=== PATIENT | male | born 1975 | race Caucasian/White ===

== ENCOUNTER 2019-05-20 12:42 | Inpatient (IN) ==
[2019-05-20] MEDS ORDERED: SODIUM CHLORIDE 0.9% 500 ML IV ONE ×2 (13:00→13:13)
[2019-05-20] MEDS ORDERED: ALBUT/IPRATROP 3MG/0.5MG NEB 3 ML VIAL NEB STA (13:13)
--- NOTE | 2019-05-20 13:24 | XRay Report ---
XR chest 1V portable CLINICAL HISTORY: Chest Pain dyspnea COMPARISON STUDY: 04/24/2019 FINDINGS: Mild cardiomegaly. Mild prominence of pulmonary vasculature. Diaphragms are smooth. No foca l infiltrate. IMPRESSION: Mild congestive failure ACT 112: Negative or not required by law. The above report was generated using voice recognition software. It may contain grammatical, syntax or spelling errors. Electronically signed by: Peewee Odell M.D. 05/20/2019 1:23 PM
[2019-05-20 13:30] LABS: Base Excess VBG 3.9 mEq/L; pH VBG 7.48 (7.36-7.41)
[2019-05-20 13:33] LABS: Basophils # (auto) 0.06 K/uL (0-0.2); Basophils % (auto) 0.7 %; Eosinophils # (auto) 0.47 K/uL (0-0.5); Eosinophils % (auto) 5.6 %; Hematocrit (blood only) 46.3 % (42-52); Hemoglobin 15.7 g/dL (14.0-18.0); Immature Granulocytes # (auto) 0.04 K/uL (0.00-0.02); Immature Granulocytes % (auto) 0.5 %; Lymphocytes # (auto) 1.46 K/uL (1.2-3.4); Lymphocytes % (auto) 17.4 %; Mean Corpuscular Hemoglobin 30.7 pg (25-34); Mean Corpuscular Hgb Conc 33.9 g/dL (32-36); Mean Corpuscular Volume 90.6 fL (80-100); Monocytes # (auto) 1.08 K/uL (0.11-0.59); Monocytes % (auto) 12.9 %; Neutrophils # (auto) 5.28 K/uL (1.4-6.5); Neutrophils % (auto) 62.9 %; Nucleated RBC # (auto) 0.02 K/uL (0-0); Nucleated RBC % (auto) 0.2 %; Platelet Count 184 K/uL (130-400); RDW Standard Deviation 46.3 fL (36.4-46.3); Red Blood Count 5.11 M/uL (4.7-6.1); White Blood Count 8.39 K/uL (4.8-10.8)
[2019-05-20 13:46] LABS: Alanine Aminotransferase 48 U/L (12-78); Albumin Level 3.6 gm/dl (3.4-5.0); Aspartate Aminotransferase 46 U/L (15-37); BUN Creatinine Ratio 7.1 (10-20); Blood Urea Nitrogen 7 mg/dl (7-18); Calcium 9.3 mg/dl (8.5-10.1); Carbon Dioxide 28 mmol/L (21-32); Chloride 105 mmol/L (98-107); Est GFR (African American) 102.2; Est GFR (Non-African American) 88.1; Glucose 118 mg/dl (70-99); Lipase 346 U/L (73-393); Potassium 3.4 mmol/L (3.5-5.1); Sodium 140 mmol/L (136-145)
[2019-05-20 14:01] LABS: Albumin Globulin Ratio 0.9 (0.9-2); Alkaline Phosphatase 81 U/L (45-117); Bilirubin,Total 0.9 mg/dl (0.2-1); Magnesium 1.7 mg/dl (1.8-2.4); Phosphorus 1.3 mg/dl (2.5-4.9); Total Protein 7.6 gm/dl (6.4-8.2); Troponin I < 0.015 ng/ml (0-0.045)
[2019-05-20] MEDS ORDERED: POTASSIUM PHOS 3 MMOL/1 ML INFUSION IV STA (14:18)
[2019-05-20] MEDS ORDERED: POT PHOSPHATE MONOBASIC W/ SOD TAB PO STA (14:18)
[2019-05-20] MEDS ORDERED: OPTIRAY 320 125ml IV PRN (14:23)
[2019-05-20] MEDS ORDERED: POTASSIUM CHLORIDE 20 MEQ TABCR PO STA (14:26)
[2019-05-20] MEDS ORDERED: POTASSIUM PHOSPHATE 9 MMOL in SODIUM CHLORIDE 0.9% 250 ML IV ONE (14:30)
[2019-05-20] MEDS: MAGNESIUM SULFATE / D5W 1 GM/100 ML BAG IV SCH ×2 (14:35→16:31)
--- NOTE | 2019-05-20 14:40 | CT Scan Report ---
CT ANGIOGRAM OF THE CHEST CLINICAL HISTORY: Tachycardia. Atypical chest pain. COMPARISON STUDY: March 2019 TECHNIQUE: Following the IV administration of 116 mL of Optiray-320, CT angiogram of the thorax was p erformed from the thoracic inlet to the lung bases utilizing the pulmonary embolus protocol. Images a re reviewed in the axial, sagittal, and coronal planes. IV contrast was administered without complica tion. MIP imaging was performed. A dose lowering technique was utilized adhering to the principles o f ALARA. CT DOSE: 1006.90 mGy.cm FINDINGS: There is hepatic steatosis. There are coronary artery calcifications. There are borderline enlarged mediastinal lymph nodes similar to the prior study. There was no evidence of thoracic aortic dilatation. There were no pulmonary artery filling defects to indicate acute pulmonary embolism. No pleural effusions are visualized. There is no focal pulmonary consolidation. There are mild dependent atelectatic changes. There is min or asthma respiratory artifact. IMPRESSION: 1. No evidence of acute pulmonary embolism 2. No evidence of acute parenchymal consolidation 3. Stable borderline enlarged mediastinal lymph nodes 4. Hepatic steatosis 5. Coronary artery calcifications ACT 112: Negative or not required by law. Electronically signed by: Bryant Rudolph M.D. 05/20/2019 2:39 PM
--- NOTE | 2019-05-20 16:06 | History & Physical Report ---
Date of Service May 20, 2019 Assessment & Plan (1) AMBRIZ (dyspnea on exertion): (2) Tachycardia: This is a 43-year-old male who has significant PMH of KARLO untreated and morbid obesity who presents to ED secondary to progressive dyspnea x1 month. He is morbidly obese and has untreated KARLO due to intolerant of mask. After reviewing previous ED records and current records there are no signs of an infectious process is in place. His BNP, troponin and TSH are within normal limits. Chest CT was negative for PE, borderline enlarged mediastinal lymph nodes, body steatosis and coronary artery calcifications no acute cardiopulmonary abnormality. He does have a prior history of smoking and outpatient PFT testing is being arranged as well as repeat sleep study. Currently he is saturating well on room air but does elicit to significant AMBRIZ and clearly has conversational dyspnea. Likely etiology is secondary to untreated sleep apnea and questionable underlying pulmonary hypertension, CAD or COPD secondary to history of smoking. Admit to PCU and monitor on telemetry Obtain echocardiogram Bilateral venous Doppler secondary to lower extremity edema to rule out DVT Obtain ABG Encourage CPAP use at at bedtime, will consult respiratory Xopenex 4 times daily as needed shortness of breath Patient will need outpatient PFT testing as well as sleep study Weight loss is significantly encouraged as well as alcohol cessation (3) Hypophosphatemia: Patient with numerous electrolyte abnormalities noted on lab work He does report taking injk-lgt-yipwalx diuretic, diurex which may be playing a factor as well as BID nexium Phos Low at 1.3, received potassium phosphate supplementation in ED Repeat in a.m. recommend not using OTC diurex (4) Hypomagnesemia: Mag 1.7, received 1 g mag sulfate x2 Repeat in a.m. (5) Hypokalemia: K3.4, received 40 M EQ of KCl Repeat in a.m. (6) KARLO (obstructive sleep apnea): Encourage sleep study as outpatient Placed order for CPAP and consult respiratory (7) Morbid obesity: Encourage weight loss Consult dietitian (8) Alcohol abuse: Patient reports 2-3 whiskey and moore daily AWSS prn protocol (9) DVT prophylaxis: SCD Disposition: admit to PCU, discharge to home when able Follow up: PCP Dr. Coffman upon discharge to arrange outpt PFT, sleep study Pt was seen and examined in collaboration with Dr. Ezekwem, please see addendum History of Present Illness Chief Complaint: Progressive SOB x 1 month. Primary Care Provider: Lenny Coffman MD This is a 43-year-old male who has significant PMH of KARLO untreated and morbid obesity who presents to ED secondary to progressive dyspnea x1 month. Patient was seen and evaluated in ED on 04/23 secondary to shortness of breath. Mother and friend are at bedside. His symptoms had preceded that visit for approximately 2 to 4 weeks but got significantly worse. When in ED he underwent CT scan of chest which was negative for acute abnormality but did reveal saber sheath configuration of the trachea of unclear significance. He was diagnosed with possible viral bronchitis and treated with IV fluids, IV Solu-Medrol and nebulizer treatments with mild improvement. He was set up with outpatient pulmonary evaluation by Dr. Vaughn on 05/07/2019. At that time his dyspnea etiology still uncertain and he was started on Stiolto and prn albuterol. Inhaler treatments help minimally. He further was prescribed PFT evaluation, ABG and sleep study. His sleep study is to be arranged for next week. He does have a history of KARLO approximately 10 years ago; however, significantly noncompliant with CPAP due to, "ripping the mask off." Last use approximately 1 to 2 months ago. Today he was seen and evaluated by [facility] PCP Dr. Coffman to establish care. EKG was done in office which revealed tsinus tachycardia 113 with T wave flattening in leads III and aVF. Given continued complaints of progressive shortness of breath he was referred to ED for further evaluation. Shortness of breath is worse with exertion and conversation. Even minimal exertion including walking from parking lot to waiting room makes him extremely short of breath. With shortness of breath he gets chest tightness and feels he is unable to take deep breath. He also elicits to associated lightheadedness with shortness of breath. He does complain of lower extremity swelling which is unchanged for him. Left has been greater than right secondary to prior history of cellulitis in left lower extremity. He is significantly overweight and states he has gained approximately 75 pounds for the past year. He admits to taking faae-cxr-gpcznuu diuretics called, "diurex," since his visit with Dr. Vaughn on 05/07/2019 due to swelling. He has not noticed any improvement. His appetite has otherwise been normal, he denies any recent illness, fever, chills, sweats, syncope, dizziness, palpitations, cough, hemoptysis, URI symptoms, nausea, vomiting, abdominal pain, diarrhea, melena, medic easier, dysuria, increased urgency frequency with urination. In ED patient was noted to have significant electrolyte abnormality with potassium 3.4, phos 1.3, mag 1.7. His troponin was WNL, BNP 28, TSH 1.66, normal albumin, BUN 7, creatinine 1.04, H&H stable at 15.7 and 46.3. He was afebrile but modestly tachycardic in the 120s. His blood pressure was stable and he was saturating well on room air. While in ED he received IVF, potassium, magnesium and phosphorus replacement. Initial chest x-ray concerning for congestive heart failure. CTA performed which is negative for PE, borderline enlarged mediastinal lymph nodes, hepatic steatosis and coronary artery calcification but no acute abnormality. Allergies Allergy/AdvReac Type Severity Reaction Status Date / Time No Known Allergies Allergy Unknown Verified 05/20/19 14:49 Home Medications Home Medications Medication Instructions Recorded Confirmed Type esomeprazole magnesium 20 mg 20 mg PO BID #180 cap 02/24/19 05/20/19 Rx capsule,delayed release albuterol sulfate 90 mcg/actuation 2 puff INH Q4H PRN 05/07/19 05/20/19 History aerosol inhaler buspirone 10 mg tablet 10 mg PO DAILY PRN tab 05/07/19 05/20/19 History albuterol sulfate 2.5 mg INH QID PRN #75 ml 05/11/19 05/20/19 Rx magnesium salicylate-caffeine 1 tab PO DAILY 05/20/19 05/20/19 History [Diurex] multivitamin 1 tab PO DAILY 05/20/19 05/20/19 History Past Med/Surg History Medical History (Updated 05/20/19 @ 16:58 by Hillary Alcaraz PA-C) Adult body mass index 40 and over Cellulitis KARLO (obstructive sleep apnea) Sleep apnea Surgical History (Updated 05/20/19 @ 16:22 by Hillary Alcaraz PA-C) History of ear, nose, and throat (ENT) surgery to correct KARLO, unsuccessful History of nasal septoplasty History of tonsillectomy and adenoidectomy Family History Father Hypertension Mother Heart disease, Onset Age: 60 Myocardial infarction Social History Preferred Language: Danish Communication Ability: Effective 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 Frausto addendum for findings on PE. Results & Data Vital Signs (Past 12 Hours) Vital Signs Temp Pulse Pulse Resp BP Pulse Ox 05/20/19 14:32 119 H 18 95 05/20/19 14:01 114 H 21 93 05/20/19 14:00 118 H 32 H 130/97 92 05/20/19 13:32 112 H 18 92 05/20/19 13:31 115 H 19 94 05/20/19 13:30 110 H 26 H 155/94 H 93 05/20/19 13:22 115 H 28 H 139/109 H 95 05/20/19 13:02 95 05/20/19 13:00 117 H 26 H 05/20/19 12:57 94 05/20/19 12:51 36.5 C 129 H 30 H 180/132 H 96 05/20/19 12:50 121 H 17 180/132 H Laboratory Results Short CBC 05/20/19 Range/Units 13:11 WBC 8.39 (4.8-10.8) K/uL Hgb 15.7 (14.0-18.0) g/dL Hct 46.3 (42-52) % Plt Count 184 (130-400) K/uL BMP 05/20/19 13:11 Sodium 140 Potassium 3.4 L Chloride 105 Carbon Dioxide 28 BUN 7 Creatinine 1.04 Glucose 118 H Calcium 9.3 Cardiac Enzymes 05/20/19 Range/Units 13:11 Troponin I < 0.015 (0-0.045) ng/ml Liver Function 05/20/19 Range/Units 13:11 Total Bilirubin 0.9 (0.2-1) mg/dl AST 46 H (15-37) U/L ALT 48 (12-78) U/L Alkaline Phosphatase 81 (45-117) U/L Albumin 3.6 (3.4-5.0) gm/dl Diagnostic Findings CXR: IMPRESSION: Mild congestive failure Chest CTA: IMPRESSION: 1. No evidence of acute pulmonary embolism 2. No evidence of acute parenchymal consolidation 3. Stable borderline enlarged mediastinal lymph nodes 4. Hepatic steatosis 5. Coronary artery calcifications Medications Administered Potassium Phosphate 9 mmol/ (Sodium Chloride) 253 mls @ 88 mls/hr IV ONE ONE Stop: 05/20/19 17:22 Last Admin: 05/20/19 14:53 Dose: 88 mls/hr Documented by: [id number] Ioversol (Optiray 320 125ml) 116 ml IV ONCE PRN PRN Reason: Interaction Checking Stop: 05/24/19 14:22 Last Admin: 05/20/19 14:24 Dose: 116 ml Documented by: [id number] Discontinued Medications Albuterol (Duoneb) 3 ml NEB NOW STA Stop: 05/20/19 13:14 Last Admin: 05/20/19 13:32 Dose: 3 ml Documented by: [id number] Sodium Chloride (Nss) 500 mls @ 999 mls/hr IV .Q31M ONE Stop: 05/20/19 13:30 Last Admin: 05/20/19 13:17 Dose: Not Given Documented by: [id number] Sodium Chloride (Nss) 500 mls @ 999 mls/hr IV .Q31M ONE Stop: 05/20/19 13:43 Last Infusion: 05/20/19 13:57 Dose: 0 mls/hr Documented by: [id number] Admin: 05/20/19 13:26 Dose: 999 mls/hr Documented by: [id number] Magnesium Sulfate/Dextrose (Magnesium Sulfate / D5w) 1 gm in 100 mls @ 100 mls/hr IV Q1H SADIQ Stop: 05/20/19 16:29 Last Admin: 05/20/19 16:31 Dose: 100 mls/hr Documented by: [id number] Infusion: 01/22/20 15:59 Dose: 0 mls/hr Documented by: [id number] Admin: 05/20/19 14:35 Dose: 100 mls/hr Documented by: [id number] Potassium Chloride (Klor-Con M20) 40 meq PO NOW STA Stop: 05/20/19 14:27 Last Admin: 05/20/19 14:36 Dose: 40 meq Documented by: [id number] Potassium Phosphate (Potassium Phosphate Replace) 9 mmol IV NOW STA Stop: 05/20/19 14:19 Last Admin: 05/20/19 14:46 Dose: Not Given Documented by: [id number] Potassium Phosphate (Phospha 250 Neutral 155-852-130 Mg) 2 tab PO NOW STA Stop: 05/20/19 14:19 Last Admin: 05/20/19 14:36 Dose: 2 tab Documented by: [id number] ECG Rate (beats per minute): 117 Rhythm: sinus tachycardia Findings: + RBBB Code Status & VTE Plan Code Status Full Code VTE Prophylaxis Plan VTE Prophylaxis will be ordered: Yes Supervising Physician Co-Signing Physician Notes 43-year-old man with history of obesity, KARLO, not on CPAP who presented with progressive dyspnea on exertion for over 1 month. Patient seen with Patty ROPER I obtained history and did the physical exam. History significant for progressively worsening dyspnea on exertion associated with chest tightness, usually on walking a few feet. Denied any cough, chest pain, orthopnea, PND. Reports chronic left leg swelling since after cellulitis sometime ago. Denied any fevers, chills, rhinorrhea, congestion, sore throat. Patient has been seen by delicatessen department manager 2 weeks ago and planned for sleep study and PFT but was sent in from PCPs office for worsening dyspnea on exertion and tachycardia Reprots some mild improvement with albuterol occasionally. Former smoker, quit 10 years ago. Smoked about 1/2 ppd then Drinks 2-3 whiskey per day. No history of alcohol withdrawal symptoms Has not been using his CPAP for over 2 months. Reports the mask is usually off when he wakes up so he stopped using it. On physical exam, General: Obese man, thick neck Eyes: PERRL, conjunctivae normal, not pale, anicteric sclerae, EOM intact bilaterally ENMT: External ear and nose normal, oropharynx normal Neck: Normal visual inspection, no tracheal deviation, no swelling noted Respiratory: Normal respiratory effort, no respiratory distress, lungs clear to auscultation, no crackles and no wheezes Cardiovascular: Pulse is RRR. S1 S2 Chest (Breasts): Chest: normal inspection of chest, erythematous papules on anterior chest (patient stated this is chronic) Gastrointestinal (Abdomen): Abdomen is not distended, soft, non-tender to palpation, no guarding, no palpable hepatosplenomegaly, normal bowel sounds Musculoskeletal: No cyanosis or clubbing, all extremities motor strength 5/5, trace leg edema (Left >Right), no calf tenderness Genitourinary: No CVA tenderness Skin: No rash noted on gross inspection, No ulcers noted Neurologic: Alert and oriented x 3, No focal weakness, sensation grossly intact Psychiatric: Alert and oriented x 3, euthymic affect, no depressed affect Lymphatic: No cervical lymphadenopathy CT PE negative for PE BNP 28 LE dopplers negative for DVT Trop <0.015 K is 3.4 Phosp 1.3 Mag 1.7 Dyspnea on exertion, progressive, over weeks Maybe related to possible pulm hypertension in the setting of poorly controlled KARLO Get 2D Echo Counselled patient on need for adherence to CPAP, weight loss measures Needs outpatient sleep study and PFT Consider pulm consult depending on findings of Echo Will need assessment for ambulatory oxygen prior to discharge Continue albuterol nebs prn shortness of breath CPAP HS Hypokalemia, hypomagnesiemia, Hypophosphatemia Likely related to over the counter diuretics (Diurex) that patient reports he has been taking for the past few weeks Advised to discontinue this for now Replete electrolytes DVT ppx - hep sq Other plans as detailed by Hillary Alcaraz PA-C
[2019-05-20 16:36] LABS: HCO3 ABG 26 mmol/L (19-24); Oxygen Saturation ABG 95.2 % (90-95); PCO2 ABG 34 mmHg (35-46); PO2 ABG 69 mmHg (80-95); pH ABG 7.49 (7.35-7.45)
[2019-05-20 16:40] LABS: Allen Test Pos (Pos)
--- NOTE | 2019-05-20 17:24 | Ultrasound Report ---
US venous doppler LE CLINICAL HISTORY: 43 years-old Male presenting with edema. TECHNIQUE: Real-time grayscale and color and spectral Doppler ultrasound imaging of the veins of the bilateral lower extremities was performed. Compression and augmentation were also utilized. COMPARISON: 03/11/2018. FINDINGS: RIGHT: Common femoral vein: Patent. Greater saphenous vein (superficial): Patent. Deep femoral vein: Patent. Femoral vein: Patent. Popliteal vein: Patent. Calf veins: Patent. LEFT: Common femoral vein: Patent. Greater saphenous vein (superficial): Patent. Deep femoral vein: Patent. Femoral vein: Patent. Popliteal vein: Patent. Calf veins: Patent. Other: None. IMPRESSION: No evidence of deep venous thrombosis. ACT 112: Negative or not required by law. Electronically signed by: Lenny Judge M.D. 05/20/2019 5:23 PM
[2019-05-20] MEDS ORDERED: LORazepam 1 MG TAB PO PRN (17:39)
[2019-05-20] MEDS ORDERED: ACETAMINOPHEN 325 MG TAB PO PRN (17:39)
[2019-05-20] MEDS ORDERED: ONDANSETRON INJ 2 MG/ML 2 ML VIAL IV PRN (17:39)
[2019-05-20] MEDS ORDERED: ALUMINUM/MAGNESIUM SUSP 30 ML UDC PO PRN (17:39)
[2019-05-20] MEDS ORDERED: MAGNESIUM HYDROXIDE SUSP 30 ML UDC PO PRN (17:39)
[2019-05-20] MEDS ORDERED: POLYETHYLENE (MIRALAX) 17 GM PACK PO PRN (17:39)
[2019-05-20] MEDS ORDERED: LEVALBUTEROL HCL 0.63 MG/3 ML NEB NEB PRN (17:39)
[2019-05-20] MEDS: PANTOprazole 40 MG TAB PO SCH (21:40)
[2019-05-20] MEDS: HEPARIN SOD 5,000 UNIT/0.5 ML VIAL SQ SCH (21:41)
--- NOTE | 2019-05-20 22:51 | Emergency Department Note ---
Entered by Ani Mcadams acting as a scribe for Valeriano Smith MD History of Present Illness General Chief complaint: Tachycardia Stated complaint: ELEVATED HEART RATE,SOB Time Seen by Provider: 05/20/19 12:59 Source: patient History of Present Illness Provider complaint: shortness of breath Onset (ago): month(s) 2 Location: chest Pain Consistency: + other (worsening) Relieved By: + none Exacerbated By: + movement Associated symptoms: + chest pain The patient is a 43 year old male who presents to the Emergency Room with complaints of worsening shortness of breath for the past 2 months. The patient reports that he was here for shortness of breath in March and notes that his symptoms has not resolved. He states that he has chest tightness, but denies any pain. He reports that movement worsens his shortness of breath. The patient states that he saw his PCP this morning and referred him to the ED because of increased heart rate. He mentions that he has a history of sleep apnea. He mentions that he quit using tobacco 10 years ago. He reports that he gained 100 lbs this past year. Home Medications Home Medications Medication Instructions Recorded Confirmed Type esomeprazole magnesium 20 mg 20 mg PO BID #180 cap 02/24/19 05/20/19 Rx capsule,delayed release albuterol sulfate 90 mcg/actuation 2 puff INH Q4H PRN 05/07/19 05/20/19 History aerosol inhaler buspirone 10 mg tablet 10 mg PO DAILY PRN tab 05/07/19 05/20/19 History albuterol sulfate 2.5 mg INH QID PRN #75 ml 05/11/19 05/20/19 Rx magnesium salicylate-caffeine 1 tab PO DAILY 05/20/19 05/20/19 History [Diurex] multivitamin 1 tab PO DAILY 05/20/19 05/20/19 History Allergies Allergy/AdvReac Type Severity Reaction Status Date / Time No Known Allergies Allergy Unknown Verified 05/20/19 14:49 Past Med/Surg History Medical History Adult body mass index 40 and over Cellulitis KARLO (obstructive sleep apnea) Sleep apnea Surgical History History of ear, nose, and throat (ENT) surgery to correct KARLO, unsuccessful History of nasal septoplasty History of tonsillectomy and adenoidectomy Family History Father Hypertension Mother Heart disease, Onset Age: 60 Myocardial infarction Social History Preferred Language: Norwegian Communication Ability: Effective 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 and A total of 10 systems reviewed and were otherwise negative Physical Exam Vital Signs Vital Signs - 24 hr 05/20/19 12:50 05/20/19 12:51 05/20/19 12:57 Temperature 36.5 C Temperature Source Oral Pulse Rate 121 H 129 H Pulse Rate [Right Finger] Pulse Rate from SpO2 Sensor Respiratory Rate 17 30 H Respiratory Effort / Characteristics Spontaneous Blood Pressure 180/132 H 180/132 H Blood Pressure Mean 156 148 Pulse Oximetry 96 94 Oxygen Delivery Method Room Air Room Air Sepsis Recent Fever Within 48 Hours No Sepsis New/Unexplained Change in Mental Status No Sepsis Action Taken by Nursing No Action Required 05/20/19 13:00 05/20/19 13:02 05/20/19 13:22 Temperature Temperature Source Pulse Rate 117 H 115 H Pulse Rate [Right Finger] Pulse Rate from SpO2 Sensor 115 H Respiratory Rate 26 H 28 H Respiratory Effort / Characteristics Blood Pressure 139/109 H Blood Pressure Mean 125 Pulse Oximetry 95 95 Oxygen Delivery Method Room Air Room Air Sepsis Recent Fever Within 48 Hours Sepsis New/Unexplained Change in Mental Status Sepsis Action Taken by Nursing 05/20/19 13:30 05/20/19 13:31 05/20/19 13:32 Temperature Temperature Source Pulse Rate 110 H 115 H Pulse Rate [Right Finger] 112 H Pulse Rate from SpO2 Sensor 113 H 113 H Respiratory Rate 26 H 19 18 Respiratory Effort / Characteristics Non-Labored Blood Pressure 155/94 H Blood Pressure Mean 100 Pulse Oximetry 93 94 92 Oxygen Delivery Method Room Air Room Air Room Air Sepsis Recent Fever Within 48 Hours Sepsis New/Unexplained Change in Mental Status Sepsis Action Taken by Nursing 05/20/19 14:00 05/20/19 14:01 05/20/19 14:32 Temperature Temperature Source Pulse Rate 118 H 114 H 119 H Pulse Rate [Right Finger] Pulse Rate from SpO2 Sensor 118 H 114 H 120 H Respiratory Rate 32 H 21 18 Respiratory Effort / Characteristics Blood Pressure 130/97 Blood Pressure Mean 107 Pulse Oximetry 92 93 95 Oxygen Delivery Method Room Air Room Air Room Air Sepsis Recent Fever Within 48 Hours Sepsis New/Unexplained Change in Mental Status Sepsis Action Taken by Nursing GENERAL: Awake, alert, mildly dyspneic-appearing, in no distress, BMI 40.1 kg/m2 HENT: Normocephalic, atraumatic. Oropharynx unremarkable. EYES: Normal conjunctiva. Sclera non-icteric. NECK: Supple. No nuchal rigidity. FROM. No JVD. RESPIRATORY: CTAB CARDIAC: Tachycardic rate, normal rhythm. Extremities warm and well perfused. Pulses equal. ABDOMEN: Soft, non-distended. No tenderness to palpation. No rebound or guarding. No masses. RECTAL: Deferred. MUSCULOSKELETAL: Chest examination reveals no tenderness. The back is symmetrical on inspection without obvious abnormality. There is no CVA tenderness to palpation. No joint edema. LOWER EXTREMITIES: Mild left lower extremity edema, no erythema or warmth. No discoloration. No calf ttp. NEURO: Normal sensorium. No sensory or motor deficits noted. SKIN: No rash or jaundice noted. Course Course 1305: The patient was evaluated in room A2, and a complete history and physical examination were performed. Per the ED records reviewed, the patient saw a internet security specialist on May 07 and they were considering differentials such as CVD, pulmonary disease, obstructed disease, deconditioning, and obesity. They reported that it was likely untreated sleep apnea. They scheduled him for a ABG, echo, and PFTs. They requested an updated sleep study and planned to see him in 3-4 weeks with the results of the test. 1426: I reviewed the patient's case with Hillary Mayer. Dr. Jonathan Mayer Hospitalist will evaluate the patient for further management. Administered Medications Heparin Sodium (Porcine) (Heparin Sodium (Porcine)) 5,000 units SQ Q8 SADIQ Stop: 06/19/19 21:59 Last Admin: 05/20/19 21:41 Dose: 5,000 units Documented by: [id number] Cosigned by: [id number] Pantoprazole Sodium (Protonix) 40 mg PO BID SADIQ Stop: 06/19/19 20:59 Last Admin: 05/20/19 21:40 Dose: 40 mg Documented by: [id number] Discontinued Medications Albuterol (Duoneb) 3 ml NEB NOW STA Stop: 05/20/19 13:14 Last Admin: 05/20/19 13:32 Dose: 3 ml Documented by: [id number] Sodium Chloride (Nss) 500 mls @ 999 mls/hr IV .Q31M ONE Stop: 05/20/19 13:30 Last Admin: 05/20/19 13:17 Dose: Not Given Documented by: [id number] Sodium Chloride (Nss) 500 mls @ 999 mls/hr IV .Q31M ONE Stop: 05/20/19 13:43 Last Infusion: 05/20/19 13:57 Dose: 0 mls/hr Documented by: [id number] Admin: 05/20/19 13:26 Dose: 999 mls/hr Documented by: [id number] Magnesium Sulfate/Dextrose (Magnesium Sulfate / D5w) 1 gm in 100 mls @ 100 mls/hr IV Q1H SADIQ Stop: 05/20/19 16:29 Last Infusion: 05/20/19 17:52 Dose: 0 mls/hr Documented by: [id number] Admin: 05/20/19 16:31 Dose: 100 mls/hr Documented by: [id number] Infusion: 05/20/19 15:59 Dose: 0 mls/hr Documented by: [id number] Admin: 05/20/19 14:35 Dose: 100 mls/hr Documented by: [id number] Potassium Phosphate 9 mmol/ (Sodium Chloride) 253 mls @ 88 mls/hr IV ONE ONE Stop: 05/20/19 17:22 Last Infusion: 05/20/19 17:52 Dose: 0 mls/hr Documented by: [id number] Admin: 05/20/19 14:53 Dose: 88 mls/hr Documented by: [id number] Ioversol (Optiray 320 125ml) 116 ml IV ONCE PRN PRN Reason: Interaction Checking Stop: 05/24/19 14:22 Last Admin: 05/20/19 14:24 Dose: 116 ml Documented by: [id number] Potassium Chloride (Klor-Con M20) 40 meq PO NOW STA Stop: 05/20/19 14:27 Last Admin: 05/20/19 14:36 Dose: 40 meq Documented by: [id number] Potassium Phosphate (Potassium Phosphate Replace) 9 mmol IV NOW STA Stop: 05/20/19 14:19 Last Admin: 05/20/19 14:46 Dose: Not Given Documented by: [id number] Potassium Phosphate (Phospha 250 Neutral 155-852-130 Mg) 2 tab PO NOW STA Stop: 05/20/19 14:19 Last Admin: 05/20/19 14:36 Dose: 2 tab Documented by: [id number] Medical Decision Making Differential Diagnosis Differential diagnosis: Etiologies such as infections, reactive airway disease, pneumonia, pneumothorax, COPD, CHF, cardiac ischemia, pulmonary embolism, musculoskeletal, gastrointestinal, as well as others were entertained. Medical Records Attestation: I reviewed the patient's medical records. Home Medications Current Medication List: was personally reviewed by me Laboratory Data Attestation: I reviewed the patient's lab results. Result diagrams: 05/20/19 13:11 05/20/19 13:11 Lab Results 05/20/19 05/20/19 05/20/19 Range/Units 13:11 13:11 13:11 WBC 8.39 (4.8-10.8) K/uL RBC 5.11 (4.7-6.1) M/uL Hgb 15.7 (14.0-18.0) g/dL Hct 46.3 (42-52) % MCV 90.6 (80-100) fL MCH 30.7 (25-34) pg MCHC 33.9 (32-36) g/dL RDW Std Deviation 46.3 (36.4-46.3) fL RDW Coeff of Paty 14.0 (11.5-14.5) % Plt Count 184 (130-400) K/uL MPV 10.0 (7.4-10.4) fL Immature Gran % (Auto) 0.5 % Neut % (Auto) 62.9 % Lymph % (Auto) 17.4 % [place]cho % (Auto) 12.9 % Eos % (Auto) 5.6 % Baso % (Auto) 0.7 % Immature Gran # (Auto) 0.04 H (0.00-0.02) K/uL Neut # (Auto) 5.28 (1.4-6.5) K/uL Lymph # (Auto) 1.46 (1.2-3.4) K/uL [place] # (Auto) 1.08 H (0.11-0.59) K/uL Eos # (Auto) 0.47 (0-0.5) K/uL Baso # (Auto) 0.06 (0-0.2) K/uL Absolute Nucleated RBC 0.02 H (0-0) K/uL Nucleated RBC % (auto) 0.2 % VBG pH (7.36-7.41) VBG pCO2 (38-50) mmHg VBG pO2 mmHg VBG HCO3 mmol/L VBG O2 Saturation % VBG Base Excess mEq/L Barometric Pressure mm/Hg Sodium 140 (136-145) mmol/L Potassium 3.4 L (3.5-5.1) mmol/L Chloride 105 (98-107) mmol/L Carbon Dioxide 28 (21-32) mmol/L Anion Gap 7.0 (3-11) BUN 7 (7-18) mg/dl Creatinine 1.04 (0.6-1.4) mg/dl Est Cr Clr Drug Dosing 135.0 ml/min Est GFR ( Amer) 102.2 Est GFR (Non-Af Amer) 88.1 BUN/Creatinine Ratio 7.1 L (10-20) Glucose 118 H (70-99) mg/dl Calcium 9.3 (8.5-10.1) mg/dl Phosphorus 1.3 L* (2.5-4.9) mg/dl Magnesium 1.7 L (1.8-2.4) mg/dl Total Bilirubin 0.9 (0.2-1) mg/dl AST 46 H (15-37) U/L ALT 48 (12-78) U/L Alkaline Phosphatase 81 (45-117) U/L Troponin I < 0.015 (0-0.045) ng/ml NT-Pro-B Natriuret Pep 28 (0-450) pg/ml Total Protein 7.6 (6.4-8.2) gm/dl Albumin 3.6 (3.4-5.0) gm/dl Globulin 4.0 (2.5-4.0) gm/dl Albumin/Globulin Ratio 0.9 (0.9-2) Lipase 346 (73-393) U/L TSH 1.660 (0.300-4.500) uIu/ml 05/20/19 Range/Units 13:19 WBC (4.8-10.8) K/uL RBC (4.7-6.1) M/uL Hgb (14.0-18.0) g/dL Hct (42-52) % MCV (80-100) fL MCH (25-34) pg MCHC (32-36) g/dL RDW Std Deviation (36.4-46.3) fL RDW Coeff of Paty (11.5-14.5) % Plt Count (130-400) K/uL MPV (7.4-10.4) fL Immature Gran % (Auto) % Neut % (Auto) % Lymph % (Auto) % [place]cho % (Auto) % Eos % (Auto) % Baso % (Auto) % Immature Gran # (Auto) (0.00-0.02) K/uL Neut # (Auto) (1.4-6.5) K/uL Lymph # (Auto) (1.2-3.4) K/uL [place] # (Auto) (0.11-0.59) K/uL Eos # (Auto) (0-0.5) K/uL Baso # (Auto) (0-0.2) K/uL Absolute Nucleated RBC (0-0) K/uL Nucleated RBC % (auto) % VBG pH 7.48 H (7.36-7.41) VBG pCO2 38 (38-50) mmHg VBG pO2 51 mmHg VBG HCO3 27 mmol/L VBG O2 Saturation 88.0 % VBG Base Excess 3.9 mEq/L Barometric Pressure 739.1 mm/Hg Sodium (136-145) mmol/L Potassium (3.5-5.1) mmol/L Chloride (98-107) mmol/L Carbon Dioxide (21-32) mmol/L Anion Gap (3-11) BUN (7-18) mg/dl Creatinine (0.6-1.4) mg/dl Est Cr Clr Drug Dosing ml/min Est GFR ( Amer) Est GFR (Non-Af Amer) BUN/Creatinine Ratio (10-20) Glucose (70-99) mg/dl Calcium (8.5-10.1) mg/dl Phosphorus (2.5-4.9) mg/dl Magnesium (1.8-2.4) mg/dl Total Bilirubin (0.2-1) mg/dl AST (15-37) U/L ALT (12-78) U/L Alkaline Phosphatase (45-117) U/L Troponin I (0-0.045) ng/ml NT-Pro-B Natriuret Pep (0-450) pg/ml Total Protein (6.4-8.2) gm/dl Albumin (3.4-5.0) gm/dl Globulin (2.5-4.0) gm/dl Albumin/Globulin Ratio (0.9-2) Lipase (73-393) U/L TSH (0.300-4.500) uIu/ml Imaging Data Radiologist's Impression: Radiology results as stated below per my review and the radiologist's interpretation: XR chest 1V portable CLINICAL HISTORY: Chest Pain dyspnea COMPARISON STUDY: 04/24/2019 FINDINGS: Mild cardiomegaly. Mild prominence of pulmonary vasculature. Diaphragms are smooth. No focal infiltrate. IMPRESSION: Mild congestive failure ACT 112: Negative or not required by law. The above report was generated using voice recognition software. It may contain grammatical, syntax or spelling errors. Electronically signed by: Peewee Odell M.D. 05/20/2019 1:[address] ANGIOGRAM OF THE CHEST CLINICAL HISTORY: Tachycardia. Atypical chest pain. COMPARISON STUDY: March 2019 TECHNIQUE: Following the IV administration of 116 mL of Optiray-320, CT angiogram of the thorax was performed from the thoracic inlet to the lung bases utilizing the pulmonary embolus protocol. Images are reviewed in the axial, sagittal, and coronal planes. IV contrast was administered without complication. MIP imaging was performed. A dose lowering technique was utilized adhering to the principles of ALARA. CT DOSE: 1006.90 mGy.cm FINDINGS: There is hepatic steatosis. There are coronary artery calcifications. There are borderline enlarged mediastinal lymph nodes similar to the prior s tudy. There was no evidence of thoracic aortic dilatation. There were no pulmonary artery filling defects to indicate acute pulmonary embolism. No pleural effusions are visualized. There is no focal pulmonary consolidation. There are mild dependent atelectatic changes. There is minor asthma respiratory artifact. IMPRESSION: 1. No evidence of acute pulmonary embolism 2. No evidence of acute parenchymal consolidation 3. Stable borderline enlarged mediastinal lymph nodes 4. Hepatic steatosis 5. Coronary artery calcifications ACT 112: Negative or not required by law. Electronically signed by: Bryant Rudolph M.D. 05/20/2019 2:39 PM ECG Data Attestation: I personally reviewed and interpreted this ECG as follows: Indication: + SOB/dyspnea Rate (beats per minute): 115 Rhythm: + sinus tachycardia ECG Intervals/blocks: + Right Bundle branch block (incomplete), + Normal QRS (110) and + Normal QT-c (488) ECG ST segments: no ST depression and no ST elevation ECG Findings: no PACs and no PVCs Blood Pressure Blood Pressure Findings: Elevated blood pressure Blood Pressure Disposition: did not require urgent referral MDM Narrative The patient is a pleasant 43-year-old gentleman with pmhx of KARLO noncompliant on home CPAP who presents emergency department for evaluation of worsening shortness of breath over the past several weeks seen at PCPs office today concern for his dyspnea and tachycardia per HPI. On arrival patient is mildly dyspneic but no acute distress, afebrile with stable vital signs. On exam the patient has relatively clear lungs. He is tachypneic though without accessory muscle use. EKG without overt acute ischemia. Chest x-ray with question of venous congestion however no overt pulmonary edema. WBC, H/H and platelets within normal limits. Chemistry without acidosis. VBG unremarkable with pH of 7.4 and PCO2 of 38. Phosphorus 1.3 likely related with to a component of intracellular shifting given the patient's hyperventilation. Magnesium 1.7 with repletion provided. Opponent negative/undetectable. BNP within normal limits. CTA of the chest performed again and today and was negative for PE or pneumonia. Stable borderline enlarged mediastinal lymph nodes are appreciated. The patient's persistent dyspnea on exertion reasonable to admit the patient for further management. Case was discussed with Leyla Herr PA-C, who evaluate the patient for admission. Impression & Plan AMBRIZ (dyspnea on exertion), Tachycardia, Hypophosphatemia, Hypomagnesemia, Hypokalemia Discharge Plan Visit Data *Final* Discharge Date/Time: 05/20/19 16:27 Chief Complaint: Tachycardia Stated Complaint: ELEVATED HEART RATE,SOB ED Provider: Valeriano Smith Discharge Problem: AMBRIZ (dyspnea on exertion), Tachycardia, Hypophosphatemia, Hypomagnesemia, Hypokalemia Patient Disposition: Admitted As Inpatient Discharge Instructions Interventions: ED Discharge Assessment Last Done: 05/20/19 16:27 The scribe's documentation has been prepared under my direction and personally reviewed by me in its entirety. I confirm that the note above accurately reflects all work, treatment, procedures, and medical decision making performed by me.
--- NOTE | 2019-05-20 23:23 | Electrocardiogram Report ---
Test Reason : Blood Pressure : / mmHG Vent. Rate : 117 BPM Atrial Rate : 117 BPM P-R Int : 138 ms QRS Dur : 110 ms QT Int : 350 ms P-R-T Axes : 065 016 047 degrees QTc Int : 488 ms Poor data quality, interpretation may be adversely affected Sinus tachycardia Incomplete right bundle branch block Borderline ECG When compared with ECG of 24-APR-2019 18:40, No significant change was found Confirmed by Yazan Mcmullen ([id number]) on 05/20/2019 11:23:28 PM Referred By: Confirmed By:Yazan Mcmullen
[2019-05-21] MEDS: HEPARIN SOD 5,000 UNIT/0.5 ML VIAL SQ SCH ×2 (05:42→13:11)
[2019-05-21 06:26] LABS: Hematocrit (blood only) 44.8 % (42-52); Hemoglobin 14.7 g/dL (14.0-18.0); Mean Corpuscular Hemoglobin 30.2 pg (25-34); Mean Corpuscular Hgb Conc 32.8 g/dL (32-36); Mean Platelet Volume 10.4 fL (7.4-10.4); Platelet Count 169 K/uL (130-400); RDW Coefficient of Variation 14.2 % (11.5-14.5); Red Blood Count 4.87 M/uL (4.7-6.1)
[2019-05-21 07:03] LABS: BUN Creatinine Ratio 9.1 (10-20); Creatinine Clr Calc Pharmacy 131.6 ml/min; Est GFR (African American) 96.5; Est GFR (Non-African American) 83.3; Potassium 3.3 mmol/L (3.5-5.1)
[2019-05-21 07:08] LABS: Phosphorus 2.6 mg/dl (2.5-4.9)
[2019-05-21] MEDS: PANTOprazole 40 MG TAB PO SCH (08:26)
[2019-05-21] MEDS ORDERED: MULTIVITAMIN TAB PO SCH (09:00)
[2019-05-21] MEDS ORDERED: POTASSIUM CHLORIDE 20 MEQ TABCR PO ONE (09:15)
[2019-05-21] MEDS ORDERED: OSELTAMIVIR PHOSPHATE PO SCH (10:30)
--- NOTE | 2019-05-21 14:40 | Hospitalist Progress Note ---
Date of Service May 21, 2019 Assessment & Plan (1) AMBRIZ (dyspnea on exertion): Multifactorial: Has history of sleep apnea and uses CPAP occasionally at night No history of COPD and/or asthma but has a history of [id number] smoking in the past Likely secondary to dehydration due to use of diuretics complicated by obesity Has been feeling a lot better since admission Awaiting echo to rule out any significant cardiac conditions Present on Admission?: Yes (2) Tachycardia: Tachycardia [place] secondary to use of bronchodilators Complicated by shortness of breath and exertion Noted to have sinus tachycardia on EKG Awaiting echocardiogram (3) Hypophosphatemia: Patient with numerous electrolyte abnormalities noted on lab work He does report taking [id number] diuretic, diurex which may be playing a factor as well as BID nexium Phos Low at 1.3, received potassium phosphate supplementation in ED Repeat in a.m. recommend not using OTC diurex (4) Hypomagnesemia: Mag 1.7, received 1 g mag sulfate x2 Repeat in a.m. (5) Hypokalemia: K3.4, received 40 M EQ of KCl Repeat in a.m. (6) KARLO (obstructive sleep apnea): Encourage sleep study as outpatient Placed order for CPAP and consult respiratory Was discharged from [facility] pulmonary service Will need to have an outpatient [facility] pulmonary service on discharge (7) Morbid obesity: Encourage weight loss Consult dietitian (8) Alcohol abuse: Patient reports 2-3 whiskey and moore daily AWSS prn protocol (9) DVT prophylaxis: SCD Disposition: admit to PCU, discharge to home when able Follow up: PCP Dr. Coffman upon discharge to arrange outpt PFT, sleep study Like to go home this afternoon provided the echo is negative Subjective 05/21/2019 Patient was seen and examined in telemetry unit He complains to have shortness of breath with minimal exertion since after [place] He has gained more than 100 pounds for the last 1 year Was evaluated by his primary care physician and was sent in for further evaluation with shortness of breath and tachycardia He has been feeling a lot better since admission Review of Systems Review of Systems: All systems reviewed and are unremarkable except as noted below Respiratory: + dyspnea on exertion Cardiovascular: + dyspnea on exertion and + edema; no chest pain and no orthopnea Physical Exam Physical Exam: Lying in bed with minimal discomfort secondary to shortness of breath Constitutional: well developed, well nourished and + obese Eyes: PERRL, conjunctivae normal, anicteric sclerae ENMT: external ear and nose normal, oropharynx normal Neck: trachea midline, no thyromegaly Respiratory: + respiratory distress (Minimal at rest) and + labored breathing (With exertion) Auscultation: lungs clear to auscultation bilaterally and + diminished lung sounds; no rales and no wheezes Cardiovascular: Rate/Rhythm: regular rate, regular rhythm and + tachycardic Heart Sounds: no murmur Gastrointestinal (Abdomen): Inspection/Auscultation: abdomen normal to inspection and normal bowel sounds Musculoskeletal: No acute arthritis involving any joint Lymphatic: no cervical or axillary lymphadenopathy Results & Data Vital Signs (Past 12 Hours) Vital Signs Temp Pulse Pulse Resp BP BP Pulse Ox 05/21/19 12:17 37.4 C 114 H 20 149/98 H 92 05/21/19 08:23 118 H 20 94 05/21/19 08:00 108 H 05/21/19 07:42 37.1 C 105 H 20 161/88 H 93 05/21/19 03:56 36.6 C 114 H 28 H 125/69 94 Laboratory Results Short CBC 05/21/19 Range/Units 06:04 WBC 7.60 (4.8-10.8) K/uL Hgb 14.7 (14.0-18.0) g/dL Hct 44.8 (42-52) % Plt Count 169 (130-400) K/uL BMP 05/21/19 06:04 Sodium 138 Potassium 3.3 L Chloride 104 Carbon Dioxide 28 BUN 10 Creatinine 1.09 Glucose 138 H Calcium 9.0 Medications Administered Current Inpatient Medications Acetaminophen (Tylenol) 650 mg PO Q4H PRN PRN Reason: Pain or Fever Stop: 06/19/19 17:38 Al Hydrox/Mg Hydrox/Simethicone (Maalox) 15 ml PO Q4H PRN PRN Reason: Dyspepsia Stop: 06/19/19 17:38 Heparin Sodium (Porcine) (Heparin Sodium (Porcine)) 5,000 units SQ Q8 SADIQ Stop: 06/19/19 21:59 Last Admin: 05/21/19 13:11 Dose: 5,000 units Documented by: Levalbuterol HCl (Xopenex 0.63 Mg/3 Ml Neb) 0.63 mg NEB Q6R PRN PRN Reason: wheezing Stop: 06/19/19 17:38 Lorazepam (Ativan) 1 - 3 mg PO UD PRN; Protocol PRN Reason: EtoH Withdrawal AWSS 6-10+ Stop: 06/19/19 17:38 Magnesium Hydroxide (Milk Of Magnesia) 30 ml PO Q12H PRN PRN Reason: Constipation Stop: 06/19/19 17:38 Multivitamins (Multivitamin Tab) 1 tab PO DAILY SADIQ Stop: 06/20/19 08:59 Last Admin: 05/21/19 08:26 Dose: 1 tab Documented by: Ondansetron HCl (Zofran) 4 mg IV Q6H PRN PRN Reason: Nausea Stop: 06/19/19 17:38 Pantoprazole Sodium (Protonix) 40 mg PO BID SADIQ Stop: 06/19/19 20:59 Last Admin: 05/21/19 08:26 Dose: 40 mg Documented by: Polyethylene Glycol (Miralax Powder Packet) 17 gm PO DAILY PRN PRN Reason: Constipation Stop: 06/19/19 17:38
[2019-05-21] MEDS ORDERED: POTASSIUM CHLORIDE 20 MEQ TABCR PO STA (16:55)
--- NOTE | 2019-05-22 08:09 | Discharge Summary ---
Date of Service May 22, 2019 Admission HPI Per Admitting Provider This is a 43-year-old male who has significant PMH of KARLO untreated and morbid obesity who presents to ED secondary to progressive dyspnea x1 month. Patient was seen and evaluated in ED on 04/23 secondary to shortness of breath. Mother and friend are at bedside. His symptoms had preceded that visit for approximately 2 to 4 weeks but got significantly worse. When in ED he underwent CT scan of chest which was negative for acute abnormality but did reveal saber sheath configuration of the trachea of unclear significance. He was diagnosed with possible viral bronchitis and treated with IV fluids, IV Solu-Medrol and nebulizer treatments with mild improvement. He was set up with outpatient pulmonary evaluation by Dr. Vaughn on 05/07/2019. At that time his dyspnea etiology still uncertain and he was started on Stiolto and prn albuterol. Inhaler treatments help minimally. He further was prescribed PFT evaluation, ABG and sleep study. His sleep study is to be arranged for next week. He does have a history of KARLO approximately 10 years ago; however, significantly noncompliant with CPAP due to, "ripping the mask off." Last use approximately 1 to 2 months ago. Today he was seen and evaluated by [facility] PCP Dr. Coffman to establish care. EKG was done in office which revealed tsinus tachycardia 113 with T wave flattening in leads III and aVF. Given continued complaints of progressive shortness of breath he was referred to ED for further evaluation. Shortness of breath is worse with exertion and conversation. Even minimal exertion including walking from parking lot to waiting room makes him extremely short of breath. With shortness of breath he gets chest tightness and feels he is unable to take deep breath. He also elicits to associated lightheadedness with shortness of breath. He does complain of lower extremity swelling which is unchanged for him. Left has been greater than right secondary to prior history of cellulitis in left lower extremity. He is significantly overweight and states he has gained approximately 75 pounds for the past year. He admits to taking [id number] diuretics called, "diurex," since his visit with Dr. Vaughn on 05/07/2019 due to swelling. He has not noticed any improvement. His appetite has otherwise been normal, he denies any recent illness, fever, chills, sweats, syncope, dizziness, palpitations, cough, hemoptysis, URI symptoms, nausea, vomiting, abdominal pain, diarrhea, melena, medic easier, dysuria, increased urgency frequency with urination. In ED patient was noted to have significant electrolyte abnormality with potassium 3.4, phos 1.3, mag 1.7. His troponin was WNL, BNP 28, TSH 1.66, normal albumin, BUN 7, creatinine 1.04, H&H stable at 15.7 and 46.3. He was afebrile but modestly tachycardic in the 120s. His blood pressure was stable and he was saturating well on room air. While in ED he received IVF, potassium, magnesium and phosphorus replacement. Initial chest x-ray concerning for congestive heart failure. CTA performed which is negative for PE, borderline enlarged mediastinal lymph nodes, hepatic steatosis and coronary artery calcification but no acute abnormality. Admission Exam Per Admitting Provider On physical exam, General: Obese man, thick neck Eyes: PERRL, conjunctivae normal, not pale, anicteric sclerae, EOM intact bilaterally ENMT: External ear and nose normal, oropharynx normal Neck: Normal visual inspection, no tracheal deviation, no swelling noted Respiratory: Normal respiratory effort, no respiratory distress, lungs clear to auscultation, no crackles and no wheezes Cardiovascular: Pulse is RRR. S1 S2 Chest (Breasts): Chest: normal inspection of chest, erythematous papules on anterior chest (patient stated this is chronic) Gastrointestinal (Abdomen): Abdomen is not distended, soft, non-tender to palpation, no guarding, no palpable hepatosplenomegaly, normal bowel sounds Musculoskeletal: No cyanosis or clubbing, all extremities motor strength 5/5, trace leg edema (Left >Right), no calf tenderness Genitourinary: No CVA tenderness Skin: No rash noted on gross inspection, No ulcers noted Neurologic: Alert and oriented x 3, No focal weakness, sensation grossly intact Psychiatric: Alert and oriented x 3, euthymic affect, no depressed affect Lymphatic: No cervical lymphadenopathy Principal Diagnosis Dyspnea on exertion-no significant cardiopulmonary causes found, sleep apnea on CPAP-will need outpatient polysomnography, electrolyte imbalance likely secondary to use of OTC diurex Discharge Data Allergies Allergy/AdvReac Type Severity Reaction Status Date / Time No Known Allergies Allergy Unknown Verified 05/20/19 14:49 Consultations 05/20/19 14:20 ED Decision to Admit Stat Ordered Studies 05/20/19 14:15 CT angio chest PE protocol Stat 05/20/19 15:54 US venous doppler LE BI Routine Hospital Course (1) AMBRIZ (dyspnea on exertion): Multifactorial: Has history of sleep apnea and uses CPAP occasionally at night No history of COPD and/or asthma but has a history of [id number] smoking in the past Likely secondary to dehydration due to use of diuretics complicated by obesity Has been feeling a lot better since admission Awaiting echo to rule out any significant cardiac conditions (2) Tachycardia: Tachycardia Johanne secondary to use of bronchodilators Complicated by shortness of breath and exertion Noted to have sinus tachycardia on EKG Awaiting echocardiogram (3) Hypophosphatemia: Patient with numerous electrolyte abnormalities noted on lab work He does report taking [id number] diuretic, diurex which may be playing a factor as well as BID nexium Phos Low at 1.3, received potassium phosphate supplementation in ED Repeat in a.m. recommend not using OTC diurex (4) Hypomagnesemia: Mag 1.7, received 1 g mag sulfate x2 Repeat in a.m. (5) Hypokalemia: K3.4, received 40 M EQ of KCl Repeat in a.m. (6) KARLO (obstructive sleep apnea): Encourage sleep study as outpatient Placed order for CPAP and consult respiratory Was discharged from [facility] pulmonary service Will need to have an outpatient [facility] pulmonary service on discharge (7) Morbid obesity: Encourage weight loss Consult dietitian (8) Alcohol abuse: Patient reports 2-3 whiskey and moore daily AWSS prn protocol (9) DVT prophylaxis: SCD Disposition: admit to PCU, discharge to home when able Follow up: PCP Dr. Coffman upon discharge to arrange outpt PFT, sleep study Like to go home this afternoon provided the echo is negative Total Time Total Time Spent Total Time Spent (In Minutes): 35 minutes Total Time Includes: Examination of the Patient, Discharge Planning, Medication Reconciliation and Communication With Other Providers Discharge Plan Discharge Items Patient Disposition: Home - Self-Care Reason For Visit: PROGRESSIVE DYSPNEA Discharge Diagnosis: Dyspnea on exertion-no significant cardiopulmonary causes found, sleep apnea on CPAP-will need outpatient polysomnography, electrolyte imbalance likely secondary to use of OTC diurex Condition on Discharge: Good Activity: Resume your previous activity Non-emergency contact: Primary Care Provider Call non-emergency contact if: you have any medication questions and your symptoms worsen Follow-up/Referrals: Lenny Coffman MD [Primary Care Provider] - (Please keep your appointment with your PCP) Afua Knight CRNP [Outside Practitioners] - 05/25/19 10:15 am (This is the appointment for your respiratory symptoms. Please keep it) Diet: Heart Healthy Addtl Attending Provider Instructions: Do not use [id number] diurex-this is making your electrolytes to go down which is adding to your symptoms Try to drink fruit juice and fruits to improve your electrolytes You do not require any oxygen on discharge as you are doing steps O2 saturation test was normal Please keep follow-up appointment with your [facility] and PCP Please continue to lose weight Pending Studies at Discharge: No Stand-Alone Forms: My [facility] Backchat, Work/School Release (Inpt), Smoking Cessation Medications and DC Order Prescriptions: Continued esomeprazole magnesium [Nexium] 20 mg capsule,delayed release(DR/EC) 20 mg PO BID Qty: 180 RF: 3 albuterol sulfate 2.5 mg /3 mL (0.083 %) solution for nebulization 2.5 mg INH QID PRN (Reason: shortness of breath or wheezing) Qty: 75 RF: 5 buspirone 10 mg tablet 10 mg PO DAILY PRN (Reason: Shortness Of Breath Or Wheezing) RF: 0 albuterol sulfate 90 mcg/actuation HFA aerosol inhaler 2 puff INH Q4H PRN (Reason: Shortness Of Breath Or Wheezing) RF: 0 multivitamin Tablet 1 tab PO DAILY RF: 0 Discontinued Diurex 162.5-50 mg Tablet 1 tab PO DAILY RF: 0 Discharge Orders: Discharge Order (Routine); Ordered 05/21/19 Ordered By: Tim Shahid Admission Data Admit Date/Time: 05/20/19 14:57 Attending Provider: Tim Shahid Admit Provider: Tanya Frausto I. Primary Care Provider: Lenny Coffman Other Providers: Tanya Frausto I. Other Interventions: Discharge Summary Assessment (RN) Last Done: 05/21/19 17:13 DC Date/Time DO NOT enter until pt leaves facility: 05/21/19 17:57 Supervising Physician Co-Signing Physician Notes 43-year-old man with history of obesity, KARLO, not on CPAP who presented with progressive dyspnea on exertion for over 1 month. Patient seen with Patty Alcaraz PA-C I obtained history and did the physical exam. History significant for progressively worsening dyspnea on exertion associated with chest tightness, usually on walking a few feet. Denied any cough, chest pain, orthopnea, PND. Reports chronic left leg swelling since after cellulitis sometime ago. Denied any fevers, chills, rhinorrhea, congestion, sore throat. Patient has been seen by [facility] 2 weeks ago and planned for sleep study and PFT but was sent in from PCPs office for worsening dyspnea on exertion and tachycardia Reprots some mild improvement with albuterol occasionally. Former smoker, quit 10 years ago. Smoked about 1/2 ppd then Drinks 2-3 whiskey per day. No history of alcohol withdrawal symptoms Has not been using his CPAP for over 2 months. Reports the mask is usually off when he wakes up so he stopped using it. On physical exam, General: Obese man, thick neck Eyes: PERRL, conjunctivae normal, not pale, anicteric sclerae, EOM intact bilaterally ENMT: External ear and nose normal, oropharynx normal Neck: Normal visual inspection, no tracheal deviation, no swelling noted Respiratory: Normal respiratory effort, no respiratory distress, lungs clear to auscultation, no crackles and no wheezes Cardiovascular: Pulse is RRR. S1 S2 Chest (Breasts): Chest: normal inspection of chest, erythematous papules on anterior chest (patient stated this is chronic) Gastrointestinal (Abdomen): Abdomen is not distended, soft, non-tender to palpation, no guarding, no palpable hepatosplenomegaly, normal bowel sounds Musculoskeletal: No cyanosis or clubbing, all extremities motor strength 5/5, trace leg edema (Left >Right), no calf tenderness Genitourinary: No CVA tenderness Skin: No rash noted on gross inspection, No ulcers noted Neurologic: Alert and oriented x 3, No focal weakness, sensation grossly intact Psychiatric: Alert and oriented x 3, euthymic affect, no depressed affect Lymphatic: No cervical lymphadenopathy CT PE negative for PE BNP 28 LE dopplers negative for DVT Trop <0.015 K is 3.4 Phosp 1.3 Mag 1.7 Dyspnea on exertion, progressive, over weeks Maybe related to possible pulm hypertension in the setting of poorly controlled KARLO Get 2D Echo Counselled patient on need for adherence to CPAP, weight loss measures Needs outpatient sleep study and PFT Consider pulm consult depending on findings of Echo Will need assessment for ambulatory oxygen prior to discharge Continue albuterol nebs prn shortness of breath CPAP HS Hypokalemia, hypomagnesiemia, Hypophosphatemia Likely related to over the counter diuretics (Diurex) that patient reports he has been taking for the past few weeks Advised to discontinue this for now Replete electrolytes DVT ppx - hep sq Other plans as detailed by Hillary Alcaraz PA-C
== END 2019-05-21 17:57 | disposition home or self-care (01) | DRG 315 ==
LOC: ED 12:42 → SUATTDRO 14:57 → 2S 14:57

== ENCOUNTER 2020-11-01 13:29 | Inpatient (IN) ==
[2020-11-01] MEDS ORDERED: ONDANSETRON INJ 2 MG/ML 2 ML VIAL IV STA (16:35)
[2020-11-01] MEDS ORDERED: SODIUM CHLORIDE 0.9% 1000ML 1,000 ML IV SCH (16:45)
[2020-11-01] MEDS ORDERED: GI COCKTAIL ED USE PO ONE (17:02)
--- NOTE | 2020-11-01 17:13 | Emergency Department Note ---
Impression & Plan DKA (diabetic ketoacidosis), Tachycardia, Hypomagnesemia, Pancreatitis, acute, Vomiting ED Provider Note Nausea andNAME: AYANA JOY AGE: 45 SEX: M : 1975 ARRIVES VIA: Walk-In INFORMANT: Patient, ED PROVIDER(S): William Staley DO CHIEF COMPLAINT: Vomiting HPI: The patient is a 45-year-old male who presented to the emergency department for an evaluation of chest pain burning in his chest vomiting and possible aspiration. The patient has a history of asthma. He is up-to-date with his vaccinations including a Covid vaccination. He describes intermittent episodes of nausea and vomiting. He is also had coughing. He states that he is a burning sensation into his chest. He has not had any hemoptysis. He denies having any lower extremity edema or swelling. His family member is very concerned because the patient has had decreased p.o. intake as well as weight loss. The patient has not been seen by his primary care physician for the symptoms. He denies having any hemoptysis. He denies having any hematemesis. He has no black or bloody bowel movements. He states his symptoms are moderate to severe. He has not been seen by his primary care physician for the symptoms. ROS: See above HPI for pertinent positives & negatives. A total of 10 systems reviewed and were otherwise negative. PAST MEDICAL HISTORY: See Below PAST SURGICAL HISTORY: See Below FAMILY HISTORY: See Below SOCIAL HISTORY: See Below HOME MEDICATIONS: See Below ALLERGIES: See Below VITALS: See Below PHYSICAL EXAMINATION: GENERAL: The patient is awake and alert. The patient is very anxious appearing appears to be uncomfortable. EYES: The conjunctivae are clear. The pupils are round and reactive. EARS, NOSE, MOUTH AND THROAT: The nose is without any evidence of any deformity. Mucous membranes are dry. NECK: The neck is nontender and supple. RESPIRATORY: Normal respiratory effort is noted there is no evidence of wheezing rhonchi or rales CARDIOVASCULAR: Tachycardic rate with regular rhythm was noted. There was no definite murmur. GASTROINTESTINAL: The abdomen was moderately distended and diffusely tender. There is no guarding or rigidity noted. MUSCULOSKELETAL/EXTREMITIES: There is no evidence of gross deformity full range of motion is noted in the hips and shoulders. SKIN: There is no obvious evidence of any rash. There are no petechiae, pallor or cyanosis noted. NEUROLOGIC: Patient is awake alert and oriented x3 strength is symmetric patellar reflexes are 2+ bilaterally MEDICAL DECISION MAKING: The patient is a 45-year-old male who presented to the emergency department for an evaluation of. The patient has no history of diabetes but was found to be in DKA. He was treated with IV fluids and IV antiemetics. He was also placed on IV insulin drip. I discussed the patient's laboratory and radiographic studies with him. I also discussed this case with the on-call [facility]. They have agreed to evaluate the patient in the emergency department for further management and disposition. The patient does have a history of alcohol abuse but he was not recently drinking. The patient was reevaluated multiple times. On subsequent reevaluation he was mildly improved. Triage Nursing notes reviewed. Prior medical records reviewed Vital Signs: reviewed and remarkable for tachycardia. Differential diagnosis: Gastroenteritis, food borne illness, infections, appendicitis, diverticulitis, inflammatory bowel disease, obstruction, GI bleed, biliary pathology, volvulus, as well as other pathologies. ER treatment provided: See below Diagnostics interpreted by me: ECG: EKG was obtained in the emergency department. My interpretation is sinus tachycardia 118 bpm. There was no ectopy. Diffuse ST segment depressions were noted. This was compared to a tracing from May [address]. The ST segment abnormalities were present previously but appear to me increased compared to the earlier tracing. Otherwise no significant changes were noted. Cardiac Monitoring: An order was placed for continuous cardiac monitoring. The monitor shows a rate of 120 bpm with sinus tachycardia rhythm. Laboratory studies: As stated above and show below. Imaging studies: See below Consultation(s): 2129: I discussed this case with Dr. Mckeon who is on-call for the [facility]. They will evaluate the patient in the emergency department. ED COURSE: Procedures: none Critical Care: I have personally spent greater than 65 minutes of critical care time in the direct management of this patient. This includes bedside care, interpretation of diagnostic studies, and testing, discussion with consultants, patient, and family members, and other required patient management activities. This 65 minutes is in excess of all separately billable procedures. 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 Beliefs That Will Affect Care: None marital status: Single Current Living Situation: Parent Other Information That Helps Us Care for You: No Feels Safe at Home: Yes Safety Concerns: Feels Safe At This Time Assistive Devices: Glasses Allergies Allergies Allergy/AdvReac Type Severity Reaction Status Date / Time No Known Allergies Allergy Unknown Verified 11/01/20 16:57 Home Meds Home Medications Medication Instructions Recorded Confirmed albuterol sulfate 90 mcg/actuation 2 puff INH Q4H PRN 05/07/19 11/01/20 aerosol inhaler Breo Ellipta 1 inh INHALATION DAILY 01/05/20 11/01/20 esomeprazole magnesium 20 mg PO BID 01/05/20 11/01/20 furosemide 40 mg PO DAILY PRN 01/05/20 11/01/20 metoprolol tartrate 25 mg PO BID 01/05/20 11/01/20 montelukast 10 mg PO HS 01/05/20 11/01/20 potassium chloride 20 meq PO DAILY PRN 01/05/20 11/01/20 aspirin [Aspirin Low Dose] 81 mg PO DAILY 11/01/20 11/01/20 Results & Data (ED) Vital Signs Vital Signs - 24 hr 11/01/20 18:28 11/01/20 18:29 11/01/20 18:30 Pulse Rate Pulse Rate from SpO2 Sensor 126 H 121 H 120 H Respiratory Rate Blood Pressure 147/109 H 132/103 H Blood Pressure Mean 121 112 Pulse Oximetry 100 99 97 Oxygen Delivery Method 11/01/20 18:31 11/01/20 18:45 11/01/20 19:00 Pulse Rate Pulse Rate from SpO2 Sensor 119 H Respiratory Rate Blood Pressure 145/113 H 155/115 H Blood Pressure Mean 123 128 Pulse Oximetry 99 Oxygen Delivery Method 11/01/20 19:11 11/01/20 19:15 11/01/20 19:45 Pulse Rate 111 H Pulse Rate from SpO2 Sensor 119 H 117 H 114 H Respiratory Rate 23 Blood Pressure 120/96 142/102 H 129/89 Blood Pressure Mean 104 115 102 Pulse Oximetry 98 99 98 Oxygen Delivery Method Room Air Room Air 11/01/20 20:00 11/01/20 20:45 Pulse Rate 107 H 109 H Pulse Rate from SpO2 Sensor 112 H 110 H Respiratory Rate 21 24 Blood Pressure 133/104 H 140/92 Blood Pressure Mean 113 108 Pulse Oximetry 100 99 Oxygen Delivery Method Room Air Room Air Home Medications Current Medication List: was personally reviewed by me Laboratory Data Attestation: I reviewed the patient's lab results. Result diagrams: 11/02/20 06:16 11/02/20 12:02 Lab Results 11/01/20 11/01/20 11/01/20 Range/Units 16:33 18:37 18:37 WBC 15.40 H (4.8-10.8) K/uL RBC 6.27 H (4.7-6.1) M/uL Hgb 19.0 H (14.0-18.0) g/dL Hct 55.6 H (42-52) % MCV 88.7 (80-100) fL MCH 30.3 (25-34) pg MCHC 34.2 (32-36) g/dL RDW Std Deviation 42.8 (36.4-46.3) fL RDW Coeff of Paty 13.2 (11.5-14.5) % Plt Count 278 (130-400) K/uL MPV 11.8 H (7.4-10.4) fL Immature Gran % (Auto) 1.6 % Neut % (Auto) 84.5 % Lymph % (Auto) 6.2 % Butler % (Auto) 7.4 % Eos % (Auto) 0.0 % Baso % (Auto) 0.3 % Neut # (Auto) 13.01 H (1.4-6.5) K/uL Lymph # (Auto) 0.96 L (1.2-3.4) K/uL Butler # (Auto) 1.14 H (0.11-0.59) K/uL Eos # (Auto) 0.00 (0-0.5) K/uL Baso # (Auto) 0.05 (0-0.2) K/uL Immature Gran # (Auto) 0.24 H (0.00-0.02) K/uL PT (9.0-12.0) Seconds INR (0.9-1.1) APTT (21.0-31.0) Seconds PTT Ratio D-Dimer (0-500) ug/L FEU VBG pH (7.36-7.41) VBG pCO2 (38-50) mmHg VBG pO2 mmHg VBG HCO3 mmol/L VBG O2 Saturation % VBG Base Excess mEq/L Barometric Pressure mm/Hg Sodium 126 L (136-145) mmol/L Potassium 4.0 (3.5-5.1) mmol/L Chloride 85 L (98-107) mmol/L Carbon Dioxide 9 L* (21-32) mmol/L Anion Gap 32.0 H (3-11) BUN 27 H (7-18) mg/dl Creatinine 2.19 H (0.6-1.4) mg/dl Est Cr Clr Drug Dosing 52.0 ml/min Est GFR ( Amer) 40.9 ml/min Est GFR (Non-Af Amer) 35.3 ml/min BUN/Creatinine Ratio 12.1 (10-20) Glucose 693 H* (70-99) mg/dl POC Glucose (70-99) mg/dl Estimat Average Glucose > 438 mg/dl Hemoglobin A1c > 16.9 H (4.5-5.6) % Osmolality (280-300) mOsm/kg Lactate (0.4-2.0) mmol/L Calcium 9.4 (8.5-10.1) mg/dl Phosphorus (2.5-4.9) mg/dl Magnesium 3.1 H (1.8-2.4) mg/dl Total Bilirubin 1.0 (0.2-1) mg/dl AST 45 H (15-37) U/L ALT 66 (12-78) U/L Alkaline Phosphatase 209 H (45-117) U/L Troponin I < 0.015 (0-0.045) ng/ml NT-Pro-B Natriuret Pep 42 (0-450) pg/ml Total Protein 9.6 H (6.4-8.2) gm/dl Albumin 4.0 (3.4-5.0) gm/dl Globulin 5.6 H (2.5-4.0) gm/dl Albumin/Globulin Ratio 0.7 L (0.9-2) Lipase 931 H (73-393) U/L Beta-Hydroxybutyric Acd Cancelled Procalcitonin (0-0.5) ng/ml TSH (0.300-4.500) uIu/ml Specimen Hemolysis Ethyl Alcohol mg/dL (0-3) mg/dl COVID-19 Eval Order SARS-CoV-2 (PCR) (Negative) 11/01/20 11/01/20 11/01/20 Range/Units 18:37 18:55 18:55 WBC (4.8-10.8) K/uL RBC (4.7-6.1) M/uL Hgb (14.0-18.0) g/dL Hct (42-52) % MCV (80-100) fL MCH (25-34) pg MCHC (32-36) g/dL RDW Std Deviation (36.4-46.3) fL RDW Coeff of Paty (11.5-14.5) % Plt Count (130-400) K/uL MPV (7.4-10.4) fL Immature Gran % (Auto) % Neut % (Auto) % Lymph % (Auto) % Butler % (Auto) % Eos % (Auto) % Baso % (Auto) % Neut # (Auto) (1.4-6.5) K/uL Lymph # (Auto) (1.2-3.4) K/uL Butler # (Auto) (0.11-0.59) K/uL Eos # (Auto) (0-0.5) K/uL Baso # (Auto) (0-0.2) K/uL Immature Gran # (Auto) (0.00-0.02) K/uL PT 10.4 (9.0-12.0) Seconds INR 1.0 (0.9-1.1) APTT 28.2 (21.0-31.0) Seconds PTT Ratio 1.1 D-Dimer 630 H* (0-500) ug/L FEU VBG pH 7.14 L (7.36-7.41) VBG pCO2 28 L (38-50) mmHg VBG pO2 37 mmHg VBG HCO3 9 mmol/L VBG O2 Saturation 67.5 % VBG Base Excess -18.0 mEq/L Barometric Pressure 732.0 mm/Hg Sodium (136-145) mmol/L Potassium (3.5-5.1) mmol/L Chloride (98-107) mmol/L Carbon Dioxide (21-32) mmol/L Anion Gap (3-11) BUN (7-18) mg/dl Creatinine (0.6-1.4) mg/dl Est Cr Clr Drug Dosing ml/min Est GFR ( Amer) ml/min Est GFR (Non-Af Amer) ml/min BUN/Creatinine Ratio (10-20) Glucose (70-99) mg/dl POC Glucose (70-99) mg/dl Estimat Average Glucose mg/dl Hemoglobin A1c (4.5-5.6) % Osmolality (280-300) mOsm/kg Lactate (0.4-2.0) mmol/L Calcium (8.5-10.1) mg/dl Phosphorus (2.5-4.9) mg/dl Magnesium (1.8-2.4) mg/dl Total Bilirubin (0.2-1) mg/dl AST (15-37) U/L ALT (12-78) U/L Alkaline Phosphatase (45-117) U/L Troponin I (0-0.045) ng/ml NT-Pro-B Natriuret Pep (0-450) pg/ml Total Protein (6.4-8.2) gm/dl Albumin (3.4-5.0) gm/dl Globulin (2.5-4.0) gm/dl Albumin/Globulin Ratio (0.9-2) Lipase (73-393) U/L Beta-Hydroxybutyric Acd Procalcitonin (0-0.5) ng/ml TSH (0.300-4.500) uIu/ml Specimen Hemolysis Ethyl Alcohol mg/dL < 3.0 (0-3) mg/dl COVID-19 Eval Order SARS-CoV-2 (PCR) (Negative) 11/01/20 11/01/20 11/01/20 Range/Units 19:24 19:24 19:40 WBC (4.8-10.8) K/uL RBC (4.7-6.1) M/uL Hgb (14.0-18.0) g/dL Hct (42-52) % MCV (80-100) fL MCH (25-34) pg MCHC (32-36) g/dL RDW Std Deviation (36.4-46.3) fL RDW Coeff of Paty (11.5-14.5) % Plt Count (130-400) K/uL MPV (7.4-10.4) fL Immature Gran % (Auto) % Neut % (Auto) % Lymph % (Auto) % Butler % (Auto) % Eos % (Auto) % Baso % (Auto) % Neut # (Auto) (1.4-6.5) K/uL Lymph # (Auto) (1.2-3.4) K/uL Butler # (Auto) (0.11-0.59) K/uL Eos # (Auto) (0-0.5) K/uL Baso # (Auto) (0-0.2) K/uL Immature Gran # (Auto) (0.00-0.02) K/uL PT (9.0-12.0) Seconds INR (0.9-1.1) APTT (21.0-31.0) Seconds PTT Ratio D-Dimer (0-500) ug/L FEU VBG pH (7.36-7.41) VBG pCO2 (38-50) mmHg VBG pO2 mmHg VBG HCO3 mmol/L VBG O2 Saturation % VBG Base Excess mEq/L Barometric Pressure mm/Hg Sodium (136-145) mmol/L Potassium (3.5-5.1) mmol/L Chloride (98-107) mmol/L Carbon Dioxide (21-32) mmol/L Anion Gap (3-11) BUN (7-18) mg/dl Creatinine (0.6-1.4) mg/dl Est Cr Clr Drug Dosing ml/min Est GFR ( Amer) ml/min Est GFR (Non-Af Amer) ml/min BUN/Creatinine Ratio (10-20) Glucose (70-99) mg/dl POC Glucose > 600 H* (70-99) mg/dl Estimat Average Glucose mg/dl Hemoglobin A1c (4.5-5.6) % Osmolality (280-300) mOsm/kg Lactate (0.4-2.0) mmol/L Calcium (8.5-10.1) mg/dl Phosphorus (2.5-4.9) mg/dl Magnesium (1.8-2.4) mg/dl Total Bilirubin (0.2-1) mg/dl AST (15-37) U/L ALT (12-78) U/L Alkaline Phosphatase (45-117) U/L Troponin I (0-0.045) ng/ml NT-Pro-B Natriuret Pep (0-450) pg/ml Total Protein (6.4-8.2) gm/dl Albumin (3.4-5.0) gm/dl Globulin (2.5-4.0) gm/dl Albumin/Globulin Ratio (0.9-2) Lipase (73-393) U/L Beta-Hydroxybutyric Acd Procalcitonin (0-0.5) ng/ml TSH (0.300-4.500) uIu/ml Specimen Hemolysis Ethyl Alcohol mg/dL (0-3) mg/dl COVID-19 Eval Order Covid19 at [facility] SARS-CoV-2 (PCR) NEGATIVE (Negative) 11/01/20 11/01/20 11/01/20 Range/Units 19:45 20:08 20:08 WBC (4.8-10.8) K/uL RBC (4.7-6.1) M/uL Hgb (14.0-18.0) g/dL Hct (42-52) % MCV (80-100) fL MCH (25-34) pg MCHC (32-36) g/dL RDW Std Deviation (36.4-46.3) fL RDW Coeff of Paty (11.5-14.5) % Plt Count (130-400) K/uL MPV (7.4-10.4) fL Immature Gran % (Auto) % Neut % (Auto) % Lymph % (Auto) % Butler % (Auto) % Eos % (Auto) % Baso % (Auto) % Neut # (Auto) (1.4-6.5) K/uL Lymph # (Auto) (1.2-3.4) K/uL Butler # (Auto) (0.11-0.59) K/uL Eos # (Auto) (0-0.5) K/uL Baso # (Auto) (0-0.2) K/uL Immature Gran # (Auto) (0.00-0.02) K/uL PT (9.0-12.0) Seconds INR (0.9-1.1) APTT (21.0-31.0) Seconds PTT Ratio D-Dimer (0-500) ug/L FEU VBG pH 7.16 L (7.36-7.41) VBG pCO2 (38-50) mmHg VBG pO2 mmHg VBG HCO3 mmol/L VBG O2 Saturation % VBG Base Excess mEq/L Barometric Pressure mm/Hg Sodium 130 L (136-145) mmol/L Potassium 4.4 (3.5-5.1) mmol/L Chloride 92 L (98-107) mmol/L Carbon Dioxide 8 L* (21-32) mmol/L Anion Gap 29.0 H (3-11) BUN 28 H (7-18) mg/dl Creatinine 1.82 H D (0.6-1.4) mg/dl Est Cr Clr Drug Dosing 62.6 ml/min Est GFR ( Amer) 51.2 ml/min Est GFR (Non-Af Amer) 44.2 ml/min BUN/Creatinine Ratio 15.2 (10-20) Glucose 653 H* (70-99) mg/dl POC Glucose > 600 H* (70-99) mg/dl Estimat Average Glucose mg/dl Hemoglobin A1c (4.5-5.6) % Osmolality (280-300) mOsm/kg Lactate (0.4-2.0) mmol/L Calcium 8.4 L (8.5-10.1) mg/dl Phosphorus 5.5 H (2.5-4.9) mg/dl Magnesium (1.8-2.4) mg/dl Total Bilirubin (0.2-1) mg/dl AST (15-37) U/L ALT (12-78) U/L Alkaline Phosphatase (45-117) U/L Troponin I (0-0.045) ng/ml NT-Pro-B Natriuret Pep (0-450) pg/ml Total Protein (6.4-8.2) gm/dl Albumin (3.4-5.0) gm/dl Globulin (2.5-4.0) gm/dl Albumin/Globulin Ratio (0.9-2) Lipase (73-393) U/L Beta-Hydroxybutyric Acd Procalcitonin (0-0.5) ng/ml TSH 1.100 (0.300-4.500) uIu/ml Specimen Hemolysis Ethyl Alcohol mg/dL (0-3) mg/dl COVID-19 Eval Order SARS-CoV-2 (PCR) (Negative) 11/01/20 11/01/20 11/01/20 Range/Units 20:08 20:08 20:08 WBC (4.8-10.8) K/uL RBC (4.7-6.1) M/uL Hgb (14.0-18.0) g/dL Hct (42-52) % MCV (80-100) fL MCH (25-34) pg MCHC (32-36) g/dL RDW Std Deviation (36.4-46.3) fL RDW Coeff of Paty (11.5-14.5) % Plt Count (130-400) K/uL MPV (7.4-10.4) fL Immature Gran % (Auto) % Neut % (Auto) % Lymph % (Auto) % Butler % (Auto) % Eos % (Auto) % Baso % (Auto) % Neut # (Auto) (1.4-6.5) K/uL Lymph # (Auto) (1.2-3.4) K/uL Butler # (Auto) (0.11-0.59) K/uL Eos # (Auto) (0-0.5) K/uL Baso # (Auto) (0-0.2) K/uL Immature Gran # (Auto) (0.00-0.02) K/uL PT (9.0-12.0) Seconds INR (0.9-1.1) APTT (21.0-31.0) Seconds PTT Ratio D-Dimer (0-500) ug/L FEU VBG pH (7.36-7.41) VBG pCO2 (38-50) mmHg VBG pO2 mmHg VBG HCO3 mmol/L VBG O2 Saturation % VBG Base Excess mEq/L Barometric Pressure mm/Hg Sodium (136-145) mmol/L Potassium (3.5-5.1) mmol/L Chloride (98-107) mmol/L Carbon Dioxide (21-32) mmol/L Anion Gap (3-11) BUN (7-18) mg/dl Creatinine (0.6-1.4) mg/dl Est Cr Clr Drug Dosing ml/min Est GFR ( Amer) ml/min Est GFR (Non-Af Amer) ml/min BUN/Creatinine Ratio (10-20) Glucose (70-99) mg/dl POC Glucose (70-99) mg/dl Estimat Average Glucose mg/dl Hemoglobin A1c (4.5-5.6) % Osmolality 354 H* (280-300) mOsm/kg Lactate 2.1 H* (0.4-2.0) mmol/L Calcium (8.5-10.1) mg/dl Phosphorus (2.5-4.9) mg/dl Magnesium (1.8-2.4) mg/dl Total Bilirubin (0.2-1) mg/dl AST (15-37) U/L ALT (12-78) U/L Alkaline Phosphatase (45-117) U/L Troponin I (0-0.045) ng/ml NT-Pro-B Natriuret Pep (0-450) pg/ml Total Protein (6.4-8.2) gm/dl Albumin (3.4-5.0) gm/dl Globulin (2.5-4.0) gm/dl Albumin/Globulin Ratio (0.9-2) Lipase (73-393) U/L Beta-Hydroxybutyric Acd Procalcitonin 0.20 (0-0.5) ng/ml TSH (0.300-4.500) uIu/ml Specimen Hemolysis Ethyl Alcohol mg/dL (0-3) mg/dl COVID-19 Eval Order SARS-CoV-2 (PCR) (Negative) 11/01/20 Range/Units 20:48 WBC (4.8-10.8) K/uL RBC (4.7-6.1) M/uL Hgb (14.0-18.0) g/dL Hct (42-52) % MCV (80-100) fL MCH (25-34) pg MCHC (32-36) g/dL RDW Std Deviation (36.4-46.3) fL RDW Coeff of Paty (11.5-14.5) % Plt Count (130-400) K/uL MPV (7.4-10.4) fL Immature Gran % (Auto) % Neut % (Auto) % Lymph % (Auto) % Butler % (Auto) % Eos % (Auto) % Baso % (Auto) % Neut # (Auto) (1.4-6.5) K/uL Lymph # (Auto) (1.2-3.4) K/uL Butler # (Auto) (0.11-0.59) K/uL Eos # (Auto) (0-0.5) K/uL Baso # (Auto) (0-0.2) K/uL Immature Gran # (Auto) (0.00-0.02) K/uL PT (9.0-12.0) Seconds INR (0.9-1.1) APTT (21.0-31.0) Seconds PTT Ratio D-Dimer (0-500) ug/L FEU VBG pH (7.36-7.41) VBG pCO2 (38-50) mmHg VBG pO2 mmHg VBG HCO3 mmol/L VBG O2 Saturation % VBG Base Excess mEq/L Barometric Pressure mm/Hg Sodium (136-145) mmol/L Potassium (3.5-5.1) mmol/L Chloride (98-107) mmol/L Carbon Dioxide (21-32) mmol/L Anion Gap (3-11) BUN (7-18) mg/dl Creatinine (0.6-1.4) mg/dl Est Cr Clr Drug Dosing ml/min Est GFR ( Amer) ml/min Est GFR (Non-Af Amer) ml/min BUN/Creatinine Ratio (10-20) Glucose (70-99) mg/dl POC Glucose > 600 H* (70-99) mg/dl Estimat Average Glucose mg/dl Hemoglobin A1c (4.5-5.6) % Osmolality (280-300) mOsm/kg Lactate (0.4-2.0) mmol/L Calcium (8.5-10.1) mg/dl Phosphorus (2.5-4.9) mg/dl Magnesium (1.8-2.4) mg/dl Total Bilirubin (0.2-1) mg/dl AST (15-37) U/L ALT (12-78) U/L Alkaline Phosphatase (45-117) U/L Troponin I (0-0.045) ng/ml NT-Pro-B Natriuret Pep (0-450) pg/ml Total Protein (6.4-8.2) gm/dl Albumin (3.4-5.0) gm/dl Globulin (2.5-4.0) gm/dl Albumin/Globulin Ratio (0.9-2) Lipase (73-393) U/L Beta-Hydroxybutyric Acd Procalcitonin (0-0.5) ng/ml TSH (0.300-4.500) uIu/ml Specimen Hemolysis Ethyl Alcohol mg/dL (0-3) mg/dl COVID-19 Eval Order SARS-CoV-2 (PCR) (Negative) Administered Medications Aspirin (Aspirin 81 Mg Ectab) 81 mg PO DAILY [facility]ADIQ Stop: 12/02/20 08:59 Last Admin: 11/02/20 10:09 Dose: Not Given Documented by: [id number] Fluticasone/Vilanterol (Fluticasone/Vilanterol 200/25mcg 14 Puffs/Inhaler) 1 puffs INH DAILY SADIQ Stop: 12/02/20 08:59 Last Admin: 11/02/20 09:31 Dose: 1 puffs Documented by: [id number] Heparin Sodium (Porcine) (Heparin Sod 5,000 Unit/0.5 Ml Vial) 5,000 units SQ Q12 [facility] Stop: 12/02/20 08:59 Last Admin: 11/02/20 09:31 Dose: 5,000 units Documented by: [id number] Insulin Human Regular 250 (units/ Sodium Chloride) 250 mls @ 2.2 mls/hr IV .Q24H SADIQ; Protocol Stop: 12/01/20 19:59 Last Titration: 11/02/20 15:12 Dose: 2.2 units/hr, 2.2 mls/hr Documented by: [id number] Cosigned by: [id number] Titration: 11/02/20 11:38 Dose: 1.8 units/hr, 1.8 mls/hr Documented by: [id number] Cosigned by: [id number] Titration: 11/02/20 10:28 Dose: 1.8 units/hr, 1.8 mls/hr Documented by: [id number] Cosigned by: [id number] Titration: 11/02/20 09:28 Dose: 1.8 units/hr, 1.8 mls/hr Documented by: [id number] Cosigned by: [id number] Titration: 11/02/20 08:29 Dose: 2.3 units/hr, 2.3 mls/hr Documented by: [id number] Cosigned by: [id number] Titration: 11/02/20 07:15 Dose: 2.9 units/hr, 2.9 mls/hr Documented by: [id number] Cosigned by: [id number] Titration: 11/02/20 06:00 Dose: 0 units/hr, 0 mls/hr Documented by: [id number] Cosigned by: [id number] Titration: 11/02/20 00:36 Dose: 4.8 units/hr, 4.8 mls/hr Documented by: [id number] Cosigned by: [id number] Titration: 11/02/20 00:05 Dose: 0 units/hr, 0 mls/hr Documented by: [id number] Cosigned by: [id number] Titration: 11/01/20 22:15 Dose: 8 units/hr, 8 mls/hr Documented by: [id number] Cosigned by: [id number] Admin: 11/01/20 20:55 Dose: 10 units/hr, 10 mls/hr Documented by: [id number] Cosigned by: [id number] Thiamine HCl 100 mg/ Syringe 10 mls @ 2 mls/min IV QAM [facility] Stop: 12/02/20 08:59 Last Admin: 11/02/20 08:20 Dose: 2 mls/min Documented by: [id number] Folic Acid 1 mg/ Syringe 10 mls @ 5 mls/min IV QAM [facility] Stop: 12/02/20 08:59 Last Admin: 11/02/20 08:20 Dose: 5 mls/min Documented by: [id number] Potassium Chloride/Dextrose/Sod Cl (D5w And 1/2nss + 20meq Kcl) 20 meq in 1,000 mls @ 200 mls/hr IV .Q5H [facility] Stop: 12/02/20 08:44 Last Admin: 11/02/20 14:59 Dose: 200 mls/hr Documented by: [id number] Infusion: 11/02/20 14:27 Dose: 200 mls/hr Documented by: [id number] Admin: 11/02/20 09:27 Dose: 200 mls/hr Documented by: [id number] Insulin Aspart (Insulin Aspart 100 Units/Ml 3 Ml Pen) 0 units SC ACHS [facility] Stop: 12/01/20 20:59 Last Admin: 11/02/20 16:21 Dose: Not Given Documented by: [id number] Cosigned by: [id number] Admin: 11/02/20 11:54 Dose: Not Given Documented by: [id number] Cosigned by: [id number] Admin: 11/02/20 08:15 Dose: Not Given Documented by: [id number] Cosigned by: [id number] Admin: 11/01/20 23:26 Dose: Not Given Documented by: [id number] Cosigned by: [id number] Metoprolol Tartrate (Metoprolol Tartrate 25 Mg Tab) 25 mg PO BID [facility] Stop: 12/01/20 22:08 Last Admin: 11/02/20 10:09 Dose: Not Given Documented by: [id number] Admin: 11/02/20 00:18 Dose: Not Given Documented by: [id number] Multivitamins (Multivitamin Tab) 1 tab PO QAM [facility] Stop: 12/02/20 08:59 Last Admin: 11/02/20 10:09 Dose: Not Given Documented by: [id number] Pantoprazole Sodium (Pantoprazole 40 Mg Tab) 40 mg PO BID [facility] Stop: 12/02/20 08:59 Last Admin: 11/02/20 10:09 Dose: Not Given Documented by: [id number] Discontinued Medications Al Hydrox/Mg Hydrox/Simethicone (Gi Cocktail Ed Use) 1 dose PO ONE ONE Stop: 11/01/20 17:03 Last Admin: 11/01/20 17:21 Dose: 1 dose Documented by: [id number] Amoxicillin/Clavulanate Potassium (Amoxicillin/Clavulanate 875 Mg Tab) 1 tab PO BIDM [facility]; Protocol Stop: 11/12/20 07:59 Last Admin: 11/02/20 11:53 Dose: Not Given Documented by: [id number] Heparin Sodium/Dextrose (Heparin Iv Adult Wt-Based Standard *No* Bolus Protocol) 1 ea IV Q15M [facility]; Protocol Stop: 11/01/20 23:27 Last Admin: 11/02/20 09:35 Dose: Not Given Documented by: [id number] Admin: 11/02/20 07:40 Dose: Not Given Documented by: [id number] Admin: 11/02/20 07:40 Dose: Not Given Documented by: [id number] Admin: 11/02/20 07:37 Dose: Not Given Documented by: [id number] Admin: 11/02/20 05:23 Dose: 1 ea Documented by: [id number] Admin: 11/02/20 00:13 Dose: 1 ea Documented by: [id number] Hydromorphone HCl (Hydromorphone Inj 0.5 Mg/0.5 Ml Syr) 0.25 mg IV NOW STA Stop: 11/01/20 21:00 Last Admin: 11/01/20 21:52 Dose: 0.25 mg Documented by: [id number] Sodium Chloride (Nss 1000ml) 1,000 mls @ 999 mls/hr IV .Q1H1M [facility] Stop: 11/01/20 17:45 Last Infusion: 11/01/20 20:16 Dose: 0 mls/hr Documented by: [id number] Admin: 11/01/20 19:08 Dose: 999 mls/hr Documented by: [id number] Sodium Chloride (Nss 1000ml) 2,000 mls @ 999 mls/hr IV .Q2H1M ONE Stop: 11/01/20 21:21 Last Infusion: 11/01/20 21:34 Dose: 0 mls/hr Documented by: [id number] Admin: 11/01/20 19:32 Dose: 999 mls/hr Documented by: [id number] Ampicillin Sodium/Sulbactam Sodium 3,000 mg/ Sodium Chloride 108 mls @ 200 mls/hr IV NOW ONE Stop: 11/01/20 20:32 Last Infusion: 11/01/20 21:29 Dose: 0 mls/hr Documented by: [id number] Admin: 11/01/20 20:49 Dose: 200 mls/hr Documented by: [id number] Pantoprazole Sodium 40 mg/ (Syringe) 10 mls @ 5 mls/min IV 2129 ONE Stop: 11/01/20 21:31 Last Admin: 11/01/20 22:30 Dose: 5 mls/min Documented by: [id number] Thiamine HCl 100 mg/ Syringe 10 mls @ 2 mls/min IV 2130 ONE Stop: 07/06/21 21:34 Last Admin: 11/01/20 22:30 Dose: 2 mls/min Documented by: [id number] Promethazine HCl 12.5 mg/ (Sodium Chloride) 50.5 mls @ 202 mls/hr IV NOW STA Stop: 11/01/20 21:40 Last Infusion: 11/01/20 22:44 Dose: 0 mls/hr Documented by: [id number] Admin: 11/01/20 22:29 Dose: 202 mls/hr Documented by: [id number] Potassium Chloride/Sodium Chloride (Normal Saline W/20 Meq Kcl) 20 meq in 1,000 mls @ 200 mls/hr IV .Q5H [facility]AD[facility] Stop: 12/01/20 21:29 Last Admin: 11/02/20 00:07 Dose: Not Given Documented by: [id number] Lactated Ringer's (Lr) 1,000 mls @ 500 mls/hr IV .Q2H ONE Stop: 11/01/20 23:40 Last Admin: 11/02/20 00:07 Dose: Not Given Documented by: [id number] Heparin Sodium/Dextrose (Heparin Sodium/Dextrose) 25,000 units in 500 mls @ 31 mls/hr IV .Q16H8M SADIQ; Protocol Stop: 12/01/20 21:56 Last Titration: 11/02/20 08:39 Dose: 0 units/hr, 0 mls/hr Documented by: [id number] Cosigned by: [id number] Titration: 11/02/20 07:15 Dose: 0 units/hr, 0 mls/hr Documented by: [id number] Cosigned by: [id number] Titration: 11/02/20 06:59 Dose: 1,550 units/hr, 31 mls/hr Documented by: [id number] Cosigned by: [id number] Admin: 11/02/20 00:12 Dose: 1,550 units/hr, 31 mls/hr Documented by: [id number] Cosigned by: [id number] Potassium Chloride/Sodium Chloride (1/2 Nss + 20meq Kcl 1000ml) 20 meq in 1,000 mls @ 200 mls/hr IV .Q5H SADIQ Stop: 12/01/20 22:59 Last Infusion: 11/02/20 04:26 Dose: 0 mls/hr Documented by: [id number] Admin: 11/01/20 23:26 Dose: 200 mls/hr Documented by: [id number] Potassium Chloride (K Andres / Wtr) 10 meq in 100 mls @ 100 mls/hr IV Q1H [facility] Stop: 11/02/20 03:59 Last Infusion: 11/02/20 04:35 Dose: 0 mls/hr Documented by: [id number] Admin: 11/02/20 03:35 Dose: 100 mls/hr Documented by: [id number] Infusion: 11/02/20 03:32 Dose: 0 mls/hr Documented by: [id number] Admin: 11/02/20 02:32 Dose: 100 mls/hr Documented by: [id number] Potassium Chloride 40 meq/ (Sodium Chloride) 1,020 mls @ 200 mls/hr IV .Q5H6M [facility] Stop: 12/02/20 02:29 Last Infusion: 11/02/20 09:27 Dose: 0 mls/hr Documented by: [id number] Admin: 11/02/20 08:15 Dose: 200 mls/hr Documented by: [id number] Infusion: 11/02/20 07:27 Dose: 200 mls/hr Documented by: [id number] Admin: 11/02/20 02:21 Dose: 200 mls/hr Documented by: [id number] Potassium Phosphate 15 mmol/ (Sodium Chloride) 255 mls @ 88 mls/hr IV ONE ONE Stop: 11/02/20 13:08 Last Infusion: 11/02/20 13:58 Dose: 0 mls/hr Documented by: [id number] Admin: 11/02/20 10:27 Dose: 88 mls/hr Documented by: [id number] Insulin Aspart (Insulin Aspart 100 Units/Ml 3 Ml Pen) 40 units SQ Q4H [facility] Stop: 12/01/20 19:44 Last Admin: 11/01/20 21:00 Dose: Not Given Documented by: [id number] Cosigned by: [id number] Insulin Human Regular (Novolin-R Bolus From Bag) 10 units IV ONE ONE Stop: 11/01/20 20:01 Last Admin: 11/01/20 20:55 Dose: 10 units Documented by: [id number] Cosigned by: [id number] Miscellaneous (Hhs Goal Range 250-350 Mg/Dl) 1 ea N/A ONE ONE Stop: 11/01/20 19:32 Last Admin: 11/01/20 20:51 Dose: 1 ea Documented by: [id number] Miscellaneous (Stat Iv Infusion Titration Per Protocol) 1 ea N/A NOW STA Stop: 11/01/20 19:52 Last Admin: 11/01/20 20:50 Dose: 1 ea Documented by: [id number] Miscellaneous Information (Pharmacy Glycemic Mgmt Consult) 1 ea N/A NOW STA Stop: 11/01/20 19:32 Last Admin: 11/01/20 20:50 Dose: 1 ea Documented by: [id number] Ondansetron HCl (Ondansetron Inj 2 Mg/Ml 2 Ml Vial) 4 mg IV NOW STA Stop: 11/01/20 16:36 Last Admin: 11/01/20 19:08 Dose: 4 mg Documented by: [id number] Ondansetron HCl (Ondansetron Inj 2 Mg/Ml 2 Ml Vial) Confirm Administered Dose 4 mg .ROUTE .[employer] ONE Stop: 11/01/20 19:07 Last Admin: 11/01/20 19:19 Dose: Not Given Documented by: [id number] Imaging Data Radiologist's Impression: Chest X-Ray 11/01/20 16:33 SINGLE VIEW CHEST CLINICAL HISTORY: Dyspnea. FINDINGS: 2 AP, portable, upright chest radiographs are compared to chest x-ray and chest CT dated 05/20/2019. The heart is top normal for projection. Chronic interstitial thickening similar to previous. There is bibasilar scarring/atelectasis. No airspace consolidation or large pleural effusion is identified. No pneumothorax is seen. There are healed right-sided rib fractures. IMPRESSION: No acute cardiopulmonary abnormality. ACT 112: Negative or not required by law. Electronically signed by: Jay Calvo M.D. 11/01/2020 6:30 PM KUB X-Ray 11/01/20 16:35 KUB CLINICAL HISTORY: Vomiting. FINDINGS: 2 AP, portable, supine abdominal radiographs are obtained. No prior studies are available for comparison at the time of dictation. There is a nonobstructed abdominal bowel gas pattern. No evidence of intraperitoneal free air is seen on these supine images. There are no abnormal abdominal calcifications. The bony structures appear intact. There is age advanced degenerative change of the right hip with mild flattening of the femoral head. IMPRESSION: 1. Nonobstructed bowel gas pattern. 2. Age advanced degenerative change of the right hip as above. Electronically signed by: Jay Calvo M.D. 11/01/2020 6:24 PM Discharge Plan Visit Data Chief Complaint: Illness Stated Complaint: BAD THROAT PAIN,CANT EAT,WEAKNESS,VOMITING ED Provider: William Staley Discharge Problem: DKA (diabetic ketoacidosis), Tachycardia, Hypomagnesemia, Pancreatitis, acute, Vomiting Patient Disposition: Admitted As Inpatient Condition: Good Discharge Instructions Interventions: ED Discharge Assessment Last Done: 11/01/20 21:50 Discharge Problem: DKA (diabetic ketoacidosis) Qualifiers: Diabetes mellitus type: other specified (including BRENDA) Diabetes mellitus complication detail: without coma Qualified Code(s): E13.10 - Other specified diabetes mellitus with ketoacidosis without coma Pancreatitis, acute Qualifiers: Pancreatitis type: unspecified pancreatitis type Acute pancreatitis complication: unspecified Qualified Code(s): K85.90 - Acute pancreatitis without necrosis or infection, unspecified Vomiting Qualifiers: Vomiting type: unspecified Vomiting Intractability: non-intractable Nausea presence: with nausea Qualified Code(s): R11.2 - Nausea with vomiting, unspecified
--- NOTE | 2020-11-01 18:25 | XRay Report ---
KUB CLINICAL HISTORY: Vomiting. FINDINGS: 2 AP, portable, supine abdominal radiographs are obtained. No prior studies are available f or comparison at the time of dictation. There is a nonobstructed abdominal bowel gas pattern. No evid ence of intraperitoneal free air is seen on these supine images. There are no abnormal abdominal calc ifications. The bony structures appear intact. There is age advanced degenerative change of the right hip with mild flattening of the femoral head. IMPRESSION: 1. Nonobstructed bowel gas pattern. 2. Age advanced degenerative change of the right hip as above. Electronically signed by: Jay Calvo M.D. 11/01/2020 6:24 PM
--- NOTE | 2020-11-01 18:32 | XRay Report ---
SINGLE VIEW CHEST CLINICAL HISTORY: Dyspnea. FINDINGS: 2 AP, portable, upright chest radiographs are compared to chest x-ray and chest CT dated . The heart is top normal for projection. Chronic interstitial thickening similar to previous. There is bibasilar scarring/atelectasis. No airspace consolidation or large pleural effusion is iden tified. No pneumothorax is seen. There are healed right-sided rib fractures. IMPRESSION: No acute cardiopulmonary abnormality. ACT 112: Negative or not required by law. Electronically signed by: Jay Calvo M.D. 11/01/2020 6:30 PM
[2020-11-01 18:57] LABS: Basophils # (auto) 0.05 K/uL (0-0.2); Basophils % (auto) 0.3 %; Hematocrit (blood only) 55.6 % (42-52); Immature Granulocytes # (auto) 0.24 K/uL (0.00-0.02); Immature Granulocytes % (auto) 1.6 %; Lymphocytes # (auto) 0.96 K/uL (1.2-3.4); Lymphocytes % (auto) 6.2 %; Mean Corpuscular Hemoglobin 30.3 pg (25-34); Mean Corpuscular Volume 88.7 fL (80-100); Mean Platelet Volume 11.8 fL (7.4-10.4); Monocytes # (auto) 1.14 K/uL (0.11-0.59); Monocytes % (auto) 7.4 %; Neutrophils # (auto) 13.01 K/uL (1.4-6.5); Neutrophils % (auto) 84.5 %; Platelet Count 278 K/uL (130-400); RDW Coefficient of Variation 13.2 % (11.5-14.5); RDW Standard Deviation 42.8 fL (36.4-46.3); Red Blood Count 6.27 M/uL (4.7-6.1)
[2020-11-01 19:05] LABS: Oxygen Saturation VBG 67.5 %
[2020-11-01] MEDS ORDERED: ONDANSETRON INJ 2 MG/ML 2 ML VIAL ONE (19:06)
[2020-11-01 19:11] LABS: pH VBG 7.14 (7.36-7.41)
[2020-11-01 19:20] LABS: Alanine Aminotransferase 66 U/L (12-78); Albumin Globulin Ratio 0.7 (0.9-2); Alkaline Phosphatase 209 U/L (45-117); Aspartate Aminotransferase 45 U/L (15-37); BUN Creatinine Ratio 12.1 (10-20); Blood Urea Nitrogen 27 mg/dl (7-18); Calcium 9.4 mg/dl (8.5-10.1); Carbon Dioxide 9 mmol/L (21-32); Chloride 85 mmol/L (98-107); Est GFR (African American) 40.9 ml/min; Est GFR (Non-African American) 35.3 ml/min; Globulin 5.6 gm/dl (2.5-4.0); Glucose 693 mg/dl (70-99); Lipase 931 U/L (73-393); Magnesium 3.1 mg/dl (1.8-2.4); NT Pro B Type Natriuretic Pept 42 pg/ml (0-450); Sodium 126 mmol/L (136-145); Total Protein 9.6 gm/dl (6.4-8.2); Troponin I < 0.015 ng/ml (0-0.045)
[2020-11-01] MEDS ORDERED: SODIUM CHLORIDE 0.9% 1000ML 2,000 ML IV ONE (19:21)
[2020-11-01] MEDS ORDERED: PHARMACY GLYCEMIC MGMT CONSULT STA (19:31)
[2020-11-01] MEDS ORDERED: HHS GOAL RANGE 250-350 mg/dl ONE (19:31)
[2020-11-01 19:36] LABS: Partial Thromboplastin Ratio 1.1; Partial Thromboplastin Time 28.2 Seconds (21.0-31.0); Prothrombin Time 10.4 Seconds (9.0-12.0)
[2020-11-01] MEDS ORDERED: INSULIN ASPART 100 UNITS/ML 3 ML PEN SQ SCH (19:45)
[2020-11-01] MEDS ORDERED: STAT IV Infusion **Titration per Protocol STA (19:51)
[2020-11-01 19:52] LABS: D Dimer 630 ug/L FEU (0-500); Mean Corpuscular Hgb Conc 34.2 g/dL (32-36)
[2020-11-01] MEDS ORDERED: GLUCOSE 10 TABS/TUBE PO PRN (20:00)
[2020-11-01] MEDS ORDERED: NovoLIN-R BOLUS FROM BAG IV ONE (20:00)
[2020-11-01] MEDS ORDERED: INSULIN REGULAR 250 UNITS in SODIUM CHLORIDE 0.9% 247.5 ML IV SCH (20:00)
[2020-11-01] MEDS ORDERED: CARBOHYDRATES FOR HYPOGLYCEMIA PO PRN (20:00)
[2020-11-01] MEDS ORDERED: GLUCOSE 40% GEL 15 GM TUBE PO PRN (20:00)
[2020-11-01] MEDS ORDERED: AMPICILLIN/SULBACTAM SOD 3,000 MG in 0.9 % SODIUM CHLORIDE 100 ML IV ONE (20:00)
[2020-11-01] MEDS ORDERED: DEXTROSE 50% 50 ML SYRINGE IV PRN (20:00)
[2020-11-01] MEDS ORDERED: GLUCAGON FOR INJ 1 MG VIAL IM PRN (20:00)
[2020-11-01] MEDS: INSULIN REGULAR 250 UNITS in SODIUM CHLORIDE 0.9% 247.5 ML IV SCH (20:55)
[2020-11-01] MEDS ORDERED: HYDROmorphone INJ 0.5 MG/0.5 ML SYR IV STA (20:59)
--- NOTE | 2020-11-01 21:03 | History & Physical Report ---
Date of Service November 01, 2020 Assessment & Plan (1) Hyperglycemic crisis in diabetes mellitus: History prediabetes New diagnosis DM given hyperglycemic crisis, combined DKA-HHS Acute pharyngitis secondary to emesis episode, possible sepsis ARF secondary to illness Shortness of breath secondary to DKA Rule out PE given abnormal D-dimer hx nonobstructive CAD as per records hypertension, slightly elevated KARLO (CPAP noncompliance) GERD, on PPI alcohol abuse as per records. ICU IVF, IV insulin Check hemoglobin A1c May benefit from Pharmacy glycemic control consultation. DM education pending hemoglobin A1c results CS, Unasyn followed by Augmentin for possible ENT infection Soft tissue neck CT Re: Sore throat Baseline UA, monitor creatinine response to IVF Renal ultrasound if without improvement in kidney function IV heparin until PE ruled out by VQ scan, LE Dopplers (CT angio precluded by kidney dysfunction) LOUIE S, DT precautions DVT prophylaxis. Heparin subcu Full code Text document was generated using [employer] voice recognition software. It may contain grammatical or spelling errors. Kindly contact undersigned for clarification of any documentation item in question. History of Present Illness Chief Complaint: Vomiting Primary Care Provider: Lenny Coffman MD History obtained from patient and records. Medical history significant for nonobstructive CAD as per records, hypertension, prediabetes, KARLO (CPAP noncompliance), bronchial asthma, GERD, fatty liver as per records, alcohol abuse as per records. Last confinement April 2019 shortness of breath on exertion. 5 days ago, patient started not feeling well, episode of emesis subsequently causing burning sore throat symptoms or dysphagia. Chills at home. Poor appetite. No headache, no abdominal pain, dry cough symptoms. Shortness of breath as per patient. No unusual swelling. Patient denies abdominal pain. Peeing a lot. Last alcohol intake was months ago as per patient. Denies inordinate OTC NSAID intake. At the ER, IV insulin started for hyperglycemic crisis. 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 Allergies Allergy/AdvReac Type Severity Reaction Status Date / Time No Known Allergies Allergy Unknown Verified 11/01/20 16:57 Home Medications Medication Instructions Recorded Confirmed Type albuterol sulfate 90 mcg/actuation 2 puff INH Q4H PRN 05/07/19 11/01/20 History aerosol inhaler Breo Ellipta 1 inh INHALATION DAILY 01/05/20 11/01/20 History esomeprazole magnesium 20 mg PO BID 01/05/20 11/01/20 History furosemide 40 mg PO DAILY PRN 01/05/20 11/01/20 History metoprolol tartrate 25 mg PO BID 01/05/20 11/01/20 History montelukast 10 mg PO HS 01/05/20 11/01/20 History potassium chloride 20 meq PO DAILY PRN 01/05/20 11/01/20 History aspirin [Aspirin Low Dose] 81 mg PO DAILY 11/01/20 11/01/20 History Past Med/Surg History Medical History (Updated 11/02/20 @ 03:10 by Dat Diamond MD) Adult body mass index 40 and over Cellulitis KARLO (obstructive sleep apnea) Sleep apnea Surgical History History of ear, nose, and throat (ENT) surgery to correct KARLO, unsuccessful History of nasal septoplasty History of tonsillectomy and adenoidectomy Family History Father Hypertension Mother Heart disease, Onset Age: 60 Myocardial infarction Social History Smoking Status: Never smoker Hx Alcohol Use: No Hx Substance Use: No Preferred Language: [place]an Communication Ability: Effective Clinical Tech Required: No Beliefs That Will Affect Care: None marital status: Single Current Living Situation: Parent Other Information That Helps Us Care for You: No Feels Safe at Home: Yes Safety Concerns: Feels Safe At This Time Assistive Devices: Glasses Review of Systems Review of Systems: As per HPI, all 10 systems reviewed, all other ROS negative Physical Exam Physical Exam: GENERAL: uncomfortable, obese, no respiratory distress SKIN: Normal color, warm HEENT: [place] palpebral conjunctivae, no ptosis, dry buccal mucosa, pharyngeal congestion NECK : Supple, short neck, no tenderness CHEST : CTA, no tenderness HEART : Tachycardic, no obvious murmurs ABDOMEN: Some distention, nontender EXTREMITIES : No LE swelling/tenderness, no other conspicuous deformities noted NEUROLOGIC : Coherent, no facial asymmetry, no other gross focality Results & Data Results & Data ([facility]) Vital Signs (Past 12 Hours) Vital Signs Temp Pulse Resp BP Pulse Ox 11/01/20 20:45 109 H 24 140/92 99 11/01/20 20:00 107 H 21 133/104 H 100 11/01/20 19:45 111 H 23 129/89 98 11/01/20 19:15 142/102 H 99 11/01/20 19:11 120/96 98 11/01/20 19:00 155/115 H 11/01/20 18:45 145/113 H 11/01/20 18:31 99 11/01/20 18:30 132/103 H 97 11/01/20 18:29 147/109 H 99 11/01/20 18:28 100 11/01/20 16:33 99 11/01/20 16:27 120 H 33 H 149/108 H 98 11/01/20 13:42 37 C 124 H 22 104/81 99 Laboratory Results Laboratory Results WBC 15.40 K/uL (4.8-10.8) H 11/01/20 18:37 RBC 6.27 M/uL (4.7-6.1) H 11/01/20 18:37 Hgb 19.0 g/dL (14.0-18.0) H 11/01/20 18:37 Hct 55.6 % (42-52) H 11/01/20 18:37 MCV 88.7 fL (80-100) 11/01/20 18:37 MCH 30.3 pg (25-34) 11/01/20 18:37 MCHC 34.2 g/dL (32-36) 11/01/20 18:37 RDW Std Deviation 42.8 fL (36.4-46.3) 11/01/20 18:37 RDW Coeff of Paty 13.2 % (11.5-14.5) 11/01/20 18:37 Plt Count 278 K/uL (130-400) 11/01/20 18:37 MPV 11.8 fL (7.4-10.4) H 11/01/20 18:37 Immature Gran % (Auto) 1.6 % 11/01/20 18:37 Neut % (Auto) 84.5 % 11/01/20 18:37 Lymph % (Auto) 6.2 % 11/01/20 18:37 [place] % (Auto) 7.4 % 11/01/20 18:37 Eos % (Auto) 0.0 % 11/01/20 18:37 Baso % (Auto) 0.3 % 11/01/20 18:37 Neut # (Auto) 13.01 K/uL (1.4-6.5) H 11/01/20 18:37 Lymph # (Auto) 0.96 K/uL (1.2-3.4) L 11/01/20 18:37 [place] # (Auto) 1.14 K/uL (0.11-0.59) H 11/01/20 18:37 Eos # (Auto) 0.00 K/uL (0-0.5) 11/01/20 18:37 Baso # (Auto) 0.05 K/uL (0-0.2) 11/01/20 18:37 Immature Gran # (Auto) 0.24 K/uL (0.00-0.02) H 11/01/20 18:37 PT 10.4 Seconds (9.0-12.0) 11/01/20 18:37 INR 1.0 (0.9-1.1) 11/01/20 18:37 APTT 28.2 Seconds (21.0-31.0) 11/01/20 18:37 PTT Ratio 1.1 11/01/20 18:37 D-Dimer 630 ug/L FEU (0-500) H* 11/01/20 18:37 VBG pH 7.16 (7.36-7.41) L 11/01/20 20:08 VBG pCO2 28 mmHg (38-50) L 11/01/20 18:55 VBG pO2 37 mmHg 11/01/20 18:55 VBG HCO3 9 mmol/L 11/01/20 18:55 VBG O2 Saturation 67.5 % 11/01/20 18:55 VBG Base Excess -18.0 mEq/L 11/01/20 18:55 Barometric Pressure 732.0 mm/Hg 11/01/20 18:55 Sodium 126 mmol/L (136-145) L 11/01/20 18:37 Potassium 4.0 mmol/L (3.5-5.1) 11/01/20 18:37 Chloride 85 mmol/L (98-107) L 11/01/20 18:37 Carbon Dioxide 9 mmol/L (21-32) L* 11/01/20 18:37 Anion Gap 32.0 (3-11) H 11/01/20 18:37 BUN 27 mg/dl (7-18) H 11/01/20 18:37 Creatinine 2.19 mg/dl (0.6-1.4) H 11/01/20 18:37 Est Cr Clr Drug Dosing 52.0 ml/min 11/01/20 18:37 Est GFR ( Amer) 40.9 ml/min 11/01/20 18:37 Est GFR (Non-Af Amer) 35.3 ml/min 11/01/20 18:37 BUN/Creatinine Ratio 12.1 (10-20) 11/01/20 18:37 Glucose 693 mg/dl (70-99) H* 11/01/20 18:37 POC Glucose > 600 mg/dl (70-99) H* 11/01/20 20:48 Osmolality 354 mOsm/kg (280-300) H* 11/01/20 20:08 Lactate 2.1 mmol/L (0.4-2.0) H* 11/01/20 20:08 Calcium 9.4 mg/dl (8.5-10.1) 11/01/20 18:37 Magnesium 3.1 mg/dl (1.8-2.4) H 11/01/20 18:37 Total Bilirubin 1.0 mg/dl (0.2-1) 11/01/20 18:37 AST 45 U/L (15-37) H 11/01/20 18:37 ALT 66 U/L (12-78) 11/01/20 18:37 Alkaline Phosphatase 209 U/L (45-117) H 11/01/20 18:37 Troponin I < 0.015 ng/ml (0-0.045) 11/01/20 18:37 NT-Pro-B Natriuret Pep 42 pg/ml (0-450) 11/01/20 18:37 Total Protein 9.6 gm/dl (6.4-8.2) H 11/01/20 18:37 Albumin 4.0 gm/dl (3.4-5.0) 11/01/20 18:37 Globulin 5.6 gm/dl (2.5-4.0) H 11/01/20 18:37 Albumin/Globulin Ratio 0.7 (0.9-2) L 11/01/20 18:37 Lipase 931 U/L (73-393) H 11/01/20 18:37 Beta-Hydroxybutyric Acd Cancelled 11/01/20 18:37 Specimen Hemolysis 11/01/20 18:37 Ethyl Alcohol mg/dL < 3.0 mg/dl (0-3) 11/01/20 18:55 COVID-19 Eval Order Covid19 at [facility] 11/01/20 19:24 SARS-CoV-2 (PCR) NEGATIVE (Negative) 11/01/20 19:24 Impressions Chest X-Ray 11/01/20 16:33 SINGLE VIEW CHEST CLINICAL HISTORY: Dyspnea. FINDINGS: 2 AP, portable, upright chest radiographs are compared to chest x-ray and chest CT dated 05/20/2019. The heart is top normal for projection. Chronic interstitial thickening similar to previous. There is bibasilar sc arring/atelectasis. No airspace consolidation or large pleural effusion is identified. No pneumothorax is seen. There are healed right-sided rib fractures. IMPRESSION: No acute cardiopulmonary abnormality. ACT 112: Negative or not required by law. Electronically signed by: Jay Calvo M.D. 11/01/2020 6:30 PM KUB X-Ray 11/01/20 16:35 KUB CLINICAL HISTORY: Vomiting. FINDINGS: 2 AP, portable, supine abdominal radiographs are obtained. No prior studies are available for comparison at the time of dictation. There is a nonobstructed abdominal bowel gas pattern. No evidence of intraperitoneal free air is seen on these supine images. There are no abnormal abdominal calcifications. The bony structures appear intact. There is age advanced degenerative change of the right hip with mild flattening of the femoral head. IMPRESSION: 1. Nonobstructed bowel gas pattern. 2. Age advanced degenerative change of the right hip as above. Electronically signed by: Jay Calvo M.D. 11/01/2020 6:24 PM Diagnostic Findings EKG as per my interpretation rate 120, sinus tachycardia, normal axis, in complete RBBB, upsloping ST depression anterolateral leads
[2020-11-01] MEDS ORDERED: PROMETHAZINE HCL 12.5 MG in SODIUM CHLORIDE 0.9% 50 ML IV STA (21:26)
[2020-11-01] MEDS ORDERED: PANTOprazole 40 MG in SYRINGE 0 ML IV ONE (21:30)
[2020-11-01] MEDS ORDERED: THIAMINE HCL 100 MG in SYRINGE 9 ML IV ONE (21:30)
[2020-11-01] MEDS ORDERED: NSS + 20MEQ KCL 20 MEQ/1,000 ML BAG IV SCH (21:30)
[2020-11-01 21:34] LABS: BUN Creatinine Ratio 15.2 (10-20); Calcium 8.4 mg/dl (8.5-10.1); Creatinine Clr Calc Pharmacy 62.6 ml/min; Est GFR (African American) 51.2 ml/min; Est GFR (Non-African American) 44.2 ml/min; Phosphorus 5.5 mg/dl (2.5-4.9); Potassium 4.4 mmol/L (3.5-5.1); Thyroid Stimulating Hormone 1.1 uIu/ml (0.300-4.500)
[2020-11-01] MEDS ORDERED: LACTATED RINGER'S 1,000 ML IV ONE (21:41)
[2020-11-01] MEDS ORDERED: HEPARIN SODIUM/DEXTROSE 25,000 UNITS/500 ML BAG IV SCH (21:57)
[2020-11-01] MEDS ORDERED: LEVALBUTEROL 1.25MG/0.5ML NEB INH PRN (22:09)
[2020-11-01] MEDS ORDERED: LORazepam 3 MG/6 ML VIAL IV PRN (22:09)
[2020-11-01] MEDS ORDERED: ATIVAN IV ALCOHOL WITHDRAWL IV PRN (22:09)
[2020-11-01] MEDS ORDERED: LORazepam 1 MG/2 ML VIAL IV PRN (22:09)
[2020-11-01] MEDS ORDERED: oxyCODONE HCL IR 5 MG TAB (IMMEDIATE RELEASE) PO PRN (22:09)
[2020-11-01] MEDS ORDERED: PROMETHAZINE HCL 12.5 MG in SODIUM CHLORIDE 0.9% 50 ML IV PRN (22:09)
[2020-11-01] MEDS ORDERED: IPRATROPIUM BROMIDE NEB SOLN 0.02% 2.5 ML VIAL INH PRN (22:09)
[2020-11-01] MEDS ORDERED: XOPENEX/ATROVENT 1.25mg/0.5MG NEB COMBO NEB PRN (22:09)
[2020-11-01] MEDS ORDERED: ACETAMINOPHEN 325 MG TAB PO PRN (22:09)
[2020-11-01] MEDS ORDERED: LORazepam 2 MG/4 ML VIAL IV PRN (22:09)
[2020-11-01] MEDS ORDERED: HYDROmorphone INJ 0.5 MG/0.5 ML SYR IV PRN (22:09)
--- NOTE | 2020-11-01 22:17 | Critical Care Consultation ---
Date of Consultation November 01, 2020 Assessment & Plan (1) DKA (diabetic ketoacidosis): Reason Critically Ill: 45-year-old male presents to the ICU in DKA without prior history of diabetes and elevated lipase. Neuro - Encephalopathypatient is mildly confused on arrival to the ICU stating he does not know how long he has been in the hospital but continues to answer questions appropriately and oriented x3. Suspect this is likely due to encephalopathy secondary to DKA. However patient does have a history of alcohol abuse and cannot rule out potential withdrawal at this time. -Continue with LOUIE S protocol. -We will add thiamine and folate Cardiac - Sinus tachycardia (chronic)continue MTP, monitor on telemetry CADcontinue ASA -Troponin negative Lower extremity edemawe will hold off on home Lasix for the time being, diuresis if needed Respiratory - Tachypnealungs clear to auscultation and suspect this is likely compensatory to metabolic acidosis as patient CO2 is low on gas. No significant respiratory distress. Monitor Asthmanebs as needed, no issue at this time -Continuous monitoring pulse ox GI - N.p.o. Pancreatitiselevated lipase 900. LFTs are only mildly elevated and patient does have history of hepatic steatosis noted on prior exams. -Unsure if this is potentially viral/infectious versus alcohol induced? -We will attempt to obtain CT abdomen pelvis -Continue to trend lipase and continue with fluid resuscitation RENAL/LYTES - AKIimproving following fluid resuscitation. Most likely due to severe dehydration in the setting of DKA. We will continue with IV fluids per DKA protocol. Trend with BMPs. Avoid nephrotoxins and renally adjust medications - Strict I's and O's ENDO - DKApatient undergoing DKA protocol with insulin infusion and fluid resuscitation. No indication for bicarb at this time. Can transition to glargine/sliding scale once anion gap closes and bicarb improved -Monitor BMPs and VBG's every 4 -No prior history of diabetes. See pancreatitis above. Patient will likely need diabetes education prior to discharge HEME - H&H stable, monitor routine CBCs ID - Patient does have leukocytosis with WBC 15, lactic acidosis. Procalcitonin was unremarkable. UA unremarkable, blood cultures pending No clear source of infection at this time but will continue with Unasyn for the time being until cultures result LINES/IV ACCESS - Peripheral IVs DVT PROPHYLAXIS - SCDs I have personally spent 40 minutes of critical care time in the direct management of this patient. This is a life/limb threatening event. This includes time spent evaluating patient, direct bedside care, chart review, placing orders, interpretation of diagnostic studies, discussion with consultants, patient, and family members, as well as other required patient management activities. This time is exclusive of all separately billable procedures, and teaching time and separate from and in addition to any other critical care service time. Thank you for allowing us to participate in the care of this patient. Please refer to my attending physician's documentation for any further recommendations. (2) Alcohol abuse: (3) DVT prophylaxis: (4) KARLO (obstructive sleep apnea): (5) Tachycardia: (6) AMBRIZ (dyspnea on exertion): (7) Pancreatitis, acute: History of Present Illness Attending Physician: Tim Shahid MD History of Present Illness 45-year-old male with PMH KARLO, EtOH abuse, CAD, asthma, and lower extremity edema who presented to the emergency department with complaints of nausea and vomiting with coughing and burning in his chest. Patient was found to have metabolic acidosis and significantly elevated glucose consistent with DKA. He has no prior history of diabetes. Troponin was negative. Lactate was mildly elevated at 2.1. His lipase was elevated at 931. Urine positive for ketones. There was question whether patient had aspirated and he was started on antibiotics. Patient was given IV fluid boluses and started on insulin drip and transferred to the ICU for further management at this time. Patient is mildly confused on arrival to the ICU as he states he is unsure how long he is been here. His participation in exam is limited. Patient is hemodynamically stable without vasopressors and heart rate in the low 100s. He is maintaining oxygen saturation on room air. He is mildly tachypneic without labored breathing. Patient has complaints of abdominal pain, shortness of breath, and nausea. He denies headache, dizziness, sore throat, chest pain, palpitations, fevers, recent illness, swelling in hands or feet, diarrhea, or changes in urinary stream or frequency. Patient remained in ICU at this time for management of DKA. Plan to obtain CT abdomen pelvis. Allergies Allergy/AdvReac Type Severity Reaction Status Date / Time No Known Allergies Allergy Unknown Verified 11/01/20 16:57 Home Medications Medication Instructions Recorded Confirmed Type albuterol sulfate 90 mcg/actuation 2 puff INH Q4H PRN 05/07/19 11/01/20 History aerosol inhaler Breo Ellipta 1 inh INHALATION DAILY 01/05/20 11/01/20 History esomeprazole magnesium 20 mg PO BID 01/05/20 11/01/20 History furosemide 40 mg PO DAILY PRN 01/05/20 11/01/20 History metoprolol tartrate 25 mg PO BID 01/05/20 11/01/20 History montelukast 10 mg PO HS 01/05/20 11/01/20 History potassium chloride 20 meq PO DAILY PRN 01/05/20 11/01/20 History aspirin [Aspirin Low Dose] 81 mg PO DAILY 11/01/20 11/01/20 History Patient History Medical History (Updated 11/02/20 @ 00:45 by VINITA Paige) Adult body mass index 40 and over Cellulitis KARLO (obstructive sleep apnea) Sleep apnea Surgical History History of ear, nose, and throat (ENT) surgery to correct KARLO, unsuccessful History of nasal septoplasty History of tonsillectomy and adenoidectomy Family History Father Hypertension Mother Heart disease, Onset Age: 60 Myocardial infarction Social History Smoking Status: Never smoker Hx Alcohol Use: No Hx Substance Use: No Preferred Language: Northern Irish Communication Ability: Effective Image Editor Required: No Beliefs That Will Affect Care: None marital status: Single Current Living Situation: Parent Other Information That Helps Us Care for You: No Feels Safe at Home: Yes Safety Concerns: Feels Safe At This Time Assistive Devices: Glasses Review of Systems 2 Review of Systems: All systems reviewed & are unremarkable except as noted in HPI & below Physical Exam Constitutional: + ill appearing, cooperative and + lethargic Eyes: PERRL, conjunctivae normal, anicteric sclerae ENMT: external ear and nose normal, oropharynx normal Neck: trachea midline, no thyromegaly Respiratory: normal respiratory effort, lungs clear to auscultation + tachypneic Cardiovascular: RRR, no murmur, no edema Rate/Rhythm: + tachycardic Heart Sounds: normal S1 and normal S2 Vessels: no JVD Extremities: normal capillary refill; no edema Gastrointestinal (Abdomen): Abdomen with generalized tenderness to palpation, soft, nondistended, normal bowel sounds Musculoskeletal: no cyanosis or clubbing, extremities motor strength 5/5 Skin: no rashes, warm and dry Neurologic: PERRL, EOMI, accommodation nl, no face palsy, no dysarthria Psychiatric: Orientation: oriented x 3 Results & Data Results & Data ([facility]) Vital Signs (Past 12 Hours) Vital Signs Temp Pulse Resp BP Pulse Ox 11/01/20 20:45 109 H 24 140/92 99 11/01/20 20:00 107 H 21 133/104 H 100 11/01/20 19:45 111 H 23 129/89 98 11/01/20 19:15 142/102 H 99 11/01/20 19:11 120/96 98 11/01/20 19:00 155/115 H 11/01/20 18:45 145/113 H 11/01/20 18:31 99 11/01/20 18:30 132/103 H 97 11/01/20 18:29 147/109 H 99 11/01/20 18:28 100 11/01/20 16:33 99 11/01/20 16:27 120 H 33 H 149/108 H 98 11/01/20 13:42 37 C 124 H 22 104/81 99 Coding Level of Care Code Critical Care 1st 30-74 mins Diagnoses DKA (diabetic ketoacidosis) E11.10 Alcohol abuse F10.10 DVT prophylaxis Z29.9 KARLO (obstructive sleep apnea) G47.33 Tachycardia R00.0 AMBRIZ (dyspnea on exertion) R06.09 Pancreatitis, acute K85.90
[2020-11-01] MEDS ORDERED: AUGMENTIN - PHARMACY CONSULT IN PROGRESS PRN (22:39)
[2020-11-01 22:43] LABS: Appearance Urine Clear (Clear); Bacteria Urine Automated Negative (Negative); Bilirubin Urine Negative (Negative); Blood Urine 1+ (Negative); Color Urine Yellow; Glucose Urine UA 3+ (Negative); Ketones Urine 4+ (Negative); Leukocyte Esterase Urine Negative (Negative); Nitrite Urine Negative (Negative); Protein Urine 1+ (Negative); RBC Urine Automated 0-4 /hpf (0-4); Specific Gravity Urine 1.024 (1.000-1.030); Urobilinogen Urine Negative (Negative)
[2020-11-01] MEDS ORDERED: SODIUM CHLOR 0.45% + 20MEQ KCL 20 MEQ/1,000 ML BAG IV SCH (23:00)
[2020-11-01 23:02] LABS: Amphetamines+Metham, Urine Neg (Neg); Barbiturates, Urine Neg (Neg); Benzodiazepine, Urine Neg (Neg); Cocaine, Urine Neg (Neg); MDMA (Ecstacy), Urine Neg (Neg); Methadone, Urine Neg (Neg); Opiate, Urine Neg (Neg); Phencyclidine, Urine Neg (Neg)
[2020-11-01 23:21] LABS: Base Excess VBG -17.4 mEq/L; HCO3 VBG 10 mmol/L; PCO2 VBG 31 mmHg (38-50); PO2 VBG 28 mmHg; pH VBG 7.13 (7.36-7.41)
[2020-11-01] MEDS: INSULIN ASPART 100 UNITS/ML 3 ML PEN SC SCH (23:26)
[2020-11-01 23:38] LABS: Oxygen Saturation VBG < 60.0 %
[2020-11-01] MEDS ORDERED: LACTATED RINGER'S 1,000 ML IV SCH (23:45)
[2020-11-02] MEDS: Heparin IV Adult Wt-Based Standard *NO* Bolus Protocol IV SCH ×6 (00:13→19:08)
[2020-11-02] MEDS: METOPROLOL TARTRATE 25 MG TAB PO SCH ×4 (00:14→21:10)
[2020-11-02 01:10] LABS: BUN Creatinine Ratio 14.9 (10-20); Calcium 8.6 mg/dl (8.5-10.1); Creatinine Clr Calc Pharmacy 70.1 ml/min; Est GFR (African American) 59.8 ml/min; Est GFR (Non-African American) 51.6 ml/min; Potassium 3.2 mmol/L (3.5-5.1)
[2020-11-02 02:04] LABS: Beta-Hydroxybutyrate 108.45 mg/dl (0.2-2.81)
[2020-11-02] MEDS: POTASSIUM CHLORIDE 40 MEQ in SODIUM CHLORIDE 0.45 % 1,000 ML IV SCH ×2 (02:21→08:15)
[2020-11-02] MEDS: POTASSIUM CHLORIDE / WTR 10 MEQ/100 ML PLCT IV SCH ×2 (02:32→03:35)
[2020-11-02 03:29] LABS: Base Excess VBG -16.3 mEq/L; HCO3 VBG 9 mmol/L; Oxygen Saturation VBG 76.1 %; PCO2 VBG 24 mmHg (38-50); PO2 VBG 39 mmHg; pH VBG 7.21 (7.36-7.41)
[2020-11-02 03:38] LABS: BUN Creatinine Ratio 14.8 (10-20); Calcium 8.1 mg/dl (8.5-10.1); Creatinine Clr Calc Pharmacy 76.8 ml/min; Est GFR (African American) 66.8 ml/min; Est GFR (Non-African American) 57.7 ml/min; Potassium 3.5 mmol/L (3.5-5.1)
[2020-11-02 04:54] LABS: Beta-Hydroxybutyrate 95.06 mg/dl (0.2-2.81)
[2020-11-02 06:27] LABS: Base Excess VBG -12.8 mEq/L; HCO3 VBG 13 mmol/L; Oxygen Saturation VBG 74.3 %; PCO2 VBG 29 mmHg (38-50); PO2 VBG 35 mmHg; pH VBG 7.26 (7.36-7.41)
[2020-11-02 06:29] LABS: Basophils # (auto) 0.02 K/uL (0-0.2); Basophils % (auto) 0.2 %; Hematocrit (blood only) 47.5 % (42-52); Hemoglobin 16.1 g/dL (14.0-18.0); Immature Granulocytes # (auto) 0.09 K/uL (0.00-0.02); Immature Granulocytes % (auto) 0.9 %; Lymphocytes # (auto) 1.91 K/uL (1.2-3.4); Lymphocytes % (auto) 18.2 %; Mean Corpuscular Hemoglobin 29.7 pg (25-34); Mean Corpuscular Hgb Conc 33.9 g/dL (32-36); Mean Corpuscular Volume 87.6 fL (80-100); Mean Platelet Volume 11.4 fL (7.4-10.4); Monocytes # (auto) 1.04 K/uL (0.11-0.59); Monocytes % (auto) 9.9 %; Neutrophils # (auto) 7.46 K/uL (1.4-6.5); Neutrophils % (auto) 70.8 %; Platelet Count 244 K/uL (130-400); RDW Coefficient of Variation 13.2 % (11.5-14.5); RDW Standard Deviation 42.4 fL (36.4-46.3); Red Blood Count 5.42 M/uL (4.7-6.1); White Blood Count 10.52 K/uL (4.8-10.8)
--- NOTE | 2020-11-02 06:32 | Ultrasound Report ---
BILATERAL LOWER EXTREMITY VENOUS DOPPLER HISTORY: Acutely elevated d-dimer level abn dimer COMPARISON STUDY: 05/20/2019 FINDINGS: Limited exam secondary to patient's lack of cooperation throughout the exam. There is allyson l compressibility, flow, and augmentation within the bilateral lower extremity deep venous systems. IMPRESSION: No DVT within the right or left lower extremity. ACT 112: Negative or not required by law. Electronically signed by: Kevin Devlin M.D. 11/02/2020 6:30 AM
[2020-11-02 06:50] LABS: Partial Thromboplastin Ratio 1.7; Partial Thromboplastin Time 44.7 Seconds (21.0-31.0)
[2020-11-02] MEDS ORDERED: AMOXICILLIN/CLAVULANATE 875 MG TAB PO SCH (08:00)
[2020-11-02 08:06] LABS: Estimated Average Glucose > 438 mg/dl
--- NOTE | 2020-11-02 08:06 | CT Scan Report ---
ABDOMEN AND PELVIS CT WITHOUT CONTRAST CT DOSE: 1329.24 mGycm HISTORY: Acute generalized abdominal pain with acute pancreatitis Pancreatitis/ abdominal pain TECHNIQUE: Multiaxial CT images of the abdomen and pelvis were performed without contrast. A dose lo wering technique was utilized adhering to the principles of ALARA. COMPARISON STUDY: CTA chest 05/20/2019 FINDINGS: The heart is upper limits of normal in size. Gynecomastia. Clear lung bases. No pneumatosis or pneumoperitoneum. Limited evaluation of the solid abdominal organs without the use of IV contrast . The study is also limited secondary to upper extremity positioning. Respiratory motion artifact dave its the study. Within limitations of the exam, the spleen, pancreas, adrenal glands, mildly distended gallbladder and liver are unremarkable. No CT findings of acute pancreatitis. No pancreatic ductal d ilation. 4.5 cm cyst of the superior pole left kidney. No urolith or obstructive uropathy identified. The pros hayes is upper limits of normal in size. Unremarkable urinary bladder. Calcified plaque of the abdomin al aorta. There is no adenopathy. No bowel obstruction or bowel wall thickening. There is moderate fe chinmay retention. Normal appendix. No ascites or mesenteric inflammation. Posterior disc osteophyte comp aron at L5-S1. Spondylitic spurring of the spine. Degenerative partial bony fusion of the right SI norma nt. Prominent subcortical cystic changes and subchondral sclerosis of the bilateral femoral heads wit h mild to moderate femoral acetabular joint space narrowing. IMPRESSION: 1. Limited exam as above. 2. No bowel obstruction or bowel wall thickening. Normal appendix. 3. No CT evidence of acute pancreatitis. 5. Additional findings as above. ACT 112: Negative or not required by law. The above report was generated using voice recognition software. It may contain grammatical, syntax o r spelling errors. Electronically signed by: Kevin Devlin M.D. 11/02/2020 8:05 AM
[2020-11-02 08:07] LABS: Hemoglobin A1C > 16.9 % (4.5-5.6)
[2020-11-02] MEDS: INSULIN ASPART 100 UNITS/ML 3 ML PEN SC SCH ×4 (08:15→21:11)
[2020-11-02] MEDS: THIAMINE HCL 100 MG in SYRINGE 9 ML IV SCH (08:20)
[2020-11-02] MEDS: FOLIC ACID 1 MG in SYRINGE 9.8 ML IV SCH (08:20)
--- NOTE | 2020-11-02 08:47 | CT Scan Report ---
CT soft tissue neck wo con CT DOSE: 577.52 mGycm CLINICAL HISTORY: sore throat TECHNIQUE: A dose lowering technique was utilized adhering to the principles of ALARA. COMPARISON STUDY: None. FINDINGS: Limited evaluation of lung apices shows mild groundglass attenuation of pulmonary parenchyma. Airways are patent. No definite areas of fluid collection or mass lesions are seen. Normal appearance of epiglottis. No significant lymphadenopathy demonstrated. Parapharyngeal, prevertebral, monomer recovery operator and parotid spaces are symmetrical and normal appearing. Partial opacification of the left maxillary sinus might represent sinusitis. The rest of visualized p aranasal sinuses and mastoid air cells are patent and well-aerated. No definite osseous abnormalities are seen. IMPRESSION: 1. Sinusitis. 2. No definite lesions, fluid collection or lymphadenopathy seen within neck region. Evaluation is l imited due to lack of IV contrast. 3. The rest of the findings as above. ACT 112: Negative or not required by law. The above report was generated using voice recognition software. It may contain grammatical, syntax o r spelling errors. Electronically signed by: Monica Egan DO 11/02/2020 8:45 AM
[2020-11-02] MEDS: D5W AND 1/2NSS + 20MEQ KCL 20 MEQ/1,000 ML BAG IV SCH ×3 (09:27→20:06)
[2020-11-02] MEDS: FLUTICASONE/VILANTEROL 200/25MCG 14 PUFFS/INHALER INH SCH (09:31)
[2020-11-02] MEDS: HEPARIN SOD 5,000 UNIT/0.5 ML VIAL SQ SCH ×2 (09:31→21:09)
[2020-11-02 09:37] LABS: BUN Creatinine Ratio 13.6 (10-20); Creatinine Clr Calc Pharmacy 82.1 ml/min; Est GFR (African American) 72.2 ml/min; Est GFR (Non-African American) 62.3 ml/min; Magnesium 2.5 mg/dl (1.8-2.4); Potassium 3.9 mmol/L (3.5-5.1)
[2020-11-02 09:53] LABS: Phosphorus 1.3 mg/dl (2.5-4.9)
[2020-11-02] MEDS ORDERED: POTASSIUM PHOS 3 MMOL/1 ML INFUSION IV STA (10:05)
[2020-11-02] MEDS: MULTIVITAMIN TAB PO SCH (10:09)
[2020-11-02] MEDS: ASPIRIN 81 MG ECTAB PO SCH (10:09)
[2020-11-02] MEDS: PANTOprazole 40 MG TAB PO SCH ×2 (10:09→21:09)
[2020-11-02] MEDS ORDERED: POTASSIUM PHOSPHATE 15 MMOL in SODIUM CHLORIDE 0.9% 250 ML IV ONE (10:15)
[2020-11-02 10:25] LABS: Base Excess VBG -12.6 mEq/L; Oxygen Saturation VBG 84.4 %; pH VBG 7.31 (7.36-7.41)
--- NOTE | 2020-11-02 11:37 | Critical Care Progress Note ---
Date of Service November 02, 2020 Assessment & Plan (1) DKA (diabetic ketoacidosis): Reason Critically Ill: 45-year-old male presents to the ICU in DKA without prior history of diabetes and elevated lipase. Neuro - Metabolic encephalopathy Likely from underlying DKA Improved since presentation Patient does have significant alcohol use history. -Continue with LOUIE S protocol. -We will add thiamine and folate Cardiac - Sinus tachycardia (chronic)continue MTP, monitor on telemetry CADcontinue ASA -Troponin negative Respiratory - Asthma -Not in exacerbation, nebs as needed -Continuous monitoring pulse ox GI - N.p.o. Elevated lipase - lipase 900. CT abdomen does not show any signs of pancreatitis. Patient is nontender to epigastrium. -I do not think this is acute pancreatitis RENAL/LYTES - DIANE Improving Monitor BUN/creatinine Avoid nephrotoxic medications - Strict I's and O's ENDO - DKA Patient undergoing DKA protocol with insulin infusion and fluid resuscitation. -Monitor BMPs and VBG's every 4 -No prior history of diabetes. Diabetes education prior to discharge -HbA1c 16.9 HEME - H&H stable, monitor routine CBCs ID - Leukocytosis likely from DKA Procalcitonin 0.2 UA unremarkable, blood cultures pending No clear source of infection DC antibiotics --Prophylaxis VTE: Heparin GI: Protonix Lines: Peripheral Diet: N.p.o. Plan: In/out: +3.9 L, urine output 750 DC Unasyn as there is no source of infection Continue with incentive as per the protocol We will bridge it was anion gap is closed Continue with thiamine and folic acid given the heavy alcohol use Continue with CIWA protocol Hypokalemia and hypophosphatemia being replaced I have personally spent 38 minutes of critical care time in the direct management of this patient. This is a life/limb threatening event. This includes time spent evaluating patient, direct bedside care, chart review, placing orders, interpretation of diagnostic studies, discussion with consultants, patient, and family members, as well as other required patient management activities. This time is exclusive of all separately billable procedures, and teaching time and separate from and in addition to any other critical care service time. Please note the above document was generated using voice recognition software. It may contain grammatical, syntax or spelling errors. (2) Alcohol abuse: (3) Admitted to intensive care unit: Admission and Anticipated Discharge Date Admission Date: November 01, 2020 Subjective Patient seen and examined at bedside. No acute distress. No adverse events after coming to the ICU Patient was sleeping prior to me examining. He denies any chest pain, no shortness of breath, no headache, no nausea, no vomiting. He has been saying that he has not eaten for a while. Denies any headache. No dizziness. Review of Systems Review of Systems: All systems reviewed & are unremarkable except as noted in Subjective Physical Exam Physical Exam: Constitutional: No acute distress HEENT: EOMI, PERRLA Respiratory system: Good air entry bilaterally, no wheeze, no rhonchi, no crackles CVS: S1-S2 positive, no murmurs or gallops Abdomen: Soft, nontender, nondistended, positive bowel sounds x4, obese Extremities: +2 pulses bilaterally radialis/ dorsalis pedis, no cyanosis, no edema Neuro: Awake alert oriented x3 Psych: Normal mood and affect G/U: No Sal[place] Skin: no rashes, warm and dry Lymphatic: no cervical or axillary lymphadenopathy Results & Data Results & Data ([facility]) Vital Signs (Past 12 Hours) Vital Signs Temp Pulse Pulse Resp BP BP Pulse Ox 11/02/20 09:06 93 H 17 130/84 97 11/02/20 09:00 94 H 16 97 11/02/20 08:45 93 H 26 H 98 11/02/20 08:30 98 H 24 99 11/02/20 08:15 92 H 14 95 11/02/20 08:07 97 H 15 117/69 97 11/02/20 08:00 94 H 19 98 11/02/20 07:45 98 H 22 97 11/02/20 07:30 94 H 18 99 11/02/20 07:15 98 H 19 97 11/02/20 07:07 97 H 18 123/81 99 11/02/20 07:00 100 H 20 97 11/02/20 06:45 97 H 21 97 11/02/20 06:30 96 H 14 98 11/02/20 06:15 97 H 18 99 11/02/20 06:06 95 H 22 136/91 98 11/02/20 06:00 99 H 100 H 16 136/91 97 11/02/20 05:45 97 H 25 H 97 11/02/20 05:30 98 H 33 H 97 11/02/20 05:15 104 H 16 97 11/02/20 05:14 102 H 17 138/95 97 11/02/20 05:12 102 H 18 168/127 H 98 11/02/20 05:10 102 H 15 170/123 H 98 11/02/20 05:00 36.8 C 94 H 101 H 23 138/95 98 11/02/20 04:45 100 H 23 96 11/02/20 04:30 99 H 16 96 11/02/20 04:15 103 H 18 98 11/02/20 04:06 105 H 23 152/111 H 97 11/02/20 04:00 122 H 17 97 11/02/20 03:45 105 H 18 98 11/02/20 03:30 103 H 18 97 11/02/20 03:15 107 H 18 97 11/02/20 03:06 106 H 22 147/89 H 97 11/02/20 03:00 106 H 107 H 15 147/89 H 98 11/02/20 02:45 107 H 28 H 97 11/02/20 02:30 106 H 18 99 11/02/20 02:15 109 H 19 97 11/02/20 02:06 108 H 17 139/93 97 11/02/20 02:02 98 11/02/20 02:00 108 H 20 139/93 98 11/02/20 01:30 107 H 18 98 11/02/20 01:20 111 H 20 146/90 H 11/02/20 01:15 108 H 18 97 11/02/20 01:00 113 H 23 98 11/02/20 00:45 107 H 18 97 11/02/20 00:41 110 H 21 135/90 96 11/02/20 00:40 111 H 20 135/90 96 11/02/20 00:30 111 H 21 97 11/02/20 00:20 112 H 20 154/116 H 98 11/02/20 00:15 112 H 22 97 11/02/20 00:00 113 H 19 97 11/01/20 23:45 116 H 20 98 11/01/20 23:30 113 H 18 135/88 98 11/02/20 06:16 11/02/20 08:56 Coding Level of Care Code Critical Care 1st 30-74 mins Diagnoses DKA (diabetic ketoacidosis) E11.10 Alcohol abuse F10.10 Admitted to intensive care unit Z78.9 Time Spent (min) 38
[2020-11-02] MEDS ORDERED: PHARMACY GLYCEMIC MGMT CONSULT PRN (13:05)
[2020-11-02 13:07] LABS: BUN Creatinine Ratio 12.1 (10-20); Creatinine Clr Calc Pharmacy 80.3 ml/min; Est GFR (African American) 70.3 ml/min; Est GFR (Non-African American) 60.7 ml/min; Potassium 3.9 mmol/L (3.5-5.1)
[2020-11-02 14:07] LABS: Beta-Hydroxybutyrate 60.07 mg/dl (0.2-2.81)
--- NOTE | 2020-11-02 14:39 | Nuclear Medicine Report ---
NM pul perfusion CLINICAL HISTORY: Shortness of breath.. COMPARISON STUDY: Chest 11/01/2020. TECHNIQUE: Immediately following the intravenous administration of 5.2 mCi of technetium 99 M MAA for the perfusion scan, anterior, oblique, lateral, and posterior views of the chest were obtained. Vent ilation scan was not performed due to coronavirus precautions. FINDINGS: Normal perfusion seen throughout the lungs. No segmental defects identified. IMPRESSION: Normal perfusion scan. ACT 112: Negative or not required by law. Electronically signed by: Moo Miguel M.D. 11/02/2020 2:37 PM
--- NOTE | 2020-11-02 16:12 | Hospitalist Progress Note ---
Date of Service November 02, 2020 Assessment & Plan (1) Hyperglycemic crisis in diabetes mellitus: Diabetic ketoacidosis History prediabetes Admitted with a blood glucose of 693 with acidosis and low CO2 Has been on intravenous insulin and IV fluids Hemoglobin A1c is more than 16 Condition is stable and improving Metabolic encephalopathy Secondary to underlying DKA and is complicated by alcoholism Has been on withdrawal protocol Will monitor DIANE Secondary to nausea vomiting, dehydration and DKA itself Has been getting intravenous fluid We will monitor PRP-creatinine has been improving and is normalized Leukocytosis-secondary to DKA and a stress Acute pharyngitis secondary to emesis episode Doubt any infection Elevated lipase The patient has had some nausea and vomiting but nontender in the epigastrium CT of the abdomen did not show any acute pancreatitis Doubt any acute pancreatitis Has been getting intravenous fluid and pain medications as needed Shortness of breath secondary to DKA Complicated by KARLO (CPAP noncompliance) Doubt any pulmonary embolism Initial heparin infusion has been discontinued Saturating well with room air H/O nonobstructive CAD as per records hypertension, slightly elevated DVT prophylaxis. Heparin subcu Full code Admission and Anticipated Discharge Date Admission Date: November 01, 2020 Subjective 11/02/2020 The patient was seen and examined in ICU He remains very drowsy and not been talking much Remains hemodynamically stable but is still quite ill Review of Systems Review of Systems: Unobtainable due to cognitive status Physical Exam Physical Exam: Lying in bed comfortably Constitutional: well developed, well nourished, + ill appearing and + obese ENMT: external ear and nose normal, oropharynx normal Neck: trachea midline, no thyromegaly Respiratory: no respiratory distress Auscultation: lungs clear to auscultation bilaterally; no crackles and no wheezes Cardiovascular: Rate/Rhythm: regular rate and regular rhythm Heart Sounds: no murmur Extremities: no edema Gastrointestinal (Abdomen): Inspection/Auscultation: normal bowel sounds; abdomen not distended Percussion/Palpation: abdomen soft; abdomen nontender Musculoskeletal: No acute arthritis in any joint Neurologic: Alert and awake. Very drowsy Lymphatic: no cervical or axillary lymphadenopathy Results & Data Results & Data ([facility]) Vital Signs (Past 12 Hours) Vital Signs Temp Pulse Pulse Resp BP BP Pulse Ox 11/02/20 13:06 96 H 15 116/66 94 11/02/20 12:06 92 H 18 119/73 95 11/02/20 11:07 88 17 126/90 98 11/02/20 10:06 95 H 20 150/97 H 98 11/02/20 09:30 93 H 20 98 11/02/20 09:15 94 H 15 95 11/02/20 09:06 93 H 17 130/84 97 11/02/20 09:00 94 H 16 97 11/02/20 08:45 93 H 26 H 98 11/02/20 08:30 98 H 24 99 11/02/20 08:15 92 H 14 95 11/02/20 08:07 97 H 15 117/69 97 11/02/20 08:00 94 H 19 98 11/02/20 07:45 98 H 22 97 11/02/20 07:30 94 H 18 99 11/02/20 07:15 98 H 19 97 11/02/20 07:07 97 H 18 123/81 99 11/02/20 07:00 100 H 20 97 11/02/20 06:45 97 H 21 97 11/02/20 06:30 96 H 14 98 11/02/20 06:15 97 H 18 99 11/02/20 06:06 95 H 22 136/91 98 11/02/20 06:00 99 H 100 H 16 136/91 97 11/02/20 05:45 97 H 25 H 97 11/02/20 05:30 98 H 33 H 97 11/02/20 05:15 104 H 16 97 11/02/20 05:14 102 H 17 138/95 97 11/02/20 05:12 102 H 18 168/127 H 98 11/02/20 05:10 102 H 15 170/123 H 98 11/02/20 05:00 36.8 C 94 H 101 H 23 138/95 98 11/02/20 04:45 100 H 23 96 11/02/20 04:30 99 H 16 96 11/02/20 04:15 103 H 18 98 11/02/20 04:06 105 H 23 152/111 H 97 11/02/20 04:00 122 H 17 97 Laboratory Results Short CBC 11/01/20 11/02/20 Range/Units 18:37 06:16 WBC 15.40 H 10.52 (4.8-10.8) K/uL Hgb 19.0 H 16.1 (14.0-18.0) g/dL Hct 55.6 H 47.5 (42-52) % Plt Count 278 244 (130-400) K/uL BMP 11/01/20 11/01/20 11/02/20 18:37 20:08 00:24 Sodium 126 L 130 L 137 D Potassium 4.0 4.4 3.2 L D Chloride 85 L 92 L 102 Carbon Dioxide 9 L* 8 L* 10 L BUN 27 H 28 H 24 H Creatinine 2.19 H 1.82 H D 1.60 H Glucose 693 H* 653 H* 312 H* Calcium 9.4 8.4 L 8.6 11/02/20 11/02/20 11/02/20 03:09 08:56 12:02 Sodium 136 136 135 L Potassium 3.5 3.9 3.9 Chloride 104 106 106 Carbon Dioxide 11 L 10 L 12 L BUN 22 H 19 H 17 Creatinine 1.46 H 1.37 1.40 Glucose 277 H 252 H 317 H* Calcium 8.1 L 8.0 L 8.0 L Cardiac Enzymes 11/01/20 11/02/20 Range/Units 18:37 06:16 Troponin I < 0.015 < 0.015 (0-0.045) ng/ml Liver Function 11/01/20 Range/Units 18:37 Total Bilirubin 1.0 (0.2-1) mg/dl AST 45 H (15-37) U/L ALT 66 (12-78) U/L Alkaline Phosphatase 209 H (45-117) U/L Albumin 4.0 (3.4-5.0) gm/dl Urine 11/01/20 Range/Units 22:30 Urine Color Yellow Urine Appearance Clear (Clear) Urine pH 5.0 (4.5-7.5) Ur Specific [place] 1.024 (1.000-1.030) Urine Protein 1+ H (Negative) Urine Glucose (UA) 3+ H (Negative) Medications Administered Current Inpatient Medications Acetaminophen (Acetaminophen 325 Mg Tab) 325 mg PO Q6H PRN PRN Reason: Mild Pain Stop: 12/01/20 22:08 Aspirin (Aspirin 81 Mg Ectab) 81 mg PO DAILY [facility] Stop: 12/02/20 08:59 Last Admin: 11/02/20 10:09 Dose: Not Given Documented by: Dextrose (Dextrose 50% 50 Ml Syringe) 25 - 50 ml IV UD PRN; Protocol PRN Reason: Hypoglycemia Protocol Stop: 12/01/20 19:59 Fluticasone/Vilanterol (Fluticasone/Vilanterol 200/25mcg 14 Puffs/Inhaler) 1 puffs INH DAILY [facility] Stop: 12/02/20 08:59 Last Admin: 11/02/20 09:31 Dose: 1 puffs Documented by: Folic Acid (Folic Acid 1 Mg Tab) 1 mg PO QAM [facility] Stop: 12/02/20 08:59 Glucagon (Glucagon For Inj 1 Mg Vial) 1 mg IM UD PRN; Protocol PRN Reason: Hypoglycemia Protocol Stop: 12/01/20 19:59 Glucose (Glucose 40% Gel 15 Gm Tube) 15 - 30 gm PO UD PRN; Protocol PRN Reason: Hypoglycemia Protocol Stop: 12/01/20 19:59 Glucose (Glucose 10 Tabs/Tube) 4 - 8 tabs PO UD PRN; Protocol PRN Reason: Hypoglycemia Protocol Stop: 12/01/20 19:59 Heparin Sodium (Porcine) (Heparin Sod 5,000 Unit/0.5 Ml Vial) 5,000 units SQ Q12 [facility] Stop: 12/02/20 08:59 Last Admin: 11/02/20 09:31 Dose: 5,000 units Documented by: Hydromorphone HCl (Hydromorphone Inj 0.5 Mg/0.5 Ml Syr) 0.5 mg IV Q3H PRN PRN Reason: Pain Stop: 11/15/20 22:08 Insulin Human Regular 250 (units/ Sodium Chloride) 250 mls @ 2.2 mls/hr IV .Q24H [facility]; Protocol Stop: 12/01/20 19:59 Last Titration: 11/02/20 15:12 Dose: 2.2 units/hr, 2.2 mls/hr Documented by: Promethazine HCl 12.5 mg/ (Sodium Chloride) 50.5 mls @ 202 mls/hr IV Q6H PRN PRN Reason: Nausea And Vomiting Stop: 12/01/20 22:08 Lorazepam (Ativan) 1 mg in 2 mls @ 2 mls/min IV UD PRN; Protocol PRN Reason: EtOH Withdrawl AWSS Score 6,7 Stop: 12/01/20 22:08 Lorazepam (Ativan) 2 mg in 4 mls @ 4 mls/min IV UD PRN; Protocol PRN Reason: EtOH Withdrawl AWSS Score 8,9 Stop: 12/01/20 22:08 Lorazepam (Ativan) 3 mg in 6 mls @ 4 mls/min IV ONCE PRN; Protocol PRN Reason: EtOH Withdrawl AWSS Score >=10 Stop: 12/01/20 22:08 Thiamine HCl 100 mg/ Syringe 10 mls @ 2 mls/min IV QAM [facility] Stop: 12/02/20 08:59 Last Admin: 11/02/20 08:20 Dose: 2 mls/min Documented by: Folic Acid 1 mg/ Syringe 10 mls @ 5 mls/min IV QAM [facility] Stop: 12/02/20 08:59 Last Admin: 11/02/20 08:20 Dose: 5 mls/min Documented by: Potassium Chloride/Dextrose/Sod Cl (D5w And 1/2nss + 20meq Kcl) 20 meq in 1,000 mls @ 200 mls/hr IV .Q5H [facility] Stop: 12/02/20 08:44 Last Admin: 11/02/20 14:59 Dose: 200 mls/hr Documented by: Insulin Aspart (Insulin Aspart 100 Units/Ml 3 Ml Pen) 0 units SC ACHS [facility] Stop: 12/01/20 20:59 Last Admin: 11/02/20 11:54 Dose: Not Given Documented by: Ipratropium [place] (Ipratropium [place] Neb Soln 0.02% 2.5 Ml Vial) 0.5 mg INH Q4H PRN PRN Reason: SOB / WHEEZE Stop: 12/01/20 22:08 Levalbuterol HCl (Levalbuterol 1.25mg/0.5ml Neb) 1.25 mg INH Q4H PRN PRN Reason: SOB / WHEEZE Stop: 12/01/20 22:08 Metoprolol Tartrate (Metoprolol Tartrate 25 Mg Tab) 25 mg PO BID [facility] Stop: 12/01/20 22:08 Last Admin: 11/02/20 10:09 Dose: Not Given Documented by: Miscellaneous (Carbohydrates For Hypoglycemia ) 15 - 30 gm PO PRN PRN PRN Reason: Hypoglycemia Treatment Stop: 12/01/20 19:59 Miscellaneous Information (Pharmacy Glycemic Mgmt Consult) 1 ea N/A UD PRN PRN Reason: Consult Stop: 12/02/20 13:04 Montelukast Sodium (Montelukast Sodium 10 Mg Tablet) 10 mg PO HS [facility] Stop: 12/02/20 20:59 Multivitamins (Multivitamin Tab) 1 tab PO QAM [facility] Stop: 12/02/20 08:59 Last Admin: 11/02/20 10:09 Dose: Not Given Documented by: Oxycodone HCl (Oxycodone Hcl Ir 5 Mg Tab (Immediate Release)) 5 mg PO Q4H PRN PRN Reason: Pain Stop: 11/15/20 22:08 Pantoprazole Sodium (Pantoprazole 40 Mg Tab) 40 mg PO BID [facility] Stop: 12/02/20 08:59 Last Admin: 11/02/20 10:09 Dose: Not Given Documented by: Thiamine HCl (Thiamine Hcl 100 Mg Tab) 100 mg PO QAM [facility] Stop: 12/02/20 08:59
[2020-11-02 18:05] LABS: BUN Creatinine Ratio 10.4 (10-20); Creatinine Clr Calc Pharmacy 78.6 ml/min; Est GFR (African American) 68.5 ml/min; Est GFR (Non-African American) 59.1 ml/min; Potassium 3.8 mmol/L (3.5-5.1)
[2020-11-02 19:04] LABS: Beta-Hydroxybutyrate 62.48 mg/dl (0.2-2.81)
[2020-11-02] MEDS ORDERED: SODIUM CHLOR 0.45% + 20MEQ KCL 20 MEQ/1,000 ML BAG IV SCH (20:30)
[2020-11-02 21:05] LABS: BUN Creatinine Ratio 8.2 (10-20); Calcium 8.3 mg/dl (8.5-10.1); Est GFR (African American) 64.7 ml/min; Est GFR (Non-African American) 55.8 ml/min; Potassium 3.7 mmol/L (3.5-5.1)
[2020-11-02] MEDS: MONTELUKAST SODIUM 10 MG TABLET PO SCH (21:10)
[2020-11-02] MEDS: INSULIN REGULAR 250 UNITS in SODIUM CHLORIDE 0.9% 247.5 ML IV SCH (21:27)
[2020-11-02 21:40] LABS: Beta-Hydroxybutyrate 55.07 mg/dl (0.2-2.81)
[2020-11-02] MEDS ORDERED: ALUMINUM/MAGNESIUM SUSP 18 ML, LIDOCAINE VISCOUS 2% SOLN 6 ML, BARCODE IDENTIFIER 1 EA PO ONE (21:49)
[2020-11-03] MEDS: D5W AND 1/2NSS + 20MEQ KCL 20 MEQ/1,000 ML BAG IV SCH ×3 (02:15→15:51)
[2020-11-03 02:50] LABS: BUN Creatinine Ratio 8.1 (10-20); Calcium 8.1 mg/dl (8.5-10.1); Creatinine Clr Calc Pharmacy 101.3 ml/min; Est GFR (African American) 93.1 ml/min; Est GFR (Non-African American) 80.3 ml/min; Potassium 3.2 mmol/L (3.5-5.1)
[2020-11-03 05:46] LABS: Basophils # (auto) 0.03 K/uL (0-0.2); Basophils % (auto) 0.4 %; Eosinophils # (auto) 0.09 K/uL (0-0.5); Eosinophils % (auto) 1.3 %; Hematocrit (blood only) 42.9 % (42-52); Hemoglobin 14.6 g/dL (14.0-18.0); Immature Granulocytes # (auto) 0.03 K/uL (0.00-0.02); Immature Granulocytes % (auto) 0.4 %; Lymphocytes # (auto) 1.93 K/uL (1.2-3.4); Lymphocytes % (auto) 28.8 %; Mean Corpuscular Hemoglobin 29.9 pg (25-34); Mean Corpuscular Volume 87.7 fL (80-100); Mean Platelet Volume 11.3 fL (7.4-10.4); Monocytes # (auto) 0.49 K/uL (0.11-0.59); Monocytes % (auto) 7.3 %; Neutrophils # (auto) 4.14 K/uL (1.4-6.5); Neutrophils % (auto) 61.8 %; Platelet Count 170 K/uL (130-400); RDW Coefficient of Variation 13.6 % (11.5-14.5); RDW Standard Deviation 44.3 fL (36.4-46.3); Red Blood Count 4.89 M/uL (4.7-6.1); White Blood Count 6.71 K/uL (4.8-10.8)
[2020-11-03] MEDS: POTASSIUM CHLORIDE / WTR 10 MEQ/100 ML PLCT IV SCH ×7 (06:00→23:06)
--- NOTE | 2020-11-03 06:05 | Electrocardiogram Report ---
Test Reason : Blood Pressure : / mmHG Vent. Rate : 118 BPM Atrial Rate : 118 BPM P-R Int : 138 ms QRS Dur : 108 ms QT Int : 362 ms P-R-T Axes : 066 060 061 degrees QTc Int : 507 ms Sinus tachycardia Biatrial enlargement Incomplete right bundle branch block Abnormal ECG When compared with ECG of 20-MAY-2019 12:55, No significant change Confirmed by Yazan Mcmullen ([id number]) on 11/03/2020 6:05:14 AM Referred By: REFERRED SELF Confirmed By:Yazan Mcmullen
[2020-11-03 06:38] LABS: Magnesium 2.5 mg/dl (1.8-2.4); Phosphorus 1.9 mg/dl (2.5-4.9)
[2020-11-03] MEDS: INSULIN ASPART 100 UNITS/ML 3 ML PEN SC SCH ×5 (07:30→23:59)
[2020-11-03] MEDS ORDERED: POTASSIUM PHOS 3 MMOL/1 ML INFUSION IV STA ×3 (07:48→20:40)
[2020-11-03] MEDS: FOLIC ACID 1 MG in SYRINGE 9.8 ML IV SCH (08:16)
[2020-11-03] MEDS: THIAMINE HCL 100 MG in SYRINGE 9 ML IV SCH (08:16)
[2020-11-03] MEDS: HEPARIN SOD 5,000 UNIT/0.5 ML VIAL SQ SCH ×2 (08:17→20:53)
[2020-11-03] MEDS: METOPROLOL TARTRATE 25 MG TAB PO SCH ×2 (08:17→20:53)
[2020-11-03] MEDS: ASPIRIN 81 MG ECTAB PO SCH (08:17)
[2020-11-03] MEDS: MULTIVITAMIN TAB PO SCH (08:17)
[2020-11-03] MEDS: FLUTICASONE/VILANTEROL 200/25MCG 14 PUFFS/INHALER INH SCH (08:18)
[2020-11-03] MEDS ORDERED: POTASSIUM PHOSPHATE 30 MMOL in SODIUM CHLORIDE 0.9% 500 ML IV ONE (08:30)
[2020-11-03] MEDS ORDERED: FAMOTIDINE 20 MG in SYRINGE 3 ML IV SCH (09:00)
[2020-11-03 09:06] LABS: BUN Creatinine Ratio 6.8 (10-20); Calcium 8.3 mg/dl (8.5-10.1); Creatinine Clr Calc Pharmacy 94.5 ml/min; Est GFR (African American) 85.6 ml/min; Est GFR (Non-African American) 73.8 ml/min
[2020-11-03 09:49] LABS: Beta-Hydroxybutyrate 58.73 mg/dl (0.2-2.81)
[2020-11-03 09:56] LABS: Potassium 3.7 mmol/L (3.5-5.1)
--- NOTE | 2020-11-03 10:42 | Pharmacy Report ---
Pharmacy Glycemic Short Note 2 - Date of Service November 03, 2020 - Glycemic Short BSG Results (Last 24 hours): 11/02/20 11/02/20 11/02/20 11:28 12:02 12:47 Glucose 317 H* POC Glucose 291 H 310 H* 11/02/20 11/02/20 11/02/20 13:47 15:10 16:06 Glucose POC Glucose 301 H* 323 H* 317 H* 11/02/20 11/02/20 11/02/20 16:39 17:19 18:15 Glucose 349 H* POC Glucose 319 H* 318 H* 11/02/20 11/02/20 11/02/20 19:17 20:12 20:21 Glucose 333 H* POC Glucose 353 H* 327 H* 11/02/20 11/02/20 11/02/20 21:17 22:13 23:25 Glucose POC Glucose 346 H* 266 H 279 H 11/03/20 11/03/20 11/03/20 00:24 01:25 02:22 Glucose 234 H POC Glucose 224 H 211 H 11/03/20 11/03/20 11/03/20 02:24 03:24 05:15 Glucose POC Glucose 200 H 218 H 229 H 11/03/20 11/03/20 11/03/20 07:21 08:21 08:24 Glucose 323 H* POC Glucose 257 H 319 H* 11/03/20 11/03/20 09:40 10:22 Glucose POC Glucose 296 H 225 H OUTPATIENT ANTIDIABETIC REGIMEN: * N/A * HbA1c >16% ASSESSMENT: * 45 yo M with new-onset diabetes and significantly elevated HbA1c admitted with DKA. Currently on an insulin drip @ 2.8 units/hr with most recent BSG in goal range of 150-250 mg/dL * Patient to continue on insulin drip until anion gap once again closed (notable rebound this AM back up therefore continue drip for now) * Dextrose containing fluids to continue as long as insulin drip is still running per Dr. Russo. OK to d/c when drip is turned off. * OK to transition drip in afternoon now that anion gap again closed per discussion w Dr. Russo PLAN FOR INPATIENT GLYCEMIC CONTROL: * Continue insulin drip, goal range 150-250 mg/dL. Transtion OK later this evening if drip rates decrease 2-6 hours after giving Lantus * Basal insulin * Lantus 30 units SQ x1 now * Bolus insulin * Per insulin drip protocol for now. Hopefully will switch to correction factor / CHO ratio later this evening. PLAN FOR DISCHARGE: * Patient will require insulin on discharge. Planning to initiate diabetes education per ICU rounds today
[2020-11-03 13:51] LABS: BUN Creatinine Ratio 6.4 (10-20); Calcium 7.8 mg/dl (8.5-10.1); Creatinine Clr Calc Pharmacy 104.1 ml/min; Est GFR (African American) 96.2 ml/min; Magnesium 2.2 mg/dl (1.8-2.4); Potassium 3.3 mmol/L (3.5-5.1)
[2020-11-03 14:06] LABS: Phosphorus 1.5 mg/dl (2.5-4.9)
--- NOTE | 2020-11-03 14:19 | Critical Care Progress Note ---
Date of Service November 03, 2020 Assessment & Plan (1) DKA (diabetic ketoacidosis): Reason Critically Ill: 45-year-old male presents to the ICU in DKA without prior history of diabetes and elevated lipase. Neuro - S/p metabolic encephalopathyresolved Likely from underlying DKA Improved since presentation Patient does have significant alcohol use history. -Continue with LOUIE S protocol. -Continue with thiamine and folate Cardiac - Sinus tachycardia (chronic)continue MTP, monitor on telemetry CADcontinue ASA -Troponin negative Respiratory - Asthma -Not in exacerbation, nebs as needed -Continuous monitoring pulse ox GI - Clear liquids Elevated lipase - lipase 900. CT abdomen does not show any signs of pancreatitis. Patient is nontender to epigastrium. -I do not think this is acute pancreatitis RENAL/LYTES - DIANE Improving Monitor BUN/creatinine Avoid nephrotoxic medications - Strict I's and O's ENDO - DKA Patient undergoing DKA protocol with insulin infusion and fluid resuscitation. -Monitor BMPs and VBG's every 4 -No prior history of diabetes. Diabetes education prior to discharge -HbA1c 16.9 HEME - H&H stable, monitor routine CBCs ID - Leukocytosis likely from DKA Procalcitonin 0.2 UA unremarkable, blood cultures pending No clear source of infection DC antibiotics --Prophylaxis VTE: Heparin GI: Protonix Lines: Peripheral Diet: Clear liquids Plan: In/out: + 2.9 L, urine output 2125 Patient blood sugars are still in the 300s Reeducated to the nursing staff if the blood sugars are persistently greater than 250 not to give D5 in the IV fluids. Once the blood sugar is less than 250 add D5 to the fluids. Continue with BMP, mag Phos every 4 hours while patient is on insulin drip. Hypokalemia and hypophosphatemia being replaced I have personally spent 35 minutes of critical care time in the direct management of this patient. This is a life/limb threatening event. This includes time spent evaluating patient, direct bedside care, chart review, placing orders, interpretation of diagnostic studies, discussion with consultants, patient, and family members, as well as other required patient management activities. This time is exclusive of all separately billable procedures, and teaching time and separate from and in addition to any other critical care service time. Please note the above document was generated using voice recognition software. It may contain grammatical, syntax or spelling errors. (2) Alcohol abuse: (3) Admitted to intensive care unit: Admission and Anticipated Discharge Date Admission Date: November 01, 2020 Subjective Patient seen and examined at bedside. No acute distress, no adverse events overnight. Patient is more alert and awake today. Answering all questions appropriately. Discomfort and some gastritis/heartburn. Denies any shortness of breath, no chest pain, no headache, no nausea, no vomiting. Asking to have some food. Review of Systems Review of Systems: All systems reviewed & are unremarkable except as noted in Subjective Physical Exam Physical Exam: Constitutional: No acute distress HEENT: EOMI, PERRLA Respiratory system: Good air entry bilaterally, no wheeze, no rhonchi, no crackles CVS: S1-S2 positive, no murmurs or gallops Abdomen: Soft, nontender, nondistended, positive bowel sounds x4, obese Extremities: +2 pulses bilaterally radialis/ dorsalis pedis, no cyanosis, no edema Neuro: Awake alert oriented x3 Psych: Normal mood and affect G/U: No [place] Skin: no rashes, warm and dry Lymphatic: no cervical or axillary lymphadenopathy Results & Data Results & Data ([facility]) Vital Signs (Past 12 Hours) Vital Signs Pulse Resp BP Pulse Ox 11/03/20 08:26 100 H 25 H 106/62 11/03/20 07:26 103 H 24 125/74 11/03/20 06:26 90 25 H 127/87 11/03/20 06:00 89 24 127/87 97 11/03/20 04:26 83 19 111/68 96 11/03/20 03:26 88 28 H 117/87 98 11/03/20 02:26 89 22 125/83 99 11/03/20 05:11 11/03/20 13:10 Coding Level of Care Code Critical Care 1st 30-74 mins Diagnoses DKA (diabetic ketoacidosis) E11.10 Alcohol abuse F10.10 Admitted to intensive care unit Z78.9 Time Spent (min) 35
--- NOTE | 2020-11-03 14:40 | Hospitalist Progress Note ---
Date of Service November 03, 2020 Assessment & Plan (1) Hyperglycemic crisis in diabetes mellitus: Diabetic ketoacidosis History prediabetes and has not been to the doctor for the last 1 year Admitted with a blood glucose of 693 with acidosis and low CO2 Has been on intravenous insulin and IV fluids Hemoglobin A1c is more than 16 Still requiring intravenous insulin and the blood sugar remains more than 250 Clinically much better and complains to have weakness and tiredness Appreciate input from internal communications writer Metabolic encephalopathy Secondary to underlying DKA and is complicated by alcoholism Has been on withdrawal protocol Encephalopathy is resolved DIANE Secondary to nausea vomiting, dehydration and DKA itself Has been getting intravenous fluid We will monitor PRP-creatinine has been improving and is normalized Creatinine remains normal Electrolytes abnormality Supplemented and will be corrected Leukocytosis-secondary to DKA and a stress Acute pharyngitis secondary to emesis episode Doubt any infection Leukocytosis is resolved Elevated lipase The patient has had some nausea and vomiting but nontender in the epigastrium CT of the abdomen did not show any acute pancreatitis Doubt any acute pancreatitis Has been getting intravenous fluid and pain medications as needed Shortness of breath secondary to DKA Complicated by KARLO (CPAP noncompliance) Doubt any pulmonary embolism Initial heparin infusion has been discontinued Saturating well with room air Denies any shortness of breath H/O nonobstructive CAD as per records hypertension, slightly elevated DVT prophylaxis. Heparin subcu Full code Admission and Anticipated Discharge Date Admission Date: November 01, 2020 Subjective 11/02/2020 The patient was seen and examined in ICU He remains very drowsy and not been talking much Remains hemodynamically stable but is still quite ill 11/03/2020 The patient was seen and examined in ICU He has been feeling much better and complains today of some epigastric discomfort without nausea and or vomiting Remains generally weak Review of Systems Review of Systems: All systems reviewed and are unremarkable except as noted below Neurologic: + generalized weakness Physical Exam Physical Exam: Lying in bed comfortably Constitutional: well developed, well nourished, + ill appearing and + obese ENMT: external ear and nose normal, oropharynx normal Neck: trachea midline, no thyromegaly Respiratory: no respiratory distress Auscultation: lungs clear to auscultation bilaterally; no crackles and no wheezes Cardiovascular: Rate/Rhythm: regular rate and regular rhythm Heart Sounds: no murmur Extremities: no edema Gastrointestinal (Abdomen): Inspection/Auscultation: normal bowel sounds; abdomen not distended Percussion/Palpation: abdomen soft; abdomen nontender Musculoskeletal: No acute arthritis in any joint Lymphatic: no cervical or axillary lymphadenopathy Results & Data Results & Data ([facility]) Vital Signs (Past 12 Hours) Vital Signs Pulse Resp BP Pulse Ox 11/03/20 08:26 100 H 25 H 106/62 11/03/20 07:26 103 H 24 125/74 11/03/20 06:26 90 25 H 127/87 11/03/20 06:00 89 24 127/87 97 11/03/20 04:26 83 19 111/68 96 11/03/20 03:26 88 28 H 117/87 98 Laboratory Results Short CBC 11/03/20 Range/Units 05:11 WBC 6.71 (4.8-10.8) K/uL Hgb 14.6 (14.0-18.0) g/dL Hct 42.9 (42-52) % Plt Count 170 (130-400) K/uL BMP 11/02/20 11/02/20 11/03/20 16:39 20:21 02:22 Sodium 135 L 136 138 Potassium 3.8 3.7 3.2 L Chloride 106 106 108 H Carbon Dioxide 14 L 16 L 19 L BUN 15 12 9 Creatinine 1.43 H 1.50 H 1.11 D Glucose 349 H* 333 H* 234 H Calcium 8.0 L 8.3 L 8.1 L 11/03/20 11/03/20 08:21 13:10 Sodium 135 L 136 Potassium 3.7 D 3.3 L Chloride 106 108 H Carbon Dioxide 14 L 18 L BUN 8 7 Creatinine 1.19 1.08 Glucose 323 H* 219 H Calcium 8.3 L 7.8 L Medications Administered Current Inpatient Medications Acetaminophen (Acetaminophen 325 Mg Tab) 325 mg PO Q6H PRN PRN Reason: Mild Pain Stop: 12/01/20 22:08 Aspirin (Aspirin 81 Mg Ectab) 81 mg PO DAILY [facility] Stop: 12/02/20 08:59 Last Admin: 11/03/20 08:17 Dose: 81 mg Documented by: Dextrose (Dextrose 50% 50 Ml Syringe) 25 - 50 ml IV UD PRN; Protocol PRN Reason: Hypoglycemia Protocol Stop: 12/01/20 19:59 Fluticasone/Vilanterol (Fluticasone/Vilanterol 200/25mcg 14 Puffs/Inhaler) 1 puffs INH DAILY [facility] Stop: 12/02/20 08:59 Last Admin: 11/03/20 08:18 Dose: 1 puffs Documented by: Folic Acid (Folic Acid 1 Mg Tab) 1 mg PO QAM [facility] Stop: 12/02/20 08:59 Glucagon (Glucagon For Inj 1 Mg Vial) 1 mg IM UD PRN; Protocol PRN Reason: Hypoglycemia Protocol Stop: 12/01/20 19:59 Glucose (Glucose 40% Gel 15 Gm Tube) 15 - 30 gm PO UD PRN; Protocol PRN Reason: Hypoglycemia Protocol Stop: 12/01/20 19:59 Glucose (Glucose 10 Tabs/Tube) 4 - 8 tabs PO UD PRN; Protocol PRN Reason: Hypoglycemia Protocol Stop: 12/01/20 19:59 Heparin Sodium (Porcine) (Heparin Sod 5,000 Unit/0.5 Ml Vial) 5,000 units SQ Q12 [facility] Stop: 12/02/20 08:59 Last Admin: 11/03/20 08:17 Dose: 5,000 units Documented by: Insulin Human Regular 250 (units/ Sodium Chloride) 250 mls @ 2.2 mls/hr IV .Q24H [facility]; Protocol Stop: 12/01/20 19:59 Last Titration: 11/03/20 14:17 Dose: 2.2 units/hr, 2.2 mls/hr Documented by: Promethazine HCl 12.5 mg/ (Sodium Chloride) 50.5 mls @ 202 mls/hr IV Q6H PRN PRN Reason: Nausea And Vomiting Stop: 12/01/20 22:08 Lorazepam (Ativan) 1 mg in 2 mls @ 2 mls/min IV UD PRN; Protocol PRN Reason: EtOH Withdrawl AWSS Score 6,7 Stop: 12/01/20 22:08 Lorazepam (Ativan) 2 mg in 4 mls @ 4 mls/min IV UD PRN; Protocol PRN Reason: EtOH Withdrawl AWSS Score 8,9 Stop: 12/01/20 22:08 Lorazepam (Ativan) 3 mg in 6 mls @ 4 mls/min IV ONCE PRN; Protocol PRN Reason: EtOH Withdrawl AWSS Score >=10 Stop: 12/01/20 22:08 Thiamine HCl 100 mg/ Syringe 10 mls @ 2 mls/min IV QAM [facility] Stop: 12/02/20 08:59 Last Admin: 11/03/20 08:16 Dose: 2 mls/min Documented by: Folic Acid 1 mg/ Syringe 10 mls @ 5 mls/min IV QAM [facility] Stop: 12/02/20 08:59 Last Admin: 11/03/20 08:16 Dose: 5 mls/min Documented by: Potassium Chloride/Dextrose/Sod Cl (D5w And 1/2nss + 20meq Kcl) 20 meq in 1,000 mls @ 150 mls/hr IV .Q6H40M [facility] Stop: 12/03/20 00:59 Last Infusion: 11/03/20 14:13 Dose: Infused Documented by: Potassium Phosphate 15 mmol/ (Sodium Chloride) 255 mls @ 88 mls/hr IV ONE ONE Stop: 11/03/20 17:53 Insulin Aspart (Insulin Aspart 100 Units/Ml 3 Ml Pen) 0 units SC ACHS [facility] Stop: 12/01/20 20:59 Last Admin: 11/03/20 11:52 Dose: 7 units Documented by: Ipratropium [place] (Ipratropium [place] Neb Soln 0.02% 2.5 Ml Vial) 0.5 mg INH Q4H PRN PRN Reason: SOB / WHEEZE Stop: 12/01/20 22:08 Levalbuterol HCl (Levalbuterol 1.25mg/0.5ml Neb) 1.25 mg INH Q4H PRN PRN Reason: SOB / WHEEZE Stop: 12/01/20 22:08 Metoprolol Tartrate (Metoprolol Tartrate 25 Mg Tab) 25 mg PO BID [facility] Stop: 12/01/20 22:08 Last Admin: 11/03/20 08:17 Dose: 25 mg Documented by: Miscellaneous (Carbohydrates For Hypoglycemia ) 15 - 30 gm PO PRN PRN PRN Reason: Hypoglycemia Treatment Stop: 12/01/20 19:59 Miscellaneous Information (Pharmacy Glycemic Mgmt Consult) 1 ea N/A UD PRN PRN Reason: Consult Stop: 12/02/20 13:04 Montelukast Sodium (Montelukast Sodium 10 Mg Tablet) 10 mg PO HS [facility] Stop: 12/02/20 20:59 Last Admin: 11/02/20 21:10 Dose: 10 mg Documented by: [facility]ivitamins ([facility] Tab) [facility] Stop: 12/02/20 08:59 Last Admin: 11/03/20 08:17 Dose: 1 tab Documented by: Pantoprazole Sodium (Pantoprazole 40 Mg Tab) 40 mg PO BID [facility] Stop: 12/03/20 20:59 Thiamine HCl (Thiamine Hcl 100 Mg Tab) 100 mg PO [facility] Stop: 12/02/20 08:59
[2020-11-03] MEDS ORDERED: POTASSIUM PHOSPHATE 15 MMOL in SODIUM CHLORIDE 0.9% 250 ML IV ONE (15:00)
[2020-11-03] MEDS ORDERED: INSULIN GLARGINE SOLOSTAR 100 UNITS/ML 3 ML PEN SC ONE (15:45)
[2020-11-03 18:39] LABS: BUN Creatinine Ratio 5.3 (10-20); Calcium 8.1 mg/dl (8.5-10.1); Creatinine Clr Calc Pharmacy 98.6 ml/min; Est GFR (African American) 90.2 ml/min; Est GFR (Non-African American) 77.8 ml/min; Phosphorus 1.8 mg/dl (2.5-4.9)
[2020-11-03 19:19] LABS: Potassium 3.3 mmol/L (3.5-5.1)
[2020-11-03] MEDS: PANTOprazole 40 MG TAB PO SCH (20:52)
[2020-11-03] MEDS: MONTELUKAST SODIUM 10 MG TABLET PO SCH (20:53)
[2020-11-03] MEDS ORDERED: POTASSIUM PHOSPHATE 24 MMOL in SODIUM CHLORIDE 0.9% 500 ML IV ONE (21:30)
[2020-11-03 21:48] LABS: BUN Creatinine Ratio 5.3 (10-20); Calcium 7.9 mg/dl (8.5-10.1); Creatinine Clr Calc Pharmacy 96.9 ml/min; Est GFR (African American) 88.3 ml/min; Est GFR (Non-African American) 76.2 ml/min; Magnesium 2.1 mg/dl (1.8-2.4); Phosphorus 1.7 mg/dl (2.5-4.9); Potassium 3.4 mmol/L (3.5-5.1)
[2020-11-04] MEDS: POTASSIUM CHLORIDE / WTR 10 MEQ/100 ML PLCT IV SCH ×5 (00:01→10:06)
[2020-11-04 01:25] LABS: Phosphorus 1.7 mg/dl (2.5-4.9)
[2020-11-04] MEDS: INSULIN ASPART 100 UNITS/ML 3 ML PEN SC SCH ×5 (04:07→21:50)
[2020-11-04 04:54] LABS: Basophils # (auto) 0.01 K/uL (0-0.2); Basophils % (auto) 0.2 %; Eosinophils # (auto) 0.05 K/uL (0-0.5); Hematocrit (blood only) 38.3 % (42-52); Hemoglobin 13.1 g/dL (14.0-18.0); Immature Granulocytes # (auto) 0.03 K/uL (0.00-0.02); Immature Granulocytes % (auto) 0.6 %; Lymphocytes % (auto) 30.3 %; Mean Corpuscular Hemoglobin 29.4 pg (25-34); Mean Corpuscular Hgb Conc 34.2 g/dL (32-36); Mean Corpuscular Volume 85.9 fL (80-100); Mean Platelet Volume 11.2 fL (7.4-10.4); Monocytes # (auto) 0.56 K/uL (0.11-0.59); Monocytes % (auto) 11.3 %; Neutrophils % (auto) 56.6 %; Platelet Count 125 K/uL (130-400); RDW Coefficient of Variation 13.5 % (11.5-14.5); RDW Standard Deviation 42.4 fL (36.4-46.3); Red Blood Count 4.46 M/uL (4.7-6.1); White Blood Count 4.95 K/uL (4.8-10.8)
[2020-11-04 04:59] LABS: Base Excess VBG -1.9 mEq/L; HCO3 VBG 21 mmol/L; Oxygen Saturation VBG 79.1 %; PCO2 VBG 31 mmHg (38-50); PO2 VBG 38 mmHg; pH VBG 7.46 (7.36-7.41)
[2020-11-04 05:27] LABS: BUN Creatinine Ratio 4.7 (10-20); Calcium 8.3 mg/dl (8.5-10.1); Creatinine Clr Calc Pharmacy 127.8 ml/min; Est GFR (African American) 121.1 ml/min; Est GFR (Non-African American) 104.5 ml/min; Magnesium 2.2 mg/dl (1.8-2.4); Potassium 3.2 mmol/L (3.5-5.1)
[2020-11-04 05:43] LABS: Phosphorus 2.2 mg/dl (2.5-4.9)
[2020-11-04 05:47] LABS: Magnesium 2.1 mg/dl (1.8-2.4); Phosphorus 2.2 mg/dl (2.5-4.9)
[2020-11-04] MEDS: INSULIN REGULAR 250 UNITS in SODIUM CHLORIDE 0.9% 247.5 ML IV SCH (06:12)
[2020-11-04] MEDS ORDERED: POTASSIUM PHOS 3 MMOL/1 ML INFUSION IV STA (06:21)
[2020-11-04] MEDS ORDERED: POTASSIUM PHOSPHATE 21 MMOL in SODIUM CHLORIDE 0.9% 500 ML IV ONE (06:30)
[2020-11-04] MEDS: FOLIC ACID 1 MG in SYRINGE 9.8 ML IV SCH (08:43)
[2020-11-04] MEDS: THIAMINE HCL 100 MG in SYRINGE 9 ML IV SCH (08:43)
[2020-11-04] MEDS: FLUTICASONE/VILANTEROL 200/25MCG 14 PUFFS/INHALER INH SCH (08:43)
[2020-11-04] MEDS: METOPROLOL TARTRATE 25 MG TAB PO SCH ×2 (08:44→21:52)
[2020-11-04] MEDS: MULTIVITAMIN TAB PO SCH (08:44)
[2020-11-04] MEDS: HEPARIN SOD 5,000 UNIT/0.5 ML VIAL SQ SCH ×2 (08:44→21:49)
[2020-11-04] MEDS: INSULIN GLARGINE SOLOSTAR 100 UNITS/ML 3 ML PEN SC SCH ×2 (08:45→21:51)
[2020-11-04] MEDS: ASPIRIN 81 MG ECTAB PO SCH (08:46)
[2020-11-04] MEDS: PANTOprazole 40 MG TAB PO SCH ×2 (08:46→21:52)
[2020-11-04 09:48] LABS: Phosphorus 2.1 mg/dl (2.5-4.9)
--- NOTE | 2020-11-04 10:43 | Critical Care Progress Note ---
Date of Service November 04, 2020 Assessment & Plan (1) DKA (diabetic ketoacidosis): Reason Critically Ill: 45-year-old male presents to the ICU in DKA without prior history of diabetes and elevated lipase. Neuro - S/p metabolic encephalopathyresolved Likely from underlying DKA Improved since presentation Patient does have significant alcohol use history. -Continue with LOUIE S protocol. -Continue with thiamine and folate Cardiac - Sinus tachycardia (chronic)continue MTP, monitor on telemetry CADcontinue ASA -Troponin negative Respiratory - Asthma -Not in exacerbation, nebs as needed -Continuous monitoring pulse ox GI - Clear liquids Elevated lipase - lipase 900. CT abdomen does not show any signs of pancreatitis. Patient is nontender to epigastrium. -I do not think this is acute pancreatitis RENAL/LYTES - DIANE Improving Monitor BUN/creatinine Avoid nephrotoxic medications - Strict I's and O's ENDO - DKA Patient undergoing DKA protocol with insulin infusion and fluid resuscitation. -Monitor BMPs and VBG's every 4 -No prior history of diabetes. Diabetes education prior to discharge -HbA1c 16.9 HEME - H&H stable, monitor routine CBCs New onset thrombocytopenia Etiology is right now unclear Monitor ID - Procalcitonin 0.2 UA unremarkable, blood cultures pending No clear source of infection DC antibiotics --Prophylaxis VTE: Heparin GI: Protonix Lines: Peripheral Diet: Diabetic diet Plan: In/out: +1 L, urine output [id number] Has been off insulin drip since yesterday. Continue with subcu insulin Hypokalemia as well as hypophosphatemia being replaced. Patient has new onset thrombocytopenia. Etiology quite unclear right now We will continue to monitor Patient hemodynamically stable to be sent to medical floor. Please note the above document was generated using voice recognition software. It may contain grammatical, syntax or spelling errors.Any formal questions or concerns about the content, text or information contained within the body of this dictation should be directly addressed to the provider for clarification. (2) Alcohol abuse: (3) Admitted to intensive care unit: Admission and Anticipated Discharge Date Admission Date: November 01, 2020 Subjective Patient seen and examined at bedside. No acute distress, no adverse events overnight. Patient has been off insulin drip since yesterday. Denies any chest pain, no headache, no nausea, no vomiting. Has been complaining of some dyspepsia. No abdominal pain. Urinating well. Review of Systems Review of Systems: All systems reviewed & are unremarkable except as noted in Subjective Physical Exam Physical Exam: Constitutional: No acute distress HEENT: EOMI, PERRLA Respiratory system: Good air entry bilaterally, no wheeze, no rhonchi, no crackles CVS: S1-S2 positive, no murmurs or gallops Abdomen: Soft, nontender, nondistended, positive bowel sounds x4, obese Extremities: +2 pulses bilaterally radialis/ dorsalis pedis, no cyanosis, no edema Neuro: Awake alert oriented x3 Psych: Normal mood and affect G/U: No [place] Skin: no rashes, warm and dry Lymphatic: no cervical or axillary lymphadenopathy Results & Data Results & Data ([facility]) Vital Signs (Past 12 Hours) Vital Signs Temp Pulse Resp BP Pulse Ox 11/04/20 09:04 123 H 28 H 111/72 96 11/04/20 08:04 101 H 19 131/85 98 11/04/20 08:00 37.0 C 97 H 11/04/20 07:04 97 H 24 140/84 97 11/04/20 06:03 95 H 23 121/83 97 11/04/20 05:03 94 H 24 119/76 97 11/04/20 04:04 36.8 C 95 H 22 129/83 95 11/04/20 03:04 94 H 24 124/80 96 11/04/20 02:04 91 H 21 107/57 L 95 11/04/20 01:34 111 H 16 108/75 95 11/04/20 01:03 98 H 28 H 119/57 L 94 11/04/20 00:45 102 H 13 94 11/04/20 00:05 36.7 C 96 H 19 113/83 96 11/03/20 23:00 91 H 26 H 94 11/03/20 22:48 95 H 11/04/20 04:33 11/04/20 04:32 Coding Level of Care Code 51939 Subseq Hosp Care Lvl 3 Diagnoses DKA (diabetic ketoacidosis) E11.10 Alcohol abuse F10.10 Admitted to intensive care unit Z78.9
--- NOTE | 2020-11-04 13:03 | Hospitalist Progress Note ---
Date of Service November 04, 2020 Assessment & Plan (1) Hyperglycemic crisis in diabetes mellitus: Diabetic ketoacidosis History prediabetes and has not been to the doctor for the last 1 year Admitted with a blood glucose of 693 with acidosis and low CO2 Has been on intravenous insulin and IV fluids Hemoglobin A1c is more than 16 Still requiring intravenous insulin and the blood sugar remains more than 250 Clinically much better and complains to have weakness and tiredness Appreciate input from configurator Has been on regular insulin subcu and intravenous insulin has been stopped Clinically much better and the patient be transferred to telemetry unit Metabolic encephalopathy Secondary to underlying DKA and is complicated by alcoholism Has been on withdrawal protocol Encephalopathy is resolved DIANE Secondary to nausea vomiting, dehydration and DKA itself Has been getting intravenous fluid We will monitor PRP-creatinine has been improving and is normalized Creatinine remains normal Electrolytes abnormality Supplemented and will be corrected We will monitor PRP and electrolytes Leukocytosis-secondary to DKA and a stress Acute pharyngitis secondary to emesis episode Doubt any infection Leukocytosis is resolved Elevated lipase The patient has had some nausea and vomiting but nontender in the epigastrium CT of the abdomen did not show any acute pancreatitis Doubt any acute pancreatitis Has been getting intravenous fluid and pain medications as needed Shortness of breath secondary to DKA Complicated by KARLO (CPAP noncompliance) Doubt any pulmonary embolism Initial heparin infusion has been discontinued Saturating well with room air Denies any shortness of breath H/O nonobstructive CAD as per records hypertension, slightly elevated DVT prophylaxis. Heparin subcu Full code We will ask for PT and OT evaluation prior to discharge Admission and Anticipated Discharge Date Admission Date: November 01, 2020 Subjective 11/02/2020 The patient was seen and examined in ICU He remains very drowsy and not been talking much Remains hemodynamically stable but is still quite ill 11/03/2020 The patient was seen and examined in ICU He has been feeling much better and complains today of some epigastric discomfort without nausea and or vomiting Remains generally weak 11/04/2020 The patient was seen and examined in ICU He has been feeling much better but remains generally weak and lethargic Has been tolerating advanced diet Does not have any significant withdrawal symptoms Review of Systems Review of Systems: All systems reviewed and are unremarkable except as noted below Neurologic: + generalized weakness Physical Exam Physical Exam: Lying in bed comfortably Constitutional: well developed, well nourished, + ill appearing and + obese ENMT: external ear and nose normal, oropharynx normal Neck: trachea midline, no thyromegaly Respiratory: no respiratory distress Auscultation: lungs clear to auscultation bilaterally; no crackles and no wheezes Cardiovascular: Rate/Rhythm: regular rate and regular rhythm Heart Sounds: no murmur Extremities: no edema Gastrointestinal (Abdomen): Inspection/Auscultation: normal bowel sounds; abdomen not distended Percussion/Palpation: abdomen soft; abdomen nontender Musculoskeletal: No acute arthritis in any joint Neurologic: Alert, awake and oriented x3. Generally weak but no focal sensory or motor deficit appreciated. No tremor involving the outstretched hands Lymphatic: no cervical or axillary lymphadenopathy Results & Data Results & Data ([facility]) Vital Signs (Past 12 Hours) Vital Signs Temp Pulse Resp BP Pulse Ox 11/04/20 12:04 99 H 24 121/59 L 94 11/04/20 11:04 104 H 22 112/79 95 11/04/20 10:04 118 H 20 120/82 94 11/04/20 09:04 123 H 28 H 111/72 96 11/04/20 08:04 101 H 19 131/85 98 11/04/20 08:00 37.0 C 97 H 11/04/20 07:04 97 H 24 140/84 97 11/04/20 06:03 95 H 23 121/83 97 11/04/20 05:03 94 H 24 119/76 97 11/04/20 04:04 36.8 C 95 H 22 129/83 95 11/04/20 03:04 94 H 24 124/80 96 11/04/20 02:04 91 H 21 107/57 L 95 11/04/20 01:34 111 H 16 108/75 95 11/04/20 01:03 98 H 28 H 119/57 L 94 Laboratory Results Short CBC 11/04/20 Range/Units 04:33 WBC 4.95 (4.8-10.8) K/uL Hgb 13.1 L (14.0-18.0) g/dL Hct 38.3 L (42-52) % Plt Count 125 L (130-400) K/uL BMP 11/03/20 11/03/20 11/03/20 13:10 17:51 18:55 Sodium 136 136 Potassium 3.3 L 3.3 L Chloride 108 H 107 Carbon Dioxide 18 L 18 L BUN 7 6 L Creatinine 1.08 1.14 Glucose 219 H 218 H Calcium 7.8 L 8.1 L 11/03/20 11/04/20 21:19 04:32 Sodium 137 139 Potassium 3.4 L 3.2 L Chloride 106 106 Carbon Dioxide 19 L 22 BUN 6 L 4 L Creatinine 1.16 0.88 Glucose 242 H 138 H Calcium 7.9 L 8.3 L Medications Administered Current Inpatient Medications Acetaminophen (Acetaminophen 325 Mg Tab) 325 mg PO Q6H PRN PRN Reason: Mild Pain Stop: 12/01/20 22:08 Aspirin (Aspirin 81 Mg Ectab) 81 mg PO DAILY [facility] Stop: 12/02/20 08:59 Last Admin: 11/04/20 08:46 Dose: 81 mg Documented by: Dextrose (Dextrose 50% 50 Ml Syringe) 25 - 50 ml IV UD PRN; Protocol PRN Reason: Hypoglycemia Protocol Stop: 12/01/20 19:59 Fluticasone/Vilanterol (Fluticasone/Vilanterol 200/25mcg 14 Puffs/Inhaler) 1 puffs INH DAILY [facility] Stop: 12/02/20 08:59 Last Admin: 11/04/20 08:43 Dose: 1 puffs Documented by: Folic Acid (Folic Acid 1 Mg Tab) 1 mg PO QAM [facility] Stop: 12/02/20 08:59 Glucagon (Glucagon For Inj 1 Mg Vial) 1 mg IM UD PRN; Protocol PRN Reason: Hypoglycemia Protocol Stop: 12/01/20 19:59 Glucose (Glucose 40% Gel 15 Gm Tube) 15 - 30 gm PO UD PRN; Protocol PRN Reason: Hypoglycemia Protocol Stop: 12/01/20 19:59 Glucose (Glucose 10 Tabs/Tube) 4 - 8 tabs PO UD PRN; Protocol PRN Reason: Hypoglycemia Protocol Stop: 12/01/20 19:59 Heparin Sodium (Porcine) (Heparin Sod 5,000 Unit/0.5 Ml Vial) 5,000 units SQ Q12 [facility] Stop: 12/02/20 08:59 Last Admin: 11/04/20 08:44 Dose: 5,000 units Documented by: Promethazine HCl 12.5 mg/ (Sodium Chloride) 50.5 mls @ 202 mls/hr IV Q6H PRN PRN Reason: Nausea And Vomiting Stop: 12/01/20 22:08 Lorazepam (Ativan) 1 mg in 2 mls @ 2 mls/min IV UD PRN; Protocol PRN Reason: EtOH Withdrawl AWSS Score 6,7 Stop: 12/01/20 22:08 Lorazepam (Ativan) 2 mg in 4 mls @ 4 mls/min IV UD PRN; Protocol PRN Reason: EtOH Withdrawl AWSS Score 8,9 Stop: 12/01/20 22:08 Lorazepam (Ativan) 3 mg in 6 mls @ 4 mls/min IV ONCE PRN; Protocol PRN Reason: EtOH Withdrawl AWSS Score >=10 Stop: 12/01/20 22:08 Thiamine HCl 100 mg/ Syringe 10 mls @ 2 mls/min IV QAM [facility] Stop: 12/02/20 08:59 Last Admin: 11/04/20 08:43 Dose: 2 mls/min Documented by: Folic Acid 1 mg/ Syringe 10 mls @ 5 mls/min IV QAM [facility] Stop: 12/02/20 08:59 Last Admin: 11/04/20 08:43 Dose: 5 mls/min Documented by: Insulin Aspart (Insulin Aspart 100 Units/Ml 3 Ml Pen) 0 units SC ACHS [facility] Stop: 12/03/20 20:59 Last Admin: 11/04/20 11:54 Dose: 13 units Documented by: Insulin Glargine (Insulin Glargine Solostar 100 Units/Ml 3 Ml Pen) 20 units SC BID [facility] Stop: 12/04/20 08:59 Last Admin: 11/04/20 08:45 Dose: 20 units Documented by: Ipratropium [place] (Ipratropium [place] Neb Soln 0.02% 2.5 Ml Vial) 0.5 mg INH Q4H PRN PRN Reason: SOB / WHEEZE Stop: 12/01/20 22:08 Levalbuterol HCl (Levalbuterol 1.25mg/0.5ml Neb) 1.25 mg INH Q4H PRN PRN Reason: SOB / WHEEZE Stop: 12/01/20 22:08 Metoprolol Tartrate (Metoprolol Tartrate 25 Mg Tab) 25 mg PO BID [facility] Stop: 12/01/20 22:08 Last Admin: 11/04/20 08:44 Dose: 25 mg Documented by: Miscellaneous (Carbohydrates For Hypoglycemia ) 15 - 30 gm PO PRN PRN PRN Reason: Hypoglycemia Treatment Stop: 12/01/20 19:59 Miscellaneous Information (Pharmacy Glycemic Mgmt Consult) 1 ea N/A UD PRN PRN Reason: Consult Stop: 12/02/20 13:04 Montelukast Sodium (Montelukast Sodium 10 Mg Tablet) 10 mg PO [facility] Stop: 12/02/20 20:59 Last Admin: 11/03/20 20:53 Dose: 10 mg Documented by: Multivitamins ([facility]itamin Tab) [facility] [place] Stop: 12/02/20 08:59 Last Admin: 11/04/20 08:44 Dose: 1 tab Documented by: Pantoprazole Sodium (Pantoprazole 40 Mg Tab) 40 mg PO BID [facility] Stop: 12/03/20 20:59 Last Admin: 11/04/20 08:46 Dose: 40 mg Documented by: Thiamine HCl (Thiamine Hcl 100 Mg Tab) 100 mg PO QAM [facility] Stop: 12/02/20 08:59
[2020-11-04 13:50] LABS: Magnesium 2.2 mg/dl (1.8-2.4)
--- NOTE | 2020-11-04 15:03 | Pharmacy Report ---
Pharmacy Glycemic Short Note 2 - Date of Service November 04, 2020 - Glycemic Short BSG Results (Last 24 hours): 11/03/20 11/03/20 11/03/20 15:39 16:35 17:51 Glucose 218 H POC Glucose 155 H 190 H 11/03/20 11/03/20 11/03/20 18:25 19:48 20:57 Glucose POC Glucose 229 H 246 H 256 H 11/03/20 11/03/20 11/04/20 21:19 23:54 04:03 Glucose 242 H POC Glucose 183 H 130 H 11/04/20 11/04/20 11/04/20 04:32 07:33 11:25 Glucose 138 H POC Glucose 179 H 208 H OUTPATIENT ANTIDIABETIC REGIMEN: * N/A * HbA1c >16% ASSESSMENT: 11/04: * Patient with reasonable blood sugars thus far today. Received 30 units lantus on top of insulin infusion to transition off. Will initiate a moderate stress weight based basal regimen. Patient is ordered and tolerating a diet. Will haider sely monitor insulin needs off of the infusion. 11/03 * 45 yo M with new-onset diabetes and significantly elevated HbA1c admitted with DKA. Currently on an insulin drip @ 2.8 units/hr with most recent BSG in goal range of 150-250 mg/dL * Patient to continue on insulin drip until anion gap once again closed (notable rebound this AM back up therefore continue drip for now) * Dextrose containing fluids to continue as long as BSG < 250 mg/dL per ICU rounds PLAN FOR INPATIENT GLYCEMIC CONTROL: * Basal insulin * Lantus 20 units SQ BID * Bolus insulin * NovoLog per scale ACHS or Q6hrs while NPO * Goal Range: Low 110 mg/dL - High 140 mg/dL * Correction Factor: 15 mg/dL/unit * Nutritional / Prandial insulin per carb ratio of 1 unit per 5 grams CHO consumed PLAN FOR DISCHARGE: * TBD
[2020-11-04] MEDS ORDERED: ALBUTEROL HFA 8 GM INHALER INH PRN (15:29)
[2020-11-04 17:42] LABS: Phosphorus 2.6 mg/dl (2.5-4.9)
[2020-11-04 21:17] LABS: Phosphorus 2.8 mg/dl (2.5-4.9)
[2020-11-04] MEDS: MONTELUKAST SODIUM 10 MG TABLET PO SCH (23:54)
[2020-11-05] MEDS: ASPIRIN 81 MG ECTAB PO SCH (08:13)
[2020-11-05] MEDS: THIAMINE HCL 100 MG TAB PO SCH (08:13)
[2020-11-05] MEDS: PANTOprazole 40 MG TAB PO SCH ×2 (08:13→20:58)
[2020-11-05] MEDS: METOPROLOL TARTRATE 25 MG TAB PO SCH ×2 (08:13→20:58)
[2020-11-05] MEDS: MULTIVITAMIN TAB PO SCH (08:13)
[2020-11-05] MEDS: FOLIC ACID 1 MG TAB PO SCH (08:13)
[2020-11-05] MEDS: FLUTICASONE/VILANTEROL 200/25MCG 14 PUFFS/INHALER INH SCH (08:15)
[2020-11-05] MEDS: INSULIN GLARGINE SOLOSTAR 100 UNITS/ML 3 ML PEN SC SCH ×3 (08:16→20:57)
[2020-11-05] MEDS: INSULIN ASPART 100 UNITS/ML 3 ML PEN SC SCH ×4 (08:17→20:55)
[2020-11-05 08:40] LABS: Basophils # (auto) 0.03 K/uL (0-0.2); Basophils % (auto) 0.6 %; Eosinophils % (auto) 2.1 %; Hematocrit (blood only) 42.6 % (42-52); Hemoglobin 14.2 g/dL (14.0-18.0); Immature Granulocytes # (auto) 0.03 K/uL (0.00-0.02); Immature Granulocytes % (auto) 0.6 %; Lymphocytes # (auto) 1.65 K/uL (1.2-3.4); Lymphocytes % (auto) 34.4 %; Mean Corpuscular Hemoglobin 29.7 pg (25-34); Mean Corpuscular Hgb Conc 33.3 g/dL (32-36); Mean Corpuscular Volume 89.1 fL (80-100); Mean Platelet Volume 11.4 fL (7.4-10.4); Monocytes # (auto) 0.42 K/uL (0.11-0.59); Monocytes % (auto) 8.8 %; Neutrophils # (auto) 2.56 K/uL (1.4-6.5); Neutrophils % (auto) 53.5 %; Platelet Count 145 K/uL (130-400); RDW Coefficient of Variation 13.7 % (11.5-14.5); RDW Standard Deviation 45.2 fL (36.4-46.3); Red Blood Count 4.78 M/uL (4.7-6.1); White Blood Count 4.79 K/uL (4.8-10.8)
[2020-11-05 08:57] LABS: Albumin Level 2.9 gm/dl (3.4-5.0); BUN Creatinine Ratio 5.2 (10-20); Calcium 9.2 mg/dl (8.5-10.1); Creatinine Clr Calc Pharmacy 141.8 ml/min; Est GFR (African American) 125.3 ml/min; Est GFR (Non-African American) 108.1 ml/min; Potassium 3.4 mmol/L (3.5-5.1)
[2020-11-05 08:59] LABS: Magnesium 2.3 mg/dl (1.8-2.4); Phosphorus 3.3 mg/dl (2.5-4.9)
[2020-11-05 09:00] LABS: Albumin Globulin Ratio 0.7 (0.9-2); Bilirubin,Total 0.8 mg/dl (0.2-1); Globulin 4.1 gm/dl (2.5-4.0)
[2020-11-05] MEDS: HEPARIN SOD 5,000 UNIT/0.5 ML VIAL SQ SCH ×2 (09:26→20:55)
[2020-11-05] MEDS ORDERED: POTASSIUM CHLORIDE CRTAB 20 MEQ TABCR PO SCH (09:30)
--- NOTE | 2020-11-05 11:59 | Hospitalist Progress Note ---
Date of Service November 05, 2020 Assessment & Plan (1) Hyperglycemic crisis in diabetes mellitus: Diabetic ketoacidosis History prediabetes and has not been to the doctor for the last 1 year Admitted with a blood glucose of 693 with acidosis and low CO2 Has been on intravenous insulin and IV fluids Hemoglobin A1c is more than 16 Still requiring intravenous insulin and the blood sugar remains more than 250 Clinically much better and complains to have weakness and tiredness Appreciate input from assistant health educator Has been on regular insulin subcu and intravenous insulin has been stopped Remains stable and with the blood sugar level has been reasonable Metabolic encephalopathy Secondary to underlying DKA and is complicated by alcoholism Has been on withdrawal protocol Encephalopathy is resolved We will get PT and OT evaluation DIANE Secondary to nausea vomiting, dehydration and DKA itself Has been getting intravenous fluid We will monitor PRP-creatinine has been improving and is normalized Creatinine remains normal Electrolytes abnormality Supplemented and will be corrected We will monitor PRP and electrolytes Potassium is supplemented Leukocytosis-secondary to DKA and a stress Acute pharyngitis secondary to emesis episode Doubt any infection Leukocytosis is resolved Elevated lipase The patient has had some nausea and vomiting but nontender in the epigastrium CT of the abdomen did not show any acute pancreatitis Doubt any acute pancreatitis Has been getting intravenous fluid and pain medications as needed Shortness of breath secondary to DKA Complicated by KARLO (CPAP noncompliance) Doubt any pulmonary embolism Initial heparin infusion has been discontinued Saturating well with room air Denies any shortness of breath H/O nonobstructive CAD as per records hypertension, slightly elevated DVT prophylaxis. Heparin subcu Full code We will ask for PT and OT evaluation prior to discharge Admission and Anticipated Discharge Date Admission Date: November 01, 2020 Subjective 11/02/2020 The patient was seen and examined in ICU He remains very drowsy and not been talking much Remains hemodynamically stable but is still quite ill 11/03/2020 The patient was seen and examined in ICU He has been feeling much better and complains today of some epigastric discomfort without nausea and or vomiting Remains generally weak 11/04/2020 The patient was seen and examined in ICU He has been feeling much better but remains generally weak and lethargic Has been tolerating advanced diet Does not have any significant withdrawal symptoms 11/05/2020 The patient was seen and examined in medical telemetry unit He has been feeling much better but remains generally weak Complains to have some numbness involving the right lateral aspect of hand and the little finger Denies any other significant symptoms Review of Systems Review of Systems: All systems reviewed and are unremarkable except as noted below Neurologic: + generalized weakness Physical Exam Physical Exam: Sitting on a chair comfortably Constitutional: well developed, well nourished, + ill appearing and + obese ENMT: external ear and nose normal, oropharynx normal Neck: trachea midline, no thyromegaly Respiratory: no respiratory distress Auscultation: lungs clear to auscultation bilaterally; no crackles and no wheezes Cardiovascular: Rate/Rhythm: regular rate and regular rhythm Heart Sounds: no murmur Extremities: no edema Gastrointestinal (Abdomen): Inspection/Auscultation: normal bowel sounds; abdomen not distended Percussion/Palpation: abdomen soft; abdomen nontender Musculoskeletal: No acute arthritis in any joint Neurologic: Alert, awake and oriented x3. No focal sensory and motor deficit appreciated Psychiatric: A+Ox3, euthymic affect Lymphatic: no cervical or axillary lymphadenopathy Results & Data Results & Data ([facility]) Vital Signs (Past 12 Hours) Vital Signs Temp Pulse Pulse Resp BP Pulse Ox 11/05/20 11:16 37.1 C 103 H 18 136/89 96 11/05/20 07:56 36.9 C 101 H 20 119/80 96 11/05/20 07:23 86 11/05/20 04:00 36.6 C 95 H 18 137/87 97 11/05/20 00:00 37.0 C 97 H 99 H 18 121/83 98 Laboratory Results Short CBC 11/05/20 Range/Units 08:20 WBC 4.79 L (4.8-10.8) K/uL Hgb 14.2 (14.0-18.0) g/dL Hct 42.6 (42-52) % Plt Count 145 (130-400) K/uL BMP 11/05/20 08:20 Sodium 139 Potassium 3.4 L Chloride 103 Carbon Dioxide 25 BUN 4 L Creatinine 0.81 Glucose 208 H Calcium 9.2 Liver Function 11/05/20 Range/Units 08:20 Total Bilirubin 0.8 (0.2-1) mg/dl AST 16 (15-37) U/L ALT 27 (12-78) U/L Alkaline Phosphatase 112 (45-117) U/L Albumin 2.9 L (3.4-5.0) gm/dl Medications Administered Current Inpatient Medications Acetaminophen (Acetaminophen 325 Mg Tab) 325 mg PO Q6H PRN PRN Reason: Mild Pain Stop: 12/01/20 22:08 Albuterol (Albuterol Hfa 8 Gm Inhaler) 2 puffs INH Q4H PRN PRN Reason: Shortness Of Breath Or Wheezing Stop: 12/04/20 15:28 Aspirin (Aspirin 81 Mg Ectab) 81 mg PO DAILY [facility] Stop: 12/02/20 08:59 Last Admin: 11/05/20 08:13 Dose: 81 mg Documented by: Dextrose (Dextrose 50% 50 Ml Syringe) 25 - 50 ml IV UD PRN; Protocol PRN Reason: Hypoglycemia Protocol Stop: 12/01/20 19:59 Fluticasone/Vilanterol (Fluticasone/Vilanterol 200/25mcg 14 Puffs/Inhaler) 1 puffs INH DAILY [facility] Stop: 12/02/20 08:59 Last Admin: 11/05/20 08:15 Dose: 1 puffs Documented by: Folic Acid (Folic Acid 1 Mg Tab) 1 mg PO QAM [facility] Stop: 12/02/20 08:59 Last Admin: 11/05/20 08:13 Dose: 1 mg Documented by: Glucagon (Glucagon For Inj 1 Mg Vial) 1 mg IM UD PRN; Protocol PRN Reason: Hypoglycemia Protocol Stop: 12/01/20 19:59 Glucose (Glucose 40% Gel 15 Gm Tube) 15 - 30 gm PO UD PRN; Protocol PRN Reason: Hypoglycemia Protocol Stop: 12/01/20 19:59 Glucose (Glucose 10 Tabs/Tube) 4 - 8 tabs PO UD PRN; Protocol PRN Reason: Hypoglycemia Protocol Stop: 12/01/20 19:59 Heparin Sodium (Porcine) (Heparin Sod 5,000 Unit/0.5 Ml Vial) 5,000 units SQ Q12 [facility] Stop: 12/02/20 08:59 Last Admin: 11/05/20 09:26 Dose: 5,000 units Documented by: Promethazine HCl 12.5 mg/ (Sodium Chloride) 50.5 mls @ 202 mls/hr IV Q6H PRN PRN Reason: Nausea And Vomiting Stop: 12/01/20 22:08 Lorazepam (Ativan) 1 mg in 2 mls @ 2 mls/min IV UD PRN; Protocol PRN Reason: EtOH Withdrawl AWSS Score 6,7 Stop: 12/01/20 22:08 Insulin Aspart (Insulin Aspart 100 Units/Ml 3 Ml Pen) 0 units SC ACHS [facility] Stop: 12/03/20 20:59 Last Admin: 11/05/20 08:17 Dose: 16 units Documented by: Insulin Glargine (Insulin Glargine Solostar 100 Units/Ml 3 Ml Pen) 25 units SC BID [facility] Stop: 12/05/20 08:59 Last Admin: 11/05/20 08:23 Dose: 25 units Documented by: Levalbuterol HCl (Levalbuterol 1.25mg/0.5ml Neb) 1.25 mg INH Q4H PRN PRN Reason: SOB / WHEEZE Stop: 12/01/20 22:08 Metoprolol Tartrate (Metoprolol Tartrate 25 Mg Tab) 25 mg PO BID [facility] Stop: 12/01/20 22:08 Last Admin: 11/05/20 08:13 Dose: 25 mg Documented by: Miscellaneous (Carbohydrates For Hypoglycemia ) 15 - 30 gm PO PRN PRN PRN Reason: Hypoglycemia Treatment Stop: 12/01/20 19:59 Miscellaneous Information (Pharmacy Glycemic Mgmt Consult) 1 ea N/A UD PRN PRN Reason: Consult Stop: 12/02/20 13:04 Montelukast Sodium (Montelukast Sodium 10 Mg Tablet) 10 mg PO HS [facility] Stop: 12/02/20 20:59 Last Admin: 11/04/20 23:54 Dose: 10 mg Documented by: Multivitamins ([facility]ivitamin Tab) [facility] [place] Stop: 12/02/20 08:59 Last Admin: 11/05/20 08:13 Dose: 1 tab Documented by: Pantoprazole Sodium (Pantoprazole 40 Mg Tab) 40 mg PO BID [facility] Stop: 12/03/20 20:59 Last Admin: 11/05/20 08:13 Dose: 40 mg Documented by: Potassium Chloride (Potassium Chloride Crtab 20 Meq Tabcr) 40 meq PO TODAY@0930 [facility] Stop: 11/05/20 12:00 Last Admin: 11/05/20 09:27 Dose: 40 meq Documented by: Thiamine HCl (Thiamine Hcl 100 Mg Tab) 100 mg PO QAM [facility] Stop: 12/02/20 08:59 Last Admin: 11/05/20 08:13 Dose: 100 mg Documented by:
--- NOTE | 2020-11-05 13:57 | Pharmacy Report ---
Pharmacy Glycemic Short Note 2 - Date of Service November 05, 2020 - Glycemic Short BSG Results (Last 24 hours): 11/04/20 11/04/20 11/05/20 16:39 20:54 07:33 Glucose POC Glucose 171 H 138 H 211 H 11/05/20 11/05/20 08:20 11:28 Glucose 208 H POC Glucose 238 H OUTPATIENT ANTIDIABETIC REGIMEN: * N/A * HbA1c >16% ASSESSMENT: 11/05/20 * Patient's BSGs yesterday were [phone] mg/dL. Fasting today was 211 mg/dL. * Patient received 90 units of insulin yesterday (40 units of basal and 50 units of bolus). * Fasting BSG increasing so increase basal by 20% to 25 units BID. * Continue Novolog as BSGs trend downwards throughout the day. 11/03/20 * 45 yo M with new-onset diabetes and significantly elevated HbA1c admitted with DKA. Currently on an insulin drip @ 2.8 units/hr with most recent BSG in goal range of 150-250 mg/dL * Patient to continue on insulin drip until anion gap once again closed (notable rebound this AM back up therefore continue drip for now) * Dextrose containing fluids to continue as long as insulin drip is still running per Dr. Russo. OK to d/c when drip is turned off. * OK to transition drip in afternoon now that anion gap again closed per discussion w Dr. Russo PLAN FOR INPATIENT GLYCEMIC CONTROL: * Basal insulin * Lantus 25 units SQ BID * Bolus insulin * 1 units per 15 mg/dL/unit * 1 unit per 5 grams of carbohydrates consumed PLAN FOR DISCHARGE: * Patient will require insulin on discharge. Plan to transition to Novolin 70/30 tomorrow for ease of dosing
[2020-11-05] MEDS: MONTELUKAST SODIUM 10 MG TABLET PO SCH (20:57)
[2020-11-06 05:47] LABS: Basophils # (auto) 0.03 K/uL (0-0.2); Basophils % (auto) 0.5 %; Eosinophils # (auto) 0.11 K/uL (0-0.5); Hematocrit (blood only) 41.2 % (42-52); Hemoglobin 13.8 g/dL (14.0-18.0); Immature Granulocytes # (auto) 0.04 K/uL (0.00-0.02); Immature Granulocytes % (auto) 0.7 %; Mean Corpuscular Hemoglobin 29.6 pg (25-34); Mean Corpuscular Hgb Conc 33.5 g/dL (32-36); Mean Corpuscular Volume 88.4 fL (80-100); Mean Platelet Volume 11.5 fL (7.4-10.4); Monocytes # (auto) 0.53 K/uL (0.11-0.59); Monocytes % (auto) 9.7 %; Neutrophils # (auto) 3.08 K/uL (1.4-6.5); Neutrophils % (auto) 56.1 %; Platelet Count 160 K/uL (130-400); RDW Coefficient of Variation 13.6 % (11.5-14.5); RDW Standard Deviation 43.9 fL (36.4-46.3); Red Blood Count 4.66 M/uL (4.7-6.1); White Blood Count 5.49 K/uL (4.8-10.8)
[2020-11-06 06:15] LABS: BUN Creatinine Ratio 7.4 (10-20); Calcium 9.2 mg/dl (8.5-10.1); Creatinine Clr Calc Pharmacy 164.1 ml/min; Est GFR (Non-African American) 114.8 ml/min; Magnesium 2.1 mg/dl (1.8-2.4); Phosphorus 3.2 mg/dl (2.5-4.9); Potassium 3.5 mmol/L (3.5-5.1)
[2020-11-06] MEDS ORDERED: INSULIN 70% ASPART PROTAMINE/30% ASPART SC SCH ×2 (08:30→16:30)
[2020-11-06] MEDS ORDERED: lisinopril 5 MG TAB PO SCH (09:00)
[2020-11-06] MEDS: ASPIRIN 81 MG ECTAB PO SCH (09:21)
[2020-11-06] MEDS: MULTIVITAMIN TAB PO SCH (09:21)
[2020-11-06] MEDS: PANTOprazole 40 MG TAB PO SCH (09:21)
[2020-11-06] MEDS: THIAMINE HCL 100 MG TAB PO SCH (09:21)
[2020-11-06] MEDS: FOLIC ACID 1 MG TAB PO SCH (09:22)
[2020-11-06] MEDS: METOPROLOL TARTRATE 25 MG TAB PO SCH (09:22)
[2020-11-06] MEDS: HEPARIN SOD 5,000 UNIT/0.5 ML VIAL SQ SCH (09:22)
[2020-11-06] MEDS: FLUTICASONE/VILANTEROL 200/25MCG 14 PUFFS/INHALER INH SCH (09:23)
[2020-11-06] MEDS: INSULIN ASPART 100 UNITS/ML 3 ML PEN SC SCH ×2 (09:27→12:56)
--- NOTE | 2020-11-06 10:51 | Hospitalist Progress Note ---
Date of Service November 06, 2020 Assessment & Plan (1) Hyperglycemic crisis in diabetes mellitus: Diabetic ketoacidosis History prediabetes and has not been to the doctor for the last 1 year Admitted with a blood glucose of 693 with acidosis and low CO2 Has been on intravenous insulin and IV fluids Hemoglobin A1c is more than 16 Still requiring intravenous insulin and the blood sugar remains more than 250 Clinically much better and complains to have weakness and tiredness Appreciate input from family life educator Has been on regular insulin subcu and intravenous insulin has been stopped Remains stable and with the blood sugar level has been reasonable Diabetes is reasonably controlled and he will be discharged home this afternoon He has had diabetic education to take care of himself at home Metabolic encephalopathy Secondary to underlying DKA and is complicated by alcoholism Has been on withdrawal protocol Encephalopathy is resolved DIANE Secondary to nausea vomiting, dehydration and DKA itself Has been getting intravenous fluid We will monitor PRP-creatinine has been improving and is normalized Creatinine remains normal Electrolytes abnormality Supplemented and will be corrected We will monitor PRP and electrolytes Potassium is supplemented Normalized Leukocytosis-secondary to DKA and a stress Acute pharyngitis secondary to emesis episode Doubt any infection Leukocytosis is resolved Elevated lipase The patient has had some nausea and vomiting but nontender in the epigastrium CT of the abdomen did not show any acute pancreatitis Doubt any acute pancreatitis Has been getting intravenous fluid and pain medications as needed Shortness of breath secondary to DKA Complicated by KARLO (CPAP noncompliance) Doubt any pulmonary embolism Initial heparin infusion has been discontinued Saturating well with room air Denies any shortness of breath H/O nonobstructive CAD as per records hypertension, slightly elevated DVT prophylaxis. Heparin subcu Full code Has had PT and OT evaluation and recommended that he can go home He has had diabetic education and knows about diabetic diet and also knows how to inject insulin and to keep a record of blood sugar Admission and Anticipated Discharge Date Admission Date: November 01, 2020 Subjective 11/02/2020 The patient was seen and examined in ICU He remains very drowsy and not been talking much Remains hemodynamically stable but is still quite ill 11/03/2020 The patient was seen and examined in ICU He has been feeling much better and complains today of some epigastric discomfo rt without nausea and or vomiting Remains generally weak 11/04/2020 The patient was seen and examined in ICU He has been feeling much better but remains generally weak and lethargic Has been tolerating advanced diet Does not have any significant withdrawal symptoms 11/05/2020 The patient was seen and examined in medical telemetry unit He has been feeling much better but remains generally weak Complains to have some numbness involving the right lateral aspect of hand and the little finger Denies any other significant symptoms 11/06/2020 The patient was seen and examined in medical telemetry unit He has been feeling much better and wants to go home Denies any symptoms and has had physical therapy with recommendation to go home He will be discharged home this afternoon Review of Systems Review of Systems: All systems reviewed and are unremarkable except as noted below Neurologic: no generalized weakness Physical Exam Physical Exam: Sitting on a chair comfortably Constitutional: well developed, well nourished, + ill appearing and + obese ENMT: external ear and nose normal, oropharynx normal Neck: trachea midline, no thyromegaly Respiratory: no respiratory distress Auscultation: lungs clear to auscultation bilaterally; no crackles and no wheezes Cardiovascular: Rate/Rhythm: regular rate and regular rhythm Heart Sounds: no murmur Extremities: no edema Gastrointestinal (Abdomen): Inspection/Auscultation: normal bowel sounds; abdomen not distended Percussion/Palpation: abdomen soft; abdomen nontender Musculoskeletal: No acute arthritis in any joint Neurologic: Alert, awake and oriented x3. No focal sensory and motor deficit appreciated. Psychiatric: A+Ox3, euthymic affect Lymphatic: no cervical or axillary lymphadenopathy Results & Data Results & Data ([facility]) Vital Signs (Past 12 Hours) Vital Signs Temp Pulse Pulse Resp BP BP Pulse Ox 11/06/20 07:20 97 H 11/06/20 07:00 36.8 C 100 H 18 132/83 97 11/06/20 04:00 36.8 C 104 H 18 156/83 H 97 11/06/20 00:26 91 H 11/05/20 23:00 36.6 C 100 H 18 113/70 97 Laboratory Results Short CBC 11/06/20 Range/Units 05:30 WBC 5.49 (4.8-10.8) K/uL Hgb 13.8 L (14.0-18.0) g/dL Hct 41.2 L (42-52) % Plt Count 160 (130-400) K/uL BMP 11/06/20 05:30 Sodium 138 Potassium 3.5 Chloride 103 Carbon Dioxide 34 H BUN 5 L Creatinine 0.70 Glucose 152 H Calcium 9.2 Medications Administered Current Inpatient Medications Acetaminophen (Acetaminophen 325 Mg Tab) 325 mg PO Q6H PRN PRN Reason: Mild Pain Stop: 12/01/20 22:08 Albuterol (Albuterol Hfa 8 Gm Inhaler) 2 puffs INH Q4H PRN PRN Reason: Shortness Of Breath Or Wheezing Stop: 12/04/20 15:28 Aspirin (Aspirin 81 Mg Ectab) 81 mg PO DAILY [facility] Stop: 12/02/20 08:59 Last Admin: 11/06/20 09:21 Dose: 81 mg Documented by: Dextrose (Dextrose 50% 50 Ml Syringe) 25 - 50 ml IV UD PRN; Protocol PRN Reason: Hypoglycemia Protocol Stop: 12/01/20 19:59 Fluticasone/Vilanterol (Fluticasone/Vilanterol 200/25mcg 14 Puffs/Inhaler) 1 puffs INH DAILY [facility] Stop: 12/02/20 08:59 Last Admin: 11/06/20 09:23 Dose: 1 puffs Documented by: Folic Acid (Folic Acid 1 Mg Tab) 1 mg PO QAM [facility] Stop: 12/02/20 08:59 Last Admin: 11/06/20 09:22 Dose: 1 mg Documented by: Glucagon (Glucagon For Inj 1 Mg Vial) 1 mg IM UD PRN; Protocol PRN Reason: Hypoglycemia Protocol Stop: 12/01/20 19:59 Glucose (Glucose 40% Gel 15 Gm Tube) 15 - 30 gm PO UD PRN; Protocol PRN Reason: Hypoglycemia Protocol Stop: 12/01/20 19:59 Glucose (Glucose 10 Tabs/Tube) 4 - 8 tabs PO UD PRN; Protocol PRN Reason: Hypoglycemia Protocol Stop: 12/01/20 19:59 Heparin Sodium (Porcine) (Heparin Sod 5,000 Unit/0.5 Ml Vial) 5,000 units SQ Q12 [facility] Stop: 12/02/20 08:59 Last Admin: 11/06/20 09:22 Dose: 5,000 units Documented by: Promethazine HCl 12.5 mg/ (Sodium Chloride) 50.5 mls @ 202 mls/hr IV Q6H PRN PRN Reason: Nausea And Vomiting Stop: 12/01/20 22:08 Lorazepam (Ativan) 1 mg in 2 mls @ 2 mls/min IV UD PRN; Protocol PRN Reason: EtOH Withdrawl AWSS Score 6,7 Stop: 12/01/20 22:08 Insulin Aspart (Insulin Aspart 100 Units/Ml 3 Ml Pen) 0 units SC ACHS [facility] Stop: 12/03/20 20:59 Last Admin: 11/06/20 09:27 Dose: 8 units Documented by: Insulin Aspart (Insulin 70% Aspart Protamine/30% Aspart) 60 units SC QDB [facility] Stop: 12/06/20 08:29 Last Admin: 11/06/20 09:28 Dose: 60 units Documented by: Insulin Aspart (Insulin 70% Aspart Protamine/30% Aspart) 30 units SC QDD [facility] Stop: 12/06/20 16:29 Levalbuterol HCl (Levalbuterol 1.25mg/0.5ml Neb) 1.25 mg INH Q4H PRN PRN Reason: SOB / WHEEZE Stop: 12/01/20 22:08 Lisinopril (Lisinopril 5 Mg Tab) 5 mg PO QAM [facility] Stop: 12/06/20 08:59 Metoprolol Tartrate (Metoprolol Tartrate 25 Mg Tab) 25 mg PO BID [facility] Stop: 12/01/20 22:08 Last Admin: 11/06/20 09:22 Dose: 25 mg Documented by: Miscellaneous (Carbohydrates For Hypoglycemia ) 15 - 30 gm PO PRN PRN PRN Reason: Hypoglycemia Treatment Stop: 12/01/20 19:59 Miscellaneous Information (Pharmacy Glycemic Mgmt Consult) 1 ea N/A UD PRN PRN Reason: Consult Stop: 12/02/20 13:04 Montelukast Sodium (Montelukast Sodium 10 Mg Tablet) 10 mg PO HS [facility] Stop: 12/02/20 20:59 Last Admin: 11/05/20 20:57 Dose: 10 mg Documented by: Multivitamins (Multivitamin Tab) 1 tab PO QAM [facility] Stop: 12/02/20 08:59 Last Admin: 11/06/20 09:21 Dose: 1 tab Documented by: Pantoprazole Sodium (Pantoprazole 40 Mg Tab) 40 mg PO BID [facility] Stop: 12/03/20 20:59 Last Admin: 11/06/20 09:21 Dose: 40 mg Documented by: Thiamine HCl (Thiamine Hcl 100 Mg Tab) 100 mg PO QAM [facility] Stop: 12/02/20 08:59 Last Admin: 11/06/20 09:21 Dose: 100 mg Documented by:
--- NOTE | 2020-11-07 07:05 | Discharge Summary ---
Date of Service November 07, 2020 Admission HPI Per Admitting Provider History obtained from patient and records. Medical history significant for nonobstructive CAD as per records, hypertension, prediabetes, KARLO (CPAP noncompliance), bronchial asthma, GERD, fatty liver as per records, alcohol abuse as per records. Last confinement April 2019 shortness of breath on exertion. 5 days ago, patient started not feeling well, episode of emesis subsequently causing burning sore throat symptoms or dysphagia. Chills at home. Poor appetite. No headache, no abdominal pain, dry cough symptoms. Shortness of breath as per patient. No unusual swelling. Patient denies abdominal pain. Peeing a lot. Last alcohol intake was months ago as per patient. Denies inordinate OTC NSAID intake. At the ER, IV insulin started for hyperglycemic crisis. 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 Admission Exam Per Admitting Provider Physical Exam: GENERAL: uncomfortable, obese, no respiratory distress SKIN: Normal color, warm HEENT: [place] palpebral conjunctivae, no ptosis, dry buccal mucosa, pharyngeal congestion NECK : Supple, short neck, no tenderness CHEST : CTA, no tenderness HEART : Tachycardic, no obvious murmurs ABDOMEN: Some distention, nontender EXTREMITIES : No LE swelling/tenderness, no other conspicuous deformities noted NEUROLOGIC : Coherent, no facial asymmetry, no other gross focality Principal Diagnosis Diabetic ketoacidosis, metabolic encephalopathy-resolved, acute kidney injury-resolved, hypertension and nonobstructive CAD Discharge Exam Constitutional well developed, well nourished, + ill appearing and + obese ENMT external ear and nose normal, oropharynx normal Neck trachea midline, no thyromegaly Respiratory no respiratory distress Auscultation: lungs clear to auscultation bilaterally; no crackles and no wheezes Cardiovascular Rate/Rhythm: regular rate and regular rhythm Heart Sounds: no murmur Extremities: no edema Gastrointestinal (Abdomen) Inspection/Auscultation: normal bowel sounds; abdomen not distended Percussion/Palpation: abdomen soft; abdomen nontender Psychiatric A+Ox3, euthymic affect Lymphatic no cervical or axillary lymphadenopathy Discharge Data Allergies Allergy/AdvReac Type Severity Reaction Status Date / Time No Known Allergies Allergy Unknown Verified 11/01/20 16:57 Consultations 11/01/20 19:31 ED Decision to Admit Stat 11/01/20 22:09 Consult [employer] And Game Warden Routine Ordered Studies 11/01/20 21:39 CT soft tissue neck wo con Urgent US venous doppler LE BI Urgent 11/02/20 00:34 CT abd pelvis wo con Routine Hospital Course (1) Hyperglycemic crisis in diabetes mellitus: Diabetic ketoacidosis History prediabetes and has not been to the doctor for the last 1 year Admitted with a blood glucose of 693 with acidosis and low CO2 Has been on intravenous insulin and IV fluids Hemoglobin A1c is more than 16 Still requiring intravenous insulin and the blood sugar remains more than 250 Clinically much better and complains to have weakness and tiredness Appreciate input from asthma educator Has been on regular insulin subcu and intravenous insulin has been stopped Remains stable and with the blood sugar level has been reasonable Diabetes is reasonably controlled and he will be discharged home this afternoon He has had diabetic education to take care of himself at home Metabolic encephalopathy Secondary to underlying DKA and is complicated by alcoholism Has been on withdrawal protocol Encephalopathy is resolved DIANE Secondary to nausea vomiting, dehydration and DKA itself Has been getting intravenous fluid We will monitor PRP-creatinine has been improving and is normalized Creatinine remains normal Electrolytes abnormality Supplemented and will be corrected We will monitor PRP and electrolytes Potassium is supplemented Normalized Leukocytosis-secondary to DKA and a stress Acute pharyngitis secondary to emesis episode Doubt any infection Leukocytosis is resolved Elevated lipase The patient has had some nausea and vomiting but nontender in the epigastrium CT of the abdomen did not show any acute pancreatitis Doubt any acute pancreatitis Has been getting intravenous fluid and pain medications as needed Shortness of breath secondary to DKA Complicated by KARLO (CPAP noncompliance) Doubt any pulmonary embolism Initial heparin infusion has been discontinued Saturating well with room air Denies any shortness of breath H/O nonobstructive CAD as per records hypertension, slightly elevated DVT prophylaxis. Heparin subcu Full code Has had PT and OT evaluation and recommended that he can go home He has had diabetic education and knows about diabetic diet and also knows how to inject insulin and to keep a record of blood sugar Total Time Total Time Spent Total Time Spent (In Minutes): 45 minutes Total Time Includes: Examination of the Patient, Discharge Planning, Medication Reconciliation and Communication With Other Providers Discharge Plan Discharge Items Patient Disposition: Home - Self-Care Reason For Visit: DKA HHS Discharge Diagnosis: Diabetic ketoacidosis, metabolic encephalopathy-resolved, acute kidney injury- resolved, hypertension and nonobstructive CAD Condition on Discharge: Good Activity: Resume your previous activity Non-emergency contact: Primary Care Provider Call non-emergency contact if: you have any medication questions and your symptoms worsen Follow-up/Referrals: Lenny Coffman MD [Primary Care Provider] - (You will be called on Saturday or Saturday with an appointment to see your primary care doctor within 7 days following discharge) Diet: Carb Consistent or DM2 Addtl Attending Provider Instructions: Please take precautions to avoid fall Please follow diabetic diet and take your insulin as advised and keep a record of your blood sugar before you go to see your primary care physician within 1 week Strongly advised to have meals 2 times a day for better diabetic control and avoid any hypoglycemia or low sugar Regular exercise in the form of walking for about half an hour for 5 days a week Strongly advised to quit drinking Recommendations from asthma educator [place] 70/30 60 units 30 minutes subcu before breakfast and 30 units subcu 30 minutes before supper Metformin can be started as an outpatient Check your blood sugar before meals and before bedtime and keep a record of it Lifestyle changeseliminate sugar-sweetened drink, healthier eating habits as advised, little carb, balanced meals throughout the day. Pending Studies at Discharge: No Stand-Alone Forms: My ED01, Smoking Cessation Medications and DC Order Prescriptions: New multivitamin [Daily-Ila] Tablet 1 tab PO QAM 30 Days Qty: 30 RF: 0 thiamine HCl (vitamin B1) [Vitamin B-1] 100 mg Tablet 100 mg PO QAM 30 Days Qty: 30 RF: 0 folic acid 1 mg Tablet 1 mg PO QAM 30 Days Qty: 30 RF: 0 lisinopril [Zestril] 5 mg Tablet 5 mg PO QAM 30 Days Qty: 30 RF: 0 insulin asp prt-insulin aspart [Novolog Mix 70-30 U-100 Insuln] 100 unit/mL (70-30) Solution 60 unit SC QDB 30 Days Qty: 18 RF: 0 insulin asp prt-insulin aspart [Novolog Mix 70-30 U-100 Insuln] 100 unit/mL (70-30) Solution 30 unit SC QDD 30 Days Qty: 9 RF: 0 Continued albuterol sulfate 90 mcg/actuation HFA aerosol inhaler 2 puff INH Q4H PRN (Reason: Shortness Of Breath Or Wheezing) RF: 0 metoprolol tartrate 25 mg Tablet 25 mg PO BID RF: 0 potassium chloride 20 meq PO DAILY PRN (Reason: swelling) RF: 0 furosemide 40 mg Tablet 40 mg PO DAILY PRN (Reason: swelling) RF: 0 montelukast 10 mg Tablet 10 mg PO HS RF: 0 Breo Ellipta 200-25 mcg/dose Blister With Device 1 inh INHALATION DAILY RF: 0 esomeprazole magnesium 20 mg Capsule,Delayed Release(Dr/Ec) 20 mg PO BID RF: 0 aspirin [Aspirin Low Dose] 81 mg Tablet,Delayed Release (Dr/Ec) 81 mg PO DAILY RF: 0 Discharge Orders: Discharge Order (Routine); Ordered 11/06/20 Ordered By: Tim Shahid Admission Data Admit Date/Time: 11/01/20 21:18 Attending Provider: Tim Shahid Admit Provider: Dat Diamond Primary Care Provider: Lenny Coffman Other Providers: Dat Diamond ; Roshan Vaughn Other Interventions: Discharge Summary Assessment (RN) Last Done: 11/06/20 13:04
== END 2020-11-06 14:24 | disposition home or self-care (01) | DRG 637 ==
LOC: ED 13:29 → 1E 21:18 → 2N 11-04 13:03

== ENCOUNTER 2022-01-19 16:01 | Inpatient (IN) ==
[2022-01-19] MEDS ORDERED: ONDANSETRON INJ 2 MG/ML 2 ML VIAL ONE (16:19)
[2022-01-19] MEDS ORDERED: MIDAZOLAM HCL 1 MG/ML 2ML VIAL IV STA ×3 (16:58→20:32)
[2022-01-19] MEDS ORDERED: ONDANSETRON INJ 2 MG/ML 2 ML VIAL IV STA (16:58)
[2022-01-19] MEDS ORDERED: SODIUM CHLORIDE 0.9% 1000ML 1,000 ML IV SCH (17:00)
[2022-01-19] MEDS ORDERED: METOPROLOL TARTRATE 1 MG/ML VIAL IV STA ×2 (17:01→21:19)
[2022-01-19] MEDS ORDERED: LACTATED RINGER'S 1,000 ML IV ONE (17:02)
[2022-01-19] MEDS ORDERED: FAMOTIDINE 20MG IV PUSH 20 MG/5 ML SYR IV STA (17:02)
[2022-01-19] MEDS ORDERED: METOCLOPRAMIDE HCL INJ 5 MG/ML 2 ML VIAL IV ONE ×2 (17:02→20:32)
--- NOTE | 2022-01-19 17:58 | XRay Report ---
SINGLE VIEW CHEST CLINICAL HISTORY: Generalized weakness. FINDINGS: 2 AP, portable, upright chest radiographs are compared to study dated 11/01/2020. Correlation is made with chest CT dated 05/20/2019.. The heart is mildly enlarged. The pulmonary vasculature is n ot congested. Chronic interstitial thickening is similar to previous. The lungs and pleural spaces ar e clear noting bibasilar scarring/atelectasis. No pneumothorax is seen. The bony thorax is grossly in tact. IMPRESSION: Cardiomegaly with no active disease in the chest. ACT 112: Negative or not required by law. Electronically signed by: Jay Calvo M.D. 01/19/2022 5:56 PM
--- NOTE | 2022-01-19 18:05 | Emergency Department Note ---
Impression & Plan Nausea & vomiting, Hypomagnesemia, Elevated lactic acid level, Shakiness ED Provider Note Provider: Jean Thompson MD DATE OF SERVICE: 01/19/2022 CHIEF COMPLAINT: COVID, nausea and vomiting, anxious HISTORY OF PRESENT ILLNESS: Patient is a 46-year-old gentleman history of CAD, hypertension, GERD, fatty liver, and prediabetes presenting here today reporting that he tested positive for COVID on Saturday has been unable to keep anything down with nausea and vomiting and very tremulous. Patient evidently according to has been positive for COVID multiple times over the last month or 2. Had pack Slo-Bid in October. Not able to keep anything down and vomiting anything he eats or drinks. Not able to take his medicines last several days. Reports perhaps some mild diffuse abdominal discomfort. Patient reports some headache. Denies myalgias. Minimal shortness of breath reported. REVIEW OF SYSTEMS: A total of 10 review of systems was obtained and negative except as stated above in the HPI. PAST MEDICAL HISTORY: As noted above MEDICATIONS: Reviewed home medications but not able to take them for the last several days SOCIAL HISTORY: , works at [employer], denies alcohol use PHYSICAL EXAM: GENERAL: alert and oriented very anxious and trembling Head: normocephalic and atraumatic EYES: No injection, discharge or icterus. PERRL NECK: Trachea midline. ENT: Mucous membranes pink and moist. LUNGS: Airway patent. No retractions. Breath sounds clear with good air entry bilaterally. HEART: Regular tachycardic rate and rhythm. No chest wall tenderness ABDOMEN: Soft without peritonitis or significant abdominal tenderness although some voluntary guarding is appreciated initially. No peritonitis. SKIN: Acyanotic, warm, dry, without rashes EXTREMITIES: Without swelling, tenderness or deformity NEUROLOGICAL: No focal deficits. No aphasia. No facial droop or slurred speech. Ambulatory but requires significant assistance as he is unsteady EK bpm sinus tachycardia. No PVC or PAC. No acute ST segment elevation or depression with a QTC of 504 and incomplete right bundle branch block. CONTINUOUS CARDIAC MONITORING: was ordered and showed a heart rate of 100s-120s bpm in sinus tachycardia Patient's laboratory studies and imaging reviewed. Differential includes GI, Infection, dehydration, metabolic abnormality, hypo/hyperglycemia, electrolyte disturbance, anemia, hypoxia, cardiac sources, intracerebral event, toxicologic, neurologic, as well as other pathologies. IMPRESSION/MEDICAL DECISION MAKING: Tachycardic and shaky. Some component of this may be from not taking his metoprolol regularly. Given some fluids and nausea medicine here. Not hypoxic. Given some Versed to help with anxiety and may be a bit of alcohol withdrawal. Good improvement of this. Benign abdomen on exam this time. Given some liquid intake. Again denies any trauma. Denies alcohol use or hallucinations. COVID- negative here. Still very shaky given some additional Versed. Again did receive IV fluid hydration. Some anion gap and lactate elevated 5.8. VBG noted -- not hypercarbic. Low magnesium. IV supplementation ordered. No evidence of hepatitis or pancreatitis. Did complete a CT of the abdomen pelvis to look for other acute intra-abdominal process. Found with subacute rib fractures of the lower chest from several weeks ago. Denies hitting his head again or any new significant trauma since then. Given his significant lactate elevation and shakiness with nausea and vomiting well the nausea and vomiting improving feel that further observation and care here overnight is indicated. Discussed with the hospital team. Given lack of source unless procalcitonin returns elevated will defer antibiotics at this time. Repeat COVID PCR will be completed. DIAGNOSIS: Nausea and vomiting, shakiness, elevated lactate, hypomagnesemia DISPOSITION: Hospitalist will evaluate Patient was agreeable with this plan. Past Med/Surg History Medical History (Updated 01/19/22 @ 19:08 by Jean Thompson M.D.) Adult body mass index 40 and over Cellulitis KARLO (obstructive sleep apnea) Sleep apnea Surgical History History of ear, nose, and throat (ENT) surgery to correct KARLO, unsuccessful History of nasal septoplasty History of tonsillectomy and adenoidectomy Family History Father Hypertension Mother Heart disease, Onset Age: 60 Myocardial infarction Social History Smoking Status: Unknown if ever smoked Hx Alcohol Use: No Hx Substance Use: No Preferred Language: Kyrgyz Communication Ability: Lainey [employer] Required: No Beliefs That Will Affect Care: None marital status: Single Current Living Situation: Parent Feels Safe at Home: Yes Assistive Devices: None Allergies Allergies Allergy/AdvReac Type Severity Reaction Status Date / Time No Known Allergies Allergy Unknown Verified 11/01/20 16:57 Home Meds Home Medications Medication Instructions Recorded Confirmed albuterol sulfate 90 mcg/actuation 2 puff inhalation Q4H PRN 05/07/19 11/01/20 aerosol inhaler Shortness Of Breath Or Wheezing esomeprazole magnesium 20 mg 20 mg PO BID 01/05/20 11/01/20 capsule,delayed release fluticasone furoate 200 1 inh inhalation DAILY 01/05/20 11/01/20 mcg-vilanterol 25 mcg/dose inhalation powder (Breo Ellipta) furosemide 40 mg tablet 40 mg PO DAILY PRN swelling 01/05/20 11/01/20 metoprolol tartrate 25 mg tablet 25 mg PO BID 01/05/20 11/01/20 montelukast 10 mg tablet 10 mg PO HS 01/05/20 11/01/20 potassium chloride 20 meq PO DAILY PRN swelling 01/05/20 11/01/20 aspirin 81 mg tablet,delayed 81 mg PO DAILY 11/01/20 11/01/20 release (Aaron Low Dose Aspirin) Results & Data (ED) Vital Signs Vital Signs - 24 hr 01/19/22 16:02 01/19/22 17:02 01/19/22 17:18 Temperature 36.8 C Temperature Source Oral Pulse Rate 133 H 126 H Pulse Rate from SpO2 Sensor Respiratory Rate 16 Blood Pressure 177/105 H 175/109 H Blood Pressure Mean 129 Pulse Oximetry 99 100 Oxygen Delivery Method Room Air Sepsis Recent Fever Within 48 Hours No Sepsis New/Unexplained Change in Mental Status N/A Sepsis Action Taken by Nursing No Action Required 01/19/22 16:59 01/19/22 17:00 01/19/22 17:15 Temperature Temperature Source Pulse Rate 119 H 118 H 121 H Pulse Rate from SpO2 Sensor Respiratory Rate 28 H 39 H 27 H Blood Pressure Blood Pressure Mean Pulse Oximetry 96 99 99 Oxygen Delivery Method Room Air Room Air Room Air Sepsis Recent Fever Within 48 Hours Sepsis New/Unexplained Change in Mental Status Sepsis Action Taken by Nursing 01/19/22 17:27 01/19/22 17:30 01/19/22 17:45 Temperature Temperature Source Pulse Rate 122 H 114 H 97 H Pulse Rate from SpO2 Sensor 98 H Respiratory Rate 30 H 29 H 24 Blood Pressure 191/112 H 174/112 H 176/111 H Blood Pressure Mean 138 132 132 Pulse Oximetry 100 99 95 Oxygen Delivery Method Room Air Room Air Room Air Sepsis Recent Fever Within 48 Hours Sepsis New/Unexplained Change in Mental Status Sepsis Action Taken by Nursing 01/19/22 18:00 01/19/22 18:15 01/19/22 18:30 Temperature Temperature Source Pulse Rate 102 H 102 H 102 H Pulse Rate from SpO2 Sensor 103 H 101 H 102 H Respiratory Rate 22 19 26 H Blood Pressure 162/105 H 161/107 H 174/104 H Blood Pressure Mean 124 125 127 Pulse Oximetry 96 99 97 Oxygen Delivery Method Room Air Room Air Room Air Sepsis Recent Fever Within 48 Hours Sepsis New/Unexplained Change in Mental Status Sepsis Action Taken by Nursing Laboratory Data Result diagrams: 01/19/22 16:22 01/19/22 16:22 Lab Results 01/19/22 01/19/22 01/19/22 Range/Units 16:07 16:22 16:22 WBC 14.84 H (4.8-10.8) K/ul RBC 5.30 (4.63-6.08) M/uL Hgb 15.6 (14.0-18.0) g/dl Hct 46.1 (40.1-51.0) % MCV 87.0 (80.0-100.0) fL MCH 29.4 (25.0-34.0) pg MCHC 33.8 (32.0-36.0) g/dL RDW Std Deviation 40.5 (36.4-46.3) fL RDW Coeff of Paty 12.9 (11.5-14.5) % Plt Count 346 (130-400) K/uL MPV 10.1 (9.4-12.4) fL Immature Gran % (Auto) 0.4 % Neut % (Auto) 78.9 % Lymph % (Auto) 14.1 % [place] % (Auto) 5.7 % Eos % (Auto) 0.0 % Baso % (Auto) 0.9 % Neut # (Auto) 11.70 H (1.4-6.5) K/uL Lymph # (Auto) 2.09 (1.2-3.4) K/uL [place] # (Auto) 0.85 H (0.24-0.82) K/uL Eos # (Auto) 0.00 (0-0.50) K/uL Baso # (Auto) 0.14 (0-0.2) K/uL Immature Gran # (Auto) 0.06 H (0.00-0.02) K/uL VBG pH (7.36-7.41) VBG pCO2 (38-50) mmHg VBG pO2 mmHg VBG HCO3 mmol/L VBG O2 Saturation % VBG Base Excess mEq/L Sodium 142 (136-145) mmol/L Potassium 3.6 (3.5-5.1) mmol/L Chloride 104 (98-107) mmol/L Carbon Dioxide 22 (21-32) mmol/L Anion Gap 16 H (3-11) BUN 10 (6-23) mg/dl Creatinine 1.07 (0.6-1.4) mg/dl Est Cr Clr Drug Dosing Not Reportable Est GFR ( Amer) 96.7 ml/min Est GFR (Non-Af Amer) 83.4 ml/min BUN/Creatinine Ratio 9.3 L (10-20) Glucose 115 H (70-99(Fasting)) mg/dl POC Glucose 203 H (70-99) mg/dl Lactate (0.4-2.0) mmol/L Calcium 9.6 (8.5-10.1) mg/dl Magnesium 1.1 L (1.7-2.4) mg/dl Total Bilirubin 0.7 (0.2-1.0) mg/dl AST 34 (13-39) U/L ALT 24 (7-52) U/L Alkaline Phosphatase 112 H (34-104) U/L Troponin I High Sens 5.9 (0-20) pg/ml Total Protein 7.2 (6.0-8.3) gm/dl Albumin 4.3 (3.4-5.0) gm/dl Globulin 2.9 (2.5-4.0) gm/dl Albumin/Globulin Ratio 1.5 (0.9-2) Lipase 51 (11-82) U/L TSH (0.300-4.500) uIu/ml SARS-CoV-2, RNA, NAAT (NEGATIVE) 01/19/22 01/19/22 01/19/22 Range/Units 16:22 18:01 18:08 WBC (4.8-10.8) K/ul RBC (4.63-6.08) M/uL Hgb (14.0-18.0) g/dl Hct (40.1-51.0) % MCV (80.0-100.0) fL MCH (25.0-34.0) pg MCHC (32.0-36.0) g/dL RDW Std Deviation (36.4-46.3) fL RDW Coeff of Paty (11.5-14.5) % Plt Count (130-400) K/uL MPV (9.4-12.4) fL Immature Gran % (Auto) % Neut % (Auto) % Lymph % (Auto) % [place] % (Auto) % Eos % (Auto) % Baso % (Auto) % Neut # (Auto) (1.4-6.5) K/uL Lymph # (Auto) (1.2-3.4) K/uL [place] # (Auto) (0.24-0.82) K/uL Eos # (Auto) (0-0.50) K/uL Baso # (Auto) (0-0.2) K/uL Immature Gran # (Auto) (0.00-0.02) K/uL VBG pH (7.36-7.41) VBG pCO2 (38-50) mmHg VBG pO2 mmHg VBG HCO3 mmol/L VBG O2 Saturation % VBG Base Excess mEq/L Sodium (136-145) mmol/L Potassium (3.5-5.1) mmol/L Chloride (98-107) mmol/L Carbon Dioxide (21-32) mmol/L Anion Gap (3-11) BUN (6-23) mg/dl Creatinine (0.6-1.4) mg/dl Est Cr Clr Drug Dosing Est GFR ( Amer) ml/min Est GFR (Non-Af Amer) ml/min BUN/Creatinine Ratio (10-20) Glucose (70-99(Fasting)) mg/dl POC Glucose (70-99) mg/dl Lactate 5.8 H* (0.4-2.0) mmol/L Calcium (8.5-10.1) mg/dl Magnesium (1.7-2.4) mg/dl Total Bilirubin (0.2-1.0) mg/dl AST (13-39) U/L ALT (7-52) U/L Alkaline Phosphatase (34-104) U/L Troponin I High Sens (0-20) pg/ml Total Protein (6.0-8.3) gm/dl Albumin (3.4-5.0) gm/dl Globulin (2.5-4.0) gm/dl Albumin/Globulin Ratio (0.9-2) Lipase (11-82) U/L TSH 1.538 (0.300-4.500) uIu/ml SARS-CoV-2, RNA, NAAT NEGATIVE (NEGATIVE) 01/19/22 Range/Units 18:08 WBC (4.8-10.8) K/ul RBC (4.63-6.08) M/uL Hgb (14.0-18.0) g/dl Hct (40.1-51.0) % MCV (80.0-100.0) fL MCH (25.0-34.0) pg MCHC (32.0-36.0) g/dL RDW Std Deviation (36.4-46.3) fL RDW Coeff of Paty (11.5-14.5) % Plt Count (130-400) K/uL MPV (9.4-12.4) fL Immature Gran % (Auto) % Neut % (Auto) % Lymph % (Auto) % [place] % (Auto) % Eos % (Auto) % Baso % (Auto) % Neut # (Auto) (1.4-6.5) K/uL Lymph # (Auto) (1.2-3.4) K/uL [place] # (Auto) (0.24-0.82) K/uL Eos # (Auto) (0-0.50) K/uL Baso # (Auto) (0-0.2) K/uL Immature Gran # (Auto) (0.00-0.02) K/uL VBG pH 7.50 H (7.36-7.41) VBG pCO2 32 L (38-50) mmHg VBG pO2 36 mmHg VBG HCO3 25 mmol/L VBG O2 Saturation 62.2 % VBG Base Excess 2.4 mEq/L Sodium (136-145) mmol/L Potassium (3.5-5.1) mmol/L Chloride (98-107) mmol/L Carbon Dioxide (21-32) mmol/L Anion Gap (3-11) BUN (6-23) mg/dl Creatinine (0.6-1.4) mg/dl Est Cr Clr Drug Dosing Est GFR ( Amer) ml/min Est GFR (Non-Af Amer) ml/min BUN/Creatinine Ratio (10-20) Glucose (70-99(Fasting)) mg/dl POC Glucose (70-99) mg/dl Lactate (0.4-2.0) mmol/L Calcium (8.5-10.1) mg/dl Magnesium (1.7-2.4) mg/dl Total Bilirubin (0.2-1.0) mg/dl AST (13-39) U/L ALT (7-52) U/L Alkaline Phosphatase (34-104) U/L Troponin I High Sens (0-20) pg/ml Total Protein (6.0-8.3) gm/dl Albumin (3.4-5.0) gm/dl Globulin (2.5-4.0) gm/dl Albumin/Globulin Ratio (0.9-2) Lipase (11-82) U/L TSH (0.300-4.500) uIu/ml SARS-CoV-2, RNA, NAAT (NEGATIVE) Administered Medications Discontinued Medications Sodium Chloride (Nss 1000ml) 1,000 mls @ 999 mls/hr IV .Q1H1M SADIQ Stop: 01/19/22 18:00 Last Infusion: 01/19/22 18:42 Dose: 0 mls/hr Documented By: Admin: 01/19/22 16:20 Dose: 999 mls/hr Documented By: NH Lactated Ringer's (Lr) 1,000 mls @ 999 mls/hr IV .Q1H1M ONE Stop: 01/19/22 18:02 Last Infusion: 01/19/22 18:42 Dose: 0 mls/hr Documented By: Admin: 01/19/22 17:18 Dose: 999 mls/hr Documented By: NH Famotidine (Pepcid 20mg Iv Push) 20 mg in 5 mls @ 2.5 mls/min IV NOW STA Stop: 01/19/22 17:03 Last Admin: 01/19/22 17:18 Dose: 2.5 mls/min Documented By: NH Magnesium Sulfate/Dextrose (Magnesium Sulfate / D5w) 1 gm in 100 mls @ 200 mls/hr IV Q30M SADIQ Stop: 01/19/22 20:00 Last Admin: 01/19/22 19:19 Dose: 200 mls/hr Documented By: ANÍBAL Lactated Ringer's (Lr) 500 mls @ 999 mls/hr IV .Q31M ONE Stop: 01/19/22 19:31 Last Admin: 01/19/22 19:19 Dose: 999 mls/hr Documented By: ANÍBAL Ioversol (Optiray 350 100ml) 85 ml IV ONCE ONE Stop: 01/19/22 20:04 Last Admin: 01/19/22 20:06 Dose: 85 ml Documented By: NEW Metoclopramide HCl (Metoclopramide Hcl Inj 5 Mg/Ml 2 Ml Vial) 5 mg IV ONE ONE Stop: 01/19/22 17:03 Last Admin: 01/19/22 17:18 Dose: 5 mg Documented By: PARVEZ Metoprolol Tartrate (Metoprolol Tartrate 1 Mg/Ml Vial) 5 mg IV NOW STA Stop: 01/19/22 17:02 Last Admin: 01/19/22 17:18 Dose: 5 mg Documented By: PARVEZ Midazolam HCl (Midazolam Hcl 1 Mg/Ml 2ml Vial) 1 mg IV NOW STA Stop: 01/19/22 16:59 Last Admin: 01/19/22 17:18 Dose: 1 mg Documented By: PARVEZ Midazolam HCl (Midazolam Hcl 1 Mg/Ml 2ml Vial) 1 mg IV NOW STA Stop: 01/19/22 18:47 Last Admin: 01/19/22 19:16 Dose: 1 mg Documented By: ANÍBAL Ondansetron HCl (Ondansetron Inj 2 Mg/Ml 2 Ml Vial) Confirm Administered Dose 4 mg .ROUTE .STK-MED ONE Stop: 01/19/22 16:20 Last Admin: 01/19/22 16:20 Dose: 4 mg Documented By: PARVEZ Ondansetron HCl (Ondansetron Inj 2 Mg/Ml 2 Ml Vial) 4 mg IV NOW STA Stop: 01/19/22 16:59 Last Admin: 01/19/22 17:04 Dose: Not Given Documented By: PARVEZ Imaging Data Radiologist's Impression: Chest X-Ray 01/19/22 16:58 SINGLE VIEW CHEST CLINICAL HISTORY: Generalized weakness. FINDINGS: 2 AP, portable, upright chest radiographs are compared to study dated 11/01/2020. Correlation is made with chest CT dated 05/20/2019.. The heart is mildly enlarged. The pulmonary vasculature is not congested. Chronic interstitial thickening is similar to previous. The lungs and pleural spaces are clear noting bibasilar scarring/atelectasis. No pneumothorax is seen. The bony thorax is grossly intact. IMPRESSION: Cardiomegaly with no active disease in the chest. ACT 112: Negative or not required by law. Electronically signed by: Jay Calvo M.D. 01/19/2022 5:56 PM Abdomen/Pelvis CT 01/19/22 18:40 CT SCAN OF THE ABDOMEN AND PELVIS WITH IV CONTRAST CLINICAL HISTORY: Nausea and vomiting. COMPARISON STUDY: Abdominal CT dated 11/02/2020. TECHNIQUE: Following the IV administration of 85 cc of Optiray 350, CT scan of the abdomen and pelvis is performed from the lung bases to the proximal femora. Images are reviewed in the axial, sagittal, and coronal planes. IV contrast was administered without complication. A dose lowering technique was utilized adhering to the principles of ALARA. CT DOSE: 782.38 mGy.cm FINDINGS: Lung bases: The heart is normal in size and without pericardial effusion. The lung bases are clear noting mild dependent atelectasis. Liver: The contrast-enhanced liver is enlarged, measuring 18.9 cm in length. The liver demonstrates diffusely diminished attenuation consistent with hepatic steatosis. There is no intrahepatic biliary ductal dilatation. The hepatic veins and portal veins are patent. Gallbladder: Unremarkable. Spleen: Normal in size and attenuation. Pancreas: Unremarkable. Adrenal glands: Unremarkable. Kidneys: The contrast enhanced kidneys are normal in size and without hydronephrosis. The kidneys enhance symmetrically. A 4.7 cm simple cyst is noted in the left upper pole. Abdominal vasculature: The abdominal aorta is normal in course and caliber note a mild to moderate atherosclerotic calcification. Bowel: There is moderate colonic diverticulosis without CT evidence of acute diverticulitis. No bowel obstruction is seen. The appendix is well-visualized and normal. Peritoneum: There is no intraperitoneal free air or abdominal ascites. Lymphadenopathy: None. Pelvic viscera: The bladder, prostate, and seminal vesicles are normal as visualized. Skeletal structures: No lytic or blastic lesions are seen. A large posterior disc osteophyte complex is seen at L5-S1. There are subacute appearing anterolateral right 8th and posterior right 12th rib fractures. There is severe avascular necrosis of the proximal femora bilaterally. IMPRESSION: 1. No acute infectious or inflammatory findings are identified in the abdomen or pelvis. 2. Hepatomegaly and hepatic steatosis. 3. There are subacute-appearing right-sided rib fractures as above. Correlate for point tenderness. 4. Moderate colonic diverticulosis without CT evidence of acute diverticulitis. 5. 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 6. Additional findings as above. ACT 112: Negative or not required by law. Electronically signed by: Jay Calvo M.D. 01/19/2022 8:22 PM Discharge Plan Visit Data Chief Complaint: Illness Stated Complaint: COVID +, SHAKING, VOMITING, DIABETIC, WEAKNESS ED Provider: Jean Thompson Discharge Problem: Nausea & vomiting, Hypomagnesemia, Elevated lactic acid level, Shakiness Patient Disposition: Being Evaluated by Hospitalist Forms Stand Alone Forms: My [facility] Prescriptions Prescriptions: No Action albuterol sulfate 90 mcg/actuation HFA aerosol inhaler 2 puff INH Q4H PRN (Reason: Shortness Of Breath Or Wheezing) metoprolol tartrate 25 mg Tablet 25 mg PO BID potassium chloride 20 meq PO DAILY PRN (Reason: swelling) Rx Instructions: To be taken with lasix furosemide 40 mg Tablet 40 mg PO DAILY PRN (Reason: swelling) Rx Instructions: to be taken with potassium chloride montelukast 10 mg Tablet 10 mg PO HS Breo Ellipta 200-25 mcg/dose Blister With Device 1 inh INHALATION DAILY esomeprazole magnesium 20 mg Capsule,Delayed Release(Dr/Ec) 20 mg PO BID aspirin [Aaron Low Dose Aspirin] 81 mg Tablet,Delayed Release (Dr/Ec) 81 mg PO DAILY Referrals Referrals: Lenny Coffman MD [Primary Care Provider] -
[2022-01-19 18:23] LABS: Base Excess VBG 2.4 mEq/L; HCO3 VBG 25 mmol/L; Oxygen Saturation VBG 62.2 %; PCO2 VBG 32 mmHg (38-50); PO2 VBG 36 mmHg
[2022-01-19 18:32] LABS: Basophils # (auto) 0.14 K/uL (0-0.2); Basophils % (auto) 0.9 %; Hematocrit (blood only) 46.1 % (40.1-51.0); Hemoglobin 15.6 g/dl (14.0-18.0); Immature Granulocytes # (auto) 0.06 K/uL (0.00-0.02); Immature Granulocytes % (auto) 0.4 %; Lymphocytes # (auto) 2.09 K/uL (1.2-3.4); Lymphocytes % (auto) 14.1 %; Mean Corpuscular Hemoglobin 29.4 pg (25.0-34.0); Mean Corpuscular Hgb Conc 33.8 g/dL (32.0-36.0); Mean Platelet Volume 10.1 fL (9.4-12.4); Monocytes # (auto) 0.85 K/uL (0.24-0.82); Monocytes % (auto) 5.7 %; Neutrophils % (auto) 78.9 %; Platelet Count 346 K/uL (130-400); RDW Coefficient of Variation 12.9 % (11.5-14.5); RDW Standard Deviation 40.5 fL (36.4-46.3); White Blood Count 14.84 K/ul (4.8-10.8)
[2022-01-19 18:59] LABS: Alanine Aminotransferase 24 U/L (7-52); Albumin Globulin Ratio 1.5 (0.9-2); Albumin Level 4.3 gm/dl (3.4-5.0); Alkaline Phosphatase 112 U/L (34-104); Anion Gap 16 (3-11); Aspartate Aminotransferase 34 U/L (13-39); BUN Creatinine Ratio 9.3 (10-20); Bilirubin,Total 0.7 mg/dl (0.2-1.0); Blood Urea Nitrogen 10 mg/dl (6-23); Calcium 9.6 mg/dl (8.5-10.1); Carbon Dioxide 22 mmol/L (21-32); Chloride 104 mmol/L (98-107); Est GFR (African American) 96.7 ml/min; Est GFR (Non-African American) 83.4 ml/min; Globulin 2.9 gm/dl (2.5-4.0); Glucose 115 mg/dl (70-99(Fasting)); Lipase 51 U/L (11-82); Magnesium 1.1 mg/dl (1.7-2.4); Potassium 3.6 mmol/L (3.5-5.1); Sodium 142 mmol/L (136-145); Total Protein 7.2 gm/dl (6.0-8.3)
[2022-01-19 19:01] LABS: Troponin I High Sensitivity 5.9 pg/ml (0-20)
[2022-01-19] MEDS ORDERED: LACTATED RINGER'S 500 ML IV ONE (19:01)
[2022-01-19] MEDS: MAGNESIUM SULFATE / D5W 1 GM/100 ML BAG IV SCH ×4 (19:19→23:43)
[2022-01-19] MEDS ORDERED: OPTIRAY 350 100ml IV ONE (20:03)
--- NOTE | 2022-01-19 20:25 | CT Scan Report ---
CT SCAN OF THE ABDOMEN AND PELVIS WITH IV CONTRAST CLINICAL HISTORY: Nausea and vomiting. COMPARISON STUDY: Abdominal CT dated 11/02/2020. TECHNIQUE: Following the IV administration of 85 cc of Optiray 350, CT scan of the abdomen and pelvi s is performed from the lung bases to the proximal femora. Images are reviewed in the axial, sagittal , and coronal planes. IV contrast was administered without complication. A dose lowering technique wa s utilized adhering to the principles of ALARA. CT DOSE: 782.38 mGy.cm FINDINGS: Lung bases: The heart is normal in size and without pericardial effusion. The lung bases are clear no ting mild dependent atelectasis. Liver: The contrast-enhanced liver is enlarged, measuring 18.9 cm in length. The liver demonstrates d iffusely diminished attenuation consistent with hepatic steatosis. There is no intrahepatic biliary d uctal dilatation. The hepatic veins and portal veins are patent. Gallbladder: Unremarkable. Spleen: Normal in size and attenuation. Pancreas: Unremarkable. Adrenal glands: Unremarkable. Kidneys: The contrast enhanced kidneys are normal in size and without hydronephrosis. The kidneys enh ance symmetrically. A 4.7 cm simple cyst is noted in the left upper pole. Abdominal vasculature: The abdominal aorta is normal in course and caliber note a mild to moderate at herosclerotic calcification. Bowel: There is moderate colonic diverticulosis without CT evidence of acute diverticulitis. No bowel obstruction is seen. The appendix is well-visualized and normal. Peritoneum: There is no intraperitoneal free air or abdominal ascites. Lymphadenopathy: None. Pelvic viscera: The bladder, prostate, and seminal vesicles are normal as visualized. Skeletal structures: No lytic or blastic lesions are seen. A large posterior disc osteophyte complex is seen at L5-S1. There are subacute appearing anterolateral right 8th and posterior right 12th rib f ractures. There is severe avascular necrosis of the proximal femora bilaterally. IMPRESSION: 1. No acute infectious or inflammatory findings are identified in the abdomen or pelvis. 2. Hepatomegaly and hepatic steatosis. 3. There are subacute-appearing right-sided rib fractures as above. Correlate for point tenderness. 4. Moderate colonic diverticulosis without CT evidence of acute diverticulitis. 5. 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 6. Additional findings as above. ACT 112: Negative or not required by law. Electronically signed by: Jay Calvo M.D. 01/19/2022 8:22 PM
[2022-01-19] MEDS ORDERED: GABAPENTIN 600 MG TAB PO STA (20:44)
[2022-01-19] MEDS ORDERED: MAGNESIUM SULFATE / D5W 1 GM/100 ML BAG IV ONE (21:00)
[2022-01-19] MEDS ORDERED: LACTATED RINGER'S 1,000 ML IV STA (21:03)
[2022-01-19] MEDS ORDERED: THIAMINE HCL 100 MG in SYRINGE 9 ML IV STA (21:04)
--- NOTE | 2022-01-19 21:35 | History & Physical Report ---
Date of Service January 19, 2022 Assessment & Plan (1) Alcohol withdrawal: Plan: Acute viral illness Previous COVID-19 infection. Home antigen test has been positive for months as per patient. PCR test done at the ER tonight was negative. Hypertension, elevated secondary to illness DM2 insulin requiring, well-controlled as of recent hemoglobin A1c of 5.7 last August 2021 hx nonobstructive CAD as per records KARLO (CPAP noncompliance) GERD, on PPI PCU LOUIE S, DT precautions Supportive management for patient's viral illness Basal bolus insulin adjusted for clear liquid diet for now, ISS BG goal 1 10-1 40, carb count coverage DVT prophylaxis. Lovenox subcu Full code Text document was generated using [employer] voice recognition software. It may contain grammatical or spelling errors. Kindly contact undersigned for clarification of any documentation item in question. History of Present Illness Chief Complaint: Nausea, vomiting Primary Care Provider: Lenny Coffman MD History obtained from patient and records. Medical history significant for nonobstructive CAD as per records, hypertension, DM 2 insulin requiring, KARLO (CPAP noncompliance), bronchial asthma, GERD, fatty liver as per records, alcohol abuse as per records. Last confinement October 2020 for DKA/HHS. Patient discharged on insulin. 2 months ago, patient noted cough, fever, fatigue symptoms. Home COVID-19 test was positive. Patient completed Paxlovid course. Patient not feeling well the last few days. Transient dry cough symptoms. 3 days history of nausea vomiting without abdominal pain complaints. No diarrhea as per patient. No chest pain, no shortness of breath. No headache symptoms. Last EtOH intake was about 2 days ago. Home COVID-19 test was positive. Patient consulted ER for evaluation. 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 Allergies Allergy/AdvReac Type Severity Reaction Status Date / Time No Known Allergies Allergy Unknown Verified 01/19/22 22:08 Home Medications Medication Instructions Recorded Confirmed Type albuterol sulfate 0.63 mg/3 mL 0.63 mg continuous nebulization Q6 01/19/22 01/19/22 History solution for nebulization PRN Shortness Of Breath Or Wheezing albuterol sulfate 90 mcg/actuation 2 puff inhalation Q4 PRN .Cough, 01/19/22 01/19/22 History aerosol inhaler sob ascorbic acid (vitamin C) 125 mg 250 mg PO DAILY 01/19/22 01/19/22 History chewable tablet (Vitamin C) aspirin 81 mg tablet,delayed 81 mg PO DAILY 01/19/22 01/19/22 History release atorvastatin 20 mg tablet 20 mg PO DAILY 01/19/22 01/19/22 History buspirone 5 mg tablet 10 mg PO BID 01/19/22 01/19/22 History ezetimibe 10 mg tablet 10 mg PO DAILY 01/19/22 01/19/22 History fluoxetine 20 mg capsule 20 mg PO QAM 01/19/22 01/19/22 History fluticasone 500 mcg-salmeterol 50 1 ea inhalation BID 01/19/22 01/19/22 History mcg/dose blistr powdr for inhalation insulin human U-100 NPH-regulr 20 unit subcut QPM 01/19/22 01/19/22 History 70-30 mix 100 unit/mL subcutaneous susp (Novolin 70/30 U-100 Insulin) insulin human U-100 NPH-regulr 35 unit subcut QAM 01/19/22 01/19/22 History 70-30 mix 100 unit/mL subcutaneous susp (Novolin 70/30 U-100 Insulin) levocetirizine 5 mg tablet 5 mg PO HS 01/19/22 01/19/22 History lisinopril 5 mg tablet 5 mg PO DAILY 01/19/22 01/19/22 History metformin 500 mg tablet,extended 2,000 mg PO QPM 01/19/22 01/19/22 History release 24 hr metoprolol tartrate 100 mg tablet 100 mg PO BID 01/19/22 01/19/22 History montelukast 10 mg tablet 10 mg PO HS 01/19/22 01/19/22 History potassium chloride 20 mEq 20 meq PO QAM 01/19/22 01/19/22 History tablet,extended release(part/cryst) tiotropium bromide 2.5 2 puff inhalation DAILY 01/19/22 01/19/22 History mcg/actuation mist for inhalation (Spiriva Respimat) Past Med/Surg History Medical History (Updated 01/20/22 @ 08:11 by Dat Diamond MD) Adult body mass index 40 and over Cellulitis KARLO (obstructive sleep apnea) Sleep apnea Surgical History History of ear, nose, and throat (ENT) surgery to correct KARLO, unsuccessful History of nasal septoplasty History of tonsillectomy and adenoidectomy Family History Father Hypertension Mother Heart disease, Onset Age: 60 Myocardial infarction Social History Smoking Status: Former smoker Smoking End Date: 15 years ago; Hx Alcohol Use: Yes Alcohol type: beer Alcohol Intake Frequency Comment: 2-3 whiskey and moore a day Hx Substance Use: No Preferred Language: [place] Communication Ability: Effective 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 Beliefs That Will Affect Care: None marital status: Single Current Living Situation: Alone Other Information That Helps Us Care for You: No Feels Safe at Home: Yes Safety Concerns: Feels Safe At This Time Assistive Devices: Glasses Review of Systems Review of Systems: As per HPI, all other systems reviewed and negative Physical Exam Physical Exam: GENERAL: uncomfortable, anxious, obese, tremulous, looks older than stated age, no respiratory distress SKIN: Normal color, warm HEENT: [place] palpebral conjunctivae, no ptosis, dry buccal mucosa NECK : Supple, short neck, no tenderness CHEST : CTA, no tenderness HEART : Tachycardic, no obvious murmurs ABDOMEN: Some distention, nontender EXTREMITIES : No LE swelling/tenderness, no other conspicuous deformities noted NEUROLOGIC : Coherent, no facial asymmetry, tremulous, gait and stance not assessed Results & Data Results & Data ([place]) Vital Signs (Past 12 Hours) Vital Signs Temp Pulse Pulse Resp BP Pulse Ox O2 Del Method 01/19/22 20:59 120 H 24 95 Room Air 01/19/22 18:30 102 H 26 H 174/104 H 97 Room Air 01/19/22 18:15 102 H 19 161/107 H 99 Room Air 01/19/22 18:00 102 H 22 162/105 H 96 Room Air 01/19/22 17:45 97 H 24 176/111 H 95 Room Air 01/19/22 17:30 114 H 29 H 174/112 H 99 Room Air 01/19/22 17:27 122 H 30 H 191/112 H 100 Room Air 01/19/22 17:15 121 H 27 H 99 Room Air 01/19/22 17:00 118 H 39 H 99 Room Air 01/19/22 16:59 119 H 28 H 96 Room Air 01/19/22 17:18 126 H 175/109 H 01/19/22 17:02 100 Room Air 01/19/22 16:02 36.8 C 133 H 16 177/105 H 99 Laboratory Results Laboratory Results WBC 14.84 K/ul (4.8-10.8) H 01/19/22 16:22 RBC 5.30 M/uL (4.63-6.08) 01/19/22 16:22 Hgb 15.6 g/dl (14.0-18.0) 01/19/22 16:22 Hct 46.1 % (40.1-51.0) 01/19/22 16:22 MCV 87.0 fL (80.0-100.0) 01/19/22 16:22 MCH 29.4 pg (25.0-34.0) 01/19/22 16:22 MCHC 33.8 g/dL (32.0-36.0) 01/19/22 16:22 RDW Std Deviation 40.5 fL (36.4-46.3) 01/19/22 16:22 RDW Coeff of Paty 12.9 % (11.5-14.5) 01/19/22 16:22 Plt Count 346 K/uL (130-400) 01/19/22 16:22 MPV 10.1 fL (9.4-12.4) 01/19/22 16:22 Immature Gran % (Auto) 0.4 % 01/19/22 16:22 Neut % (Auto) 78.9 % 01/19/22 16:22 Lymph % (Auto) 14.1 % 01/19/22 16:22 [place] % (Auto) 5.7 % 01/19/22 16:22 Eos % (Auto) 0.0 % 01/19/22 16:22 Baso % (Auto) 0.9 % 01/19/22 16: Neut # (Auto) 11.70 K/uL (1.4-6.5) H 01/19/22 16:22 Lymph # (Auto) 2.09 K/uL (1.2-3.4) 01/19/22 16:22 [place] # (Auto) 0.85 K/uL (0.24-0.82) H 01/19/22 16:22 Eos # (Auto) 0.00 K/uL (0-0.50) 01/19/22 16:22 Baso # (Auto) 0.14 K/uL (0-0.2) 01/19/22 16:22 Immature Gran # (Auto) 0.06 K/uL (0.00-0.02) H 01/19/22 16:22 VBG pH 7.50 (7.36-7.41) H 01/19/22 18:08 VBG pCO2 32 mmHg (38-50) L 01/19/22 18:08 VBG pO2 36 mmHg 01/19/22 18:08 VBG HCO3 25 mmol/L 01/19/22 18:08 VBG O2 Saturation 62.2 % 01/19/22 18:08 VBG Base Excess 2.4 mEq/L 01/19/22 18:08 Sodium 142 mmol/L (136-145) 01/19/22 16:22 Potassium 3.6 mmol/L (3.5-5.1) 01/19/22 16:22 Chloride 104 mmol/L (98-107) 01/19/22 16:22 Carbon Dioxide 22 mmol/L (21-32) 01/19/22 16:22 Anion Gap 16 (3-11) H 01/19/22 16:22 BUN 10 mg/dl (6-23) 01/19/22 16:22 Creatinine 1.07 mg/dl (0.6-1.4) 01/19/22 16:22 Est Cr Clr Drug Dosing Not Reportable 01/19/22 16:22 Est GFR ( Amer) 96.7 ml/min 01/19/22 16:22 Est GFR (Non-Af Amer) 83.4 ml/min 01/19/22 16:22 BUN/Creatinine Ratio 9.3 (10-20) L 01/19/22 16:22 Glucose 115 mg/dl (70-99(Fasting)) H 01/19/22 16:22 POC Glucose 203 mg/dl (70-99) H 01/19/22 16:07 Lactate 4.4 mmol/L (0.4-2.0) H* 01/19/22 20:39 Calcium 9.6 mg/dl (8.5-10.1) 01/19/22 16:22 Magnesium 1.1 mg/dl (1.7-2.4) L 01/19/22 16:22 Total Bilirubin 0.7 mg/dl (0.2-1.0) 01/19/22 16:22 AST 34 U/L (13-39) 01/19/22 16:22 ALT 24 U/L (7-52) 01/19/22 16:22 Alkaline Phosphatase 112 U/L (34-104) H 01/19/22 16:22 Troponin I High Sens 5.9 pg/ml (0-20) 01/19/22 16:22 Total Protein 7.2 gm/dl (6.0-8.3) 01/19/22 16:22 Albumin 4.3 gm/dl (3.4-5.0) 01/19/22 16:22 Globulin 2.9 gm/dl (2.5-4.0) 01/19/22 16:22 Albumin/Globulin Ratio 1.5 (0.9-2) 01/19/22 16:22 Lipase 51 U/L (11-82) 01/19/22 16:22 Procalcitonin < 0.05 ng/ml (0-0.5) 01/19/22 20:39 TSH 1.538 uIu/ml (0.300-4.500) 01/19/22 16:22 SARS-CoV-2, RNA, NAAT NEGATIVE (NEGATIVE) 01/19/22 18:01 Impressions Chest X-Ray 01/19/22 16:58 SINGLE VIEW CHEST CLINICAL HISTORY: Generalized weakness. FINDINGS: 2 AP, portable, upright chest radiographs are compared to study dated 11/01/2020. Correlation is made with chest CT dated 05/20/2019.. The heart is mildly enlarged. The pulmonary vasculature is not congested. Chronic interstitial thickening is similar to previous. The lungs and pleural spaces are clear noting bibasilar scarring/atelectasis. No pneumothorax is seen. The bony thorax is grossly intact. IMPRESSION: Cardiomegaly with no active disease in the chest. ACT 112: Negative or not required by law. Electronically signed by: Jay Calvo M.D. 01/19/2022 5:56 PM Abdomen/Pelvis CT 01/19/22 18:40 CT SCAN OF THE ABDOMEN AND PELVIS WITH IV CONTRAST CLINICAL HISTORY: Nausea and vomiting. COMPARISON STUDY: Abdominal CT dated 11/02/2020. TECHNIQUE: Following the IV administration of 85 cc of Optiray 350, CT scan of the abdomen and pelvis is performed from the lung bases to the proximal femora. Images are reviewed in the axial, sagittal, and coronal planes. IV contrast was administered without complication. A dose lowering technique was utilized adhering to the principles of ALARA. CT DOSE: 782.38 mGy.cm FINDINGS: Lung bases: The heart is normal in size and without pericardial effusion. The lung bases are clear noting mild dependent atelectasis. Liver: The contrast-enhanced liver is enlarged, measuring 18.9 cm in length. The liver demonstrates diffusely diminished attenuation consistent with hepatic steatosis. There is no intrahepatic biliary ductal dilatation. The hepatic veins and portal veins are patent. Gallbladder: Unremarkable. Spleen: Normal in size and attenuation. Pancreas: Unremarkable. Adrenal glands: Unremarkable. Kidneys: The contrast enhanced kidneys are normal in size and without hydronephrosis. The kidneys enhance symmetrically. A 4.7 cm simple cyst is noted in the left upper pole. Abdominal vasculature: The abdominal aorta is normal in course and caliber note a mild to moderate atherosclerotic calcification. Bowel: There is moderate colonic diverticulosis without CT evidence of acute diverticulitis. No bowel obstruction is seen. The appendix is well-visualized and normal. Peritoneum: There is no intraperitoneal free air or abdominal ascites. Lymphadenopathy: None. Pelvic viscera: The bladder, prostate, and seminal vesicles are normal as vis ualized. Skeletal structures: No lytic or blastic lesions are seen. A large posterior disc osteophyte complex is seen at L5-S1. There are subacute appearing anterolateral right 8th and posterior right 12th rib fractures. There is severe avascular necrosis of the proximal femora bilaterally. IMPRESSION: 1. No acute infectious or inflammatory findings are identified in the abdomen or pelvis. 2. Hepatomegaly and hepatic steatosis. 3. There are subacute-appearing right-sided rib fractures as above. Correlate for point tenderness. 4. Moderate colonic diverticulosis without CT evidence of acute diverticulitis. 5. 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 6. Additional findings as above. ACT 112: Negative or not required by law. Electronically signed by: Jay Calvo M.D. 01/19/2022 8:22 PM Diagnostic Findings EKG as per my interpretation :Rate 120, sinus tachycardia, normal axis, RBBB, no ischemia
[2022-01-19] MEDS ORDERED: PROMETHAZINE HCL 12.5 MG in SODIUM CHLORIDE 0.9% 50 ML IV PRN (22:07)
[2022-01-19] MEDS ORDERED: POTASSIUM CHLORIDE PWD 20 MEQ PACK PO STA (22:36)
[2022-01-19] MEDS ORDERED: CARBOHYDRATES FOR HYPOGLYCEMIA PO PRN (23:26)
[2022-01-19] MEDS ORDERED: DEXTROSE 50% 50 ML SYRINGE IV PRN (23:26)
[2022-01-19] MEDS ORDERED: GLUCOSE 10 TAB/TUBE PO PRN (23:26)
[2022-01-19] MEDS ORDERED: GLUCAGON FOR INJ 1 MG VIAL SQ PRN (23:26)
[2022-01-19] MEDS ORDERED: LORazepam 3 MG in SYRINGE 1.5 ML IV PRN (23:26)
[2022-01-19] MEDS ORDERED: LORazepam 2 MG in SYRINGE 1 ML IV PRN (23:26)
[2022-01-19] MEDS ORDERED: GLUCOSE 40% GEL 15 GM TUBE PO PRN (23:26)
[2022-01-19] MEDS ORDERED: ACETAMINOPHEN 325 MG TAB PO PRN (23:26)
[2022-01-19] MEDS ORDERED: GABAPENTIN 1200MG ALCOHOL WITHDRAWAL LOAD PO STA (23:26)
[2022-01-19] MEDS ORDERED: Ativan IV Alcohol Withdrawal--Active Protocol IV PRN (23:26)
[2022-01-19] MEDS ORDERED: LORazepam 1 MG in SYRINGE 0.5 ML IV PRN (23:26)
[2022-01-19] MEDS: INSULIN ASPART PER UNIT SC SCH (23:43)
[2022-01-20] MEDS: THIAMINE HCL 100 MG TAB PO SCH ×2 (00:22→09:14)
[2022-01-20] MEDS: FOLIC ACID 1 MG TAB PO SCH ×2 (00:22→09:15)
[2022-01-20] MEDS: LANTUS PER UNIT CHARGE SQ SCH ×2 (00:23→21:24)
[2022-01-20] MEDS: METOPROLOL TARTRATE 100 MG TAB PO SCH ×3 (01:55→20:39)
[2022-01-20] MEDS: busPIRone 5 MG TAB PO SCH ×3 (01:55→20:39)
[2022-01-20] MEDS: GABAPENTIN 600 MG TAB PO SCH ×3 (03:38→17:39)
[2022-01-20] MEDS ORDERED: LACTATED RINGER'S 1,000 ML IV ONE (05:18)
[2022-01-20 05:48] LABS: Basophils % (auto) 1.1 %; Eosinophils # (auto) 0.04 K/uL (0-0.50); Eosinophils % (auto) 0.4 %; Hematocrit (blood only) 39.9 % (40.1-51.0); Hemoglobin 13.4 g/dl (14.0-18.0); Immature Granulocytes # (auto) 0.02 K/uL (0.00-0.02); Immature Granulocytes % (auto) 0.2 %; Lymphocytes % (auto) 28.7 %; Mean Corpuscular Hemoglobin 29.4 pg (25.0-34.0); Mean Corpuscular Hgb Conc 33.6 g/dL (32.0-36.0); Mean Corpuscular Volume 87.5 fL (80.0-100.0); Mean Platelet Volume 9.5 fL (9.4-12.4); Monocytes # (auto) 1.09 K/uL (0.24-0.82); Monocytes % (auto) 11.6 %; Neutrophils # (auto) 5.45 K/uL (1.4-6.5); Platelet Count 213 K/uL (130-400); RDW Standard Deviation 41.3 fL (36.4-46.3); Red Blood Count 4.56 M/uL (4.63-6.08)
[2022-01-20 07:08] LABS: Albumin Globulin Ratio 1.5 (0.9-2); Bilirubin,Total 1.2 mg/dl (0.2-1.0); Calcium 9.5 mg/dl (8.5-10.1); Creatinine Clr Calc Pharmacy 111.9 ml/min; Est GFR (African American) 104.9 ml/min; Est GFR (Non-African American) 90.5 ml/min; Globulin 2.7 gm/dl (2.5-4.0); Magnesium 2.2 mg/dl (1.7-2.4); Potassium 3.5 mmol/L (3.5-5.1); Total Protein 6.7 gm/dl (6.0-8.3)
[2022-01-20] MEDS: INSULIN ASPART PER UNIT SC SCH ×4 (08:31→21:21)
--- NOTE | 2022-01-20 08:40 | Electrocardiogram Report ---
Test Reason : Blood Pressure : / mmHG Vent. Rate : 117 BPM Atrial Rate : 117 BPM P-R Int : 142 ms QRS Dur : 120 ms QT Int : 362 ms P-R-T Axes : 064 025 044 degrees QTc Int : 504 ms Sinus tachycardia Possible Left atrial enlargement Right bundle branch block When compared with ECG of 01-NOV-2020 19:06, Criteria for Septal infarct are no longer Present Right bundle branch block has replaced Incomplete right bundle branch block Confirmed by Yazan Mcmullen ([id number]) on 01/20/2022 8:39:48 AM Referred By: REFERRED SELF Confirmed By:Yazan Mcmullen
[2022-01-20] MEDS: ENOXAPARIN INJ 40 MG/0.4 ML SYR SQ SCH (09:13)
[2022-01-20] MEDS: EZETIMIBE 10 MG TABLET PO SCH (09:13)
[2022-01-20] MEDS: ATORVASTATIN 20 MG TAB PO SCH (09:13)
[2022-01-20] MEDS: lisinopril 5 MG TAB PO SCH (09:13)
[2022-01-20] MEDS: FLUoxetine HCL 20 MG CAP PO SCH (09:13)
[2022-01-20] MEDS: ASPIRIN 81 MG ECTAB PO SCH (09:13)
[2022-01-20] MEDS: MULTIVITAMIN TAB PO SCH (09:14)
[2022-01-20] MEDS: FLUTICASONE/VILANTEROL 200/25MCG 14 PUFFS/INHALER INH SCH (09:14)
[2022-01-20] MEDS: UMECLIDINIUM BROMIDE 62.5MCG/BLISTER 7 PUFFS/INHALER INH SCH (09:14)
--- NOTE | 2022-01-20 14:48 | Hospitalist Progress Note ---
Date of Service January 20, 2022 Assessment & Plan (1) Alcohol withdrawal: (2) Nausea & vomiting: (3) Elevated lactic acid level: Plan 46-year-old male with PMH of nonobstructive CAD, HTN, DM 2 insulin requiring, KARLO/CPAP noncompliance, bronchial asthma, GERD, fatty liver as per records, alcohol abuse as per records presented to our ED 01/19 with complaint of not feeling well last few days including dry cough, nausea, vomiting for few days [employer]. Of note patient was admitted in October 2020 for DKA/HHS. He is being managed for the following: Not feeling well Likely acute viral illness Likely Sepsis POA 2/2 viral illness Patient presented with c/o not feeling well, nausea, vomiting, dry cough, poor appetite for few days [employer]. Elevated HR/lactic acid/WBC [Pro-[place] negative at presentation] at presentation on the background of likely viral illness. Patient noted fever/cough/fatigue symptoms 2 months ago, home COVID was positive, patient is status post Paxlovid course. Patient denies any abdominal pain or diarrhea, reports decreasing appetite, d enies any shortness of breath or chest pain or dizziness or headache. Patient reports some improvement in his nausea, continue with clear diet, advance as tolerated. Provide symptomatic management/hydration. History of alcohol abuse/likely Alc withdrawal: Reports drinking alcohol couple of times a month, stated last drink was almost a week ago [employer] to me but he stated last drink was 2 days ago to the admitting provider. Patient was tachycardic and tremulous at presentation and CIWA score elevated. LOUIE S protocol in place, folate/thiamine. History of COVID-19 infection: Patient reports home COVID test was positive for months, COVID test at ER was negative at presentation. Continue to monitor. Patient on room air and is stable. Other chronic medical conditions: KARLO/CPAP noncompliance, GERD [on PPI], HTN, DM2 [A1c of 5.02 Sep 2021] -->> continue home meds as and when able. Blood pressure slightly elevated secondary to acute illness, continue to monitor. DVT prophylaxis: Lovenox subcu Full code Admission and Anticipated Discharge Date Admission Date: January 19, 2022 Subjective Patient seen and examined at bedside for possible acute viral illness/cough/vomiting. Patient was lying in bed, on room air, NAD, denies new acute event overnight, on clear liquid diet, complaints being nauseous still, has not vomited while in hospital, states moving bowels okay/no diarrhea, denies belly pain/headache/dizziness/chest pain/palpitation/acute changes in bladder habit. Reports decreased appetite lately. Physical Exam Physical Exam: GENERAL: Alert and oriented x3. NAD, on RA. Class I obese. HEENT: No pallor, no icterus. Pupils equal, round and reactive to light. Oral mucosa moist. NECK: No JVD, no neck masses. HEART: S1 and S2 heard. Regular rate and rhythm. No murmur, no gallop. RESPIRATORY SYSTEM: Normal AP diameter. No accessory muscle use. No wheezing, no crackles. ABDOMEN: Soft, bowel sounds present, nontender, no distention. CENTRAL NERVOUS SYSTEM: No facial droop. Speech is clear. Obeys simple commands. Moves extremities. EXTREMITIES: No edema, no erythema seen. Results & Data Results & Data ([facility]) Vital Signs (Past 12 Hours) Vital Signs Temp Pulse Pulse Resp BP BP Pulse Ox 01/20/22 11:58 36.9 C 83 22 154/93 H 100 01/20/22 08:00 77 01/20/22 07:29 36.5 C 83 18 155/92 H 98 01/20/22 04:00 36.6 C 91 H 18 158/89 H 93 O2 Del Method 01/20/22 11:58 Room Air 01/20/22 08:00 01/20/22 07:29 Room Air 01/20/22 04:00 Room Air
[2022-01-20 19:16] LABS: Bilirubin Urine Negative (Negative); Blood Urine Negative (Negative); Color Urine Yellow; Glucose Urine UA Negative (Negative); Ketones Urine Negative (Negative); Leukocyte Esterase Urine Negative (Negative); Nitrite Urine Negative (Negative); Protein Urine Negative (Negative); Urobilinogen Urine Negative (Negative)
[2022-01-20 19:28] LABS: Appearance Urine Clear (Clear)
[2022-01-20] MEDS ORDERED: MONTELUKAST SODIUM 10 MG TABLET PO SCH (21:00)
[2022-01-21] MEDS: GABAPENTIN 600 MG TAB PO SCH ×2 (02:53→09:46)
[2022-01-21 06:32] LABS: Hematocrit (blood only) 38.7 % (40.1-51.0); Hemoglobin 12.9 g/dl (14.0-18.0); Mean Corpuscular Hemoglobin 29.1 pg (25.0-34.0); Mean Corpuscular Hgb Conc 33.3 g/dL (32.0-36.0); Mean Corpuscular Volume 87.2 fL (80.0-100.0); Mean Platelet Volume 9.8 fL (9.4-12.4); Platelet Count 175 K/uL (130-400); RDW Standard Deviation 41.1 fL (36.4-46.3); Red Blood Count 4.44 M/uL (4.63-6.08); White Blood Count 7.45 K/ul (4.8-10.8)
[2022-01-21 07:16] LABS: BUN Creatinine Ratio 8.9 (10-20); Calcium 9.3 mg/dl (8.5-10.1); Creatinine Clr Calc Pharmacy 111.1 ml/min; Est GFR (African American) 103.6 ml/min; Est GFR (Non-African American) 89.4 ml/min; Magnesium 1.8 mg/dl (1.7-2.4); Phosphorus 3.5 mg/dl (2.5-4.9); Potassium 3.3 mmol/L (3.5-5.1)
[2022-01-21] MEDS: INSULIN ASPART PER UNIT SC SCH ×2 (08:52→12:57)
[2022-01-21] MEDS: ENOXAPARIN INJ 40 MG/0.4 ML SYR SQ SCH (08:52)
[2022-01-21] MEDS: FOLIC ACID 1 MG TAB PO SCH (08:53)
[2022-01-21] MEDS: lisinopril 5 MG TAB PO SCH (08:53)
[2022-01-21] MEDS: FLUoxetine HCL 20 MG CAP PO SCH (08:53)
[2022-01-21] MEDS: EZETIMIBE 10 MG TABLET PO SCH (08:53)
[2022-01-21] MEDS: METOPROLOL TARTRATE 100 MG TAB PO SCH (08:53)
[2022-01-21] MEDS: ASPIRIN 81 MG ECTAB PO SCH (08:53)
[2022-01-21] MEDS: ATORVASTATIN 20 MG TAB PO SCH (08:53)
[2022-01-21] MEDS: busPIRone 5 MG TAB PO SCH (08:54)
[2022-01-21] MEDS: MULTIVITAMIN TAB PO SCH (08:54)
[2022-01-21] MEDS: UMECLIDINIUM BROMIDE 62.5MCG/BLISTER 7 PUFFS/INHALER INH SCH (08:54)
[2022-01-21] MEDS: THIAMINE HCL 100 MG TAB PO SCH (08:54)
[2022-01-21] MEDS: FLUTICASONE/VILANTEROL 200/25MCG 14 PUFFS/INHALER INH SCH (08:54)
[2022-01-21] MEDS ORDERED: POTASSIUM CHLORIDE CRTAB 20 MEQ TABCR PO STA ×2 (08:55→12:56)
--- NOTE | 2022-01-21 13:27 | Discharge Summary ---
Discharge Summary Date of Service January 21, 2022 Notes For Next Care Provider Patient was admitted for acute viral illness with some GI symptoms. Patient felt better and is being discharged. His blood pressure has been on the higher side while in hospital, hence amlodipine has been added. He is found to have bilateral femoral head avascular necrosis, he will need orthopedic referral and follow-up within a month time. He is advised to take [id number] diclofenac with food if Tylenol does not take care of his pain. He will need blood test likely CBC/CMP/magnesium level at visit. Medication Changes From Visit Amlodipine has been added for your blood pressure management at 2.5 mg nightly. Admission HPI Per Admitting Provider History obtained from patient and records. Medical history significant for nonobstructive CAD as per records, hypertension, DM 2 insulin requiring, KARLO (CPAP noncompliance), bronchial asthma, GERD, fatty liver as per records, alcohol abuse as per records. Last confinement October 2020 for DKA/HHS. Patient discharged on insulin. 2 months ago, patient noted cough, fever, fatigue symptoms. Home COVID-19 test was positive. Patient completed Paxlovid course. Patient not feeling well the last few days. Transient dry cough symptoms. 3 days history of nausea vomiting without abdominal pain complaints. No diarrhea as per patient. No chest pain, no shortness of breath. No headache symptoms. Last EtOH intake was about 2 days ago. Home COVID-19 test was positive. Patient consulted ER for evaluation. 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 Admission Exam Per Admitting Provider GENERAL: uncomfortable, anxious, obese, tremulous, looks older than stated age, no respiratory distress SKIN: Normal color, warm HEENT: [place] palpebral conjunctivae, no ptosis, dry buccal mucosa NECK : Supple, short neck, no tenderness CHEST : CTA, no tenderness HEART : Tachycardic, no obvious murmurs ABDOMEN: Some distention, nontender EXTREMITIES : No LE swelling/tenderness, no other conspicuous deformities noted NEUROLOGIC : Coherent, no facial asymmetry, tremulous, gait and stance not assessed Principal Dx & Hospital Course #1 = Principal Diagnosis (1) Alcohol withdrawal: (2) Nausea & vomiting: (3) Elevated lactic acid level: Plan 46-year-old male with PMH of nonobstructive CAD, HTN, DM 2 insulin requiring, KARLO/CPAP noncompliance, bronchial asthma, GERD, fatty liver as per records, alcohol abuse as per records presented to our ED 01/19 with complaint of not feeling well last few days including dry cough, nausea, 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 Of note patient was admitted in October 2020 for DKA/HHS. 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 Elevated HR/lactic acid/WBC [Pro-[place] negative at presentation] at presentation on the background of likely viral illness. Patient noted fever/cough/fatigue symptoms 2 months ago, home COVID was positive, patient is status post Paxlovid course. Patient denies any abdominal pain or diarrhea, reports decreasing appetite, denies any shortness of breath or chest pain or dizziness or headache at presentation. Patient denies further nausea or vomiting while in hospital, he is tolerating solid food well. Patient is hemodynamically stable and would like to go home. Resolved History of alcohol abuse/concern for Alc withdrawal: Upon reconfirming and asking further, patient says that he used to drink more in the past but he drinks socially lately and his last drink is not 2 days ago but a week ago that is the Saturday prior to arrival. Heart rate elevation at presentation is likely secondary to sepsis then from alcohol withdrawal. Patient CIWA score has been low and has not required as needed Ativan. Patient has been advised against use of alcohol in future for risks of relapse. We will complete gabapentin taper. History of COVID-19 infection: Patient reports home COVID test was positive for months, COVID test at ER was negative at presentation. Continue to monitor. Patient on room air and is stable. Other chronic medical conditions: KARLO/CPAP noncompliance, GERD [on PPI], HTN, DM2 [A1c of 5.02 Sep 2021] -->> continue home meds as and when able. Blood pressure slightly elevated, amlodipine nightly has been added, patient advised to measure blood pressure twice a day and maintain a log to take his primary care physician for further management/dose adjustment. Full code Patient being discharged home with following instruction at the point of discharge: Follow-up with your primary care physician within 1 week time and you will likely need blood test CBC/CMP/magnesium level. Coordinate with your primary care physician to have orthopedics referral for management of your bilateral hip pain/avascular femoral necrosis. You can continue to take [id number] diclofenac or Tylenol, advise to take diclofenac with food. Coordinate with the PCP for further discussion/management. Recommend to establish orthopedics and follow-up in a month time. Recommend against any alcohol use in the future. Because your blood pressure has been on the higher side while in hospital, another blood medication amlodipine 2.5 mg nightly has been added. Recommend to measure blood pressure twice a day and maintain a log to take you to your primary care physician for further recommendations/management. Take your medications as prescribed. Discharge Exam GENERAL: Alert and oriented x3. NAD, on RA. Class I obese. HEENT: No pallor, no icterus. Pupils equal, round and reactive to light. Oral mucosa moist. NECK: No JVD, no neck masses. HEART: S1 and S2 heard. Regular rate and rhythm. No murmur, no gallop. RESPIRATORY SYSTEM: Normal AP diameter. No accessory muscle use. No wheezing, no crackles. ABDOMEN: Soft, bowel sounds present, nontender, no distention. CENTRAL NERVOUS SYSTEM: No facial droop. Speech is clear. Obeys simple commands. Moves extremities. EXTREMITIES: No edema, no erythema seen. Updated Medication List Medication Instructions Recorded Confirmed Type albuterol sulfate 0.63 mg/3 mL 0.63 mg continuous nebulization Q6 01/19/22 01/19/22 History solution for nebulization PRN Shortness Of Breath Or Wheezing albuterol sulfate 90 mcg/actuation 2 puff inhalation Q4 PRN .Cough, 01/19/22 01/19/22 History aerosol inhaler sob ascorbic acid (vitamin C) 125 mg 250 mg PO DAILY 01/19/22 01/19/22 History chewable tablet (Vitamin C) aspirin 81 mg tablet,delayed 81 mg PO DAILY 01/19/22 01/19/22 History release atorvastatin 20 mg tablet 20 mg PO DAILY 01/19/22 01/19/22 History buspirone 5 mg tablet 10 mg PO BID 01/19/22 01/19/22 History ezetimibe 10 mg tablet 10 mg PO DAILY 01/19/22 01/19/22 History fluoxetine 20 mg capsule 20 mg PO QAM 01/19/22 01/19/22 History fluticasone 500 mcg-salmeterol 50 1 ea inhalation BID 01/19/22 01/19/22 History mcg/dose blistr powdr for inhalation insulin human U-100 NPH-regulr 20 unit subcut QPM 01/19/22 01/19/22 History 70-30 mix 100 unit/mL subcutaneous susp (Novolin 70/30 U-100 Insulin) insulin human U-100 NPH-regulr 35 unit subcut QAM 01/19/22 01/19/22 History 70-30 mix 100 unit/mL subcutaneous susp (Novolin 70/30 U-100 Insulin) levocetirizine 5 mg tablet 5 mg PO HS 01/19/22 01/19/22 History lisinopril 5 mg tablet 5 mg PO DAILY 01/19/22 01/19/22 History metformin 500 mg tablet,extended 2,000 mg PO QPM 01/19/22 01/19/22 History release 24 hr metoprolol tartrate 100 mg tablet 100 mg PO BID 01/19/22 01/19/22 History montelukast 10 mg tablet 10 mg PO HS 01/19/22 01/19/22 History potassium chloride 20 mEq 20 meq PO QAM 01/19/22 01/19/22 History tablet,extended release(part/cryst) tiotropium bromide 2.5 2 puff inhalation DAILY 01/19/22 01/19/22 History mcg/actuation mist for inhalation (Spiriva Respimat) amlodipine 5 mg tablet (Norvasc) 2.5 mg PO HS #15 tabs 01/21/22 Rx gabapentin 600 mg tablet 600 mg PO Q12H 1 day #3 tabs 01/21/22 Rx Hospital Stay Data Consultations 01/19/22 20:35 ED Decision to Admit Stat Diagnostic Imagining Performed 01/19/22 18:40 CT abd pelvis IV con only Stat Pending Results Patient Have Any Pending Studies at Discharge: Yes (Admitting blood culture final results.) Discharge Instructions Given to Patient (Per Discharging Provider) Follow-up with your primary care physician within 1 week time and you will likely need blood test CBC/CMP/magnesium level. Coordinate with your primary care physician to have orthopedics referral for management of your bilateral hip pain/avascular femoral necrosis. You can continue to take [id number] diclofenac or Tylenol, advise to take diclofenac with food. Coordinate with the PCP for further discussion/management. Recommend to establish orthopedics and follow-up in a month time. Recommend against any alcohol use in the future. Because your blood pressure has been on the higher side while in hospital, another blood medication amlodipine 2.5 mg nightly has been added. Recommend to measure blood pressure twice a day and maintain a log to take you to your primary care physician for further recommendations/management. Take your medications as prescribed. Total Time Total Time Spent Total Time Spent (In Minutes): 45
[2022-01-21] MEDS ORDERED: amLODIPine BESYLATE 5 MG TAB PO SCH (21:00)
[2022-01-21] MEDS ORDERED: GABAPENTIN 600 MG TAB PO SCH (22:15)
[2022-01-23] MEDS ORDERED: GABAPENTIN 600 MG TAB PO SCH (10:15)
== END 2022-01-21 15:00 | disposition home or self-care (01) | DRG 872 ==
LOC: ED 16:01 → 4W 22:02

== ENCOUNTER 2022-06-26 06:06 | Observation (INO) ==
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
[~2022-06-26 06:06] MED LIST: ACETAMINOPHEN 500 MG TAB PO SCH; FAMOTIDINE 20 MG TAB PO SCH; GABAPENTIN 300 MG CAP PO SCH; LR 60ML/HR IV SCH; ORTHO JOINT MIX INFIL SCH; TRANEXAMIC ACID 1,000 MG **IV Pre-op IV SCH; ceFAZolin 2000MG 2,000 MG/15 ML SYR IV SCH; dexAMETHasone 4 MG TAB PO SCH
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
[2022-06-26] MEDS ORDERED: BUPIVACAINE 0.5 % 5 MG/1 ML MPF 30ML VIAL ONE (06:25)
[2022-06-26] MEDS ORDERED: PROPOFOL IV EMULSION 10 MG/ML 20 ML VIAL IV ONE ×2 (07:43→09:41)
[2022-06-26] MEDS ORDERED: MIDAZOLAM HCL 1 MG/ML 2ML VIAL ONE (07:43)
[2022-06-26] MEDS ORDERED: LIDOCAINE 2% MPF LOCAL 5 ML VIAL INFIL ONE (07:43)
[2022-06-26] MEDS ORDERED: fentaNYL citrate 100 MCG/2 ML VIAL ONE (07:43)
[2022-06-26] MEDS ORDERED: ePHEDrine sulfate 50 MG/ML AMP IV PRN (08:18)
[2022-06-26] MEDS ORDERED: ATROPINE SULFATE 0.1 MG/ML 10ML SYR IV PRN (08:18)
[2022-06-26] MEDS ORDERED: HYDROmorphone INJ 2 MG/ML SYR/VIAL IV PRN (08:18)
[2022-06-26] MEDS ORDERED: ONDANSETRON INJ 2 MG/ML 2 ML VIAL IV PRN (08:18)
[2022-06-26] MEDS ORDERED: fentaNYL citrate 100 MCG/2 ML VIAL IV PRN (08:18)
[2022-06-26] MEDS ORDERED: ORTHO JOINT ANESTHETIC ONE (09:01)
[2022-06-26] MEDS: TRANEXAMIC ACID 1,000 MG **IV Intra-op IV SCH ×2 (09:10→12:21)
[2022-06-26] MEDS ORDERED: ePHEDrine sulfate 50 MG/ML AMP ONE (09:59)
[2022-06-26] MEDS ORDERED: GLYCOPYRROLATE 0.2 MG/ML VIAL ONE (10:28)
--- NOTE | 2022-06-26 10:51 | Operative Report ---
PG Post Operative Report Pre & Post Diagnosis Operation Date: 06/26/22 09:05 Preoperative diagnosis: Avascular necrosis of the right hip Postoperative diagnosis: Avascular necrosis of the right hip I identified the patient and participated in the time-out.: Yes Procedure Operation Date: 06/26/22 09:05 Right total hip arthroplasty Surgeon Calixto Box DO Central Processing Tech Justin Anglin PA-C Estimated Blood Loss 200 Findings Consistent with Post-Op Diagnosis Specimens Right femoral head Description of Procedure Implants used I used a ZimmerBiomet total hip arthroplasty system with a size 5 high offset Avenir Complete stem, a 52 mm G7 cup with a 25mm screw, an E1 polyethylene liner, a 36 mm ceramic head with a +3.5 neck. Grey arrived at the hospital for the above procedure. He was seen in the preoperative holding area and the operative extremity was identified and signed. He was given a spinal anesthetic, a preoperative antibiotic, and TXA. He was then taken back to the operating room and laid on the table in the supine position. He was given basic sedation. The operative leg was secured to a Puristst leg positioner. The hip was then prepped and draped in sterile fashion. A timeout was done and the patient and the operative extremity was properly identified. An anterior approach was used. Dissection was taken down through the fascia and the tensor muscle belly was retracted laterally and the rectus was retracted medially. The circumflex vessels were identified and ligated. The capsule was then incised and tagged for later repair. The femoral neck was then cut and the femoral head was removed. The acetabulum was exposed. Time was spent doing a complete circumferential labral release. Sequential reaming of the acetabulum up to a size 51 reamer was done. Final reamings were done under fluoroscopy to ensure appropriate version. A Biomet 52 mm G7 cup was then impacted into place. A single 25 mm screw was placed. The E1 polyethylene liner was then snapped into place. Surrounding soft tissues were then injected with 100 cc of an orthopedic pain control cocktail. The proximal femur was then exposed. Sequential broaching up to a size 5 broach was done. Off that broach a size 36 head with a +3.5 neck was trialed. The hip was reduced and fluoroscopic images showed anatomic alignment of the implants in acceptable length. The broach was removed. The final size 5 high offset Avenir Complete stem was then impacted into place. A ceramic 36 mm head with a +3.5 neck was then impacted onto the stem and the hip was reduced. Final fluoroscopic images showed anatomic alignment of the hip. The capsule was then closed with #1 Vicryl suture. A dilute betadyne lavage was then done for 3 minutes. The joint was then irrigated with normal saline solution. The fascia was closed with #1 PDS suture. Skin was closed with 2-0 Vicryl, susan, and a Silverlon dressing. He was then transferred to a hospital bed and taken to the post anesthesia care unit in stable condition. He tolerated the procedure well. Justin Anglin PA-C, was present for the entire procedure. He was critical for patient positioning, prepping, draping, retraction exposure, wound closure and application of sterile dressing. I attest to the content of the Intraoperative Record and any orders documented therein. Any exceptions are noted below.
--- NOTE | 2022-06-26 11:47 | Anesthesiology Progress Note ---
Date of Service June 26, 2022 Anesthesia Post Procedure Vital Signs Vital Signs: Temp Pulse Pulse Resp BP Pulse Ox O2 Del Method 06/26/22 11:40 64 16 103/76 93 Room Air 06/26/22 11:30 75 17 100/66 94 Room Air 06/26/22 11:20 63 15 104/72 93 Room Air 06/26/22 11:10 80 15 104/75 99 Oxymask 06/26/22 11:00 74 15 101/60 97 Oxymask 06/26/22 10:51 36.6 C 78 14 97/63 L 99 Oxymask 06/26/22 07:17 36.6 C 85 20 136/80 95 Room Air O2 Flow Rate 06/26/22 11:40 06/26/22 11:30 06/26/22 11:20 06/26/22 11:10 5 06/26/22 11:00 5 06/26/22 10:51 5 06/26/22 07:17 Pain Intensity Right Hip: Pain Intensity: 7 Transfer of Care Handoff Completed per policy Notes Mental Status: alert / awake / arousable and participated in evaluation Patient Amnestic to Procedure: Yes Nausea / Vomiting: adequately controlled Pain: adequately controlled Airway Patency, RR, SpO2: stable & adequate BP & HR: stable & adequate Hydration State: stable & adequate Anesthetic Complications: no major complications apparent and Pt Satisfied with anesthetic care
[2022-06-26] MEDS ORDERED: PHARMACY GLYCEMIC MGMT CONSULT PRN (12:09)
[2022-06-26] MEDS ORDERED: bisacodyL 10 MG SUPP PR PRN (12:09)
[2022-06-26] MEDS ORDERED: NALOXONE HCL 0.4 MG/1 ML VIAL/CARP IV PRN (12:09)
[2022-06-26] MEDS ORDERED: ALBUTEROL HFA 8 GM INHALER INH PRN (12:09)
[2022-06-26] MEDS ORDERED: METOCLOPRAMIDE HCL INJ 5 MG/ML 2 ML VIAL IV PRN (12:09)
[2022-06-26] MEDS ORDERED: HYDROmorphone INJ 0.5 MG/0.5 ML SYR IV PRN (12:09)
[2022-06-26] MEDS ORDERED: MAGNESIUM HYDROXIDE SUSP 30 ML UDC PO PRN (12:09)
--- NOTE | 2022-06-26 12:09 | XRay Report ---
AP PELVIS, CROSSTABLE LATERAL RIGHT HIP History: Right total hip arthroplasty. Degenerative arthritis. Postop. FINDINGS: The patient is status post a right total hip arthroplasty. The hardware is intact. No fract ure or dislocation. Skin susan are in place. Advanced degenerative changes, avascular necrosis, and mild left femoral head collapse again noted. IMPRESSION: Right total hip arthroplasty. No evidence for hardware complication ACT 112: Negative or not required by law. Electronically signed by: Moo Miguel M.D. 06/26/2022 12:08 PM
[2022-06-26] MEDS: SODIUM CHLORIDE 0.9% 1000ML 1,000 ML IV SCH (12:26)
[2022-06-26] MEDS ORDERED: GLUCOSE 40% GEL 15 GM TUBE PO PRN (12:30)
[2022-06-26] MEDS ORDERED: LANTUS PER UNIT CHARGE SQ ONE (12:30)
[2022-06-26] MEDS ORDERED: GLUCAGON FOR INJ 1 MG VIAL IM PRN (12:30)
[2022-06-26] MEDS ORDERED: CARBOHYDRATES FOR HYPOGLYCEMIA PO PRN (12:30)
[2022-06-26] MEDS ORDERED: DEXTROSE 50% 50 ML SYRINGE IV PRN (12:30)
[2022-06-26] MEDS ORDERED: GLUCOSE 10 TAB/TUBE PO PRN (12:30)
[2022-06-26] MEDS: INSULIN ASPART PER UNIT SC SCH ×3 (12:55→22:08)
[2022-06-26] MEDS: KETOROLAC 30 MG/ML VIAL IV SCH ×2 (13:00→18:00)
--- NOTE | 2022-06-26 13:24 | Pharmacy Report ---
Pharmacy Glycemic Short Note 2 - Date of Service June 26, 2022 - Glycemic Short BSG Results (Last 24 hours): 06/26/22 06/26/22 06/26/22 07:09 11:02 12:37 POC Glucose 106 H 137 H 145 H OUTPATIENT ANTIDIABETIC REGIMEN: * Novolin 70/30 - 35 units SC qAM, 20 units SC qPM * Metformin 2 g PO daily HbA1c: 4.9% (05/17/22) ASSESSMENT: * TT is a 46 year old male POD #0 s/p right total hip arthroplasty * Received 8 mg PO dexamethasone in OR with another dose scheduled for tomorrow morning * Preop BSG of 106 mg/dL and postop BSG of 145 mg/dL * Patient with very tight glycemic control as an outpatient given A1c * Insulin requirements are likely much lower than reported outpatient ones * Will start conservatively and give ~0.3 unit/kg basal today to cover steroids PLAN FOR INPATIENT GLYCEMIC CONTROL: * Hold outpatient oral diabetes medications * Basal insulin * Lantus 30 units SC x 1 * Bolus insulin * NovoLog per scale ACHS or Q6hrs while NPO * Goal Range: Low 110 mg/dL - High 140 mg/dL * Correction Factor: 25 mg/dL/unit * Nutritional / Prandial insulin per carb ratio of 1 unit per 8 grams CHO consumed
--- NOTE | 2022-06-26 13:52 | Fluoroscopy Report ---
FL hip RT 1V CLINICAL HISTORY: RT ANTERIOR COMPARISON STUDY: Pelvis 04/26/2022. FLUOROSCOPY TIME: 14 seconds FLUOROSCOPY IMAGES: 1 Ka,r: 2.1 mGy FINDINGS: Status post right total hip arthroplasty. The hardware appears intact. No fracture or dislo cation. IMPRESSION: Fluoroscopic assistance as above. ACT 112: Negative or not required by law. Electronically signed by: Moo Miguel M.D. 06/26/2022 1:51 PM
[2022-06-26] MEDS: ceFAZolin 2000MG 2,000 MG/15 ML SYR IV SCH (18:07)
[2022-06-26] MEDS: oxyCODONE HCL IR 5 MG TAB (IMMEDIATE RELEASE) PO PRN (20:04)
[2022-06-26] MEDS: DOCUSATE SODIUM 100 MG CAP PO SCH (20:07)
[2022-06-26] MEDS: ASPIRIN 81 MG ECTAB PO SCH (20:08)
[2022-06-26] MEDS: METOPROLOL TARTRATE 100 MG TAB PO SCH (20:08)
[2022-06-26] MEDS ORDERED: CETIRIZINE HCL 10 MG TABLET PO SCH (21:00)
[2022-06-26] MEDS ORDERED: ATORVASTATIN 40 MG TAB PO SCH (21:00)
[2022-06-26] MEDS ORDERED: SENNA 8.6 MG TAB PO SCH (21:00)
[2022-06-27] MEDS: KETOROLAC 30 MG/ML VIAL IV SCH ×2 (00:37→05:08)
[2022-06-27] MEDS: ceFAZolin 2000MG 2,000 MG/15 ML SYR IV SCH (00:38)
[2022-06-27] MEDS: SODIUM CHLORIDE 0.9% 1000ML 1,000 ML IV SCH (00:39)
[2022-06-27] MEDS: oxyCODONE HCL IR 5 MG TAB (IMMEDIATE RELEASE) PO PRN (03:52)
--- NOTE | 2022-06-27 06:35 | Orthopedic Progress Note ---
Date of Service June 27, 2022 Assessment & Plan (1) Status post right hip replacement: Overall he is doing well. He is not having much pain in the right hip. He will be seen by physical therapy today for ambulation and range of motion exercises. He is on aspirin for DVT prophylaxis. He can be discharged home later today. He will follow-up with orthopedics in 2 weeks. Ronal Edmonds was seen and examined at bedside this morning. Overall he is doing very well. He is not having much pain in the right hip. He has been up and ambulating some with a walker. He has no complaints.. Review of Systems All systems reviewed & are unremarkable except as noted in HPI & below. Physical Exam On physical examination of the right hip, the dressing is clean and dry. His leg is out full extension. He has active dorsiflexion plantarflexion of his right ankle.. Results & Data Results & Data Laboratory Results . Diagnostic Findings Postoperative x-rays of the right hip show the prosthesis to be in anatomic alignment without any evidence of fracture, dislocation, or loosening.. PG Care Time/CCT Total # of Minutes Spent Total Time Spent with Patient: Total time spent is greater than 50% in coordination of care (as documented) at patient's floor/unit and/or counseling patient: Coding Level of Care Code 88947 Post Operative Follow-Up Diagnoses Status post right hip replacement Z96.641
--- NOTE | 2022-06-27 06:36 | Discharge Summary ---
Date of Service June 27, 2022 Admission HPI (Per Admitting) Grey is pleasant 46-year-old male who has been dealing with chronic worsening bilateral hip pain. He does have a history of alcohol and uncontrolled diabetes. He has really gotten his life together recently.He has lost about 100 pounds. He has gotten his diabetes under control. He stopped drinking. He had x-rays of his hips, which showed significant AVN in both hips with collapse. He is currently ambulating with the cane. After failing conservative treatment, he has elected to proceed with a right total hip arthroplasty. Admission Exam (Per Admitting) On physical examination of the right hip, he ambulates with a cane. I can flex him to about 80 degrees. He has 20 degrees of external rotation and 0 degrees of internal rotation. He has pain in his groin.. Principal Diagnosis Same as "Discharge Diagnosis" noted below under Discharge Instructions. Discharge Exam On physical examination of the right hip, the dressing is clean and dry. His leg is out full extension. He has active dorsiflexion plantarflexion of his right ankle.. Discharge Data Procedures Performed Operation Date: 06/26/22 09:05 Actual Procedures p Right Anterior Total Hip Arthroplasty(Right) - Calixto Box DO Ordered Studies 06/26/22 09:05 FL hip RT 1V Routine Hospital Course (1) Status post right hip replacement: On June 26, 2022 Grey arrived at [facility] and underwent a right hip replacement without complication. He had a spinal anesthetic. Postoperatively he was started on aspirin for DVT prophylaxis and transferred to the general orthopedic floors. His hospital course was uneventful. On postop day #1, his vital signs were stable and his pain was well controlled. He was able to participate well with physical therapy doing ambulation and range of motion exercises. He was then discharged home. He will follow-up with orthopedics in 2 weeks. PG Care Time/CCT Total # of Minutes Spent Total Time Spent with Patient: Total time spent is greater than 50% in coordination of care (as documented) at patient's floor/unit and/or counseling patient: Discharge Plan Discharge Items Patient Disposition: Home - Home Health Services Reason For Visit: Degenerative Joint Disease Right Hip Discharge Diagnosis: Right hip replacement Activity: As commented below Non-emergency contact: Surgeon Call non-emergency contact if: your wound has increased redness and your wound has increased drainage Follow-up/Referrals: Lenny Coffman MD [Primary Care Provider] - Diet: Regular Addtl Attending Provider Instructions: Activity and Therapy Recommendations: * If you are using [facility] then therapy will be provided at your home until they feel you have accomplished all of your goals. * If you are using [facility] then Physical Therapy will be provided until they feel you are ready to start Outpatient Physical Therapy. * If you are not using home therapy then Outpatient Physical Therapy should start about 3-5 days from your day of surgery. Therapy will last about 6-10 weeks * You were shown a series of exercises in the hospital. Do these exercises three times each day including the exercises you were shown in physical therapy. * Get up and walk several times each day.~ For the first four weeks, try not to stand or walk for more than one hour at a time. If you do stand or walk for more than one hour, you will not hurt anything, but your leg will likely swell.~~ * As you feel comfortable, you may change from the walker or crutches to a cane and~then to independent walking. Medications: * Narcotic You will likely be sent home from the hospital with a prescription for the narcotic pain medication that worked best throughout your stay. * Aspirin Most patients will be required to take Aspirin 81mg twice a day for 6 weeks after surgery. This is obtained [id number] and a prescription is not necessary. * Other medications may be prescribed for specific circumstances. If you have any questions, please call the office at . * Resume previous home medications unless otherwise instructed TEDs/Elastic Stockings: The white elastic stockings help limit swelling and prevent blood clots from forming in your legs. The more you wear them, the more they work. Wear them for six weeks. Dressing Care: Leave the Silverlon dressing in place for 7 days. After 7 days you may remove the dressing. If the incision is not draining then you may leave the susan open to air. If there is a little bit of drainage or if the susan are getting stuck on your clothing then cover the incision with a dry dressing. The susan will be removed at your 2 week follow-up appointment. Showering: You may shower with the Silverlon dressing in place. Do not let the shower spray hit the dressing directly. Pat the Silverlon dressing dry. If the dressing becomes wet underneath, then simply remove the dressing. Keep the incision dry until you are 7 days out from the day of surgery. After 7 days you may remove the Silverlon dressing and shower with the susan exposed. Let soapy water run over the susan and pat them dry. Do not scrub or soak the incision. Things To Watch For: * Drainage from the incision site that occurs more than one week after your surgery. * Increased redness at the incision site. * Fever above 102 degrees Fahrenheit. * Unusual chest pain or shortness of breath. * Call [facility] at with any of the above problems Follow-Up Visit: Follow-up with Dr. Box's PA (aClixto Bundy) 2-3 weeks after your day of surgery. He will remove your susan and answer any questions. If you have any additional questions or concerns, Dr Box is usually in the office at the same time and will be available An appointment was probably scheduled when you signed-up for surgery in the office. If you have any questions call Office Instructions: More detailed instructions as well as Frequently Asked Questions were provided in a folder by our office when you signed-up for surgery. Please review these instructions when you get home. If you have any further questions or concerns, please feel free to call the office at [phone] Pending Studies at Discharge: No Stand-Alone Forms: My [facility] Medications and DC Order Prescriptions: New oxycodone-acetaminophen 5-325 mg tablet 1 tab PO Q6H PRN (Reason: pain) Qty: 30 0RF Continued tramadol 50 mg tablet 50 mg PO Q8H PRN (Reason: pain) Qty: 30 0RF buspirone 5 mg tablet 10 mg PO QAM albuterol sulfate 0.63 mg/3 mL solution for nebulization 0.63 mg continuous nebulization Q6 PRN (Reason: Shortness Of Breath Or Wheezing) metoprolol tartrate 100 mg tablet 100 mg PO BID Novolin 70/30 U-100 Insulin 100 unit/mL (70-30) Suspension 35 unit SUBCUT QAM Rx Instructions: Before breakfast Novolin 70/30 U-100 Insulin 100 unit/mL (70-30) Suspension 20 unit SUBCUT QPM Rx Instructions: Before dinner potassium chloride 20 mEq tablet,ER particles/crystals 20 meq PO QAM fluticasone propion-salmeterol [Advair Diskus] 500-50 mcg/dose blister with device 2 ea INHALATION QAM montelukast 10 mg tablet 10 mg PO QAM lisinopril 5 mg Tablet 5 mg PO QAM albuterol sulfate 90 mcg/actuation HFA aerosol inhaler 2 puff INHALATION Q4 PRN (Reason: .Cough, sob) fluoxetine 20 mg capsule 20 mg PO QAM metformin 500 mg tablet extended release 24 hr 2,000 mg PO QAM Rx Instructions: Take with dinner ezetimibe 10 mg tablet 10 mg PO QAM levocetirizine 5 mg Tablet 5 mg PO HS Spiriva Respimat 2.5 mcg/actuation mist 2 puff INHALATION BID ascorbic acid (vitamin C) [Vitamin C] 125 mg Tablet,Chewable 250 mg PO QAM atorvastatin 40 mg Tablet 40 mg PO HS amlodipine 2.5 mg Tablet 2.5 mg PO QAM diclofenac sodium 75 mg Tablet,Delayed Release (Dr/Ec) 75 mg PO BID Changed aspirin 81 mg Tablet,Delayed Release (Dr/Ec) 81 mg PO BID 42 Days Qty: 0 0RF Admission Data Admit Date/Time: 06/26/22 10:48 Attending Provider: Calixto Box Admit Provider: Calixto Box Primary Care Provider: Lenny Coffman
[2022-06-27] MEDS: METOPROLOL TARTRATE 100 MG TAB PO SCH (07:27)
[2022-06-27] MEDS: ASPIRIN 81 MG ECTAB PO SCH (07:27)
[2022-06-27] MEDS: DOCUSATE SODIUM 100 MG CAP PO SCH (07:27)
[2022-06-27] MEDS ORDERED: dexAMETHasone 4 MG TAB PO SCH (08:00)
[2022-06-27] MEDS: INSULIN ASPART PER UNIT SC SCH (08:54)
[2022-06-27] MEDS ORDERED: EZETIMIBE 10 MG TABLET PO SCH (09:00)
[2022-06-27] MEDS ORDERED: FLUTICASONE/VILANTEROL 100/25MCG 14 PUFFS/INHALER INH SCH (09:00)
[2022-06-27] MEDS ORDERED: MONTELUKAST SODIUM 10 MG TABLET PO SCH (09:00)
[2022-06-27] MEDS ORDERED: busPIRone 5 MG TAB PO SCH (09:00)
[2022-06-27] MEDS ORDERED: lisinopril 5 MG TAB PO SCH (09:00)
[2022-06-27] MEDS ORDERED: MULTIVITAMIN TAB PO SCH (09:00)
[2022-06-27] MEDS ORDERED: amLODIPine BESYLATE 5 MG TAB PO SCH (09:00)
[2022-06-27] MEDS ORDERED: POTASSIUM CHLORIDE CRTAB 20 MEQ TABCR PO SCH (09:00)
[2022-06-27] MEDS ORDERED: UMECLIDINIUM BROMIDE 62.5MCG/BLISTER 7 PUFFS/INHALER INH SCH (09:00)
[2022-06-27] MEDS ORDERED: FLUoxetine HCL 20 MG CAP PO SCH (09:00)
[2022-06-27] MEDS ORDERED: LANTUS PER UNIT CHARGE SQ ONE (09:00)
== END 2022-06-27 11:46 | disposition home health service (06) ==
LOC: ASU 06:06 → 3E 06:06

== ENCOUNTER 2022-10-08 05:18 | Observation (INO) ==
--- NOTE | 2022-10-01 13:14 | Anesthesiology Consultation ---
Date of Service October 01, 2022 Assessment & Plan (1) Encounter for pre-operative examination: - Check BSG AM DOS - COVID screening: Per assessment on 10/01: No known COVID-19 positive contacts or current COVID-19 related symptoms. Travel screen negative. Patient vaccinated. At surgeon discretion if preop Covid testing being done. - Outpatient joint assessment: Pt currently scheduled for inpatient pathway. If surgeon requests review for outpatient joint pathway, patient is not recommended candidate for outpatient joint program from anesthesia standpoint. - Cardiology visit (02/21/22): "HTN.. continue current treatment.. Nonobstructive atherosclerosis of coronary artery.. continue current treatment including aspirin, beta-elvin, statin therapy. Sinus tachycardia.. continue metoprolol tartrate 100 milligrams twice daily.. Dyslipidemia.. increase atorvastatin from 20 milligrams to 40 milligrams, continue ezetimibe. Repeat LDL cholesterol in advance of visit with primary care in a month." F/U one year recommended - S/P Right CAROLANN (06/26/22): SAB at L3/4 (x1 attempt) at [facility]. No issues noted per post-op anesthesia progress note. Chart Review Chart Review: Acceptable Risk for Surgery and Patient NOT seen in Pre Admission Testing History Surgery Operation Date: 10/08/22 11:40 Proposed Procedures p Left Anterior Total Hip Arthroplasty - Calixto Box DO Height/Weight Height: 6 ft Weight: 88.904 kg Allergies Allergy/AdvReac Type Severity Reaction Status Date / Time No Known Allergies Allergy Unknown Verified 10/01/22 12:40 Medications Home Medications Medication Instructions Recorded Confirmed Last Taken albuterol sulfate 0.63 mg/3 mL 0.63 mg continuous nebulization 01/19/22 10/01/22 Unknown solution for nebulization Q6H PRN Shortness Of Breath Or Wheezing albuterol sulfate 90 mcg/actuation 2 puff inhalation Q4H PRN .Cough, 01/19/22 10/01/22 06/25/22 21:00 aerosol inhaler sob ascorbic acid (vitamin C) 125 mg 250 mg PO QAM 01/19/22 10/01/22 Unknown chewable tablet (Vitamin C) buspirone 5 mg tablet 10 mg PO QAM 01/19/22 10/01/22 06/25/22 09:00 ezetimibe 10 mg tablet 10 mg PO QAM 01/19/22 10/01/22 06/25/22 21:00 fluoxetine 20 mg capsule 20 mg PO QA 01/19/22 10/01/22 06/25/22 09:00 fluticasone 500 mcg-salmeterol 50 2 inh inhalation QAM 01/19/22 10/01/22 06/25/22 21:00 mcg/dose blistr powdr for inhalation (Advair Diskus) insulin human U-100 NPH-regulr 20 unit subcut QPM 01/19/22 10/01/22 06/25/22 18:00 70-30 mix 100 unit/mL subcutaneous susp (Novolin 70/30 U-100 Insulin) insulin human U-100 NPH-regulr 35 unit subcut QA 01/19/22 10/01/22 06/25/22 08:00 70-30 mix 100 unit/mL subcutaneous susp (Novolin 70/30 U-100 Insulin) levocetirizine 5 mg tablet 5 mg PO HS 01/19/22 10/01/22 06/25/22 21:00 lisinopril 5 mg tablet 5 mg PO [facility] 01/19/22 10/01/22 06/25/22 21:00 metformin 500 mg tablet,extended 2,000 mg PO [facility] 01/19/22 10/01/22 06/25/22 09:00 release 24 hr metoprolol tartrate 100 mg tablet 100 mg PO BID 01/19/22 10/01/22 06/25/22 21:00 montelukast 10 mg tablet 10 mg PO [facility] 01/19/22 10/01/22 06/25/22 09:00 potassium chloride 20 mEq 20 meq PO [facility] 01/19/22 10/01/22 06/25/22 09:00 tablet,extended release(part/cryst) tiotropium bromide 2.5 2 puff inhalation BID 01/19/22 10/01/22 06/25/22 21:00 mcg/actuation mist for inhalation (Spiriva Respimat) tramadol 50 mg tablet 50 mg PO Q8H PRN pain #30 tabs 05/01/22 10/01/22 06/25/22 21:00 amlodipine 2.5 mg tablet 2.5 mg PO [facility] 05/25/22 10/01/2223 21:00 atorvastatin 40 mg tablet 40 mg PO HS 05/25/22 10/01/22 06/25/22 21:00 diclofenac sodium 75 mg 75 mg PO BID 05/25/22 10/01/22 06/19/22 09:00 tablet,delayed release aspirin 81 mg tablet,delayed 81 mg PO BID 42 days #0 tabs 06/27/22 10/01/22 06/25/22 21:00 release oxycodone-acetaminophen 5 mg-325 1 tab PO Q6H PRN pain #30 tabs 06/27/22 10/01/22 Unknown mg tablet Past Medical History Medical History (Updated 10/01/22 @ 13:17 by Saniya Gross) Anxiety Asthma Depression Diabetes mellitus, type 2 IDDM - 4.9% A1c 04/2022 Dyslipidemia GERD (gastroesophageal reflux disease) controlled, stable per pt History of COVID-14 November 2021- moderate cold symptoms > symptoms fully resolved History of pancreatitis Hypertension controlled, stable per pt Mild CAD 01/05/2020 cath at [facility] Morbid obesity KARLO (obstructive sleep apnea) no machine, machine has broke in the past- and has lost 100+ lbs Peripheral neuropathy bilateral feet Post traumatic stress disorder Sinus tachycardia follows with Dr Rodriguez Past Family History Family History Father Hypertension Mother Heart disease, Onset Age: 60 Myocardial infarction Other No family history of adverse response to anesthesia Past Surgical History Surgical History (Updated 10/01/22 @ 13:17 by Saniya Gross) H/O hernia repair History of anesthesia reaction "confused, pulled out tubes after hernia repair" History of cardiac cath 2019 at [facility]. no stents. History of nasal septoplasty History of tonsillectomy and adenoidectomy History of total right hip arthroplasty Status post uvulopalatopharyngoplasty for KARLO, unsuccessful Social History Smoking Status: Former smoker tobacco type: cigarettes Do You Dip or Chew Tobacco: No Smoking End Date: 12-14 years ago Hx Alcohol Use: Yes (Hx ETOH abuse per records) Alcohol type: beer and hard liquor alcohol intake frequency: other Alcohol Intake Frequency Comment: hx-quit Hx Substance Use: No substance use type: does not use Lab Results Anesthesia Preop Results Results Anesthesia Widget: WBC 9.26 K/ul (4.8-10.8) 09/12/22 Hgb 14.3 g/dl (14.0-18.0) 09/12/22 Hct 43.4 % (42.0-52.0) 09/12/22 Plt 364 K/uL (130-400) 09/12/22 Na 141 mmol/L (136-145) 09/12/22 K 4.5 mmol/L (3.5-5.1) 09/12/22 Cl 105 mmol/L (98-107) 09/12/22 CO2 28 mmol/L (21-32) 09/12/22 BUN 17 mg/dl (6-23) 09/12/22 Creat 0.96 mg/dl (0.6-1.4) 09/12/22 Glucose Level 55 mg/dl (70-99(Fasting)) L 09/12/22 PT 10.4 Seconds (9.0-12.0) 09/12/22 PTT 29.9 Seconds (21.0-31.0) 09/12/22 INR 0.9 (0.9-1.1) 09/12/22 Blood Type O Positive 09/12/22 Antibody Screen NEGATIVE 09/12/22 Testing Laboratory Results A1c 4.9% 05/17/22 Electrocardiogram Date: 02/21/22 NSR, rate 79 bpm Incomplete RBBB Chest X-Ray Date: 05/28/22 No pneumothorax. No pleural effusions. The lungs are clear. The heart is normal in size. IMPRESSION: No acute process. Echocardiogram Date: 12/08/19 EF 55-59% Grade I diastolic dysfunction Mild cLVH Normal LV wall motion No significant valvular disease Cardiac Catheterization Date: 01/05/20 Left Main (% Stenosis): Normal LAD (% Stenosis): Proximal (10-20% diffuse), Mid (30% mild calcification) and Distal (20-30% diffuse) D1 (% Stenosis): Proximal (30%, small 1.5mm vessel) D2 (% Stenosis): Normal (moderate caliber vessel) D3 (% Stenosis): Ostial (30%, small 1.0 - 1.5mm vessel) Circumflex (% Stenosis): Distal (20% diffuse) OM1 (% Stenosis): Normal OM2 (% Stenosis): Normal L PL1 (% Stenosis): Normal (smal 1.5mm vessel) RCA (% Stenosis): Normal R PDA (% Stenosis): Mid (10%) R PL1 (% Stenosis): Proximal (10%) AM (% Stenosis): Normal Ramus (% Stenosis): Normal Mild non-obstructive CAD Normal intracardiac pressure. No evidence of pulmonary Hypertension
--- NOTE | 2022-10-04 13:01 | History & Physical Report ---
Date of Service October 04, 2022 Assessment & Plan (1) Avascular necrosis of bone of left hip: We will proceed with a left anterior total hip arthroplasty. Postoperatively he will be started on aspirin for DVT prophylaxis and kept overnight in the hospital for postop medical management. He plans to have the hospital set up home health before discharge. History of Present Illness Chief Complaint: Avascular necrosis of the left hip. Primary Care Provider: Lenny Coffman MD Grey is a pleasant 46-year-old male who has been dealing with avascular necrosis of both hips. I did a right total hip arthroplasty on him in May 2022. He is done well with that. Unfortunately he has AVN and complete collapse of his left hip. He has elected proceed with a left anterior total of arthroplasty.. Allergies Allergy/AdvReac Type Severity Reaction Status Date / Time No Known Allergies Allergy Unknown Verified 10/01/22 12:40 Home Medications Medication Instructions Recorded Confirmed Type albuterol sulfate 0.63 mg/3 mL 0.63 mg continuous nebulization 01/19/22 10/01/22 History solution for nebulization Q6H PRN Shortness Of Breath Or Wheezing albuterol sulfate 90 mcg/actuation 2 puff inhalation Q4H PRN .Cough, 01/19/22 10/01/22 History aerosol inhaler sob ascorbic acid (vitamin C) 125 mg 250 mg PO QAM 01/19/22 10/01/22 History chewable tablet (Vitamin C) buspirone 5 mg tablet 10 mg PO QAM 01/19/22 10/01/22 History ezetimibe 10 mg tablet 10 mg PO QAM 01/19/22 10/01/22 History fluoxetine 20 mg capsule 20 mg PO QAM 01/19/22 10/01/22 History fluticasone 500 mcg-salmeterol 50 2 inh inhalation QAM 01/19/22 10/01/22 History mcg/dose blistr powdr for inhalation (Advair Diskus) insulin human U-100 NPH-regulr 20 unit subcut QPM 01/19/22 10/01/22 History 70-30 mix 100 unit/mL subcutaneous susp (Novolin 70/30 U-100 Insulin) insulin human U-100 NPH-regulr 35 unit subcut QAM 01/19/22 10/01/22 History 70-30 mix 100 unit/mL subcutaneous susp (Novolin 70/30 U-100 Insulin) levocetirizine 5 mg tablet 5 mg PO HS 01/19/22 10/01/22 History lisinopril 5 mg tablet 5 mg PO QAM 01/19/22 10/01/22 History metformin 500 mg tablet,extended 2,000 mg PO QAM 01/19/22 10/01/22 History release 24 hr metoprolol tartrate 100 mg tablet 100 mg PO BID 01/19/22 10/01/22 History montelukast 10 mg tablet 10 mg PO QAM 01/19/22 10/01/22 History potassium chloride 20 mEq 20 meq PO QAM 01/19/22 10/01/22 History tablet,extended release(part/cryst) tiotropium bromide 2.5 2 puff inhalation BID 01/19/22 10/01/22 History mcg/actuation mist for inhalation (Spiriva Respimat) tramadol 50 mg tablet 50 mg PO Q8H PRN pain #30 tabs 05/01/22 10/01/22 Rx amlodipine 2.5 mg tablet 2.5 mg PO QAM 05/25/22 10/01/22 History atorvastatin 40 mg tablet 40 mg PO HS 05/25/22 10/01/22 History diclofenac sodium 75 mg 75 mg PO BID 05/25/22 10/01/22 History tablet,delayed release aspirin 81 mg tablet,delayed 81 mg PO BID 42 days #0 tabs 06/27/22 10/01/22 Rx release oxycodone-acetaminophen 5 mg-325 1 tab PO Q6H PRN pain #30 tabs 06/27/22 10/01/22 Rx mg tablet Past Med/Surg History Medical History Anxiety Asthma Depression Diabetes mellitus, type 2 IDDM - 4.9% A1c 04/2022 Dyslipidemia GERD (gastroesophageal reflux disease) controlled, stable per pt History of COVID-14 November 2021- moderate cold symptoms > symptoms fully resolved History of pancreatitis Hypertension controlled, stable per pt Mild CAD 01/05/2020 cath at [facility] Morbid obesity KARLO (obstructive sleep apnea) no machine, machine has broke in the past- and has lost 100+ lbs Peripheral neuropathy bilateral feet Post traumatic stress disorder Sinus tachycardia follows with Dr Rodriguez Surgical History H/O hernia repair History of anesthesia reaction "confused, pulled out tubes after hernia repair" History of cardiac cath 2020 at [facility]. no stents. History of nasal septoplasty History of tonsillectomy and adenoidectomy History of total right hip arthroplasty Status post uvulopalatopharyngoplasty for KARLO, unsuccessful Family History Father Hypertension Mother Heart disease, Onset Age: 60 Myocardial infarction Other No family history of adverse response to anesthesia Social History Smoking Status: Former smoker Second Hand Exposure: Yes (hx growing up); Do You Dip or Chew Tobacco: No; Hx Alcohol Use: Yes (Hx ETOH abuse per records) Alcohol type: beer and hard liquor Alcohol Intake Frequency Comment: 2-3 whiskey and moore a day Hx Substance Use: No Preferred Language: Cambodian Communication Ability: Effective 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 Physical Exam On physical examination of the left hip, he has decreased range of motion. Has pain with internal and external rotation.. Constitutional WD/WN, vitals as above Eyes PERRL, conjunctivae normal, anicteric sclerae ENMT external ear and nose normal, oropharynx normal Neck trachea midline, no thyromegaly Respiratory normal respiratory effort, lungs clear to auscultation Cardiovascular RRR, no murmur, no edema Gastrointestinal (Abdomen) normal bowel sounds, soft, nontender, no hepatosplenomegaly Skin no rashes, warm and dry Psychiatric A+Ox3, euthymic affect Results & Data Results & Data Laboratory Results . Diagnostic Findings X-rays of the left hip show complete collapse of the femoral head.. PG Care Time/CCT Total # of Minutes Spent Total Time Spent with Patient: Total time spent is greater than 50% in coordination of care (as documented) at patient's floor/unit and/or counseling patient: Coding Level of Care Code None Diagnoses Avascular necrosis of bone of left hip M87.052
[2022-10-08] MEDS ORDERED: ACETAMINOPHEN 500 MG TAB PO SCH (06:00)
[2022-10-08] MEDS ORDERED: ceFAZolin 2000MG 2,000 MG/15 ML SYR IV SCH (06:00)
[2022-10-08] MEDS ORDERED: LR 60ML/HR IV SCH (06:00)
[2022-10-08] MEDS ORDERED: LR 500ML BOLUS, THEN 15ML/HR IV SCH (06:00)
[2022-10-08] MEDS ORDERED: TRANEXAMIC ACID 1,000 MG **IV Intra-op IV SCH (06:00)
[2022-10-08] MEDS ORDERED: GABAPENTIN 300 MG CAP PO SCH (06:00)
[2022-10-08] MEDS ORDERED: dexAMETHasone 4 MG TAB PO SCH (06:00)
[2022-10-08] MEDS ORDERED: TRANEXAMIC ACID 1,000 MG **IV Pre-op IV SCH (06:00)
[2022-10-08] MEDS ORDERED: FAMOTIDINE 20 MG TAB PO SCH (06:00)
[2022-10-08] MEDS ORDERED: ORTHO JOINT MIX INFIL SCH (06:00)
[2022-10-08] MEDS ORDERED: ROPIVACAINE 0.5% 5 MG/ML 30 ML VIAL ONE (06:18)
[2022-10-08] MEDS ORDERED: ORTHO JOINT ANESTHETIC ONE (06:37)
[2022-10-08] MEDS ORDERED: PROPOFOL IV EMULSION 10 MG/ML 20 ML VIAL IV ONE ×2 (06:40→08:27)
[2022-10-08] MEDS ORDERED: LIDOCAINE 2% 2 ML VIAL/AMP(20MG/ML) INFIL ONE (06:40)
[2022-10-08] MEDS ORDERED: ONDANSETRON INJ 2 MG/ML 2 ML VIAL IV PRN ×2 (06:41→09:48)
[2022-10-08] MEDS ORDERED: KETOROLAC 30 MG/ML VIAL IV PRN (06:41)
[2022-10-08] MEDS ORDERED: ATROPINE SULFATE 0.1 MG/ML 10ML SYR IV PRN (06:41)
[2022-10-08] MEDS ORDERED: ePHEDrine sulfate 50 MG/ML AMP IV PRN (06:41)
[2022-10-08] MEDS ORDERED: MIDAZOLAM HCL 1 MG/ML 2ML VIAL ONE ×2 (06:41→07:12)
[2022-10-08] MEDS ORDERED: HYDROmorphone INJ 1 MG/ML SYRINGE IV PRN (06:41)
--- NOTE | 2022-10-08 06:45 | History & Physical Bridge Note ---
Date of Service October 08, 2022 History & Physical Bridge Note I have examined the patient, reviewed the History & Physical and in the interval since the performance of the History & Physical I have noted the following changes of clinical significance: no changes noted
[2022-10-08] MEDS ORDERED: KETAMINE 50 MG/5 ML SYRINGE ONE (07:22)
[2022-10-08] MEDS ORDERED: PHENYLEPHRINE 100MCG/ML 5ML SYR ONE (07:35)
[2022-10-08] MEDS ORDERED: ePHEDrine sulfate 50 MG/ML SYR ONE (07:35)
--- NOTE | 2022-10-08 08:21 | Operative Report ---
PG Post Operative Report Pre & Post Diagnosis Operation Date: 10/08/22 07:00 Pre-Op Diagnosis: Left Hip Avascular Necrosis Post-Op Diagnosis: Left Hip Avascular Necrosis I identified the patient and participated in the time-out.: Yes Procedure Operation Date: 10/08/22 07:00 Actual Procedures p Left Anterior Total Hip Arthroplasty--Uncemented(Left) - Calixto Box DO Surgeon Calixto Box DO Chenille Machine Operator Calixto Bundy PA-C Estimated Blood Loss 250 Findings Consistent with Post-Op Diagnosis Specimens Left femoral head Description of Procedure Implants used I used a ZimmerBiomet total hip arthroplasty system with a size 4 high offset Avenir Complete stem, a 52 mm G7 cup with a 25mm screw, an E1 polyethylene liner, a 36 mm ceramic head with a -3.5 neck. Grey arrived at the hospital for the above procedure. He was seen in the preoperative holding area and the operative extremity was identified and signed. He was given a spinal anesthetic, a preoperative antibiotic, and TXA. He was then taken back to the operating room and laid on the table in the supine position. He was given basic sedation. The operative leg was secured to a Puristst leg positioner. The hip was then prepped and draped in sterile fashion. A timeout was done and the patient and the operative extremity was properly identified. An anterior approach was used. Dissection was taken down through the fascia and the tensor muscle belly was retracted laterally and the rectus was retracted medially. The circumflex vessels were identified and ligated. The capsule was then incised and tagged for later repair. The femoral neck was then cut and the femoral head was removed. The acetabulum was exposed. Time was spent doing a complete circumferential labral release. Sequential reaming of the acetabulum up to a size 51 reamer was done. Final reamings were done under fluoroscopy to ensure appropriate version. A Biomet 52 mm G7 cup was then impacted into place. A single 25 mm screw was placed. The E1 polyethylene liner was then snapped into place. Surrounding soft tissues were then injected with 100 cc of an orthopedic pain control cocktail. The proximal femur was then exposed. Sequential broaching up to a size 4 broach was done. Off that broach a size 36 head with a -3.5 neck was trialed. The hip was reduced and fluoroscopic images showed anatomic alignment of the implants in acceptable length. The broach was removed. The final size 4 high offset Avenir Complete stem was then impacted into place. A ceramic 36 mm head with a -3.5 neck was then impacted onto the stem and the hip was reduced. Final fluoroscopic images showed anatomic alignment of the hip. The capsule was then closed with #1 Vicryl suture. A dilute betadyne lavage was then done for 3 minutes. The joint was then irrigated with normal saline solution. The fascia was closed with #1 PDS suture. Skin was closed with 2-0 Vicryl, susan, and a Silverlon dressing. He was then transferred to a hospital bed and taken to the post anesthesia care unit in stable condition. He tolerated the procedure well. Calixto Bundy PA-C, was present for the entire procedure. He was critical for patient positioning, prepping, draping, retraction exposure, wound closure and application of sterile dressing. I attest to the content of the Intraoperative Record and any orders documented therein. Any exceptions are noted below.
--- NOTE | 2022-10-08 08:50 | Fluoroscopy Report ---
FL hip LT 1V CLINICAL HISTORY: LEFT ANTERIOR CAROLANN COMPARISON STUDY: Pelvis radiograph August 21, 2022. FLUOROSCOPY TIME: 19 seconds. Ka, r: 2.1989 mGy FLUOROSCOPIC IMAGES: 1 FINDINGS: Fluoroscopy was provided during anterior total left hip arthroplasty. The hardware appears intact. No fracture is identified by fluoroscopy. There are no unexpected radiopaque foreign bodies. There is an acetabular screw. IMPRESSION: Fluoroscopy provided during total left hip arthroplasty. ACT 112: Negative or not required by law. Electronically signed by: Lino Hand M.D. 10/08/2022 8:48 AM
--- NOTE | 2022-10-08 09:32 | Anesthesiology Progress Note ---
Date of Service October 08, 2022 Anesthesia Post Procedure Vital Signs Vital Signs: Temp Pulse Pulse Resp BP Pulse Ox O2 Del Method 10/08/22 09:05 65 20 108/74 95 Room Air 10/08/22 09:15 36.3 C L 65 20 109/74 94 Room Air 10/08/22 08:55 67 20 110/74 95 Room Air 10/08/22 08:46 36.0 C L 72 16 100/61 95 Room Air 10/08/22 05:45 36.9 C 72 18 118/79 97 Room Air Transfer of Care Handoff Completed per policy Notes Mental Status: alert / awake / arousable Patient Amnestic to Procedure: Yes Nausea / Vomiting: adequately controlled Pain: adequately controlled Airway Patency, RR, SpO2: stable & adequate BP & HR: stable & adequate Hydration State: stable & adequate Anesthetic Complications: no major complications apparent
[2022-10-08] MEDS ORDERED: NALOXONE HCL 0.4 MG/1 ML VIAL/CARP IV PRN (09:48)
[2022-10-08] MEDS ORDERED: HYDROmorphone INJ 0.5 MG/0.5 ML SYR IV PRN (09:48)
[2022-10-08] MEDS ORDERED: NON-FORMULARY MEDICATION (Albuterol Sulfate 0.63 mg/3 mL solution for nebulization) continuous nebulization PRN (09:48)
[2022-10-08] MEDS ORDERED: PHARMACY GLYCEMIC MGMT CONSULT PRN (09:48)
[2022-10-08] MEDS ORDERED: METOCLOPRAMIDE HCL INJ 5 MG/ML 2 ML VIAL IV PRN (09:48)
[2022-10-08] MEDS ORDERED: bisacodyL 10 MG SUPP PR PRN (09:48)
[2022-10-08] MEDS ORDERED: ALBUTEROL HFA 8 GM INHALER INH PRN (09:48)
[2022-10-08] MEDS ORDERED: MAGNESIUM HYDROXIDE SUSP 30 ML UDC PO PRN (09:48)
[2022-10-08] MEDS ORDERED: oxyCODONE HCL IR 5 MG TAB (IMMEDIATE RELEASE) PO PRN (09:48)
--- NOTE | 2022-10-08 09:48 | XRay Report ---
XR hip 1V LT w pelvis CLINICAL HISTORY: Postoperative evaluation. COMPARISON: Pelvis radiograph August 21, 2022. FINDINGS: Alignment of the total left hip arthroplasty is anatomic. There is no periprosthetic fract ure or unexpected radiopaque foreign body. There are skin susan. Acetabular screw is noted. Expecte d findings following right hip arthroplasty are also noted. IMPRESSION: Expected findings following total left hip arthroplasty. ACT 112: Negative or not required by law. Electronically signed by: Lino Hand M.D. 10/08/2022 9:47 AM
[2022-10-08] MEDS ORDERED: GLUCOSE 40% GEL 15 GM TUBE PO PRN (10:30)
[2022-10-08] MEDS ORDERED: DEXTROSE 50% 50 ML SYRINGE IV PRN (10:30)
[2022-10-08] MEDS ORDERED: GLUCAGON FOR INJ 1 MG VIAL IM PRN (10:30)
[2022-10-08] MEDS ORDERED: GLUCOSE 10 TAB/TUBE PO PRN (10:30)
[2022-10-08] MEDS ORDERED: CARBOHYDRATES FOR HYPOGLYCEMIA PO PRN (10:30)
[2022-10-08] MEDS ORDERED: LANTUS PER UNIT CHARGE SC ONE (10:30)
[2022-10-08] MEDS: EZETIMIBE 10 MG TABLET PO SCH (10:49)
[2022-10-08] MEDS: lisinopril 5 MG TAB PO SCH ×2 (10:49→10:51)
[2022-10-08] MEDS: METOPROLOL TARTRATE 100 MG TAB PO SCH ×2 (10:50→21:00)
[2022-10-08] MEDS: busPIRone 5 MG TAB PO SCH (10:51)
[2022-10-08] MEDS: amLODIPine BESYLATE 5 MG TAB PO SCH (10:51)
[2022-10-08] MEDS: UMECLIDINIUM BROMIDE 62.5MCG/BLISTER 7 PUFFS/INHALER INH SCH (10:52)
[2022-10-08] MEDS: FLUTICASONE/VILANTEROL 200/25MCG 14 PUFFS/INHALER INH SCH (10:52)
[2022-10-08] MEDS: KETOROLAC 30 MG/ML VIAL IV SCH ×3 (10:53→22:31)
[2022-10-08] MEDS: MULTIVITAMIN TAB PO SCH (10:53)
[2022-10-08] MEDS: ASPIRIN 81 MG ECTAB PO SCH ×2 (10:53→20:58)
[2022-10-08] MEDS: DOCUSATE SODIUM 100 MG CAP PO SCH ×2 (10:53→21:01)
[2022-10-08] MEDS: FLUoxetine HCL 20 MG CAP PO SCH (10:54)
[2022-10-08] MEDS: POTASSIUM CHLORIDE CRTAB 20 MEQ TABCR PO SCH (10:54)
[2022-10-08] MEDS: CETIRIZINE HCL 10 MG TABLET PO SCH (10:54)
[2022-10-08] MEDS: MONTELUKAST SODIUM 10 MG TABLET PO SCH (10:54)
[2022-10-08] MEDS: INSULIN ASPART PER UNIT CHARGE SC SCH ×4 (11:11→21:54)
[2022-10-08] MEDS: SODIUM CHLORIDE 0.9% 1000ML 1,000 ML IV SCH ×2 (13:42→22:13)
[2022-10-08] MEDS: ACETAMINOPHEN 500 MG TAB PO SCH ×2 (13:43→21:02)
--- NOTE | 2022-10-08 14:22 | Pharmacy Report ---
Pharmacy Glycemic Short Note 2 - Date of Service October 08, 2022 - Glycemic Short BSG Results (Last 24 hours): 10/08/22 10/08/22 10/08/22 05:43 08:49 10:13 POC Glucose 92 99 120 H 10/08/22 11:44 POC Glucose 165 H OUTPATIENT ANTIDIABETIC REGIMEN: * Novolin 70/30 - 35 units SQ qAM + 20 units SQ qPM * metformin 2 gm PO daily * HbA1C = ? ASSESSMENT: * Mr Barnard is a 46 y/o M with a PMH of IDDM who presents for L hip surgery. Patient is POD 0. He received dex 8 mg PO preop. * Patient had recent previous admission for orthopedic surgery. Glycemic regimen was evaluated from that admission. * Will start with Lantus 30 units SQ x 1 (produced good fasting BSG on past admission). * Will use a tighter carbohydrate ratio than previous admission since patient's HS BSG was elevated then. PLAN FOR INPATIENT GLYCEMIC CONTROL: * Hold outpatient oral diabetes medications * Basal insulin * Lantus 30 units SQ x 1 * Bolus insulin * NovoLog per scale ACHS or Q6hrs while NPO * Goal Range: Low 110 mg/dL - High 140 mg/dL * Correction Factor: 25 mg/dL/unit * Nutritional / Prandial insulin per carb ratio of 1 unit per 6 grams CHO consumed
[2022-10-08] MEDS: ceFAZolin 2000MG 2,000 MG/15 ML SYR IV SCH ×2 (15:49→22:31)
[2022-10-08] MEDS ORDERED: SENNA 8.6 MG TAB PO SCH (21:00)
[2022-10-08] MEDS ORDERED: ATORVASTATIN 40 MG TAB PO SCH (21:00)
[2022-10-09] MEDS: KETOROLAC 30 MG/ML VIAL IV SCH ×2 (05:09→10:18)
[2022-10-09] MEDS: ACETAMINOPHEN 500 MG TAB PO SCH (05:09)
[2022-10-09 07:06] LABS: Estimated Average Glucose 97 mg/dl
--- NOTE | 2022-10-09 07:13 | Orthopedic Progress Note ---
Date of Service October 09, 2022 Assessment & Plan (1) Status post left hip replacement: Overall he is doing very well. He is not having much pain in the left hip. He will be seen by physical therapy today for ambulation and range of motion exercises. He is on aspirin for DVT prophylaxis. He can be discharged home later today. He will follow-up with orthopedics in 2 weeks. Ronal Edmonds was seen and examined at bedside this morning. Overall he is doing very well. He is not having much pain in the left hip. He has been up and ambulating to the bathroom. He has no complaints.. Review of Systems All systems reviewed & are unremarkable except as noted in HPI & below. Physical Exam On physical examination of the left hip, the dressing is clean and dry. He has active dorsiflexion plantarflexion of his left ankle. Sensation is intact throughout.. Results & Data Results & Data Laboratory Results . Diagnostic Findings Postoperative x-rays of the left hip show the prosthesis to be in anatomic alignment without any evidence of fracture, dislocation, or loosening.. PG Care Time/CCT Total # of Minutes Spent Total Time Spent with Patient: Total time spent is greater than 50% in coordination of care (as documented) at patient's floor/unit and/or counseling patient: Coding Level of Care Code 06157 Post Operative Follow-Up Diagnoses Status post left hip replacement Z96.642
--- NOTE | 2022-10-09 07:14 | Discharge Summary ---
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 I did a right total hip arthroplasty on him in May 2022. He is done well with that. Unfortunately he has AVN and complete collapse of his left hip. He has elected proceed with a left anterior total of arthroplasty.. Admission Exam (Per Admitting) On physical examination of the left hip, he has decreased range of motion. Has pain with internal and external rotation.. Principal Diagnosis Same as "Discharge Diagnosis" noted below under Discharge Instructions. Discharge Exam On physical examination of the left hip, the dressing is clean and dry. He has active dorsiflexion plantarflexion of his left ankle. Sensation is intact throughout.. Discharge Data Procedures Performed Operation Date: 10/08/22 07:00 Actual Procedures p Left Anterior Total Hip Arthroplasty--Uncemented(Left) - Calixto Box DO Ordered Studies 10/08/22 FL hip LT 1V Routine Hospital Course (1) Status post left hip replacement: On October 08, 2022 Grey arrived at [facility] and underwent a left hip replacement without complication. He had a spinal anesthetic. Postoperatively he was started on aspirin for DVT prophylaxis and transferred to the general orthopedic floors. His hospital course was uneventful. On postop day #1, his vital signs were stable and his pain was well controlled. He was able to participate well with physical therapy doing ambulation and range of motion exercises. He was then discharged home. He will follow-up with orthopedics in 2 weeks. PG Care Time/CCT Total # of Minutes Spent Total Time Spent with Patient: Total time spent is greater than 50% in coordination of care (as documented) at patient's floor/unit and/or counseling patient: Discharge Plan Discharge Items Patient Disposition: Home - Home Health Services Reason For Visit: DJD Left Hip Discharge Diagnosis: Left hip replacement Activity: As commented below Non-emergency contact: Surgeon Call non-emergency contact if: your wound has increased redness and your wound has increased drainage Follow-up/Referrals: Lenny Coffman MD [Primary Care Provider] - Diet: Regular Addtl Attending Provider Instructions: Activity and Therapy Recommendations: * If you are using [facility] then therapy will be provided at your home until they feel you have accomplished all of your goals. * If you are using [facility] then Physical Therapy will be provided until they feel you are ready to start Outpatient Physical Therapy. * If you are not using home therapy then Outpatient Physical Therapy should start about 3-5 days from your day of surgery. Therapy will last about 6-10 weeks * You were shown a series of exercises in the hospital. Do these exercises three times each day including the exercises you were shown in physical therapy. * Get up and walk several times each day.~ For the first four weeks, try not to stand or walk for more than one hour at a time. If you do stand or walk for more than one hour, you will not hurt anything, but your leg will likely swell.~~ * As you feel comfortable, you may change from the walker or crutches to a cane and~then to independent walking. Medications: * Narcotic You will likely be sent home from the hospital with a prescription for the narcotic pain medication that worked best throughout your stay. * Aspirin Most patients will be required to take Aspirin 81mg twice a day for 6 weeks after surgery. This is obtained [id number] and a prescription is not necessary. * Other medications may be prescribed for specific circumstances. If you have any questions, please call the office at . * Resume previous home medications unless otherwise instructed TEDs/Elastic Stockings: The white elastic stockings help limit swelling and prevent blood clots from forming in your legs. The more you wear them, the more they work. Wear them for six weeks. Dressing Care: Leave the Silverlon dressing in place for 7 days. After 7 days you may remove the dressing. If the incision is not draining then you may leave the susan open to air. If there is a little bit of drainage or if the susan are getting stuck on your clothing then cover the incision with a dry dressing. The susan will be removed at your 2 week follow-up appointment. Showering: You may shower with the Silverlon dressing in place. Do not let the shower spray hit the dressing directly. Pat the Silverlon dressing dry. If the dressing becomes wet underneath, then simply remove the dressing. Keep the incision dry until you are 7 days out from the day of surgery. After 7 days you may remove the Silverlon dressing and shower with the susan exposed. Let soapy water run over the susan and pat them dry. Do not scrub or soak the incision. Things To Watch For: * Drainage from the incision site that occurs more than one week after your surgery. * Increased redness at the incision site. * Fever above 102 degrees Fahrenheit. * Unusual chest pain or shortness of breath. * Call [facility] at with any of the above problems Follow-Up Visit: Follow-up with Dr. Box's PA (Calixto Bundy) 2-3 weeks after your day of surgery. He will remove your susan and answer any questions. If you have any additional questions or concerns, Dr Box is usually in the office at the same time and will be available An appointment was probably scheduled when you signed-up for surgery in the office. If you have any questions call Office Instructions: More detailed instructions as well as Frequently Asked Questions were provided in a folder by our office when you signed-up for surgery. Please review these instructions when you get home. If you have any further questions or concerns, please feel free to call the office at [phone] Pending Studies at Discharge: No Stand-Alone Forms: My [facility] [place], Smoking Cessation Medications and DC Order Prescriptions: Continued tramadol 50 mg tablet 50 mg PO Q8H PRN (Reason: pain) Qty: 30 0RF Patient Comments: usually uses to help sleep buspirone 5 mg tablet 10 mg PO QAM albuterol sulfate 0.63 mg/3 mL solution for nebulization 0.63 mg continuous nebulization Q6H PRN (Reason: Shortness Of Breath Or Wheezing) Patient Comments: uses more in the wintertime. metoprolol tartrate 100 mg tablet 100 mg PO BID Novolin 70/30 U-100 Insulin 100 unit/mL (70-30) Suspension 35 unit SUBCUT QAM Rx Instructions: Before breakfast Novolin 70/30 U-100 Insulin 100 unit/mL (70-30) Suspension 20 unit SUBCUT QPM Rx Instructions: Before dinner potassium chloride 20 mEq tablet,ER particles/crystals 20 meq PO QAM fluticasone propion-salmeterol [Advair Diskus] 500-50 mcg/dose blister with device 2 inh INHALATION QAM montelukast [Singulair] 10 mg tablet 10 mg PO QAM lisinopril 5 mg Tablet 5 mg PO QAM albuterol sulfate 90 mcg/actuation HFA aerosol inhaler 2 puff INHALATION Q4H PRN (Reason: .Cough, sob) fluoxetine [Prozac] 20 mg capsule 20 mg PO QAM metformin 500 mg tablet extended release 24 hr 2,000 mg PO QAM Rx Instructions: Take with dinner ezetimibe [Zetia] 10 mg tablet 10 mg PO QAM levocetirizine [24HR Allergy Relief] 5 mg Tablet 5 mg PO DAILY Spiriva Respimat 2.5 mcg/actuation mist 2 puff INHALATION BID ascorbic acid (vitamin C) [Vitamin C] 125 mg Tablet,Chewable 250 mg PO QAM atorvastatin 40 mg Tablet 40 mg PO HS amlodipine 2.5 mg Tablet 2.5 mg PO QAM diclofenac sodium 75 mg Tablet,Delayed Release (Dr/Ec) 75 mg PO BID aspirin 81 mg Tablet,Delayed Release (Dr/Ec) 81 mg PO BID 42 Days Qty: 84 0RF oxycodone-acetaminophen 5-325 mg tablet 1 tab PO Q6H PRN (Reason: pain) Qty: 30 0RF Admission Data Admit Date/Time: 10/08/22 08:47 Attending Provider: Calixto Box Admit Provider: Calixto Box Primary Care Provider: Lenny Coffman
[2022-10-09 07:30] VITALS: TEMP 98.6; O2SAT 99
[2022-10-09] MEDS ORDERED: LANTUS PER UNIT CHARGE SC SCH ×2 (08:00→09:00)
[2022-10-09] MEDS: EZETIMIBE 10 MG TABLET PO SCH (08:10)
[2022-10-09] MEDS: FLUoxetine HCL 20 MG CAP PO SCH (08:10)
[2022-10-09] MEDS: DOCUSATE SODIUM 100 MG CAP PO SCH (08:11)
[2022-10-09] MEDS: busPIRone 5 MG TAB PO SCH (08:11)
[2022-10-09] MEDS: CETIRIZINE HCL 10 MG TABLET PO SCH (08:11)
[2022-10-09] MEDS: ASPIRIN 81 MG ECTAB PO SCH (08:12)
[2022-10-09] MEDS: amLODIPine BESYLATE 5 MG TAB PO SCH (08:13)
[2022-10-09] MEDS: FLUTICASONE/VILANTEROL 200/25MCG 14 PUFFS/INHALER INH SCH (08:16)
[2022-10-09] MEDS: INSULIN ASPART PER UNIT CHARGE SC SCH (08:17)
[2022-10-09] MEDS: METOPROLOL TARTRATE 100 MG TAB PO SCH (08:20)
[2022-10-09] MEDS: MULTIVITAMIN TAB PO SCH (08:21)
[2022-10-09] MEDS: POTASSIUM CHLORIDE CRTAB 20 MEQ TABCR PO SCH (08:21)
[2022-10-09] MEDS: MONTELUKAST SODIUM 10 MG TABLET PO SCH (08:21)
[2022-10-09] MEDS: UMECLIDINIUM BROMIDE 62.5MCG/BLISTER 7 PUFFS/INHALER INH SCH (08:22)
[2022-10-09 08:27] VITALS: BP 132/86; PULSE 92
== END 2022-10-09 12:32 | disposition home health service (06) ==
LOC: 3E 05:18 → ASU 05:18

== ENCOUNTER 2022-11-28 12:36 | Inpatient (IN) ==
[2022-11-28] MEDS ORDERED: LORazepam 2 MG/1 ML VIAL IV STA ×2 (13:00→18:26)
[2022-11-28] MEDS ORDERED: SODIUM CHLORIDE 0.9% 1000ML 1,000 ML IV ONE (13:00)
--- NOTE | 2022-11-28 13:12 | Emergency Department Note ---
History of Present Illness General Chief complaint: Mental Health Evaluation Stated complaint: SI Time Seen by Provider: 11/28/22 12:42 History of Present Illness Provider complaint: Suicidal ideation 47-year-old male presents emergency department for suicidal ideation. Patient reports he is an alcoholic and was drinking alcohol today, he states he drank 1 bottle of grade use which is his normal amount of drinking. He states he got into a large verbal altercation with his family. He states that they now hate him and he wants to . Patient does report that he fell yesterday. Patient reports no chest pain or difficulty breathing. Home Medications Medication Instructions Recorded Confirmed Type albuterol sulfate 0.63 mg/3 mL 0.63 mg continuous nebulization 01/19/22 11/28/22 History solution for nebulization Q6H PRN Shortness Of Breath Or Wheezing albuterol sulfate 90 mcg/actuation 2 puff inhalation Q4H PRN .Cough, 01/19/22 11/28/22 History aerosol inhaler sob ascorbic acid (vitamin C) 125 mg 250 mg PO QAM 01/19/22 11/28/22 History chewable tablet (Vitamin C) buspirone 5 mg tablet 10 mg PO QAM 01/19/22 11/28/22 History ezetimibe 10 mg tablet (Zetia) 10 mg PO QAM 01/19/22 11/28/22 History fluoxetine 20 mg capsule (Prozac) 20 mg PO QAM 01/19/22 11/28/22 History fluticasone 500 mcg-salmeterol 50 2 inh inhalation QAM 01/19/22 11/28/22 History mcg/dose blistr powdr for inhalation (Advair Diskus) insulin human U-100 NPH-regulr 20 unit subcut QPM 01/19/22 11/28/22 History 70-30 mix 100 unit/mL subcutaneous susp (Novolin 70/30 U-100 Insulin) insulin human U-100 NPH-regulr 35 unit subcut QAM 01/19/22 11/28/22 History 70-30 mix 100 unit/mL subcutaneous susp (Novolin 70/30 U-100 Insulin) levocetirizine 5 mg tablet (24HR 5 mg PO QPM 01/19/22 11/28/22 History Allergy Relief) lisinopril 5 mg tablet 5 mg PO QAM 01/19/22 11/28/22 History metformin 500 mg tablet,extended 2,000 mg PO QAM 01/19/22 11/28/22 History release 24 hr metoprolol tartrate 100 mg tablet 100 mg PO BID 01/19/22 11/28/22 History montelukast 10 mg tablet 10 mg PO QAM 01/19/22 11/28/22 History (Singulair) potassium chloride 20 mEq 20 meq PO QAM 01/19/22 11/28/22 History tablet,extended release(part/cryst) tiotropium bromide 2.5 2 puff inhalation BID 01/19/22 11/28/22 History mcg/actuation mist for inhalation (Spiriva Respimat) tramadol 50 mg tablet 50 mg PO Q8H PRN pain #30 tabs 05/01/22 11/28/22 Rx amlodipine 2.5 mg tablet 2.5 mg PO QAM 05/25/22 11/28/22 History atorvastatin 40 mg tablet 40 mg PO HS 05/25/22 11/28/22 History diclofenac sodium 75 mg 75 mg PO DAILY 05/25/22 11/28/22 History tablet,delayed release aspirin 81 mg tablet,delayed 81 mg PO BID 42 days #84 tabs 10/09/22 11/28/22 Rx release Allergies Allergy/AdvReac Type Severity Reaction Status Date / Time No Known Allergies Allergy Unknown Verified 11/28/22 16:14 Past Med/Surg History Medical History Anxiety Asthma Depression Diabetes mellitus, type 2 IDDM - 4.9% A1c 04/2022 Dyslipidemia GERD (gastroesophageal reflux disease) controlled, stable per pt History of COVID-14 November 2021- moderate cold symptoms > symptoms fully resolved History of pancreatitis Hypertension controlled, stable per pt Mild CAD 01/05/2020 cath at [facility] Morbid obesity KARLO (obstructive sleep apnea) no machine, machine has broke in the past- and has lost 100+ lbs Peripheral neuropathy bilateral feet Post traumatic stress disorder Sinus tachycardia follows with Dr Rodriguez Surgical History H/O hernia repair History of anesthesia reaction "confused, pulled out tubes after hernia repair" History of cardiac cath 2019 at [facility]. no stents. History of nasal septoplasty History of tonsillectomy and adenoidectomy History of total right hip arthroplasty Status post uvulopalatopharyngoplasty for KARLO, unsuccessful Family History Father Hypertension Mother Heart disease, Onset Age: 60 Myocardial infarction Other No family history of adverse response to anesthesia Social History Smoking Status: Unknown if ever smoked Second Hand Exposure: Yes (hx growing up); Do You Dip or Chew Tobacco: No; Hx Alcohol Use: Yes (Hx ETOH abuse per records) Alcohol type: beer and hard liquor Alcohol Intake Frequency Comment: 2-3 whiskey and moore a day Hx Substance Use: No Preferred Language: Swedish Communication Ability: Effective Bonding Agent Required: No Beliefs That Will Affect Care: None marital status: Single Current Living Situation: Alone Feels Safe at Home: Yes Assistive Devices: Walker Physical Exam Vital Signs Vital Signs - 24 hr 11/28/22 12:53 11/28/22 12:53 11/28/22 13:02 Temperature 36.7 C 36.7 C Temperature Source Oral Oral Pulse Rate 111 H Pulse Rate [Apical] Pulse Rate from SpO2 Sensor Pulse Rhythm [Apical] Pulse Strength [Apical] Respiratory Rate 15 15 Respiratory Effort / Characteristics Respiratory Depth Respiratory Pattern Blood Pressure 168/92 H Blood Pressure [Right Arm] Blood Pressure Mean 117 Blood Pressure Mean [Right Arm] Blood Pressure Position [Right Arm] Pulse Oximetry 98 98 98 Oxygen Delivery Method Sepsis Recent Fever Within 48 Hours No Sepsis New/Unexplained Change in Mental Status N/A Sepsis Action Taken by Nursing No Action Required 11/28/22 13:16 11/28/22 13:11 11/28/22 13:20 Temperature Temperature Source Pulse Rate 108 H 109 H 106 H Pulse Rate [Apical] Pulse Rate from SpO2 Sensor 109 H 107 H Pulse Rhythm [Apical] Pulse Strength [Apical] Respiratory Rate 16 20 Respiratory Effort / Characteristics Respiratory Depth Respiratory Pattern Blood Pressure Blood Pressure [Right Arm] Blood Pressure Mean Blood Pressure Mean [Right Arm] Blood Pressure Position [Right Arm] Pulse Oximetry 95 94 Oxygen Delivery Method Sepsis Recent Fever Within 48 Hours Sepsis New/Unexplained Change in Mental Status Sepsis Action Taken by Nursing 11/28/22 13:42 11/28/22 13:42 11/28/22 13:50 Temperature Temperature Source Pulse Rate 115 H 107 H Pulse Rate [Apical] Pulse Rate from SpO2 Sensor 114 H 109 H Pulse Rhythm [Apical] Pulse Strength [Apical] Respiratory Rate 17 15 Respiratory Effort / Characteristics Respiratory Depth Respiratory Pattern Blood Pressure 164/115 H Blood Pressure [Right Arm] Blood Pressure Mean 131 Blood Pressure Mean [Right Arm] Blood Pressure Position [Right Arm] Pulse Oximetry 96 97 Oxygen Delivery Method Sepsis Recent Fever Within 48 Hours Sepsis New/Unexplained Change in Mental Status Sepsis Action Taken by Nursing 11/28/22 14:00 11/28/22 14:00 11/28/22 14:10 Temperature Temperature Source Pulse Rate 110 H 117 H Pulse Rate [Apical] Pulse Rate from SpO2 Sensor 233 H Pulse Rhythm [Apical] Pulse Strength [Apical] Respiratory Rate 22 21 Respiratory Effort / Characteristics Respiratory Depth Respiratory Pattern Blood Pressure 149/110 H Blood Pressure [Right Arm] Blood Pressure Mean 123 Blood Pressure Mean [Right Arm] Blood Pressure Position [Right Arm] Pulse Oximetry 98 Oxygen Delivery Method Sepsis Recent Fever Within 48 Hours Sepsis New/Unexplained Change in Mental Status Sepsis Action Taken by Nursing 11/28/22 14:20 11/28/22 14:30 11/28/22 14:30 Temperature Temperature Source Pulse Rate 119 H 123 H Pulse Rate [Apical] Pulse Rate from SpO2 Sensor 119 H 124 H Pulse Rhythm [Apical] Pulse Strength [Apical] Respiratory Rate 18 19 Respiratory Effort / Characteristics Respiratory Depth Respiratory Pattern Blood Pressure 144/103 H Blood Pressure [Right Arm] Blood Pressure Mean 116 Blood Pressure Mean [Right Arm] Blood Pressure Position [Right Arm] Pulse Oximetry 98 98 Oxygen Delivery Method Sepsis Recent Fever Within 48 Hours Sepsis New/Unexplained Change in Mental Status Sepsis Action Taken by Nursing 11/28/22 14:40 11/28/22 14:50 11/28/22 15:00 Temperature Temperature Source Pulse Rate 116 H 111 H 113 H Pulse Rate [Apical] Pulse Rate from SpO2 Sensor Pulse Rhythm [Apical] Pulse Strength [Apical] Respiratory Rate 23 20 17 Respiratory Effort / Characteristics Respiratory Depth Respiratory Pattern Blood Pressure Blood Pressure [Right Arm] Blood Pressure Mean Blood Pressure Mean [Right Arm] Blood Pressure Position [Right Arm] Pulse Oximetry Oxygen Delivery Method Sepsis Recent Fever Within 48 Hours Sepsis New/Unexplained Change in Mental Status Sepsis Action Taken by Nursing 11/28/22 15:19 11/28/22 15:10 11/28/22 15:20 Temperature Temperature Source Pulse Rate 104 H 107 H Pulse Rate [Apical] 110 H Pulse Rate from SpO2 Sensor Pulse Rhythm [Apical] Regular Pulse Strength [Apical] Normal Respiratory Rate 18 21 21 Respiratory Effort / Characteristics Non-Labored Spontaneous Respiratory Depth Normal Respiratory Pattern Regular Blood Pressure Blood Pressure [Right Arm] Blood Pressure Mean Blood Pressure Mean [Right Arm] Blood Pressure Position [Right Arm] Pulse Oximetry Oxygen Delivery Method Room Air Sepsis Recent Fever Within 48 Hours Sepsis New/Unexplained Change in Mental Status Sepsis Action Taken by Nursing 11/28/22 15:25 11/28/22 15:25 11/28/22 15:30 Temperature Temperature Source Pulse Rate 124 H Pulse Rate [Apical] Pulse Rate from SpO2 Sensor 126 H Pulse Rhythm [Apical] Pulse Strength [Apical] Respiratory Rate 15 Respiratory Effort / Characteristics Respiratory Depth Respiratory Pattern Blood Pressure 146/95 H 151/101 H Blood Pressure [Right Arm] Blood Pressure Mean 112 117 Blood Pressure Mean [Right Arm] Blood Pressure Position [Right Arm] Pulse Oximetry 99 Oxygen Delivery Method Sepsis Recent Fever Within 48 Hours Sepsis New/Unexplained Change in Mental Status Sepsis Action Taken by Nursing 11/28/22 15:30 11/28/22 15:40 11/28/22 16:26 Temperature Temperature Source Pulse Rate 112 H 108 H 114 H Pulse Rate [Apical] Pulse Rate from SpO2 Sensor 110 H 108 H Pulse Rhythm [Apical] Pulse Strength [Apical] Respiratory Rate 11 L 23 Respiratory Effort / Characteristics Respiratory Depth Respiratory Pattern Blood Pressure Blood Pressure [Right Arm] Blood Pressure Mean Blood Pressure Mean [Right Arm] Blood Pressure Position [Right Arm] Pulse Oximetry 98 97 Oxygen Delivery Method Sepsis Recent Fever Within 48 Hours Sepsis New/Unexplained Change in Mental Status Sepsis Action Taken by Nursing 11/28/22 15:50 11/28/22 16:00 11/28/22 16:00 Temperature Temperature Source Pulse Rate 109 H 114 H Pulse Rate [Apical] Pulse Rate from SpO2 Sensor 109 H 115 H Pulse Rhythm [Apical] Pulse Strength [Apical] Respiratory Rate 14 17 Respiratory Effort / Characteristics Respiratory Depth Respiratory Pattern Blood Pressure 155/125 H Blood Pressure [Right Arm] Blood Pressure Mean 135 Blood Pressure Mean [Right Arm] Blood Pressure Position [Right Arm] Pulse Oximetry 98 100 Oxygen Delivery Method Sepsis Recent Fever Within 48 Hours Sepsis New/Unexplained Change in Mental Status Sepsis Action Taken by Nursing 11/28/22 16:10 11/28/22 16:20 11/28/22 16:30 Temperature Temperature Source Pulse Rate 110 H 116 H Pulse Rate [Apical] Pulse Rate from SpO2 Sensor 110 H 114 H Pulse Rhythm [Apical] Pulse Strength [Apical] Respiratory Rate 10 L 17 Respiratory Effort / Characteristics Respiratory Depth Respiratory Pattern Blood Pressure 136/97 Blood Pressure [Right Arm] Blood Pressure Mean 110 Blood Pressure Mean [Right Arm] Blood Pressure Position [Right Arm] Pulse Oximetry 99 97 Oxygen Delivery Method Sepsis Recent Fever Within 48 Hours Sepsis New/Unexplained Change in Mental Status Sepsis Action Taken by Nursing 11/28/22 16:30 11/28/22 16:40 11/28/22 16:50 Temperature Temperature Source Pulse Rate 117 H 108 H 104 H Pulse Rate [Apical] Pulse Rate from SpO2 Sensor 118 H 108 H 104 H Pulse Rhythm [Apical] Pulse Strength [Apical] Respiratory Rate 21 24 21 Respiratory Effort / Characteristics Respiratory Depth Respiratory Pattern Blood Pressure Blood Pressure [Right Arm] Blood Pressure Mean Blood Pressure Mean [Right Arm] Blood Pressure Position [Right Arm] Pulse Oximetry 96 94 93 Oxygen Delivery Method Sepsis Recent Fever Within 48 Hours Sepsis New/Unexplained Change in Mental Status Sepsis Action Taken by Nursing 11/28/22 17:52 11/28/22 17:00 11/28/22 17:00 Temperature Temperature Source Pulse Rate 105 H Pulse Rate [Apical] 124 H Pulse Rate from SpO2 Sensor 106 H Pulse Rhythm [Apical] Regular Pulse Strength [Apical] Normal Respiratory Rate 20 22 Respiratory Effort / Characteristics Non-Labored Spontaneous Respiratory Depth Normal Respiratory Pattern Blood Pressure 127/77 Blood Pressure [Right Arm] 149/107 H Blood Pressure Mean 93 Blood Pressure Mean [Right Arm] 121 Blood Pressure Position [Right Arm] Sitting Pulse Oximetry 98 94 Oxygen Delivery Method Room Air Sepsis Recent Fever Within 48 Hours Sepsis New/Unexplained Change in Mental Status Sepsis Action Taken by Nursing 11/28/22 17:10 11/28/22 17:20 11/28/22 17:28 Temperature Temperature Source Pulse Rate 119 H 126 H 122 H Pulse Rate [Apical] Pulse Rate from SpO2 Sensor 122 H 125 H 122 H Pulse Rhythm [Apical] Pulse Strength [Apical] Respiratory Rate 22 24 21 Respiratory Effort / Characteristics Respiratory Depth Respiratory Pattern Blood Pressure Blood Pressure [Right Arm] Blood Pressure Mean Blood Pressure Mean [Right Arm] Blood Pressure Position [Right Arm] Pulse Oximetry 94 97 97 Oxygen Delivery Method Sepsis Recent Fever Within 48 Hours Sepsis New/Unexplained Change in Mental Status Sepsis Action Taken by Nursing 11/28/22 17:28 11/28/22 17:30 11/28/22 17:30 Temperature Temperature Source Pulse Rate 120 H Pulse Rate [Apical] Pulse Rate from SpO2 Sensor 119 H Pulse Rhythm [Apical] Pulse Strength [Apical] Respiratory Rate 19 Respiratory Effort / Characteristics Respiratory Depth Respiratory Pattern Blood Pressure 159/108 H 149/107 H Blood Pressure [Right Arm] Blood Pressure Mean 125 121 Blood Pressure Mean [Right Arm] Blood Pressure Position [Right Arm] Pulse Oximetry 95 Oxygen Delivery Method Sepsis Recent Fever Within 48 Hours Sepsis New/Unexplained Change in Mental Status Sepsis Action Taken by Nursing 11/28/22 17:40 11/28/22 17:50 11/28/22 18:00 Temperature Temperature Source Pulse Rate 112 H 128 H 126 H Pulse Rate [Apical] Pulse Rate from SpO2 Sensor 111 H 129 H 127 H Pulse Rhythm [Apical] Pulse Strength [Apical] Respiratory Rate 23 14 15 Respiratory Effort / Characteristics Respiratory Depth Respiratory Pattern Blood Pressure Blood Pressure [Right Arm] Blood Pressure Mean Blood Pressure Mean [Right Arm] Blood Pressure Position [Right Arm] Pulse Oximetry 97 99 97 Oxygen Delivery Method Sepsis Recent Fever Within 48 Hours Sepsis New/Unexplained Change in Mental Status Sepsis Action Taken by Nursing 11/28/22 18:01 11/28/22 18:01 11/28/22 18:10 Temperature Temperature Source Pulse Rate 130 H 128 H Pulse Rate [Apical] Pulse Rate from SpO2 Sensor 130 H 130 H Pulse Rhythm [Apical] Pulse Strength [Apical] Respiratory Rate 21 21 Respiratory Effort / Characteristics Respiratory Depth Respiratory Pattern Blood Pressure 131/104 H Blood Pressure [Right Arm] Blood Pressure Mean 113 Blood Pressure Mean [Right Arm] Blood Pressure Position [Right Arm] Pulse Oximetry 98 97 Oxygen Delivery Method Sepsis Recent Fever Within 48 Hours Sepsis New/Unexplained Change in Mental Status Sepsis Action Taken by Nursing 11/28/22 18:20 11/28/22 18:30 11/28/22 18:30 Temperature Temperature Source Pulse Rate 138 H 132 H Pulse Rate [Apical] Pulse Rate from SpO2 Sensor 139 H 133 H Pulse Rhythm [Apical] Pulse Strength [Apical] Respiratory Rate 15 17 Respiratory Effort / Characteristics Respiratory Depth Respiratory Pattern Blood Pressure 159/112 H Blood Pressure [Right Arm] Blood Pressure Mean 127 Blood Pressure Mean [Right Arm] Blood Pressure Position [Right Arm] Pulse Oximetry 98 98 Oxygen Delivery Method Sepsis Recent Fever Within 48 Hours Sepsis New/Unexplained Change in Mental Status Sepsis Action Taken by Nursing 11/28/22 19:00 Temperature Temperature Source Pulse Rate 127 H Pulse Rate [Apical] Pulse Rate from SpO2 Sensor 128 H Pulse Rhythm [Apical] Pulse Strength [Apical] Respiratory Rate 20 Respiratory Effort / Characteristics Respiratory Depth Respiratory Pattern Blood Pressure 161/101 H Blood Pressure [Right Arm] Blood Pressure Mean 121 Blood Pressure Mean [Right Arm] Blood Pressure Position [Right Arm] Pulse Oximetry 95 Oxygen Delivery Method Room Air Sepsis Recent Fever Within 48 Hours Sepsis New/Unexplained Change in Mental Status Sepsis Action Taken by Nursing Physical Exam GENERAL: oriented to person, place, and time. appears well-developed and well-nourished. HENT: Exam performed. - Head: Normocephalic and atraumatic. EYES: Conjunctivae and EOM are normal. Right eye exhibits no discharge. Left eye exhibits no discharge. No scleral icterus. NECK: Normal range of motion. Neck supple. No JVD present. CV: Tachycardic rate, regular rhythm, normal heart sounds and intact distal pulses. There is no peripheral edema. Palpable radial pulses bue. PULM/CHEST: Effort normal and breath sounds normal. No respiratory distress. No stridor. no wheezes. no rales. ABD: The abdomen is soft. There is no tenderness. NEURO: Motor and sensation grossly intact. SKIN: Skin is warm and dry. He is not diaphoretic. PSYCH: Patient appears very angry. Suicidal ideation. Course Course 1242: The patient was evaluated in room A7. A complete history and physical exam was performed Cardiac monitoring: An order was placed for continuous cardiac monitoring. The monitor shows a rate of 110 with sinus tachycardia rhythm interpreted by sc 1738: Patient medically cleared. Awaiting psychiatric evaluation and possible placement. 1825: Patient tachycardic. Patient met with ED psychiatric pillowcase turner Lili. Patient started to have shakes CIWA score 8. Patient will need to be admitted for DTs/alcohol withdrawal. Additional 2 mg of Ativan ordered for the patient. Patient will be admitted to the [facility] hospitalist team. Administered Medications Discontinued Medications Gabapentin (Gabapentin 1200mg Alcohol Withdrawal Load) 1 each PO ONE ONE; Protocol Stop: 11/28/22 19:29 Last Admin: 11/28/22 19:32 Dose: Not Given Documented By: KMF Sodium Chloride (Nss 1000ml) 1,000 mls @ 999 mls/hr IV .Q1H1M ONE Stop: 11/28/22 14:00 Last Infusion: 11/28/22 14:20 Dose: 0 mls/hr Documented By: Admin: 11/28/22 13:17 Dose: 999 mls/hr Documented By: FORREST Lorazepam (Lorazepam 2 Mg/1 Ml Vial) 1 mg IV NOW STA Stop: 11/28/22 13:01 Last Admin: 11/28/22 13:16 Dose: 1 mg Documented By: FORREST Lorazepam (Lorazepam 2 Mg/1 Ml Vial) 2 mg IV NOW STA Stop: 11/28/22 18:27 Last Admin: 11/28/22 18:36 Dose: 2 mg Documented By: IAN Critical Care Time Critical Care Time: Yes Total Critical Care Time: 46 I have personally spent greater than 46 minutes of critical care time in the direct management of this patient. This includes bedside care, interpretation of diagnostic studies, and testing, discussion with consultants, patient, and family members, and other required patient management activities. This 46 minutes is in excess of all separately billable procedures. Medical Decision Making Laboratory Data Attestation: I reviewed the patient's lab results. 11/28/22 13:05 11/28/22 13:05 Lab Results 11/28/22 11/28/22 11/28/22 Range/Units 12:55 12:55 13:05 WBC 9.29 (4.8-10.8) K/ul RBC 5.15 (4.70-6.10) M/uL Hgb 14.0 (14.0-18.0) g/dl Hct 41.8 L (42.0-52.0) % MCV 81.2 (80.0-100.0) fL MCH 27.2 (25.0-34.0) pg MCHC 33.5 (32.0-36.0) g/dL RDW Std Deviation 39.8 (36.4-46.3) fL RDW Coeff of Paty 13.8 (11.5-14.5) % Plt Count 355 (130-400) K/uL MPV 9.4 (9.4-12.4) fL Immature Gran % (Auto) 0.8 % Neut % (Auto) 68.4 % Lymph % (Auto) 22.3 % Cross % (Auto) 6.9 % Eos % (Auto) 0.4 % Baso % (Auto) 1.2 % Neut # (Auto) 6.36 (1.40-6.50) K/uL Lymph # (Auto) 2.07 (1.2-3.4) K/uL Cross # (Auto) 0.64 H (0.11-0.59) K/uL Eos # (Auto) 0.04 (0-0.50) K/uL Baso # (Auto) 0.11 (0-0.2) K/uL Immature Gran # (Auto) 0.07 (0.01-0.20) K/uL Sodium (136-145) mmol/L Potassium (3.5-5.1) mmol/L Chloride (98-107) mmol/L Carbon Dioxide (21-32) mmol/L Anion Gap (3-11) BUN (6-23) mg/dl Creatinine (0.6-1.4) mg/dl Est Cr Clr Drug Dosing Est GFR ( Amer) ml/min Est GFR (Non-Af Amer) ml/min BUN/Creatinine Ratio (10-20) Glucose (70-99(Fasting)) mg/dl Calcium (8.6-10.3) mg/dl Total Bilirubin (0.2-1.0) mg/dl AST (13-39) U/L ALT (7-52) U/L Alkaline Phosphatase (34-104) U/L Troponin I High Sens (0-20) pg/ml Total Protein (6.0-8.3) gm/dl Albumin (3.4-5.0) gm/dl Globulin (2.5-4.0) gm/dl Albumin/Globulin Ratio (0.9-2) Lipase (11-82) U/L TSH (0.300-4.500) uIu/ml Urine Color Yellow Urine Appearance Clear (Clear) Urine pH 8.0 H (4.5-7.5) Ur Specific [place] 1.005 (1.000-1.030) Urine Protein Negative (Negative) Urine Glucose (UA) Negative (Negative) Urine Ketones Negative (Negative) Urine Blood Negative (Negative) Urine Nitrite Negative (Negative) Urine Bilirubin Negative (Negative) Urine Urobilinogen Negative (Negative) Ur Leukocyte Esterase Negative (Negative) Salicylates (3.0-30) mg/dl Urine Opiates Screen Neg (Neg) Ur Methadone, Qual Neg (Neg) Acetaminophen (10-30) ug/ml Urine Barbiturates Neg (Neg) Ur Phencyclidine (PCP) Neg (Neg) U Amphetamin/Meth Scrn Neg (Neg) MDMA (Ecstasy) Screen Neg (Neg) U Benzodiazepines Scrn Neg (Neg) Ur Cocaine Metabolite Neg (Neg) U Marijuana (THC) Screen Neg (Neg) Ethyl Alcohol mg/dL (<10.0) mg/dl SARS-CoV-2, RNA, NAAT (NEGATIVE) 11/28/22 11/28/22 11/28/22 Range/Units 13:05 13:05 13:05 WBC (4.8-10.8) K/ul RBC (4.70-6.10) M/uL Hgb (14.0-18.0) g/dl Hct (42.0-52.0) % MCV (80.0-100.0) fL MCH (25.0-34.0) pg MCHC (32.0-36.0) g/dL RDW Std Deviation (36.4-46.3) fL RDW Coeff of Paty (11.5-14.5) % Plt Count (130-400) K/uL MPV (9.4-12.4) fL Immature Gran % (Auto) % Neut % (Auto) % Lymph % (Auto) % Cross % (Auto) % Eos % (Auto) % Baso % (Auto) % Neut # (Auto) (1.40-6.50) K/uL Lymph # (Auto) (1.2-3.4) K/uL Cross # (Auto) (0.11-0.59) K/uL Eos # (Auto) (0-0.50) K/uL Baso # (Auto) (0-0.2) K/uL Immature Gran # (Auto) (0.01-0.20) K/uL Sodium 143 (136-145) mmol/L Potassium 3.8 (3.5-5.1) mmol/L Chloride 105 (98-107) mmol/L Carbon Dioxide 26 (21-32) mmol/L Anion Gap 12 H (3-11) BUN 9 (6-23) mg/dl Creatinine 0.88 (0.6-1.4) mg/dl Est Cr Clr Drug Dosing Not Reportable Est GFR ( Amer) 119.4 ml/min Est GFR (Non-Af Amer) 103.0 ml/min BUN/Creatinine Ratio 10.2 (10-20) Glucose 106 H (70-99(Fasting)) mg/dl Calcium 10.1 (8.6-10.3) mg/dl Total Bilirubin 0.4 (0.2-1.0) mg/dl AST 18 (13-39) U/L ALT 24 (7-52) U/L Alkaline Phosphatase 112 H (34-104) U/L Troponin I High Sens 2.5 (0-20) pg/ml Total Protein 8.0 (6.0-8.3) gm/dl Albumin 4.8 (3.4-5.0) gm/dl Globulin 3.2 (2.5-4.0) gm/dl Albumin/Globulin Ratio 1.5 (0.9-2) Lipase 44 (11-82) U/L TSH 0.583 (0.300-4.500) uIu/ml Urine Color Urine Appearance (Clear) Urine pH (4.5-7.5) Ur Specific [place] (1.000-1.030) Urine Protein (Negative) Urine Glucose (UA) (Negative) Urine Ketones (Negative) Urine Blood (Negative) Urine Nitrite (Negative) Urine Bilirubin (Negative) Urine Urobilinogen (Negative) Ur Leukocyte Esterase (Negative) Salicylates < 3.0 L (3.0-30) mg/dl Urine Opiates Screen (Neg) Ur Methadone, Qual (Neg) Acetaminophen < 3 L (10-30) ug/ml Urine Barbiturates (Neg) Ur Phencyclidine (PCP) (Neg) U Amphetamin/Meth Scrn (Neg) MDMA (Ecstasy) Screen (Neg) U Benzodiazepines Scrn (Neg) Ur Cocaine Metabolite (Neg) U Marijuana (THC) Screen (Neg) Ethyl Alcohol mg/dL (<10.0) mg/dl SARS-CoV-2, RNA, NAAT (NEGATIVE) 11/28/22 11/28/22 Range/Units 13:05 18:24 WBC (4.8-10.8) K/ul RBC (4.70-6.10) M/uL Hgb (14.0-18.0) g/dl Hct (42.0-52.0) % MCV (80.0-100.0) fL MCH (25.0-34.0) pg MCHC (32.0-36.0) g/dL RDW Std Deviation (36.4-46.3) fL RDW Coeff of Paty (11.5-14.5) % Plt Count (130-400) K/uL MPV (9.4-12.4) fL Immature Gran % (Auto) % Neut % (Auto) % Lymph % (Auto) % Cross % (Auto) % Eos % (Auto) % Baso % (Auto) % Neut # (Auto) (1.40-6.50) K/uL Lymph # (Auto) (1.2-3.4) K/uL Cross # (Auto) (0.11-0.59) K/uL Eos # (Auto) (0-0.50) K/uL Baso # (Auto) (0-0.2) K/uL Immature Gran # (Auto) (0.01-0.20) K/uL Sodium (136-145) mmol/L Potassium (3.5-5.1) mmol/L Chloride (98-107) mmol/L Carbon Dioxide (21-32) mmol/L Anion Gap (3-11) BUN (6-23) mg/dl Creatinine (0.6-1.4) mg/dl Est Cr Clr Drug Dosing Est GFR ( Amer) ml/min Est GFR (Non-Af Amer) ml/min BUN/Creatinine Ratio (10-20) Glucose (70-99(Fasting)) mg/dl Calcium (8.6-10.3) mg/dl Total Bilirubin (0.2-1.0) mg/dl AST (13-39) U/L ALT (7-52) U/L Alkaline Phosphatase (34-104) U/L Troponin I High Sens (0-20) pg/ml Total Protein (6.0-8.3) gm/dl Albumin (3.4-5.0) gm/dl Globulin (2.5-4.0) gm/dl Albumin/Globulin Ratio (0.9-2) Lipase (11-82) U/L TSH (0.300-4.500) uIu/ml Urine Color Urine Appearance (Clear) Urine pH (4.5-7.5) Ur Specific [place] (1.000-1.030) Urine Protein (Negative) Urine Glucose (UA) (Negative) Urine Ketones (Negative) Urine Blood (Negative) Urine Nitrite (Negative) Urine Bilirubin (Negative) Urine Urobilinogen (Negative) Ur Leukocyte Esterase (Negative) Salicylates (3.0-30) mg/dl Urine Opiates Screen (Neg) Ur Methadone, Qual (Neg) Acetaminophen (10-30) ug/ml Urine Barbiturates (Neg) Ur Phencyclidine (PCP) (Neg) U Amphetamin/Meth Scrn (Neg) MDMA (Ecstasy) Screen (Neg) U Benzodiazepines Scrn (Neg) Ur Cocaine Metabolite (Neg) U Marijuana (THC) Screen (Neg) Ethyl Alcohol mg/dL 198.6 H (<10.0) mg/dl SARS-CoV-2, RNA, NAAT NEGATIVE (NEGATIVE) Imaging Data Attestation: I personally reviewed and interpreted this imaging study as follows: My Impression: Chest x-ray negative. Airway clear. No pneumothorax. No consolidation. No cardiomegaly or cephalization.. No free air under the diaphragm. No fractures of the skeletal structures. Radiologist's Impression: Cervical Spine CT 11/28/22 13:00 CT OF THE CERVICAL SPINE WITHOUT CONTRAST CLINICAL HISTORY: Altered mental status. COMPARISON STUDY: Neck CT November 02, 2020. TECHNIQUE: Helical axial images of the cervical spine were obtained without IV contrast. Sagittal and coronal reconstructions were viewed. Automated exposure control was utilized for the study. A dose lowering technique was utilized adhering to the principles of ALARA. FINDINGS: Alignment of the cervical spine is anatomic. Vertebral body heights are maintained. No acute cervical spine fracture or subluxation is present. T here is no prevertebral edema. Facet joints are intact. Mild multilevel degenerative changes are present. IMPRESSION: No acute cervical spine fracture or subluxation. ACT 112: Negative or not required by law. Electronically signed by: Lino Hand M.D. 11/28/2022 2:09 PM Chest X-Ray 11/28/22 13:00 XR chest 1V portable CLINICAL HISTORY: Altered mental status. COMPARISON STUDY: Chest radiograph May 28, 2022. Chest CT May 20, 2019. FINDINGS: Lung volumes are normal. Lungs are clear. There is no pneumothorax or pleural effusion. Mild cardiomegaly is unchanged. Mediastinal contours are normal. There is no evidence for pulmonary edema. IMPRESSION: No acute cardiopulmonary findings. ACT 112: Negative or not required by law. Electronically signed by: Lino Hand M.D. 11/28/2022 2:[address] 11/28/22 13:00 CT SCAN OF THE BRAIN WITHOUT IV CONTRAST CLINICAL HISTORY: Change in mental status. COMPARISON STUDY: No priors. TECHNIQUE: Unenhanced axial CT scan of the brain is performed from the vertex to the skull base. A dose lowering technique was utilized adhering to the principles of ALARA. FINDINGS: Brain parenchyma: The brain parenchyma is normal in appearance. There is no hemo rrhage, mass effect, or evidence of acute territorial ischemia by CT criteria. Caldwell-white matter differentiation is preserved. No extra-axial fluid collection is seen. Ventricles, sulci, cisterns: Normal in configuration. Intracranial vasculature: The visualized intracranial vasculature at the skull base is normal in appearance. Calvarium: Unremarkable. Sinuses and mastoids: There is evidence of previous paranasal sinus surgery. The visualized paranasal sinuses are clear. The mastoid air cells are well pneumatized. Orbits: The bony orbits are grossly intact. IMPRESSION: No acute intracranial abnormality. ACT 112: Negative or not required by law. Electronically signed by: Jay Calvo M.D. 11/28/2022 1:52 PM ECG Data Attestation: I personally reviewed and interpreted this ECG as follows: Rate (beats per minute): 111 Rhythm: + sinus tachycardia ECG Intervals/blocks: + Right Bundle branch block, + Normal MN and + Normal QT-c ECG ST segments: + Normal ST segments Additional Comments: QRS 136 MDM Narrative 1242: The patient was evaluated in room A7. A complete history and physical exam was performed Cardiac monitoring: An order was placed for continuous cardiac monitoring. The monitor shows a rate of 110 with sinus tachycardia rhythm interpreted by me 1738: Patient medically cleared. Awaiting psychiatric evaluation and possible placement. 1825: Patient tachycardic. Patient met with ED psychiatric pillowcase turner Lili. Patient started to have shakes CIWA score 8. Patient will need to be admitted for DTs/alcohol withdrawal. Additional 2 mg of Ativan ordered for the patient. [facility]. Impression & Plan Alcohol abuse with withdrawal, DTs (delirium tremens) Discharge Plan Visit Data Chief Complaint: Mental Health Evaluation Stated Complaint: [facility] ED Provider: Burt Maza Discharge Problem: Alcohol abuse with withdrawal, DTs (delirium tremens) Patient Disposition: Admitted As Inpatient Forms Stand Alone Forms: [facility], Suicide Prevention Resources Prescriptions Prescriptions: No Action tramadol 50 mg tablet 50 mg PO Q8H PRN (Reason: pain) Qty: 30 0RF Patient Comments: usually uses to help sleep buspirone 5 mg tablet 10 mg PO QAM albuterol sulfate 0.63 mg/3 mL solution for nebulization 0.63 mg continuous nebulization Q6H PRN (Reason: Shortness Of Breath Or Wheezing) Patient Comments: uses more in the wintertime. metoprolol tartrate 100 mg tablet 100 mg PO BID Novolin 70/30 U-100 Insulin 100 unit/mL (70-30) Suspension 35 unit SUBCUT QAM Rx Instructions: Before breakfast Novolin 70/30 U-100 Insulin 100 unit/mL (70-30) Suspension 20 unit SUBCUT QPM Rx Instructions: Before dinner potassium chloride 20 mEq tablet,ER particles/crystals 20 meq PO QAM fluticasone propion-salmeterol [Advair Diskus] 500-50 mcg/dose blister with device 2 inh INHALATION QAM montelukast [Singulair] 10 mg tablet 10 mg PO QAM lisinopril 5 mg Tablet 5 mg PO QAM albuterol sulfate 90 mcg/actuation HFA aerosol inhaler 2 puff INHALATION Q4H PRN (Reason: .Cough, sob) fluoxetine [Prozac] 20 mg capsule 20 mg PO QAM metformin 500 mg tablet extended release 24 hr 2,000 mg PO QAM Rx Instructions: Take with dinner ezetimibe [Zetia] 10 mg tablet 10 mg PO QAM levocetirizine [24HR Allergy Relief] 5 mg Tablet 5 mg PO QPM Spiriva Respimat 2.5 mcg/actuation mist 2 puff INHALATION BID ascorbic acid (vitamin C) [Vitamin C] 125 mg Tablet,Chewable 250 mg PO QAM atorvastatin 40 mg Tablet 40 mg PO HS amlodipine 2.5 mg Tablet 2.5 mg PO QAM diclofenac sodium 75 mg Tablet,Delayed Release (Dr/Ec) 75 mg PO DAILY aspirin 81 mg Tablet,Delayed Release (Dr/Ec) 81 mg PO BID 42 Days Qty: 84 0RF Referrals Referrals: Lenny Coffman MD [Primary Care Provider] -
[2022-11-28 13:31] LABS: Basophils # (auto) 0.11 K/uL (0-0.2); Basophils % (auto) 1.2 %; Eosinophils # (auto) 0.04 K/uL (0-0.50); Eosinophils % (auto) 0.4 %; Hematocrit (blood only) 41.8 % (42.0-52.0); Immature Granulocytes # (auto) 0.07 K/uL (0.01-0.20); Immature Granulocytes % (auto) 0.8 %; Lymphocytes # (auto) 2.07 K/uL (1.2-3.4); Lymphocytes % (auto) 22.3 %; Mean Corpuscular Hemoglobin 27.2 pg (25.0-34.0); Mean Corpuscular Hgb Conc 33.5 g/dL (32.0-36.0); Mean Corpuscular Volume 81.2 fL (80.0-100.0); Mean Platelet Volume 9.4 fL (9.4-12.4); Monocytes # (auto) 0.64 K/uL (0.11-0.59); Monocytes % (auto) 6.9 %; Neutrophils # (auto) 6.36 K/uL (1.40-6.50); Neutrophils % (auto) 68.4 %; Platelet Count 355 K/uL (130-400); RDW Coefficient of Variation 13.8 % (11.5-14.5); RDW Standard Deviation 39.8 fL (36.4-46.3); Red Blood Count 5.15 M/uL (4.70-6.10); White Blood Count 9.29 K/ul (4.8-10.8)
[2022-11-28 13:33] LABS: Appearance Urine Clear (Clear); Bilirubin Urine Negative (Negative); Blood Urine Negative (Negative); Color Urine Yellow; Glucose Urine UA Negative (Negative); Ketones Urine Negative (Negative); Leukocyte Esterase Urine Negative (Negative); Nitrite Urine Negative (Negative); Protein Urine Negative (Negative); Specific Gravity Urine 1.005 (1.000-1.030); Urobilinogen Urine Negative (Negative)
[2022-11-28 13:40] LABS: Acetaminophen < 3 ug/ml (10-30); Salicylate < 3.0 mg/dl (3.0-30)
[2022-11-28 13:42] LABS: Alanine Aminotransferase 24 U/L (7-52); Albumin Globulin Ratio 1.5 (0.9-2); Albumin Level 4.8 gm/dl (3.4-5.0); Alkaline Phosphatase 112 U/L (34-104); Anion Gap 12 (3-11); Aspartate Aminotransferase 18 U/L (13-39); BUN Creatinine Ratio 10.2 (10-20); Bilirubin,Total 0.4 mg/dl (0.2-1.0); Blood Urea Nitrogen 9 mg/dl (6-23); Calcium 10.1 mg/dl (8.6-10.3); Carbon Dioxide 26 mmol/L (21-32); Chloride 105 mmol/L (98-107); Est GFR (African American) 119.4 ml/min; Globulin 3.2 gm/dl (2.5-4.0); Glucose 106 mg/dl (70-99(Fasting)); Lipase 44 U/L (11-82); Potassium 3.8 mmol/L (3.5-5.1); Sodium 143 mmol/L (136-145)
[2022-11-28 13:47] LABS: Troponin I High Sensitivity 2.5 pg/ml (0-20)
--- NOTE | 2022-11-28 13:53 | CT Scan Report ---
CT SCAN OF THE BRAIN WITHOUT IV CONTRAST CLINICAL HISTORY: Change in mental status. COMPARISON STUDY: No priors. TECHNIQUE: Unenhanced axial CT scan of the brain is performed from the vertex to the skull base. A d ose lowering technique was utilized adhering to the principles of ALARA. FINDINGS: Brain parenchyma: The brain parenchyma is normal in appearance. There is no hemorrhage, mass effect, or evidence of acute territorial ischemia by CT criteria. Caldwell-white matter differentiation is preser nel. No extra-axial fluid collection is seen. Ventricles, sulci, cisterns: Normal in configuration. Intracranial vasculature: The visualized intracranial vasculature at the skull base is normal in appe arance. Calvarium: Unremarkable. Sinuses and mastoids: There is evidence of previous paranasal sinus surgery. The visualized paranasal sinuses are clear. The mastoid air cells are well pneumatized. Orbits: The bony orbits are grossly intact. IMPRESSION: No acute intracranial abnormality. ACT 112: Negative or not required by law. Electronically signed by: Jay Calvo M.D. 11/28/2022 1:52 PM
[2022-11-28 14:00] LABS: Amphetamines+Metham, Urine Neg (Neg); Barbiturates, Urine Neg (Neg); Benzodiazepine, Urine Neg (Neg); Cocaine, Urine Neg (Neg); MDMA (Ecstacy), Urine Neg (Neg); Methadone, Urine Neg (Neg); Opiate, Urine Neg (Neg); Phencyclidine, Urine Neg (Neg)
--- NOTE | 2022-11-28 14:10 | CT Scan Report ---
CT OF THE CERVICAL SPINE WITHOUT CONTRAST CLINICAL HISTORY: Altered mental status. COMPARISON STUDY: Neck CT November 02, 2020. TECHNIQUE: Helical axial images of the cervical spine were obtained without IV contrast. Sagittal a nd coronal reconstructions were viewed. Automated exposure control was utilized for the study. A do se lowering technique was utilized adhering to the principles of ALARA. FINDINGS: Alignment of the cervical spine is anatomic. Vertebral body heights are maintained. No acut e cervical spine fracture or subluxation is present. There is no prevertebral edema. Facet joints are intact. Mild multilevel degenerative changes are present. IMPRESSION: No acute cervical spine fracture or subluxation. ACT 112: Negative or not required by law. Electronically signed by: Lino Hand M.D. 11/28/2022 2:09 PM
--- NOTE | 2022-11-28 14:22 | XRay Report ---
XR chest 1V portable CLINICAL HISTORY: Altered mental status. COMPARISON STUDY: Chest radiograph May 28, 2022. Chest CT May 20, 2019. FINDINGS: Lung volumes are normal. Lungs are clear. There is no pneumothorax or pleural effusion. Mil d cardiomegaly is unchanged. Mediastinal contours are normal. There is no evidence for pulmonary simon a. IMPRESSION: No acute cardiopulmonary findings. ACT 112: Negative or not required by law. Electronically signed by: Lino Hand M.D. 11/28/2022 2:21 PM
[2022-11-28] MEDS ORDERED: GABAPENTIN 1200MG ALCOHOL WITHDRAWAL LOAD PO ONE (19:28)
[2022-11-28] MEDS ORDERED: GABAPENTIN 600 MG TAB PO STA (19:31)
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
[2022-11-28] MEDS ORDERED: amLODIPine BESYLATE 5 MG TAB PO ONE (19:54)
[2022-11-28] MEDS ORDERED: lisinopril 5 MG TAB PO ONE (19:54)
[2022-11-28] MEDS ORDERED: THIAMINE HCL 100 MG, FOLIC ACID 1 MG in SODIUM CHLORIDE 0.9% 1000ML 1,000 ML IV STA (19:55)
[2022-11-28] MEDS ORDERED: CEROVITE ADV FORMULA TAB PO STA (19:55)
[2022-11-28] MEDS ORDERED: METOPROLOL TARTRATE 100 MG TAB PO SCH (20:00)
[2022-11-28] MEDS ORDERED: ACETAMINOPHEN 325 MG TAB PO PRN (20:12)
[2022-11-28] MEDS ORDERED: LORazepam 2 MG/1 ML VIAL IV PRN ×2 (20:12→20:13)
[2022-11-28] MEDS ORDERED: ONDANSETRON INJ 2 MG/ML 2 ML VIAL IV PRN (20:12)
[2022-11-28] MEDS ORDERED: POLYETHYLENE (MIRALAX) 17 GM PACK PO PRN (20:12)
[2022-11-28] MEDS ORDERED: GABAPENTIN 1200MG ALCOHOL WITHDRAWAL LOAD PO STA (20:12)
[2022-11-28] MEDS ORDERED: Ativan IV Alcohol Withdrawal--Active Protocol IV PRN (20:13)
[2022-11-28] MEDS ORDERED: ALBUTEROL HFA 8 GM INHALER INH PRN (20:22)
[2022-11-28] MEDS ORDERED: CARBOHYDRATES FOR HYPOGLYCEMIA PO PRN (20:27)
[2022-11-28] MEDS ORDERED: GLUCAGON FOR INJ 1 MG VIAL SQ PRN (20:27)
[2022-11-28] MEDS ORDERED: DEXTROSE 50% 50 ML SYRINGE IV PRN (20:27)
[2022-11-28] MEDS ORDERED: GLUCOSE 10 TAB/TUBE PO PRN (20:27)
[2022-11-28] MEDS ORDERED: GLUCOSE 40% GEL 15 GM TUBE PO PRN (20:27)
[2022-11-28] MEDS ORDERED: METOPROLOL TARTRATE 100 MG TAB PO ONE (21:00)
[2022-11-28] MEDS: INSULIN ASPART PER UNIT CHARGE SC SCH (21:16)
[2022-11-28] MEDS: busPIRone 5 MG TAB PO SCH (21:32)
[2022-11-28] MEDS: CETIRIZINE HCL 10 MG TABLET PO SCH (21:33)
[2022-11-28] MEDS: ATORVASTATIN 40 MG TAB PO SCH (21:33)
[2022-11-29] MEDS: GABAPENTIN 600 MG TAB PO SCH ×5 (01:48→22:44)
[2022-11-29] MEDS: INSULIN ASPART PER UNIT CHARGE SC SCH ×4 (07:50→21:00)
[2022-11-29 07:51] LABS: Hematocrit (blood only) 37.8 % (42.0-52.0); Hemoglobin 12.5 g/dl (14.0-18.0); Mean Corpuscular Hemoglobin 27.4 pg (25.0-34.0); Mean Corpuscular Hgb Conc 33.1 g/dL (32.0-36.0); Mean Corpuscular Volume 82.9 fL (80.0-100.0); Mean Platelet Volume 9.4 fL (9.4-12.4); Platelet Count 284 K/uL (130-400); RDW Coefficient of Variation 14.4 % (11.5-14.5); RDW Standard Deviation 42.7 fL (36.4-46.3); Red Blood Count 4.56 M/uL (4.70-6.10); White Blood Count 8.39 K/ul (4.8-10.8)
[2022-11-29 08:01] LABS: Estimated Average Glucose 108 mg/dl; Hemoglobin A1C 5.4 % (4.5-5.6)
[2022-11-29] MEDS: lisinopril 5 MG TAB PO SCH (08:10)
[2022-11-29] MEDS: EZETIMIBE 10 MG TABLET PO SCH (08:10)
[2022-11-29] MEDS: FLUoxetine HCL 20 MG CAP PO SCH (08:10)
[2022-11-29] MEDS: MULTIVITAMIN TAB PO SCH (08:10)
[2022-11-29] MEDS: ASPIRIN 81 MG ECTAB PO SCH (08:10)
[2022-11-29] MEDS: MONTELUKAST SODIUM 10 MG TABLET PO SCH (08:10)
[2022-11-29] MEDS: FOLIC ACID 1 MG TAB PO SCH (08:10)
[2022-11-29] MEDS: POTASSIUM CHLORIDE CRTAB 20 MEQ TABCR PO SCH (08:11)
[2022-11-29] MEDS: amLODIPine BESYLATE 5 MG TAB PO SCH (08:11)
[2022-11-29] MEDS: THIAMINE HCL 100 MG TAB PO SCH (08:11)
[2022-11-29 08:12] LABS: BUN Creatinine Ratio 11.6 (10-20); Calcium 9.1 mg/dl (8.6-10.3); Creatinine Clr Calc Pharmacy 117.8 ml/min; Est GFR (African American) 120.5 ml/min; Magnesium 1.3 mg/dl (1.7-2.4); Phosphorus 3.5 mg/dl (2.5-4.9)
[2022-11-29] MEDS: FLUTICASONE/VILANTEROL 200/25MCG 14 PUFFS/INHALER INH SCH (08:12)
[2022-11-29] MEDS: UMECLIDINIUM BROMIDE 62.5MCG/BLISTER 7 PUFFS/INHALER INH SCH (08:12)
[2022-11-29] MEDS: METOPROLOL TARTRATE 100 MG TAB PO SCH ×2 (08:17→22:45)
[2022-11-29] MEDS: busPIRone 5 MG TAB PO SCH ×2 (08:17→22:46)
[2022-11-29] MEDS: diazePAM 5 MG TABLET PO SCH ×2 (14:55→22:08)
--- NOTE | 2022-11-29 15:51 | Hospitalist Progress Note ---
Date of Service November 29, 2022 Assessment & Plan (1) Alcohol abuse with withdrawal: Plan: Patient is 47 y/o M with PMH alcohol use disorder , insulin-dependent DM II, HTN, dyslipidemia, moderate persistent asthma presented to ER for suicidal ideations and alcohol abuse. Blood alcohol level of nearly 200 Mg/DL on admission Continue alcohol withdrawal protocol with gabapentin Started on a schedule Valium 5 mg 3 times daily. Hold for lethargy or if patient is sleeping. (2) Suicidal ideation: (3) Depression: Plan: History of depression, anxiety. Suicide checks One-to-one observation Appreciate psychiatry consult Continue fluoxetine, buspirone (4) Insulin dependent type 2 diabetes mellitus: Plan: A1c: 4.9 on 05/17/2022 Hold home metformin Novolin 70/30 Monitor BSG NovoLog sliding scale, further monitored BSG's and may need to further adjust insulin A1c of 5.4%. (5) Asthma: Plan: No signs current exacerbation Continue home inhalers, montelukast (6) Hypertension: Plan: Hypertensive in ER. Continue amlodipine, lisinopril, metoprolol tartrate with doses starting now (7) Dyslipidemia: Plan: Continue atorvastatin, Zetia DVT Prophylaxis SCDs Full Code Time spent evaluating patient, direct bedside care, chart review, placing orders, interpretation of diagnostic studies, discussion with consultants, patient, and family members, as well as other required patient management activities is 60 minutes. Please note the above document was generated using voice recognition software. It may contain grammatical, syntax or spelling errors. Any formal questions or concerns about the content, text or information contained within the body of this dictation should be directly addressed to the provider for clarification Admission and Anticipated Discharge Date Admission Date: November 28, 2022 Subjective Patient seen and examined at bedside. He reports feeling anxious and having tremors. Review of Systems Review of Systems: All systems reviewed & are unremarkable except as noted in Subjective Physical Exam Physical Exam: General: no acute distress, WDWN Head: normocephalic, atraumatic Eyes: PERRL, EOM's intact, conjunctiva non-injected, anicteric ENT: normal inspection external ears, nose, mucous membranes moist, Neck: supple, trachea midline, non-tender Lungs: clear, no respiratory distress, no wheezing/rhonchi/rales CV: S1-S2, no murmur. Abd: normal BS, soft, non-tender Ext: no cyanosis, no calf tenderness Neuro: A&O x 3, no focal deficits noted, normal affect Skin: warm, dry Results & Data Results & Data Vital Signs (Past 12 Hours) Vital Signs Temp Pulse Pulse Resp BP BP Pulse Ox 11/29/22 15:42 36.4 C L 85 19 145/93 H 94 11/29/22 14:18 36.2 C L 75 16 124/81 95 11/29/22 08:00 11/29/22 07:53 11/29/22 07:05 74 11/29/22 06:56 78 11/29/22 06:00 86 14 11/29/22 06:00 122/87 11/29/22 05:30 69 13 97 11/29/22 05:00 77 18 97 11/29/22 05:00 120/81 11/29/22 04:30 76 16 94 11/29/22 04:00 75 13 126/81 94 11/29/22 03:47 Pulse Ox O2 Del Method O2 Del Method O2 Flow Rate 11/29/22 15:42 Room Air 11/29/22 14:18 Room Air 11/29/22 08:00 98 Room Air 11/29/22 07:53 98 Room Air 11/29/22 07:05 11/29/22 06:56 11/29/22 06:00 11/29/22 06:00 11/29/22 05:30 11/29/22 05:00 11/29/22 05:00 11/29/22 04:30 11/29/22 04:00 11/29/22 03:47 96 Room Air 0 Laboratory Results Laboratory Results WBC 8.39 K/ul (4.8-10.8) 11/29/22 07:33 RBC 4.56 M/uL (4.70-6.10) L 11/29/22 07:33 Hgb 12.5 g/dl (14.0-18.0) L 11/29/22 07:33 Hct 37.8 % (42.0-52.0) L 11/29/22 07:33 MCV 82.9 fL (80.0-100.0) 11/29/22 07:33 MCH 27.4 pg (25.0-34.0) 11/29/22 07:33 MCHC 33.1 g/dL (32.0-36.0) 11/29/22 07:33 RDW Std Deviation 42.7 fL (36.4-46.3) 11/29/22 07:33 RDW Coeff of Paty 14.4 % (11.5-14.5) 11/29/22 07:33 Plt Count 284 K/uL (130-400) 11/29/22 07:33 MPV 9.4 fL (9.4-12.4) 11/29/22 07:33 Immature Gran % (Auto) 0.8 % 11/28/22 13:05 Neut % (Auto) 68.4 % 11/28/22 13:05 Lymph % (Auto) 22.3 % 11/28/22 13:05 Edgar % (Auto) 6.9 % 11/28/22 13:05 Eos % (Auto) 0.4 % 11/28/22 13:05 Baso % (Auto) 1.2 % 11/28/22 13:05 Neut # (Auto) 6.36 K/uL (1.40-6.50) 11/28/22 13:05 Lymph # (Auto) 2.07 K/uL (1.2-3.4) 11/28/22 13:05 Edgar # (Auto) 0.64 K/uL (0.11-0.59) H 11/28/22 13:05 Eos # (Auto) 0.04 K/uL (0-0.50) 11/28/22 13:05 Baso # (Auto) 0.11 K/uL (0-0.2) 11/28/22 13:05 Immature Gran # (Auto) 0.07 K/uL (0.01-0.20) 11/28/22 13:05 Sodium 142 mmol/L (136-145) 11/29/22 07:33 Potassium 4.0 mmol/L (3.5-5.1) 11/29/22 07:33 Chloride 107 mmol/L (98-107) 11/29/22 07:33 Carbon Dioxide 28 mmol/L (21-32) 11/29/22 07:33 Anion Gap 7 (3-11) 11/29/22 07:33 BUN 10 mg/dl (6-23) 11/29/22 07:33 Creatinine 0.86 mg/dl (0.6-1.4) 11/29/22 07:33 Est Cr Clr Drug Dosing 117.8 ml/min 11/29/22 07:33 Est GFR ( Amer) 120.5 ml/min 11/29/22 07:33 Est GFR (Non-Af Amer) 104.0 ml/min 11/29/22 07:33 BUN/Creatinine Ratio 11.6 (10-20) 11/29/22 07:33 Glucose 96 mg/dl (70-99(Fasting)) 11/29/22 07:33 POC Glucose 122 mg/dl (70-99) H 11/29/22 11:32 Estimat Average Glucose 108 mg/dl 11/29/22 07:33 Hemoglobin A1c 5.4 % (4.5-5.6) 11/29/22 07:33 Calcium 9.1 mg/dl (8.6-10.3) 11/29/22 07:33 Phosphorus 3.5 mg/dl (2.5-4.9) 11/29/22 07:33 Magnesium 1.3 mg/dl (1.7-2.4) L 11/29/22 07:33 Total Bilirubin 0.4 mg/dl (0.2-1.0) 11/28/22 13:05 AST 18 U/L (13-39) 11/28/22 13:05 ALT 24 U/L (7-52) 11/28/22 13:05 Alkaline Phosphatase 112 U/L (34-104) H 11/28/22 13:05 Troponin I High Sens 2.5 pg/ml (0-20) 11/28/22 13:05 Total Protein 8.0 gm/dl (6.0-8.3) 11/28/22 13:05 Albumin 4.8 gm/dl (3.4-5.0) 11/28/22 13:05 Globulin 3.2 gm/dl (2.5-4.0) 11/28/22 13:05 Albumin/Globulin Ratio 1.5 (0.9-2) 11/28/22 13:05 Lipase 44 U/L (11-82) 11/28/22 13:05 TSH 0.583 uIu/ml (0.300-4.500) 11/28/22 13:05 Urine Color Yellow 11/28/22 12:55 Urine Appearance Clear (Clear) 11/28/22 12:55 Urine pH 8.0 (4.5-7.5) H 11/28/22 12:55 Ur Specific [place] 1.005 (1.000-1.030) 11/28/22 12:55 Urine Protein Negative (Negative) 11/28/22 12:55 Urine Glucose (UA) Negative (Negative) 11/28/22 12:55 Urine Ketones Negative (Negative) 11/28/22 12:55 Urine Blood Negative (Negative) 11/28/22 12:55 Urine Nitrite Negative (Negative) 11/28/22 12:55 Urine Bilirubin Negative (Negative) 11/28/22 12:55 Urine Urobilinogen Negative (Negative) 11/28/22 12:55 Ur Leukocyte Esterase Negative (Negative) 11/28/22 12:55 Salicylates < 3.0 mg/dl (3.0-30) L 11/28/22 13:05 Urine Opiates Screen Neg (Neg) 11/28/22 12:55 Ur Methadone, Qual Neg (Neg) 11/28/22 12:55 Acetaminophen < 3 ug/ml (10-30) L 11/28/22 13:05 Urine Barbiturates Neg (Neg) 11/28/22 12:55 Ur Phencyclidine (PCP) Neg (Neg) 11/28/22 12:55 U Amphetamin/Meth Scrn Neg (Neg) 11/28/22 12:55 MDMA (Ecstasy) Screen Neg (Neg) 11/28/22 12:55 U Benzodiazepines Scrn Neg (Neg) 11/28/22 12:55 Ur Cocaine Metabolite Neg (Neg) 11/28/22 12:55 U Marijuana (THC) Screen Neg (Neg) 11/28/22 12:55 Ethyl Alcohol mg/dL 198.6 mg/dl (<10.0) H 11/28/22 13:05 SARS-CoV-2, RNA, NAAT NEGATIVE (NEGATIVE) 11/28/22 18:[address] 11/28/22 13:00 CT OF THE CERVICAL SPINE WITHOUT CONTRAST CLINICAL HISTORY: Altered mental status. COMPARISON STUDY: Neck CT November 02, 2020. TECHNIQUE: Helical axial images of the cervical spine were obtained without IV contrast. Sagittal and coronal reconstructions were viewed. Automated exposure control was utilized for the study. A dose lowering technique was utilized adhering to the principles of ALARA. FINDINGS: Alignment of the cervical spine is anatomic. Vertebral body heights are maintained. No acute cervical spine fracture or subluxation is present. There is no prevertebral edema. Facet joints are intact. Mild multilevel degenerative changes are present. IMPRESSION: No acute cervical spine fracture or subluxation. ACT 112: Negative or not required by law. Electronically signed by: Lino Hand M.D. 11/28/2022 2:09 PM Chest X-Ray 11/28/22 13:00 XR chest 1V portable CLINICAL HISTORY: Altered mental status. COMPARISON STUDY: Chest radiograph May 28, 2022. Chest CT May 20, 2019. FINDINGS: Lung volumes are normal. Lungs are clear. There is no pneumothorax or pleural effusion. Mild cardiomegaly is unchanged. Mediastinal contours are normal. There is no evidence for pulmonary edema. IMPRESSION: No acute cardiopulmonary findings. ACT 112: Negative or not required by law. Electronically signed by: Lino Hand M.D. 11/28/2022 2:[address] 11/28/22 13:00 CT SCAN OF THE BRAIN WITHOUT IV CONTRAST CLINICAL HISTORY: Change in mental status. COMPARISON STUDY: No priors. TECHNIQUE: Unenhanced axial CT scan of the brain is performed from the vertex to the skull base. A dose lowering technique was utilized adhering to the principles of ALARA. FINDINGS: Brain parenchyma: The brain parenchyma is normal in appearance. There is no hemorrhage, mass effect, or evidence of acute territorial ischemia by CT criteria. Caldwell-white matter differentiation is preserved. No extra-axial fluid collection is seen. Ventricles, sulci, cisterns: Normal in configuration. Intracranial vasculature: The visualized intracranial vasculature at the skull base is normal in appearance. Calvarium: Unremarkable. Sinuses and mastoids: There is evidence of previous paranasal sinus surgery. The visualized paranasal sinuses are clear. The mastoid air cells are well pneumatized. Orbits: The bony orbits are grossly intact. IMPRESSION: No acute intracranial abnormality. ACT 112: Negative or not required by law. Electronically signed by: Jay Calvo M.D. 11/28/2022 1:52 PM
[2022-11-29] MEDS: MAGNESIUM SULFATE / D5W 1 GM/100 ML BAG IV SCH ×2 (15:59→19:14)
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
[2022-11-29] MEDS: CETIRIZINE HCL 10 MG TABLET PO SCH (22:45)
[2022-11-29] MEDS: ATORVASTATIN 40 MG TAB PO SCH (22:46)
[2022-11-30 06:02] LABS: Basophils # (auto) 0.08 K/uL (0-0.2); Basophils % (auto) 0.9 %; Eosinophils # (auto) 0.26 K/uL (0-0.50); Hematocrit (blood only) 38.5 % (42.0-52.0); Hemoglobin 12.3 g/dl (14.0-18.0); Immature Granulocytes # (auto) 0.02 K/uL (0.01-0.20); Immature Granulocytes % (auto) 0.2 %; Lymphocytes # (auto) 2.86 K/uL (1.2-3.4); Lymphocytes % (auto) 32.6 %; Mean Corpuscular Hemoglobin 26.9 pg (25.0-34.0); Mean Corpuscular Hgb Conc 31.9 g/dL (32.0-36.0); Mean Corpuscular Volume 84.2 fL (80.0-100.0); Mean Platelet Volume 9.5 fL (9.4-12.4); Monocytes % (auto) 9.1 %; Neutrophils # (auto) 4.76 K/uL (1.40-6.50); Neutrophils % (auto) 54.2 %; Platelet Count 277 K/uL (130-400); RDW Coefficient of Variation 14.3 % (11.5-14.5); RDW Standard Deviation 43.6 fL (36.4-46.3); Red Blood Count 4.57 M/uL (4.70-6.10); White Blood Count 8.78 K/ul (4.8-10.8)
[2022-11-30 06:10] LABS: BUN Creatinine Ratio 12.2 (10-20); Calcium 9.5 mg/dl (8.6-10.3); Creatinine Clr Calc Pharmacy 103.4 ml/min; Est GFR (African American) 106.7 ml/min; Est GFR (Non-African American) 92.1 ml/min; Potassium 3.8 mmol/L (3.5-5.1)
[2022-11-30] MEDS: GABAPENTIN 600 MG TAB PO SCH ×2 (07:55→20:39)
[2022-11-30] MEDS: INSULIN ASPART PER UNIT CHARGE SC SCH ×4 (08:57→20:39)
[2022-11-30] MEDS: UMECLIDINIUM BROMIDE 62.5MCG/BLISTER 7 PUFFS/INHALER INH SCH (08:58)
[2022-11-30] MEDS: FLUTICASONE/VILANTEROL 200/25MCG 14 PUFFS/INHALER INH SCH (08:58)
[2022-11-30] MEDS: POTASSIUM CHLORIDE CRTAB 20 MEQ TABCR PO SCH (08:59)
[2022-11-30] MEDS: diazePAM 5 MG TABLET PO SCH ×3 (08:59→20:38)
[2022-11-30] MEDS: METOPROLOL TARTRATE 100 MG TAB PO SCH ×2 (08:59→20:38)
[2022-11-30] MEDS: lisinopril 5 MG TAB PO SCH (09:00)
[2022-11-30] MEDS: busPIRone 5 MG TAB PO SCH ×2 (09:00→20:38)
[2022-11-30] MEDS: MONTELUKAST SODIUM 10 MG TABLET PO SCH (09:00)
[2022-11-30] MEDS: amLODIPine BESYLATE 5 MG TAB PO SCH (09:01)
[2022-11-30] MEDS: FLUoxetine HCL 20 MG CAP PO SCH (09:01)
[2022-11-30] MEDS: EZETIMIBE 10 MG TABLET PO SCH (09:01)
[2022-11-30] MEDS: FOLIC ACID 1 MG TAB PO SCH (09:02)
[2022-11-30] MEDS: MULTIVITAMIN TAB PO SCH (09:02)
[2022-11-30] MEDS: ASPIRIN 81 MG ECTAB PO SCH (09:02)
[2022-11-30] MEDS: THIAMINE HCL 100 MG TAB PO SCH (09:03)
--- NOTE | 2022-11-30 14:05 | Hospitalist Progress Note ---
Date of Service November 30, 2022 Assessment & Plan (1) Alcohol abuse with withdrawal: Plan: Patient is 47 y/o M with PMH alcohol use disorder , insulin-dependent DM II, HTN, dyslipidemia, moderate persistent asthma presented to ER for suicidal ideations and alcohol abuse. Blood alcohol level of nearly 200 Mg/DL on admission Continue alcohol withdrawal protocol with gabapentin Started on Valium taper; Currently on 5 mg twice a day. Will decrease to 5 once a day tomorrow and stopped. (2) Suicidal ideation: (3) Depression: Plan: History of depression, anxiety. Continue fluoxetine, buspirone Psychiatry evaluated the patient: Suicide precautions stopped. Inpatient substance use disorder treatment following discharge recommended. (4) Insulin dependent type 2 diabetes mellitus: Plan: A1c: 4.9 on 05/17/2022 Hold home metformin Novolin 70/30 Monitor BSG NovoLog sliding scale, further monitored BSG's and may need to further adjust insulin A1c of 5.4%. (5) Asthma: Plan: No signs current exacerbation Continue home inhalers, montelukast (6) Hypertension: Plan: Hypertensive in ER. Continue amlodipine, lisinopril, metoprolol tartrate with doses starting now (7) Dyslipidemia: Plan: Continue atorvastatin, Zetia DVT Prophylaxis Lovenox Full Code Dispopatient interested in inpatient substance use disorder treatment program. Case management and psychiatric liaison on board. Time spent evaluating patient, direct bedside care, chart review, placing orders, interpretation of diagnostic studies, discussion with consultants, patient, and family members, as well as other required patient management activities is 60 minutes. Please note the above document was generated using voice recognition software. It may contain grammatical, syntax or spelling errors. Any formal questions or concerns about the content, text or information contained within the body of this dictation should be directly addressed to the provider for clarification Admission and Anticipated Discharge Date Admission Date: November 28, 2022 Subjective Patient seen and examined at bedside. He is comfortably sitting up on the bed; not in distress. Reports improvement in tremors. No hallucinations. Review of Systems Review of Systems: All systems reviewed & are unremarkable except as noted in Subjective Physical Exam Physical Exam: General: no acute distress, WDWN Head: normocephalic, atraumatic Eyes: PERRL, EOM's intact, conjunctiva non-injected, anicteric ENT: normal inspection external ears, nose, mucous membranes moist, Neck: supple, trachea midline, non-tender Lungs: clear, no respiratory distress, no wheezing/rhonchi/rales CV: S1-S2, no murmur. Abd: normal BS, soft, non-tender Ext: no cyanosis, no calf tenderness Neuro: A&O x 3, no focal deficits noted, normal affect Skin: warm, dry Results & Data Results & Data Vital Signs (Past 12 Hours) Vital Signs Temp Pulse Pulse Resp BP Pulse Ox O2 Del Method 11/30/22 12:00 36.8 C 78 18 124/80 97 Room Air 11/30/22 08:00 36.4 C L 89 18 114/61 98 Room Air 11/30/22 07:14 74 11/30/22 03:10 36.3 C L 70 18 102/63 98 Room Air Laboratory Results Laboratory Results WBC 8.78 K/ul (4.8-10.8) 11/30/22 05:36 RBC 4.57 M/uL (4.70-6.10) L 11/30/22 05:36 Hgb 12.3 g/dl (14.0-18.0) L 11/30/22 05:36 Hct 38.5 % (42.0-52.0) L 11/30/22 05:36 MCV 84.2 fL (80.0-100.0) 11/30/22 05:36 MCH 26.9 pg (25.0-34.0) 11/30/22 05:36 MCHC 31.9 g/dL (32.0-36.0) L 11/30/22 05:36 RDW Std Deviation 43.6 fL (36.4-46.3) 11/30/22 05:36 RDW Coeff of Paty 14.3 % (11.5-14.5) 11/30/22 05:36 Plt Count 277 K/uL (130-400) 11/30/22 05:36 MPV 9.5 fL (9.4-12.4) 11/30/22 05:36 Immature Gran % (Auto) 0.2 % 11/30/22 05:36 Neut % (Auto) 54.2 % 11/30/22 05:36 Lymph % (Auto) 32.6 % 11/30/22 05:36 [place] % (Auto) 9.1 % 11/30/22 05:36 Eos % (Auto) 3.0 % 11/30/22 05:36 Baso % (Auto) 0.9 % 11/30/22 05:36 Neut # (Auto) 4.76 K/uL (1.40-6.50) 11/30/22 05:36 Lymph # (Auto) 2.86 K/uL (1.2-3.4) 11/30/22 05:36 [place] # (Auto) 0.80 K/uL (0.11-0.59) H 11/30/22 05:36 Eos # (Auto) 0.26 K/uL (0-0.50) 11/30/22 05:36 Baso # (Auto) 0.08 K/uL (0-0.2) 11/30/22 05:36 Immature Gran # (Auto) 0.02 K/uL (0.01-0.20) 11/30/22 05:36 Sodium 140 mmol/L (136-145) 11/30/22 05:36 Potassium 3.8 mmol/L (3.5-5.1) 11/30/22 05:36 Chloride 109 mmol/L (98-107) H 11/30/22 05:36 Carbon Dioxide 24 mmol/L (21-32) 11/30/22 05:36 Anion Gap 7 (3-11) 11/30/22 05:36 BUN 12 mg/dl (6-23) 11/30/22 05:36 Creatinine 0.98 mg/dl (0.6-1.4) 11/30/22 05:36 Est Cr Clr Drug Dosing 103.4 ml/min 11/30/22 05:36 Est GFR ( Amer) 106.7 ml/min 11/30/22 05:36 Est GFR (Non-Af Amer) 92.1 ml/min 11/30/22 05:36 BUN/Creatinine Ratio 12.2 (10-20) 11/30/22 05:36 Glucose 94 mg/dl (70-99(Fasting)) 11/30/22 05:36 POC Glucose 114 mg/dl (70-99) H 11/30/22 11:23 Estimat Average Glucose 108 mg/dl 11/29/22 07:33 Hemoglobin A1c 5.4 % (4.5-5.6) 11/29/22 07:33 Calcium 9.5 mg/dl (8.6-10.3) 11/30/22 05:36 Phosphorus 3.5 mg/dl (2.5-4.9) 11/29/22 07:33 Magnesium 1.3 mg/dl (1.7-2.4) L 11/29/22 07:33 Total Bilirubin 0.4 mg/dl (0.2-1.0) 11/28/22 13:05 AST 18 U/L (13-39) 11/28/22 13:05 ALT 24 U/L (7-52) 11/28/22 13:05 Alkaline Phosphatase 112 U/L (34-104) H 11/28/22 13:05 Troponin I High Sens 2.5 pg/ml (0-20) 11/28/22 13:05 Total Protein 8.0 gm/dl (6.0-8.3) 11/28/22 13:05 Albumin 4.8 gm/dl (3.4-5.0) 11/28/22 13:05 Globulin 3.2 gm/dl (2.5-4.0) 11/28/22 13:05 Albumin/Globulin Ratio 1.5 (0.9-2) 11/28/22 13:05 Lipase 44 U/L (11-82) 11/28/22 13:05 TSH 0.583 uIu/ml (0.300-4.500) 11/28/22 13:05 Urine Color Yellow 11/28/22 12:55 Urine Appearance Clear (Clear) 11/28/22 12:55 Urine pH 8.0 (4.5-7.5) H 11/28/22 12:55 Ur Specific [place] 1.005 (1.000-1.030) 11/28/22 12:55 Urine Protein Negative (Negative) 11/28/22 12:55 Urine Glucose (UA) Negative (Negative) 11/28/22 12:55 Urine Ketones Negative (Negative) 11/28/22 12:55 Urine Blood Negative (Negative) 11/28/22 12:55 Urine Nitrite Negative (Negative) 11/28/22 12:55 Urine Bilirubin Negative (Negative) 11/28/22 12:55 Urine Urobilinogen Negative (Negative) 11/28/22 12:55 Ur Leukocyte Esterase Negative (Negative) 11/28/22 12:55 Salicylates < 3.0 mg/dl (3.0-30) L 11/28/22 13:05 Urine Opiates Screen Neg (Neg) 11/28/22 12:55 Ur Methadone, Qual Neg (Neg) 11/28/22 12:55 Acetaminophen < 3 ug/ml (10-30) L 11/28/22 13:05 Urine Barbiturates Neg (Neg) 11/28/22 12:55 Ur Phencyclidine (PCP) Neg (Neg) 11/28/22 12:55 U Amphetamin/Meth Scrn Neg (Neg) 11/28/22 12:55 MDMA (Ecstasy) Screen Neg (Neg) 11/28/22 12:55 U Benzodiazepines Scrn Neg (Neg) 11/28/22 12:55 Ur Cocaine Metabolite Neg (Neg) 11/28/22 12:55 U Marijuana (THC) Screen Neg (Neg) 11/28/22 12:55 Ethyl Alcohol mg/dL 198.6 mg/dl (<10.0) H 11/28/22 13:05 SARS-CoV-2, RNA, NAAT NEGATIVE (NEGATIVE) 11/28/22 18:[address] 11/28/22 13:00 CT OF THE CERVICAL SPINE WITHOUT CONTRAST CLINICAL HISTORY: Altered mental status. COMPARISON STUDY: Neck CT November 02, 2020. TECHNIQUE: Helical axial images of the cervical spine were obtained without IV contrast. Sagittal and coronal reconstructions were viewed. Automated exposure control was utilized for the study. A dose lowering technique was utilized adhering to the principles of ALARA. FINDINGS: Alignment of the cervical spine is anatomic. Vertebral body heights are maintained. No acute cervical spine fracture or subluxation is present. There is no prevertebral edema. Facet joints are intact. Mild multilevel degenerative changes are present. IMPRESSION: No acute cervical spine fracture or subluxation. ACT 112: Negative or not required by law. Electronically signed by: Lino Hand M.D. 11/28/2022 2:09 PM Chest X-Ray 11/28/22 13:00 XR chest 1V portable CLINICAL HISTORY: Altered mental status. COMPARISON STUDY: Chest radiograph May 28, 2022. Chest CT May 20, 2019. FINDINGS: Lung volumes are normal. Lungs are clear. There is no pneumothorax or pleural effusion. Mild cardiomegaly is unchanged. Mediastinal contours are normal. There is no evidence for pulmonary edema. IMPRESSION: No acute cardiopulmonary findings. ACT 112: Negative or not required by law. Electronically signed by: Lino Hand M.D. 11/28/2022 2:[address] 11/28/22 13:00 CT SCAN OF THE BRAIN WITHOUT IV CONTRAST CLINICAL HISTORY: Change in mental status. COMPARISON STUDY: No priors. TECHNIQUE: Unenhanced axial CT scan of the brain is performed from the vertex to the skull base. A dose lowering technique was utilized adhering to the principles of ALARA. FINDINGS: Brain parenchyma: The brain parenchyma is normal in appearance. There is no hemorrhage, mass effect, or evidence of acute territorial ischemia by CT criteria. Caldwell-white matter differentiation is preserved. No extra-axial fluid collection is seen. Ventricles, sulci, cisterns: Normal in configuration. Intracranial vasculature: The visualized intracranial vasculature at the skull base is normal in appearance. Calvarium: Unremarkable. Sinuses and mastoids: There is evidence of previous paranasal sinus surgery. The visualized paranasal sinuses are clear. The mastoid air cells are well pneumatized. Orbits: The bony orbits are grossly intact. IMPRESSION: No acute intracranial abnormality. ACT 112: Negative or not required by law. Electronically signed by: Jay Calvo M.D. 11/28/2022 1:52 PM
--- NOTE | 2022-11-30 19:41 | Electrocardiogram Report ---
Test Reason : Blood Pressure : / mmHG Vent. Rate : 111 BPM Atrial Rate : 111 BPM P-R Int : 136 ms QRS Dur : 112 ms QT Int : 366 ms P-R-T Axes : 050 -06 054 degrees QTc Int : 497 ms Sinus tachycardia Possible Left atrial enlargement Incomplete right bundle branch block Borderline ECG When compared with ECG of 19-JAN-2022 16:18, No significant change was found Confirmed by Yazan Mcmullen ([id number]) on 11/30/2022 7:41:20 PM Referred By: Confirmed By:Yazan Mcmullen
[2022-11-30] MEDS: ATORVASTATIN 40 MG TAB PO SCH (20:38)
[2022-11-30] MEDS: CETIRIZINE HCL 10 MG TABLET PO SCH (20:38)
[2022-12-01 07:59] LABS: Basophils # (auto) 0.07 K/uL (0-0.2); Basophils % (auto) 0.8 %; Eosinophils # (auto) 0.27 K/uL (0-0.50); Hematocrit (blood only) 38.3 % (42.0-52.0); Hemoglobin 12.5 g/dl (14.0-18.0); Immature Granulocytes # (auto) 0.02 K/uL (0.01-0.20); Immature Granulocytes % (auto) 0.2 %; Lymphocytes # (auto) 2.27 K/uL (1.2-3.4); Lymphocytes % (auto) 24.9 %; Mean Corpuscular Hemoglobin 27.1 pg (25.0-34.0); Mean Corpuscular Hgb Conc 32.6 g/dL (32.0-36.0); Mean Corpuscular Volume 83.1 fL (80.0-100.0); Monocytes # (auto) 0.75 K/uL (0.11-0.59); Monocytes % (auto) 8.2 %; Neutrophils # (auto) 5.75 K/uL (1.40-6.50); Neutrophils % (auto) 62.9 %; Platelet Count 252 K/uL (130-400); RDW Coefficient of Variation 14.6 % (11.5-14.5); RDW Standard Deviation 42.8 fL (36.4-46.3); Red Blood Count 4.61 M/uL (4.70-6.10); White Blood Count 9.13 K/ul (4.8-10.8)
[2022-12-01 08:16] LABS: Calcium 9.6 mg/dl (8.6-10.3); Creatinine Clr Calc Pharmacy 108.9 ml/min; Est GFR (African American) 113.7 ml/min; Est GFR (Non-African American) 98.1 ml/min; Potassium 3.7 mmol/L (3.5-5.1)
[2022-12-01] MEDS: INSULIN ASPART PER UNIT CHARGE SC SCH ×4 (08:29→20:00)
[2022-12-01] MEDS: UMECLIDINIUM BROMIDE 62.5MCG/BLISTER 7 PUFFS/INHALER INH SCH (08:31)
[2022-12-01] MEDS: FLUTICASONE/VILANTEROL 200/25MCG 14 PUFFS/INHALER INH SCH (08:32)
[2022-12-01] MEDS: GABAPENTIN 600 MG TAB PO SCH (08:33)
[2022-12-01] MEDS: busPIRone 5 MG TAB PO SCH ×2 (08:34→20:25)
[2022-12-01] MEDS: METOPROLOL TARTRATE 100 MG TAB PO SCH ×2 (08:35→20:24)
[2022-12-01] MEDS: POTASSIUM CHLORIDE CRTAB 20 MEQ TABCR PO SCH (08:36)
[2022-12-01] MEDS: THIAMINE HCL 100 MG TAB PO SCH (08:36)
[2022-12-01] MEDS: amLODIPine BESYLATE 5 MG TAB PO SCH (08:40)
[2022-12-01] MEDS: ASPIRIN 81 MG ECTAB PO SCH (08:41)
[2022-12-01] MEDS: diazePAM 5 MG TABLET PO SCH ×2 (08:41→20:24)
[2022-12-01] MEDS: FLUoxetine HCL 20 MG CAP PO SCH (08:43)
[2022-12-01] MEDS: FOLIC ACID 1 MG TAB PO SCH (08:43)
[2022-12-01] MEDS: lisinopril 5 MG TAB PO SCH (08:44)
[2022-12-01] MEDS: MONTELUKAST SODIUM 10 MG TABLET PO SCH (08:45)
[2022-12-01] MEDS: MULTIVITAMIN TAB PO SCH (08:45)
[2022-12-01] MEDS: EZETIMIBE 10 MG TABLET PO SCH (09:54)
[2022-12-01] MEDS: ENOXAPARIN INJ 40 MG/0.4 ML SYR SQ SCH (09:55)
--- NOTE | 2022-12-01 12:19 | Hospitalist Progress Note ---
Date of Service December 01, 2022 Assessment & Plan (1) Alcohol abuse with withdrawal: Plan: Patient is 47 y/o M with PMH alcohol use disorder , insulin-dependent DM II, HTN, dyslipidemia, moderate persistent asthma presented to ER for suicidal ideations and alcohol abuse. Blood alcohol level of nearly 200 Mg/DL on admission Continue alcohol withdrawal protocol with gabapentin Started on Valium taper; Currently on 5 mg twice a day. Will decrease the dose to 5 mg once a day tomorrow and stop. Patient is committed to get treatment for alcohol use disorder. Discussed multiple therapeutic options including naltrexone. Patient is stable medically be to be transferred to inpatient rehab. (2) Suicidal ideation: (3) Depression: Plan: History of depression, anxiety. Continue fluoxetine, buspirone Psychiatry evaluated the patient: Suicide precautions stopped. Inpatient substance use disorder treatment following discharge recommended. (4) Insulin dependent type 2 diabetes mellitus: Plan: A1c: 4.9 on 05/17/2022 Hold home metformin Novolin 70/30 Monitor BSG NovoLog sliding scale, further monitored BSG's and may need to further adjust insulin A1c of 5.4%. (5) Asthma: Plan: No signs current exacerbation Continue home inhalers, montelukast (6) Hypertension: Plan: Hypertensive in ER. Continue amlodipine, lisinopril, metoprolol tartrate with doses starting now (7) Dyslipidemia: Plan: Continue atorvastatin, Zetia DVT Prophylaxis Lovenox Full Code Dispopatient is stable for transfer to inpatient substance use disorder treatment. Case management on board. Time spent evaluating patient, direct bedside care, chart review, placing orders, interpretation of diagnostic studies, discussion with consultants, patient, and family members, as well as other required patient management activities is 60 minutes. Please note the above document was generated using voice recognition software. It may contain grammatical, syntax or spelling errors. Any formal questions or concerns about the content, text or information contained within the body of this dictation should be directly addressed to the provider for clarification Admission and Anticipated Discharge Date Admission Date: November 28, 2022 Subjective Patient seen and examined at bedside. Appears comfortable; withdrawal symptoms absent Review of Systems Review of Systems: All systems reviewed & are unremarkable except as noted in Subjective Physical Exam Physical Exam: General: no acute distress, WDWN Head: normocephalic, atraumatic Eyes: PERRL, EOM's intact, conjunctiva non-injected, anicteric ENT: normal inspection external ears, nose, mucous membranes moist, Neck: supple, trachea midline, non-tender Lungs: clear, no respiratory distress, no wheezing/rhonchi/rales CV: S1-S2, no murmur. Abd: normal BS, soft, non-tender Ext: no cyanosis, no calf tenderness Neuro: A&O x 3, no focal deficits noted, normal affect Skin: warm, dry Results & Data Results & Data Vital Signs (Past 12 Hours) Vital Signs Temp Pulse Pulse Resp BP Pulse Ox O2 Del Method 12/01/22 11:35 36.8 C 79 20 110/72 97 Room Air 12/01/22 07:58 36.5 C 70 18 99/62 L 96 Room Air 12/01/22 07:19 67 12/01/22 03:11 36.4 C L 80 18 106/64 97 Room Air Laboratory Results Laboratory Results WBC 9.13 K/ul (4.8-10.8) 12/01/22 07:00 RBC 4.61 M/uL (4.70-6.10) L 12/01/22 07:00 Hgb 12.5 g/dl (14.0-18.0) L 12/01/22 07:00 Hct 38.3 % (42.0-52.0) L 12/01/22 07:00 MCV 83.1 fL (80.0-100.0) 12/01/22 07:00 MCH 27.1 pg (25.0-34.0) 12/01/22 07:00 MCHC 32.6 g/dL (32.0-36.0) 12/01/22 07:00 RDW Std Deviation 42.8 fL (36.4-46.3) 12/01/22 07:00 RDW Coeff of Paty 14.6 % (11.5-14.5) H 12/01/22 07:00 Plt Count 252 K/uL (130-400) 12/01/22 07:00 MPV 10.0 fL (9.4-12.4) 12/01/22 07:00 Immature Gran % (Auto) 0.2 % 12/01/22 07:00 Neut % (Auto) 62.9 % 12/01/22 07:00 Lymph % (Auto) 24.9 % 12/01/22 07:00 [place] % (Auto) 8.2 % 12/01/22 07:00 Eos % (Auto) 3.0 % 12/01/22 07:00 Baso % (Auto) 0.8 % 12/01/22 07:00 Neut # (Auto) 5.75 K/uL (1.40-6.50) 12/01/22 07:00 Lymph # (Auto) 2.27 K/uL (1.2-3.4) 12/01/22 07:00 [place] # (Auto) 0.75 K/uL (0.11-0.59) H 12/01/22 07:00 Eos # (Auto) 0.27 K/uL (0-0.50) 12/01/22 07:00 Baso # (Auto) 0.07 K/uL (0-0.2) 12/01/22 07:00 Immature Gran # (Auto) 0.02 K/uL (0.01-0.20) 12/01/22 07:00 Sodium 139 mmol/L (136-145) 12/01/22 07:00 Potassium 3.7 mmol/L (3.5-5.1) 12/01/22 07:00 Chloride 107 mmol/L (98-107) 12/01/22 07:00 Carbon Dioxide 24 mmol/L (21-32) 12/01/22 07:00 Anion Gap 8 (3-11) 12/01/22 07:00 BUN 13 mg/dl (6-23) 12/01/22 07:00 Creatinine 0.93 mg/dl (0.6-1.4) 12/01/22 07:00 Est Cr Clr Drug Dosing 108.9 ml/min 12/01/22 07:00 Est GFR ( Amer) 113.7 ml/min 12/01/22 07:00 Est GFR (Non-Af Amer) 98.1 ml/min 12/01/22 07:00 BUN/Creatinine Ratio 14.0 (10-20) 12/01/22 07:00 Glucose 109 mg/dl (70-99(Fasting)) H 12/01/22 07:00 POC Glucose 104 mg/dl (70-99) H 12/01/22 10:53 Estimat Average Glucose 108 mg/dl 11/29/22 07:33 Hemoglobin A1c 5.4 % (4.5-5.6) 11/29/22 07:33 Calcium 9.6 mg/dl (8.6-10.3) 12/01/22 07:00 Phosphorus 3.5 mg/dl (2.5-4.9) 11/29/22 07:33 Magnesium 1.3 mg/dl (1.7-2.4) L 11/29/22 07:33 Total Bilirubin 0.4 mg/dl (0.2-1.0) 11/28/22 13:05 AST 18 U/L (13-39) 11/28/22 13:05 ALT 24 U/L (7-52) 11/28/22 13:05 Alkaline Phosphatase 112 U/L (34-104) H 11/28/22 13:05 Troponin I High Sens 2.5 pg/ml (0-20) 11/28/22 13:05 Total Protein 8.0 gm/dl (6.0-8.3) 11/28/22 13:05 Albumin 4.8 gm/dl (3.4-5.0) 11/28/22 13:05 Globulin 3.2 gm/dl (2.5-4.0) 11/28/22 13:05 Albumin/Globulin Ratio 1.5 (0.9-2) 11/28/22 13:05 Lipase 44 U/L (11-82) 11/28/22 13:05 TSH 0.583 uIu/ml (0.300-4.500) 11/28/22 13:05 Urine Color Yellow 11/28/22 12:55 Urine Appearance Clear (Clear) 11/28/22 12:55 Urine pH 8.0 (4.5-7.5) H 11/28/22 12:55 Ur Specific [place] 1.005 (1.000-1.030) 11/28/22 12:55 Urine Protein Negative (Negative) 11/28/22 12:55 Urine Glucose (UA) Negative (Negative) 11/28/22 12:55 Urine Ketones Negative (Negative) 11/28/22 12:55 Urine Blood Negative (Negative) 11/28/22 12:55 Urine Nitrite Negative (Negative) 11/28/22 12:55 Urine Bilirubin Negative (Negative) 11/28/22 12:55 Urine Urobilinogen Negative (Negative) 11/28/22 12:55 Ur Leukocyte Esterase Negative (Negative) 11/28/22 12:55 Salicylates < 3.0 mg/dl (3.0-30) L 11/28/22 13:05 Urine Opiates Screen Neg (Neg) 11/28/22 12:55 Ur Methadone, Qual Neg (Neg) 11/28/22 12:55 Acetaminophen < 3 ug/ml (10-30) L 11/28/22 13:05 Urine Barbiturates Neg (Neg) 11/28/22 12:55 Ur Phencyclidine (PCP) Neg (Neg) 11/28/22 12:55 U Amphetamin/Meth Scrn Neg (Neg) 11/28/22 12:55 MDMA (Ecstasy) Screen Neg (Neg) 11/28/22 12:55 U Benzodiazepines Scrn Neg (Neg) 11/28/22 12:55 Ur Cocaine Metabolite Neg (Neg) 11/28/22 12:55 U Marijuana (THC) Screen Neg (Neg) 11/28/22 12:55 Ethyl Alcohol mg/dL 198.6 mg/dl (<10.0) H 11/28/22 13:05 SARS-CoV-2, RNA, NAAT NEGATIVE (NEGATIVE) 11/28/22 18:[address] 11/28/22 13:00 CT OF THE CERVICAL SPINE WITHOUT CONTRAST CLINICAL HISTORY: Altered mental status. COMPARISON STUDY: Neck CT November 02, 2020. TECHNIQUE: Helical axial images of the cervical spine were obtained without IV contrast. Sagittal and coronal reconstructions were viewed. Automated exposure control was utilized for the study. A dose lowering technique was utilized adhering to the principles of ALARA. FINDINGS: Alignment of the cervical spine is anatomic. Vertebral body heights are maintained. No acute cervical spine fracture or subluxation is present. There is no prevertebral edema. Facet joints are intact. Mild multilevel degenerative changes are present. IMPRESSION: No acute cervical spine fracture or subluxation. ACT 112: Negative or not required by law. Electronically signed by: Lino Hand M.D. 11/28/2022 2:09 PM Chest X-Ray 11/28/22 13:00 XR chest 1V portable CLINICAL HISTORY: Altered mental status. COMPARISON STUDY: Chest radiograph May 28, 2022. Chest CT May 20, 2019. FINDINGS: Lung volumes are normal. Lungs are clear. There is no pneumothorax or pleural effusion. Mild cardiomegaly is unchanged. Mediastinal contours are normal. There is no evidence for pulmonary edema. IMPRESSION: No acute cardiopulmonary findings. ACT 112: Negative or not required by law. Electronically signed by: Lino Hand M.D. 11/28/2022 2:[address] 11/28/22 13:00 CT SCAN OF THE BRAIN WITHOUT IV CONTRAST CLINICAL HISTORY: Change in mental status. COMPARISON STUDY: No priors. TECHNIQUE: Unenhanced axial CT scan of the brain is performed from the vertex to the skull base. A dose lowering technique was utilized adhering to the joanna nciples of ERLIN. FINDINGS: Brain parenchyma: The brain parenchyma is normal in appearance. There is no hemorrhage, mass effect, or evidence of acute territorial ischemia by CT criteria. Caldwell-white matter differentiation is preserved. No extra-axial fluid collection is seen. Ventricles, sulci, cisterns: Normal in configuration. Intracranial vasculature: The visualized intracranial vasculature at the skull base is normal in appearance. Calvarium: Unremarkable. Sinuses and mastoids: There is evidence of previous paranasal sinus surgery. The visualized paranasal sinuses are clear. The mastoid air cells are well pneumatized. Orbits: The bony orbits are grossly intact. IMPRESSION: No acute intracranial abnormality. ACT 112: Negative or not required by law. Electronically signed by: Jay Calvo M.D. 11/28/2022 1:52 PM
[2022-12-01] MEDS: CETIRIZINE HCL 10 MG TABLET PO SCH (20:24)
[2022-12-01] MEDS: ATORVASTATIN 40 MG TAB PO SCH (20:25)
[2022-12-02 07:00] LABS: Basophils # (auto) 0.07 K/uL (0-0.2); Basophils % (auto) 0.9 %; Eosinophils # (auto) 0.25 K/uL (0-0.50); Eosinophils % (auto) 3.2 %; Hematocrit (blood only) 38.8 % (42.0-52.0); Hemoglobin 12.5 g/dl (14.0-18.0); Immature Granulocytes # (auto) 0.03 K/uL (0.01-0.20); Immature Granulocytes % (auto) 0.4 %; Lymphocytes # (auto) 2.45 K/uL (1.2-3.4); Lymphocytes % (auto) 30.9 %; Mean Corpuscular Hemoglobin 27.2 pg (25.0-34.0); Mean Corpuscular Hgb Conc 32.2 g/dL (32.0-36.0); Mean Corpuscular Volume 84.3 fL (80.0-100.0); Mean Platelet Volume 9.7 fL (9.4-12.4); Monocytes # (auto) 0.72 K/uL (0.11-0.59); Monocytes % (auto) 9.1 %; Neutrophils # (auto) 4.41 K/uL (1.40-6.50); Neutrophils % (auto) 55.5 %; Platelet Count 234 K/uL (130-400); RDW Coefficient of Variation 14.5 % (11.5-14.5); White Blood Count 7.93 K/ul (4.8-10.8)
[2022-12-02 07:15] LABS: BUN Creatinine Ratio 17.7 (10-20); Calcium 9.7 mg/dl (8.6-10.3); Creatinine Clr Calc Pharmacy 105.5 ml/min; Est GFR (African American) 109.4 ml/min; Est GFR (Non-African American) 94.4 ml/min; Potassium 3.7 mmol/L (3.5-5.1)
[2022-12-02] MEDS: INSULIN ASPART PER UNIT CHARGE SC SCH ×4 (08:22→21:07)
[2022-12-02] MEDS: amLODIPine BESYLATE 5 MG TAB PO SCH (08:38)
[2022-12-02] MEDS: GABAPENTIN 600 MG TAB PO SCH (08:40)
[2022-12-02] MEDS: METOPROLOL TARTRATE 100 MG TAB PO SCH ×2 (08:40→20:16)
[2022-12-02] MEDS: busPIRone 5 MG TAB PO SCH ×2 (08:41→20:16)
[2022-12-02] MEDS: ASPIRIN 81 MG ECTAB PO SCH (08:41)
[2022-12-02] MEDS: FLUoxetine HCL 20 MG CAP PO SCH (08:41)
[2022-12-02] MEDS: diazePAM 5 MG TABLET PO SCH ×2 (08:41→20:21)
[2022-12-02] MEDS: UMECLIDINIUM BROMIDE 62.5MCG/BLISTER 7 PUFFS/INHALER INH SCH (08:42)
[2022-12-02] MEDS: FLUTICASONE/VILANTEROL 200/25MCG 14 PUFFS/INHALER INH SCH (08:42)
[2022-12-02] MEDS: MULTIVITAMIN TAB PO SCH (08:43)
[2022-12-02] MEDS: FOLIC ACID 1 MG TAB PO SCH (08:43)
[2022-12-02] MEDS: lisinopril 5 MG TAB PO SCH (08:44)
[2022-12-02] MEDS: EZETIMIBE 10 MG TABLET PO SCH (08:44)
[2022-12-02] MEDS: MONTELUKAST SODIUM 10 MG TABLET PO SCH (08:45)
[2022-12-02] MEDS: POTASSIUM CHLORIDE CRTAB 20 MEQ TABCR PO SCH (08:45)
[2022-12-02] MEDS: THIAMINE HCL 100 MG TAB PO SCH (08:45)
[2022-12-02] MEDS: ENOXAPARIN INJ 40 MG/0.4 ML SYR SQ SCH (08:46)
--- NOTE | 2022-12-02 13:51 | Hospitalist Progress Note ---
Date of Service December 02, 2022 Assessment & Plan (1) Alcohol abuse with withdrawal: Plan: Patient is 47 y/o M with PMH alcohol use disorder , insulin-dependent DM II, HTN, dyslipidemia, moderate persistent asthma presented to ER for suicidal ideations and alcohol abuse. Alcohol abuse disorder Alcohol withdrawal --Blood alcohol level 198.6 Completed gabapentin protocol for alcohol withdrawal Taper down Valium as able Continue thiamine, folic acid Plan to discharge to drug rehab facility once arranged Case management to help with discharge planning (2) Suicidal ideation: (3) Depression: Plan: History of depression, anxiety. Continue fluoxetine, buspirone Psychiatry evaluated: Suicide precautions discontinued. Inpatient substance use disorder treatment following discharge recommended. Continue current medications (4) Insulin dependent type 2 diabetes mellitus: Plan: A1c: 4.9 on 05/17/2022 Hold home metformin Novolin 70/30 Monitor BSG NovoLog sliding scale, further monitored BSG's and may need to further adjust insulin A1c of 5.4%. (5) Asthma: Plan: No signs current exacerbation Continue home inhalers, montelukast (6) Hypertension: Plan: Blood pressure relatively low Hold amlodipine Continue stable, metoprolol with holding parameters Monitor BP (7) Dyslipidemia: Plan: Continue atorvastatin, Zetia DVT Prophylaxis Lovenox SQ Code Status Full Code Admission and Anticipated Discharge Date Admission Date: November 28, 2022 Subjective Patient is seen and examined at bedside Mildly anxious during my encounter Denies any chest pain, shortness of breath, dizziness, nausea, vomiting, abdominal pain Waiting for drug rehab placement Review of Systems Review of Systems: All systems reviewed & are unremarkable except as noted in Subjective Physical Exam Physical Exam: Physical Exam: Vitals signs as noted above General Appearance:Moderately built and nourished, no apparent distress Head: normocephalic, Atraumatic Eyes: normal inspection, EOMI Neck: supple, Trachea midline Respiratory/Chest: Normal breath sounds, CTA, No accessory muscle use Cardiovascular: S1, S2, No murmur Abdomen/GI:Soft, Non tender, Bowel sounds present Extremities/Musculoskeletal:normal inspection, no edema Neurologic/Psych:AAOX3, grossly no focal neurological deficits Skin: normal color, warm Results & Data Results & Data Vital Signs (Past 12 Hours) Vital Signs Temp Pulse Pulse Resp BP Pulse Ox O2 Del Method 12/02/22 11:51 36.6 C 69 14 115/79 99 Room Air 08/06/23 08:00 36.7 C 67 18 126/76 97 Room Air 12/02/22 07:55 36.7 C 74 16 108/73 98 Room Air 12/02/22 07:17 73 12/02/22 04:04 36.4 C L 84 18 135/87 98 Room Air Laboratory Results Short CBC 12/02/22 Range/Units 06:35 WBC 7.93 (4.8-10.8) K/ul Hgb 12.5 L (14.0-18.0) g/dl Hct 38.8 L (42.0-52.0) % Plt Count 234 (130-400) K/uL BMP 12/02/22 06:35 Sodium 140 Potassium 3.7 Chloride 108 H Carbon Dioxide 24 BUN 17 Creatinine 0.96 Glucose 127 H Calcium 9.7
[2022-12-02] MEDS: ATORVASTATIN 40 MG TAB PO SCH (20:16)
[2022-12-02] MEDS: CETIRIZINE HCL 10 MG TABLET PO SCH (20:16)
[2022-12-03 08:10] LABS: BUN Creatinine Ratio 21.8 (10-20); Calcium 9.6 mg/dl (8.6-10.3); Creatinine Clr Calc Pharmacy 116.4 ml/min; Est GFR (Non-African American) 103.5 ml/min; Magnesium 1.6 mg/dl (1.7-2.4)
[2022-12-03] MEDS: POTASSIUM CHLORIDE CRTAB 20 MEQ TABCR PO SCH (08:24)
[2022-12-03] MEDS: FLUoxetine HCL 20 MG CAP PO SCH (08:25)
[2022-12-03] MEDS: MULTIVITAMIN TAB PO SCH (08:25)
[2022-12-03] MEDS: lisinopril 5 MG TAB PO SCH (08:25)
[2022-12-03] MEDS: METOPROLOL TARTRATE 100 MG TAB PO SCH (08:26)
[2022-12-03] MEDS: busPIRone 5 MG TAB PO SCH ×2 (08:27→20:03)
[2022-12-03] MEDS: EZETIMIBE 10 MG TABLET PO SCH (08:27)
[2022-12-03] MEDS: ASPIRIN 81 MG ECTAB PO SCH (08:27)
[2022-12-03] MEDS: MONTELUKAST SODIUM 10 MG TABLET PO SCH (08:27)
[2022-12-03] MEDS: FOLIC ACID 1 MG TAB PO SCH (08:27)
[2022-12-03] MEDS: THIAMINE HCL 100 MG TAB PO SCH (08:27)
[2022-12-03] MEDS: ENOXAPARIN INJ 40 MG/0.4 ML SYR SQ SCH (08:28)
[2022-12-03] MEDS: FLUTICASONE/VILANTEROL 200/25MCG 14 PUFFS/INHALER INH SCH (08:28)
[2022-12-03] MEDS: UMECLIDINIUM BROMIDE 62.5MCG/BLISTER 7 PUFFS/INHALER INH SCH (08:29)
[2022-12-03] MEDS: INSULIN ASPART PER UNIT CHARGE SC SCH ×4 (08:35→20:46)
[2022-12-03] MEDS: diazePAM 5 MG TABLET PO SCH (08:35)
[2022-12-03] MEDS: MAGNESIUM CHLORIDE W/CALCIUM 64MG DELAYED REL TAB PO SCH ×2 (10:14→20:04)
--- NOTE | 2022-12-03 15:49 | Hospitalist Progress Note ---
Date of Service December 03, 2022 Assessment & Plan (1) Alcohol abuse with withdrawal: Plan: Patient is 47 y/o M with PMH alcohol use disorder , insulin-dependent DM II, HTN, dyslipidemia, moderate persistent asthma presented to ER for suicidal ideations and alcohol abuse. Alcohol abuse disorder Alcohol withdrawal --Blood alcohol level 198.6 Completed gabapentin protocol for alcohol withdrawal Taper down Valium as able Continue thiamine, folic acid Case management to help with discharge planning Waiting for rehab placement (2) Suicidal ideation: (3) Depression: Plan: History of depression, anxiety. Continue fluoxetine, buspirone Psychiatry evaluated: Suicide precautions discontinued. Inpatient substance use disorder treatment following discharge recommended. Continue current medications (4) Insulin dependent type 2 diabetes mellitus: Plan: A1c: 4.9 on 05/17/2022 Hold home metformin Novolin 70/30 Monitor BSG NovoLog sliding scale, further monitored BSG's and may need to further adjust insulin A1c of 5.4%. (5) Asthma: Plan: No signs current exacerbation Continue home inhalers, montelukast (6) Hypertension: Plan: Blood pressure relatively low Hold amlodipine, lisinopril Continue metoprolol--decreased to 50 mg twice daily with holding parameters Monitor BP (7) Dyslipidemia: Plan: Continue atorvastatin, Zetia DVT Prophylaxis Lovenox SQ Code Status Full Code Disposition Rehab when accepted Admission and Anticipated Discharge Date Admission Date: November 28, 2022 Subjective Patient is seen and examined at bedside No new complaints Denies any chest pain, shortness of breath, dizziness, nausea, vomiting, abdominal pain BP low today Waiting for drug rehab placement Review of Systems Review of Systems: All systems reviewed & are unremarkable except as noted in Subjective Physical Exam Physical Exam: Physical Exam: Vitals signs as noted above General Appearance:Moderately built and nourished, no apparent distress Head: normocephalic, Atraumatic Eyes: normal inspection, EOMI Neck: supple, Trachea midline Respiratory/Chest: Normal breath sounds, CTA, No accessory muscle use Cardiovascular: S1, S2, No murmur Abdomen/GI:Soft, Non tender, Bowel sounds present Extremities/Musculoskeletal:normal inspection, no edema Neurologic/Psych:AAOX3, grossly no focal neurological deficits Skin: normal color, warm Results & Data Results & Data Vital Signs (Past 12 Hours) Vital Signs Temp Pulse Pulse Resp BP Pulse Ox O2 Del Method 12/03/22 15:46 36.9 C 68 18 125/69 95 Room Air 12/03/22 11:30 36.8 C 75 18 118/74 95 Room Air 12/03/22 11:12 65 12/03/22 07:30 36.5 C 87 19 101/68 97 Room Air 12/03/22 04:48 36.5 C 70 19 94/58 L 97 Room Air Laboratory Results BMP 12/03/22 06:43 Sodium 140 Potassium 4.0 Chloride 107 Carbon Dioxide 27 BUN 19 Creatinine 0.87 Glucose 91 Calcium 9.6
[2022-12-03] MEDS: CETIRIZINE HCL 10 MG TABLET PO SCH (20:04)
[2022-12-03] MEDS: ATORVASTATIN 40 MG TAB PO SCH (20:04)
[2022-12-03] MEDS: METOPROLOL TARTRATE 50 MG TAB PO SCH (20:04)
[2022-12-04 08:34] LABS: Hematocrit (blood only) 42.6 % (42.0-52.0); Hemoglobin 13.9 g/dl (14.0-18.0); Mean Corpuscular Hemoglobin 27.5 pg (25.0-34.0); Mean Corpuscular Hgb Conc 32.6 g/dL (32.0-36.0); Mean Corpuscular Volume 84.4 fL (80.0-100.0); Mean Platelet Volume 10.3 fL (9.4-12.4); Platelet Count 222 K/uL (130-400); RDW Coefficient of Variation 14.7 % (11.5-14.5); RDW Standard Deviation 44.1 fL (36.4-46.3); Red Blood Count 5.05 M/uL (4.70-6.10); White Blood Count 8.72 K/ul (4.8-10.8)
[2022-12-04] MEDS: MAGNESIUM CHLORIDE W/CALCIUM 64MG DELAYED REL TAB PO SCH ×2 (08:36→20:37)
[2022-12-04] MEDS: METOPROLOL TARTRATE 50 MG TAB PO SCH (08:36)
[2022-12-04] MEDS: busPIRone 5 MG TAB PO SCH ×2 (08:36→20:38)
[2022-12-04] MEDS: FOLIC ACID 1 MG TAB PO SCH (08:37)
[2022-12-04] MEDS: ASPIRIN 81 MG ECTAB PO SCH (08:37)
[2022-12-04] MEDS: MULTIVITAMIN TAB PO SCH (08:37)
[2022-12-04] MEDS: POTASSIUM CHLORIDE CRTAB 20 MEQ TABCR PO SCH (08:38)
[2022-12-04] MEDS: MONTELUKAST SODIUM 10 MG TABLET PO SCH (08:38)
[2022-12-04] MEDS: FLUTICASONE/VILANTEROL 200/25MCG 14 PUFFS/INHALER INH SCH (08:38)
[2022-12-04] MEDS: THIAMINE HCL 100 MG TAB PO SCH (08:39)
[2022-12-04] MEDS: FLUoxetine HCL 20 MG CAP PO SCH (08:39)
[2022-12-04] MEDS: UMECLIDINIUM BROMIDE 62.5MCG/BLISTER 7 PUFFS/INHALER INH SCH (08:39)
[2022-12-04] MEDS: ENOXAPARIN INJ 40 MG/0.4 ML SYR SQ SCH (08:39)
[2022-12-04] MEDS: INSULIN ASPART PER UNIT CHARGE SC SCH ×4 (08:40→20:41)
[2022-12-04 08:51] LABS: BUN Creatinine Ratio 14.6 (10-20); Calcium 9.9 mg/dl (8.6-10.3); Creatinine Clr Calc Pharmacy 105.5 ml/min; Est GFR (African American) 109.4 ml/min; Est GFR (Non-African American) 94.4 ml/min; Magnesium 1.7 mg/dl (1.7-2.4); Potassium 3.8 mmol/L (3.5-5.1)
[2022-12-04] MEDS ORDERED: METOPROLOL TARTRATE 25 MG TAB PO ONE (09:34)
[2022-12-04] MEDS: EZETIMIBE 10 MG TABLET PO SCH (10:33)
--- NOTE | 2022-12-04 15:29 | Hospitalist Progress Note ---
Date of Service December 04, 2022 Assessment & Plan (1) Alcohol abuse with withdrawal: Plan: Patient is 47 y/o M with PMH alcohol use disorder , insulin-dependent DM II, HTN, dyslipidemia, moderate persistent asthma presented to ER for suicidal ideations and alcohol abuse. Alcohol abuse disorder Alcohol withdrawal --Blood alcohol level 198.6 Completed gabapentin protocol for alcohol withdrawal Taper down Valium as able Continue thiamine, folic acid Case management to help with discharge planning Waiting for rehab placement No signs of alcohol withdrawal currently (2) Suicidal ideation: (3) Depression: Plan: History of depression, anxiety. Continue fluoxetine, buspirone Psychiatry evaluated: Suicide precautions discontinued. Inpatient substance use disorder treatment following discharge recommended. Continue current medications (4) Insulin dependent type 2 diabetes mellitus: Plan: A1c: 4.9 on 05/17/2022 Hold home metformin Novolin 70/30 Monitor BSG NovoLog sliding scale, further monitored BSG's and may need to further adjust insulin A1c of 5.4%. (5) Asthma: Plan: No signs current exacerbation Continue home inhalers, montelukast (6) Hypertension: Plan: Blood pressure better today Held amlodipine, lisinopril Continue metoprolol--decreased to 75 mg twice daily Monitor BP Adjust medications as needed (7) Dyslipidemia: Plan: Continue atorvastatin, Zetia DVT Prophylaxis Lovenox SQ Code Status Full Code Disposition Rehab when accepted Admission and Anticipated Discharge Date Admission Date: November 28, 2022 Subjective Patient is seen and examined at bedside Reports frustration waiting for placement Tachycardic this morning, later improved No new complaints Denies any chest pain, shortness of breath, dizziness, nausea, vomiting, abdominal pain Blood pressure better today Waiting for drug rehab placement Review of Systems Review of Systems: All systems reviewed & are unremarkable except as noted in Subjective Physical Exam Physical Exam: Physical Exam: Vitals signs as noted above General Appearance:Moderately built and nourished, no apparent distress Head: normocephalic, Atraumatic Eyes: normal inspection, EOMI Neck: supple, Trachea midline Respiratory/Chest: Normal breath sounds, CTA, No accessory muscle use Cardiovascular: S1, S2, No murmur Abdomen/GI:Soft, Non tender, Bowel sounds present Extremities/Musculoskeletal:normal inspection, no edema Neurologic/Psych:AAOX3, grossly no focal neurological deficits Skin: normal color, warm Results & Data Results & Data Vital Signs (Past 12 Hours) Vital Signs Temp Pulse Resp BP BP Pulse Ox O2 Del Method 12/04/22 12:02 36.9 C 78 129/87 132/87 Room Air 12/04/22 08:05 36.7 C 109 H 18 115/66 97 Room Air Laboratory Results Short CBC 12/04/22 Range/Units 07:41 WBC 8.72 (4.8-10.8) K/ul Hgb 13.9 L (14.0-18.0) g/dl Hct 42.6 (42.0-52.0) % Plt Count 222 (130-400) K/uL BMP 12/04/22 07:41 Sodium 140 Potassium 3.8 Chloride 107 Carbon Dioxide 24 BUN 14 Creatinine 0.96 Glucose 100 H Calcium 9.9
[2022-12-04] MEDS: ATORVASTATIN 40 MG TAB PO SCH (20:37)
[2022-12-04] MEDS: CETIRIZINE HCL 10 MG TABLET PO SCH (20:38)
[2022-12-04] MEDS: METOPROLOL TARTRATE 25 MG TAB PO SCH (20:40)
[2022-12-05] MEDS: INSULIN ASPART PER UNIT CHARGE SC SCH (08:39)
[2022-12-05] MEDS: FLUTICASONE/VILANTEROL 200/25MCG 14 PUFFS/INHALER INH SCH (08:39)
[2022-12-05] MEDS: UMECLIDINIUM BROMIDE 62.5MCG/BLISTER 7 PUFFS/INHALER INH SCH (08:40)
[2022-12-05] MEDS: ENOXAPARIN INJ 40 MG/0.4 ML SYR SQ SCH (08:40)
[2022-12-05] MEDS: MULTIVITAMIN TAB PO SCH (08:40)
[2022-12-05] MEDS: ASPIRIN 81 MG ECTAB PO SCH (08:41)
[2022-12-05] MEDS: EZETIMIBE 10 MG TABLET PO SCH (08:41)
[2022-12-05] MEDS: FLUoxetine HCL 20 MG CAP PO SCH (08:41)
[2022-12-05] MEDS: THIAMINE HCL 100 MG TAB PO SCH (08:42)
[2022-12-05] MEDS: MONTELUKAST SODIUM 10 MG TABLET PO SCH (08:42)
[2022-12-05] MEDS: MAGNESIUM CHLORIDE W/CALCIUM 64MG DELAYED REL TAB PO SCH (08:42)
[2022-12-05] MEDS: FOLIC ACID 1 MG TAB PO SCH (08:42)
[2022-12-05] MEDS: POTASSIUM CHLORIDE CRTAB 20 MEQ TABCR PO SCH (08:42)
[2022-12-05] MEDS: busPIRone 5 MG TAB PO SCH (08:42)
[2022-12-05] MEDS: METOPROLOL TARTRATE 25 MG TAB PO SCH (08:43)
--- NOTE | 2022-12-05 10:11 | Hospitalist Progress Note ---
Date of Service December 05, 2022 Assessment & Plan (1) Alcohol abuse with withdrawal: Plan: Patient is 47 y/o M with PMH alcohol use disorder , insulin-dependent DM II, HTN, dyslipidemia, moderate persistent asthma presented to ER for suicidal ideations and alcohol abuse. Alcohol abuse disorder Alcohol withdrawal --Blood alcohol level 198.6 Completed gabapentin protocol for alcohol withdrawal Taper down Valium as able Continue thiamine, folic acid Case management to help with discharge planning Plan to be discharged to rehab facility today (2) Suicidal ideation: (3) Depression: Plan: History of depression, anxiety. Continue fluoxetine, buspirone Psychiatry evaluated: Suicide precautions discontinued. Inpatient substance use disorder treatment following discharge recommended. Continue current medications (4) Insulin dependent type 2 diabetes mellitus: Plan: A1c: 4.9 on 05/17/2022 Hold home metformin Novolin 70/30 Monitor BSG NovoLog sliding scale, further monitored BSG's and may need to further adjust insulin A1c of 5.4%. (5) Asthma: Plan: No signs current exacerbation Continue home inhalers, montelukast (6) Hypertension: Plan: Blood pressure better today Held amlodipine, lisinopril Continue metoprolol 100 mg twice daily Monitor BP Adjust medications as needed (7) Dyslipidemia: Plan: Continue atorvastatin, Zetia DVT Prophylaxis Lovenox SQ Code Status Full Code Disposition Rehab Admission and Anticipated Discharge Date Admission Date: November 28, 2022 Subjective Patient is seen and examined at bedside States feeling well Offers no new complaints Plan to be discharged to rehab facility today Denies any chest pain, shortness of breath, dizziness, nausea, vomiting, abdominal pain Review of Systems Review of Systems: All systems reviewed & are unremarkable except as noted in Subjective Physical Exam Physical Exam: Physical Exam: Vitals signs as noted above General Appearance:Moderately built and nourished, no apparent distress Head: normocephalic, Atraumatic Eyes: normal inspection, EOMI Neck: supple, Trachea midline Respiratory/Chest: Normal breath sounds, CTA, No accessory muscle use Cardiovascular: S1, S2, No murmur Abdomen/GI:Soft, Non tender, Bowel sounds present Extremities/Musculoskeletal:normal inspection, no edema Neurologic/Psych:AAOX3, grossly no focal neurological deficits Skin: normal color, warm Results & Data Results & Data Vital Signs (Past 12 Hours) Vital Signs Temp Pulse Resp BP Pulse Ox O2 Del Method 12/05/22 07:46 36.4 C L 82 18 110/75 99 Room Air
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
== END 2022-12-05 11:10 | disposition alcohol treatment (31) | DRG 897 ==
LOC: ED 12:36 → SUATTDRO 19:26 → EDINP 19:26 → 2S 11-29 14:18 → 3W 12-04 19:13